=== PATIENT | male | born 1940 | race Caucasian/White ===

== ENCOUNTER 2020-10-10 15:00 | Inpatient (IN) | payer MEDICARE ==
[~2020-10-10] VITALS: Ht 172.7 cm; Wt 71.5 kg
[2020-10-10 15:30] VITALS: BP 144/81
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
[2020-10-10] MEDS ORDERED: MAG HYDROX/AL HYDROX/SIMETH 30 ML ORAL.SUSP PO PRN (17:00)
[2020-10-10] MEDS ORDERED: MAGNESIUM HYDROXIDE 2,400 MG/30 ML ORAL.SUSP. PO PRN (17:00)
[2020-10-10] MEDS ORDERED: METHYL SALICYLATE/MENTHOL TOPICAL OINTMENT 57GM TUBE. TP PRN (17:00)
[2020-10-10] MEDS ORDERED: ACETAMINOPHEN 325 MG TABLET PO PRN (17:00)
[2020-10-10] MEDS ORDERED: DOCUSATE SODIUM 100 MG CAPSULE PO PRN (17:15)
[2020-10-10] MEDS ORDERED: POLYETHYLENE GLYCOL 3350 17 GM PACKET. PO PRN (17:15)
[2020-10-10] MEDS ORDERED: ARIP5TAB13 PO (17:32)
[2020-10-10] MEDS ORDERED: POTA10TA12 PO (17:32)
[2020-10-10] MEDS ORDERED: ASPI-889 PO (17:32)
[2020-10-10] MEDS ORDERED: MIRT15TA90 PO (17:32)
[2020-10-10] MEDS ORDERED: SERT25TA PO (17:32)
[2020-10-10] MEDS ORDERED: CYAN100031 PO (17:32)
[2020-10-10] MEDS ORDERED: FLUT9.9S NS (17:32)
[2020-10-10] MEDS ORDERED: CARB1TAB PO (17:32)
[2020-10-10] MEDS ORDERED: LEVO100T82 PO (17:32)
[2020-10-10] MEDS ORDERED: ATOR20TA58 PO (17:32)
[2020-10-10] MEDS ORDERED: QUET25TA PO (17:32)
[2020-10-10] MEDS ORDERED: SERT20OR3 PO (17:32)
[2020-10-10] MEDS ORDERED: DOCU-109 PO (17:32)
[2020-10-10] MEDS ORDERED: CLOT15CR23 TP (17:32)
[2020-10-10] MEDS ORDERED: FINA5TAB4 PO (17:32)
[2020-10-10] MEDS ORDERED: CHOL200010 PO (17:32)
[2020-10-10] MEDS ORDERED: POLY17PO28 PO (17:32)
[2020-10-10] MEDS ORDERED: ACET325T9 PO (17:32)
[2020-10-10] MEDS ORDERED: DIVA250T PO (17:32)
[2020-10-10] MEDS ORDERED: AMIO200T6 PO (17:32)
[2020-10-10] MEDS: ACETAMINOPHEN 325 MG TABLET PO SCH ×2 (17:54→18:00)
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
[2020-10-10] MEDS ORDERED: CLOTRIMAZOLE 1% TOPICAL CREAM 30GM TUBE. TP SCH (21:00)
[2020-10-10] MEDS ORDERED: DIVALPROEX ER 250 MG TAB.ER.24H. PO SCH (21:00)
--- NOTE | 2020-10-10 21:09 | PDOC ---
Exam Note: Tommy Note: Please also refer to the separate dictated note~for this date of service dictated separately.~Patient seen individually. Discussed the patient with Nursing staff reviewed the chart.~Reviewed interim history and current functioning. Reviewed vital signs,~Labs/ Radiology~and current medications noted below. Continue current treatment with the changes noted in the dictated addendum note Assessment: Vital Signs/I&O: Vital Signs Date Time Temp Pulse Resp B/P (MAP) Pulse Ox O2 Delivery O2 Flow Rate FiO2 10/10/20 15:30 98.1 79 18 144/81 (102) 99 Room Air Current Medications: Meds: Current Medications Medications (Trade) Dose Ordered Sig/Matilde Route PRN Reason Start Time Stop Time Status Last Admin Dose Admin Acetaminophen (Tylenol) 650 mg PRN Q6HRS PRN PO MILD PAIN / TEMP > 100.3'F 10/10/20 17:00 Multi-Ingredient Ointment (Analgesic [place]) 1 ike PRN QID PRN TP MUSCLE PAIN 10/10/20 17:00 Al Hydroxide/Mg Hydroxide (Mylanta Plus Xs) 15 ml PRN AFTMEALHC PRN PO DYSPEPSIA 10/10/20 17:00 Magnesium Hydroxide (Milk Of Magnesia) 2,400 mg PRN QHS PRN PO CONSTIPATION 10/10/20 17:00 Acetaminophen (Tylenol) 650 mg Q6HRS PO 10/10/20 18:00 Amiodarone HCl (Cordarone) 200 mg DAILY PO 10/11/20 09:00 Aripiprazole (Abilify) 5 mg QHS PO 10/10/20 21:00 Aspirin (Aspirin Enteric Coated) 81 mg DAILY PO 10/11/20 09:00 Atorvastatin Calcium (Lipitor) 20 mg QHS PO 10/10/20 21:00 Carbidopa/Levodopa (Sinemet 10/100) 1 tab QID PO 10/10/20 21:00 Clotrimazole (Lotrimin) 15 ike BID TP 10/10/20 21:00 10/10/20 17:54 DC Divalproex Sodium (Depakote Er) 250 mg BID PO 10/10/20 21:00 10/10/20 19:57 DC Docusate Sodium (Colace) 100 mg PRN BID PRN PO CONSTIPATION 10/10/20 17:15 Finasteride (Proscar) 5 mg QHS PO 10/10/20 21:00 Levothyroxine Sodium (Synthroid) 100 mcg DAILY06 PO 10/11/20 06:00 Mirtazapine (Remeron Tiki-Tab) 15 mg QHS PO 10/10/20 21:00 Polyethylene Glycol (miraLAX) 17 gm PRN BID PRN PO constipation 10/10/20 17:15 Potassium Chloride (Klor-Con) 10 meq DAILY PO 10/11/20 09:00 Quetiapine Fumarate (SEROquel) 25 mg BID PO 10/10/20 21:00 Sertraline HCl (Zoloft Oral Conc) 20 mg DAILY PO 10/11/20 09:00 UNV Sertraline HCl (Zoloft) 25 mg DAILY PO 10/11/20 09:00 Vitamin D (Vitamin D3) 2,000 unit DAILY PO 10/11/20 09:00 Cyanocobalamin (Vitamin B-12) 1,000 mcg DAILY PO 10/11/20 09:00 Fluticasone Propionate (Flonase) 1 spray DAILY NS 10/11/20 09:00 Influenza Virus Vaccine Quadrival (Fluzone Quad Syringe) 0.5 ml ONCE ONCE VAX IM 10/11/20 09:00 10/11/20 09:01 Olanzapine (ZyPREXA ZYDIS) 5 mg PRN Q2HR PRN PO PSYCHOSIS 10/10/20 18:30 Divalproex Sodium (Depakote Sprinkles) 125 mg BID PO 10/10/20 21:00 I have reviewed the current psychotropics carefully including drug interactions. Risk benefit ratio favors no change other than as noted in my dictated progress note. Diagnosis: Problems: (1) Major neurocognitive disorder JORGE COLLAZO MD Oct 10, 2020 21:09
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
--- NOTE | 2020-10-10 21:22 | PDOC ---
Exam Note: Tommy Note: Please also refer to the separate dictated note~for this date of service dictated separately.~Patient seen individually. Discussed the patient with Nursing staff reviewed the chart.~Reviewed interim history and current functioning. Reviewed vital signs,~Labs/ Radiology~and current medications noted below. Continue current treatment with the changes noted in the dictated addendum note Assessment: Vital Signs/I&O: Vital Signs Date Time Temp Pulse Resp B/P (MAP) Pulse Ox O2 Delivery O2 Flow Rate FiO2 10/10/20 15:30 98.1 79 18 144/81 (102) 99 Room Air Current Medications: I have reviewed the current psychotropics carefully including drug interactions. Risk benefit ratio favors no change other than as noted in my dictated progress note. 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
[2020-10-11] MEDS: ARIPiprazole 5 MG TABLET PO SCH ×2 (00:23→19:35)
[2020-10-11] MEDS: QUEtiapine 25 MG TABLET. PO SCH ×3 (00:23→19:37)
[2020-10-11] MEDS: MIRTAZAPINE ODT 15 MG TAB.RAPDIS. PO SCH ×2 (00:24→19:36)
[2020-10-11] MEDS: CARBIDOPA/LEVODOPA 10/100MG TABLET PO SCH ×5 (00:24→19:36)
[2020-10-11] MEDS: FINASTERIDE 5 MG TABLET. PO SCH ×2 (00:24→19:35)
[2020-10-11] MEDS: DIVALPROEX 125 MG CAP.SPRINK PO SCH ×3 (00:24→19:36)
[2020-10-11] MEDS: ATORVASTATIN CALCIUM 20 MG TABLET PO SCH ×2 (00:25→19:37)
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
[2020-10-11] MEDS: LEVOTHYROXINE 100 MCG TABLET PO SCH (05:21)
[2020-10-11 05:34] VITALS: BP 111/47
[2020-10-11] MEDS: ACETAMINOPHEN 325 MG TABLET PO SCH ×4 (05:42→17:20)
[2020-10-11 06:34] LABS: BASO % 0 % (0-3); EOS % 0 % (0-3); HEMATOCRIT 36.1 % (39.0-53.0); HEMOGLOBIN 11.3 g/dL (13.0-17.5); LYMPH # 1.6 x10^3/uL (1.0-4.8); LYMPH % 21 % (24-48); MEAN CORPUSCULAR HEMOGLOBIN 29 pg (25-35); MEAN CORPUSCULAR HGB CONC 31 g/dL (31-37); MEAN CORPUSCULAR VOLUME 93 fL (79-100); MONO % 13 % (0-9); NEUT # 5.2 x10^3uL (1.8-7.7); NEUT % 66 % (31-73); PLATELET COUNT 204 x10^3/uL (140-400); RED BLOOD COUNT 3.88 x10^6/uL (4.30-5.70); WHITE BLOOD COUNT 7.9 x10^3/uL (4.0-11.0)
[2020-10-11 06:40] LABS: ALBUMIN 3.5 g/dL (3.4-5.0); ALBUMIN/GLOBULIN RATIO 1.1 (1.0-1.7); ALK PHOS 67 U/L (46-116); ALT (SGPT) 17 U/L (16-63); ANION GAP 8 (6-14); AST (SGOT) 22 U/L (15-37); BLOOD UREA NITROGEN 27 mg/dL (8-26); BUN/CREATININE RATIO 21 (6-20); CARBON DIOXIDE 30 mmol/L (21-32); CHLORIDE 105 mmol/L (98-107); CREATININE 1.3 mg/dL (0.7-1.3); GLUCOSE 86 mg/dL (70-99); POTASSIUM 4.3 mmol/L (3.5-5.1); SODIUM 143 mmol/L (136-145); TOTAL BILIRUBIN 0.6 mg/dL (0.2-1.0); TOTAL PROTEIN 6.8 g/dL (6.4-8.2); VAL ACID 33 mcg/mL (50-100)
[2020-10-11 06:49] LABS: BACTERIA,URINE FEW /HPF (0-FEW); BILIRUBIN,URINE NEG (NEG); CLARITY,URINE HAZY; COLOR,URINE AMBER; GLUCOSE,URINE NEG (NEG); NITRITE,URINE NEG (NEG); RBC,URINE OCC /HPF (0-2); SQUAMOUS EPITHELIAL CELL,UR FEW /LPF
[2020-10-11 06:50] LABS: HYALINE CASTS, URINE MOD /HPF
[2020-10-11] MEDS: CHOLECALCIFEROL (VITAMIN D3) 1,000 UNIT TABLET PO SCH (08:39)
[2020-10-11] MEDS: AMIODARONE HCL 200 MG TABLET. PO SCH (08:39)
[2020-10-11] MEDS: CYANOCOBALAMIN (VITAMIN B-12) 1,000 MCG TABLET. PO SCH (08:39)
[2020-10-11] MEDS: ASPIRIN ENTERIC COATED 81 MG TABLET.DR. PO SCH (08:39)
[2020-10-11] MEDS: POTASSIUM CHLORIDE 10 MEQ TABLET.ER. PO SCH (08:39)
[2020-10-11] MEDS: FLUTICASONE 50MCG/NASAL SPRAY 16GM BOTTLE. NS SCH (08:40)
[2020-10-11] MEDS: SERTRALINE 25 MG TABLET. PO SCH (08:40)
[2020-10-11] MEDS ORDERED: FLU VACC QS 2020-21(6MOS+)/PF 0.5 ML SYRINGE. VAX IM ONE (09:00)
[2020-10-11] MEDS ORDERED: SERTRALINE 20 MG/ML PO SCH (09:00)
--- NOTE | 2020-10-11 10:56 | NUR ---
Nursing note: Pt was in quiet room at time of shift change. He can be irritable and labile at times, but has been mostly pleasant this morning. He is compliant with meds whole and cooperative with assessment. Pt has had some hallucinations this morning, talking to people who aren't there. He denies having any pain. He is currently sitting quietly in his wheelchair in the hallway. Will continue to monitor.
[2020-10-11 11:12] LABS: THYROXINE 9.2 ug/dL (4.5-12.0)
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
[2020-10-11 15:40] VITALS: BP 95/63
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
[2020-10-11] MEDS ORDERED: traZODone 50 MG TABLET. PO PRN (16:15)
--- NOTE | 2020-10-11 21:15 | PDOC ---
Exam Note: Tommy Note: Please also refer to the separate dictated note~for this date of service dictated separately.~Patient seen individually. Discussed the patient with Nursing staff reviewed the chart.~Reviewed interim history and current functioning. Reviewed vital signs,~Labs/ Radiology~and current medications noted below. Continue current treatment with the changes noted in the dictated addendum note Assessment: Vital Signs/I&O: Vital Signs Date Time Temp Pulse Resp B/P (MAP) Pulse Ox O2 Delivery O2 Flow Rate FiO2 10/11/20 15:40 97.7 90 18 95/63 (74) 98 Room Air I & O 10/10/20 10/10/20 10/11/20 15:00 23:00 07:00 Intake Total 60 ml Balance 60 ml Labs: Laboratory Tests Test 10/11/20 05:15 10/11/20 06:00 Urine Collection Type Void Urine Color Susi Urine Clarity Hazy Urine pH 5.5 Urine Specific [place] 1.025 Urine Protein 30 mg/dl (NEG-TRACE) Urine Glucose (UA) Neg mg/dL (NEG) Urine Ketones (Stick) 15 mg/dL (NEG) Urine Blood Neg (NEG) Urine Nitrite Neg (NEG) Urine Bilirubin Neg (NEG) Urine Urobilinogen Dipstick 1.0 mg/dL (0.2 mg/dL) Urine Leukocyte Esterase Neg (NEG) Urine RBC Occ /HPF (0-2) Urine WBC 1-4 /HPF (0-4) Urine Squamous Epithelial Cells Few /LPF Urine Bacteria Few /HPF (0-FEW) Urine Hyaline Casts Mod /HPF Urine Mucus Mod /LPF White Blood Count 7.9 x10^3/uL (4.0-11.0) Red Blood Count 3.88 x10^6/uL (4.30-5.70) L Hemoglobin 11.3 g/dL (13.0-17.5) L Hematocrit 36.1 % (39.0-53.0) L Mean Corpuscular Volume 93 fL (79-100) Mean Corpuscular Hemoglobin 29 pg (25-35) Mean Corpuscular Hemoglobin Concent 31 g/dL (31-37) Red Cell Distribution Width 18.0 % (11.5-14.5) H Platelet Count 204 x10^3/uL (140-400) Neutrophils (%) (Auto) 66 % (31-73) Lymphocytes (%) (Auto) 21 % (24-48) L Monocytes (%) (Auto) 13 % (0-9) H Eosinophils (%) (Auto) 0 % (0-3) Basophils (%) (Auto) 0 % (0-3) Neutrophils # (Auto) 5.2 x10^3uL (1.8-7.7) Lymphocytes # (Auto) 1.6 x10^3/uL (1.0-4.8) Monocytes # (Auto) 1.0 x10^3/uL (0.0-1.1) Eosinophils # (Auto) 0.0 x10^3/uL (0.0-0.7) Basophils # (Auto) 0.0 x10^3/uL (0.0-0.2) Prothrombin Time 11.1 SEC (9.4-11.4) Prothrombin Time INR 1.1 (0.9-1.1) D-Dimer (Leslie) 1.56 mg/L (0.00-0.50) H Sodium Level 143 mmol/L (136-145) Potassium Level 4.3 mmol/L (3.5-5.1) Chloride Level 105 mmol/L (98-107) Carbon Dioxide Level 30 mmol/L (21-32) Anion Gap 8 (6-14) Blood Urea Nitrogen 27 mg/dL (8-26) H Creatinine 1.3 mg/dL (0.7-1.3) Estimated GFR (Cockcroft-Gault) 53.0 BUN/Creatinine Ratio 21 (6-20) H Glucose Level 86 mg/dL (70-99) Calcium Level 9.0 mg/dL (8.5-10.1) Magnesium Level 2.0 mg/dL (1.8-2.4) Total Bilirubin 0.6 mg/dL (0.2-1.0) Aspartate Amino Transferase (AST) 22 U/L (15-37) Alanine Aminotransferase (ALT) 17 U/L (16-63) Alkaline Phosphatase 67 U/L (46-116) Total Protein 6.8 g/dL (6.4-8.2) Albumin 3.5 g/dL (3.4-5.0) Albumin/Globulin Ratio 1.1 (1.0-1.7) Thyroxine (T4) 9.2 ug/dL (4.5-12.0) Total Triiodothyronine (TT3) 64 ng/dL (71-180) L Valproic Acid Level 33 mcg/mL (50-100) L Valproic Acid Last Dose Date 10/10/20 Valproic Acid Last Dose Time 2100 Current Medications: Meds: Laboratory Tests Test 10/11/20 05:15 10/11/20 06:00 Urine Collection Type Void Urine Color Susi Urine Clarity Hazy Urine pH 5.5 Urine Specific [place] 1.025 Urine Protein 30 mg/dl Urine Glucose (UA) Neg mg/dL Urine Ketones (Stick) 15 mg/dL Urine Blood Neg Urine Nitrite Neg Urine Bilirubin Neg Urine Urobilinogen Dipstick 1.0 mg/dL Urine Leukocyte Esterase Neg Urine RBC Occ /HPF Urine WBC 1-4 /HPF Urine Squamous Epithelial Cells Few /LPF Urine Bacteria Few /HPF Urine Hyaline Casts Mod /HPF Urine Mucus Mod /LPF White Blood Count 7.9 x10^3/uL Red Blood Count 3.88 x10^6/uL Hemoglobin 11.3 g/dL Hematocrit 36.1 % Mean Corpuscular Volume 93 fL Mean Corpuscular Hemoglobin 29 pg Mean Corpuscular Hemoglobin Concent 31 g/dL Red Cell Distribution Width 18.0 % Platelet Count 204 x10^3/uL Neutrophils (%) (Auto) 66 % Lymphocytes (%) (Auto) 21 % Monocytes (%) (Auto) 13 % Eosinophils (%) (Auto) 0 % Basophils (%) (Auto) 0 % Neutrophils # (Auto) 5.2 x10^3uL Lymphocytes # (Auto) 1.6 x10^3/uL Monocytes # (Auto) 1.0 x10^3/uL Eosinophils # (Auto) 0.0 x10^3/uL Basophils # (Auto) 0.0 x10^3/uL Prothrombin Time 11.1 SEC Prothromb Time International Ratio 1.1 D-Dimer (Leslie) 1.56 mg/L Sodium Level 143 mmol/L Potassium Level 4.3 mmol/L Chloride Level 105 mmol/L Carbon Dioxide Level 30 mmol/L Anion Gap 8 Blood Urea Nitrogen 27 mg/dL Creatinine 1.3 mg/dL Estimated GFR (Cockcroft-Gault) 53.0 BUN/Creatinine Ratio 21 Glucose Level 86 mg/dL Calcium Level 9.0 mg/dL Magnesium Level 2.0 mg/dL Total Bilirubin 0.6 mg/dL Aspartate Amino Transf (AST/SGOT) 22 U/L Alanine Aminotransferase (ALT/SGPT) 17 U/L Alkaline Phosphatase 67 U/L Total Protein 6.8 g/dL Albumin 3.5 g/dL Albumin/Globulin Ratio 1.1 Thyroxine (T4) 9.2 ug/dL Total Triiodothyronine 64 ng/dL Valproic Acid (Depakene) Level 33 mcg/mL Valproic Acid Last Dose Date 10/10/20 Valproic Acid Last Dose Time 2100 Current Medications Medications (Trade) Dose Ordered Sig/Matilde Route PRN Reason Start Time Stop Time Status Last Admin Dose Admin Acetaminophen (Tylenol) 650 mg PRN Q6HRS PRN PO MILD PAIN / TEMP > 100.3'F 10/10/20 17:00 Multi-Ingredient Ointment (Analgesic [place]ley) 1 ike PRN QID PRN TP MUSCLE PAIN 10/10/20 17:00 Al Hydroxide/Mg Hydroxide (Mylanta Plus Xs) 15 ml PRN AFTMEALHC PRN PO DYSPEPSIA 10/10/20 17:00 Magnesium Hydroxide (Milk Of Magnesia) 2,400 mg PRN QHS PRN PO CONSTIPATION 10/10/20 17:00 Acetaminophen (Tylenol) 650 mg Q6HRS PO 10/10/20 18:00 10/11/20 17:20 Amiodarone HCl (Cordarone) 200 mg DAILY PO 10/11/20 09:00 10/11/20 08:39 Aripiprazole (Abilify) 5 mg QHS PO 10/10/20 21:00 10/11/20 19:35 Aspirin (Aspirin Enteric Coated) 81 mg DAILY PO 10/11/20 09:00 10/11/20 08:39 Atorvastatin Calcium (Lipitor) 20 mg QHS PO 10/10/20 21:00 10/11/20 19:37 Carbidopa/Levodopa (Sinemet 10/100) 1 tab QID PO 10/10/20 21:00 10/11/20 19:36 Clotrimazole (Lotrimin) 15 ike BID TP 10/10/20 21:00 10/10/20 17:54 DC Divalproex Sodium (Depakote Er) 250 mg BID PO 10/10/20 21:00 10/10/20 19:57 DC Docusate Sodium (Colace) 100 mg PRN BID PRN PO CONSTIPATION 10/10/20 17:15 Finasteride (Proscar) 5 mg QHS PO 10/10/20 21:00 10/11/20 19:35 Levothyroxine Sodium (Synthroid) 100 mcg DAILY06 PO 10/11/20 06:00 10/11/20 05:21 Mirtazapine (Remeron Tiki-Tab) 15 mg QHS PO 10/10/20 21:00 10/11/20 19:36 Polyethylene Glycol (miraLAX) 17 gm PRN BID PRN PO constipation 10/10/20 17:15 Potassium Chloride (Klor-Con) 10 meq DAILY PO 10/11/20 09:00 10/11/20 08:39 Quetiapine Fumarate (SEROquel) 25 mg BID PO 10/10/20 21:00 10/11/20 19:37 Sertraline HCl (Zoloft Oral Conc) 20 mg DAILY PO 10/11/20 09:00 UNV Sertraline HCl (Zoloft) 25 mg DAILY PO 10/11/20 09:00 10/11/20 08:40 Vitamin D (Vitamin D3) 2,000 unit DAILY PO 10/11/20 09:00 10/11/20 08:39 Cyanocobalamin (Vitamin B-12) 1,000 mcg DAILY PO 10/11/20 09:00 10/11/20 08:39 Fluticasone Propionate (Flonase) 1 spray DAILY NS 10/11/20 09:00 10/11/20 08:40 Influenza Virus Vaccine Quadrival (Fluzone Quad Syringe) 0.5 ml ONCE ONCE VAX IM 10/11/20 09:00 10/11/20 09:01 DC 10/11/20 11:10 Olanzapine (ZyPREXA ZYDIS) 5 mg PRN Q2HR PRN PO PSYCHOSIS 10/10/20 18:30 10/11/20 20:09 Divalproex Sodium (Depakote Sprinkles) 125 mg BID PO 10/10/20 21:00 10/11/20 16:06 DC 10/11/20 08:36 Divalproex Sodium (Depakote Sprinkles) 250 mg BID PO 10/11/20 21:00 10/11/20 19:36 Trazodone HCl (Desyrel) 50 mg PRN QHS PRN PO INSOMNIA, MAY REPEAT X2 10/11/20 16:15 10/11/20 20:09 Current Medications Medications (Trade) Dose Ordered Sig/Matilde Route PRN Reason Start Time Stop Time Status Last Admin Dose Admin Amiodarone HCl (Cordarone) 200 mg DAILY PO 10/11/20 09:00 10/11/20 08:39 Aspirin (Aspirin Enteric Coated) 81 mg DAILY PO 10/11/20 09:00 10/11/20 08:39 Levothyroxine Sodium (Synthroid) 100 mcg DAILY06 PO 10/11/20 06:00 10/11/20 05:21 Potassium Chloride (Klor-Con) 10 meq DAILY PO 10/11/20 09:00 10/11/20 08:39 Sertraline HCl (Zoloft) 25 mg DAILY PO 10/11/20 09:00 10/11/20 08:40 Vitamin D (Vitamin D3) 2,000 unit DAILY PO 10/11/20 09:00 10/11/20 08:39 Cyanocobalamin (Vitamin B-12) 1,000 mcg DAILY PO 10/11/20 09:00 10/11/20 08:39 Fluticasone Propionate (Flonase) 1 spray DAILY NS 10/11/20 09:00 10/11/20 08:40 Influenza Virus Vaccine Quadrival (Fluzone Quad [id number] Syringe) 0.5 ml ONCE ONCE VAX IM 10/11/20 09:00 10/11/20 09:01 DC 10/11/20 11:10 Divalproex Sodium (Depakote Sprinkles) 250 mg BID PO 10/11/20 21:00 10/11/20 19:36 Trazodone HCl (Desyrel) 50 mg PRN QHS PRN PO INSOMNIA, MAY REPEAT X2 10/11/20 16:15 10/11/20 20:09 I have reviewed the current psychotropics carefully including drug interactions. Risk benefit ratio favors no change other than as noted in my dictated progress note. 

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
[2020-10-12 02:14] LABS: HEMOGLOBIN A1C 4.5 % (4.8-5.6)
[2020-10-12] MEDS: ACETAMINOPHEN 325 MG TABLET PO SCH ×4 (05:42→17:05)
[2020-10-12] MEDS: LEVOTHYROXINE 100 MCG TABLET PO SCH (05:42)
[2020-10-12 06:11] VITALS: BP 103/60
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
[2020-10-12] MEDS: FLUTICASONE 50MCG/NASAL SPRAY 16GM BOTTLE. NS SCH (10:32)
[2020-10-12] MEDS: CARBIDOPA/LEVODOPA 10/100MG TABLET PO SCH ×4 (10:32→19:38)
[2020-10-12] MEDS: CHOLECALCIFEROL (VITAMIN D3) 1,000 UNIT TABLET PO SCH (10:33)
[2020-10-12] MEDS: SERTRALINE 25 MG TABLET. PO SCH (10:33)
[2020-10-12] MEDS: POTASSIUM CHLORIDE 10 MEQ TABLET.ER. PO SCH (10:33)
[2020-10-12] MEDS: DIVALPROEX 125 MG CAP.SPRINK PO SCH ×2 (10:33→19:39)
[2020-10-12] MEDS: ASPIRIN ENTERIC COATED 81 MG TABLET.DR. PO SCH (10:34)
[2020-10-12] MEDS: AMIODARONE HCL 200 MG TABLET. PO SCH (10:34)
[2020-10-12] MEDS: QUEtiapine 25 MG TABLET. PO SCH ×2 (10:35→19:38)
[2020-10-12] MEDS: CYANOCOBALAMIN (VITAMIN B-12) 1,000 MCG TABLET. PO SCH (10:35)
--- NOTE | 2020-10-12 10:48 | NUR ---
Nursing note: Pt was allowed to sleep in this AM. Meds were administered upon awakening. He is in good spirits this morning, compliant with meds whole when told they are for his Parkinson's. Pt has a bruise on the right side of his forehead, but denies having any pain, just a little tender when touched. Pt continues to be very disorganized and delusional. He is currently laying on the mattress in the quiet room. Will continue to monitor.
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
[2020-10-12 12:47] LABS: THYROID STIM HORMONE (TSH) 3.386 uIU/mL (0.358-3.740)
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
--- NOTE | 2020-10-12 13:40 | NUR ---
ACTIVITY THERAPY ASSESSMENT completed based on notes, observation, and interview. Pt was asleep in the secured hallway. Pt was drooling on his chest. AT woke pt up and he appeared to be confused. Pt said that his birthday is 1940. Pt was unable to say what year it was or his location. Pt was unable to give his reason for admission. Pt said that he liked basketball and farming. Per notes pt also likes dogs, woodworking, reading and music.Pt said that he did not like card games and word searches. Pt mentioned that he was uncomfortable in his wheelchair. AT said that she would request a cushion or pillow for his wheelchair. Pt was nonsensical at times, talking about topics unrelated to the conversation. Pt said that he was not and had three daughters. Pt said that he does not get to talk to them that much.Per notes daughter is very involved in planning. Pt fell asleep frequently throughout assessment. A pillow was given to pt to put on his wheelchair. RN and AT assisted pt put the pillow underneath himself. Pt tried to stand up from his wheelchair in the secured juarez. Nursing staff assisted pt to sit back down into his chair. Initial goal is aimed to increase stress management and socialization skills. Pt will participate in at least one individual or group Activity Therapy session per week.
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
[2020-10-12 15:57] VITALS: BP 98/50
[2020-10-12] MEDS ORDERED: ACET325T21 PO (19:19)
[2020-10-12] MEDS ORDERED: CHOL400T36 PO (19:21)
[2020-10-12] MEDS ORDERED: MAGN24003 PO (19:22)
[2020-10-12] MEDS ORDERED: MAG-124 PO (19:22)
[2020-10-12] MEDS ORDERED: METH57CR17 TP (19:23)
[2020-10-12] MEDS ORDERED: OLAN5TAB7 PO (19:23)
[2020-10-12] MEDS ORDERED: TRAZ-120 PO (19:24)
[2020-10-12] MEDS: ATORVASTATIN CALCIUM 20 MG TABLET PO SCH (19:38)
[2020-10-12] MEDS: ARIPiprazole 5 MG TABLET PO SCH (19:38)
[2020-10-12] MEDS: FINASTERIDE 5 MG TABLET. PO SCH (19:38)
[2020-10-12] MEDS: MIRTAZAPINE ODT 15 MG TAB.RAPDIS. PO SCH (19:38)
--- NOTE | 2020-10-12 21:06 | PDOC ---
Exam Note: Tommy Note: Please also refer to the separate dictated note~for this date of service dictated separately.~Patient seen individually. Discussed the patient with Nursing staff reviewed the chart.~Reviewed interim history and current functioning. Reviewed vital signs,~Labs/ Radiology~and current medications noted below. Continue current treatment with the changes noted in the dictated addendum note Assessment: Vital Signs/I&O: Vital Signs Date Time Temp Pulse Resp B/P (MAP) Pulse Ox O2 Delivery O2 Flow Rate FiO2 10/12/20 15:57 97.1 74 16 98/50 (66) 94 10/12/20 06:11 Room Air I & O 10/11/20 10/11/20 10/12/20 15:00 23:00 07:00 Intake Total 440 ml 100 ml Balance 440 ml 100 ml Current Medications: Meds: Current Medications Medications (Trade) Dose Ordered Sig/Matilde Route PRN Reason Start Time Stop Time Status Last Admin Dose Admin Acetaminophen (Tylenol) 650 mg PRN Q6HRS PRN PO MILD PAIN / TEMP > 100.3'F 10/10/20 17:00 Multi-Ingredient Ointment (Analgesic [place]) 1 ike PRN QID PRN TP MUSCLE PAIN 10/10/20 17:00 Al Hydroxide/Mg Hydroxide (Mylanta Plus Xs) 15 ml PRN AFTMEALHC PRN PO DYSPEPSIA 10/10/20 17:00 Magnesium Hydroxide (Milk Of Magnesia) 2,400 mg PRN QHS PRN PO CONSTIPATION 10/10/20 17:00 Acetaminophen (Tylenol) 650 mg Q6HRS PO 10/10/20 18:00 10/12/20 17:05 Amiodarone HCl (Cordarone) 200 mg DAILY PO 10/11/20 09:00 10/12/20 10:34 Aripiprazole (Abilify) 5 mg QHS PO 10/10/20 21:00 10/12/20 19:38 Aspirin (Aspirin Enteric Coated) 81 mg DAILY PO 10/11/20 09:00 10/12/20 10:34 Atorvastatin Calcium (Lipitor) 20 mg QHS PO 10/10/20 21:00 10/12/20 19:38 Carbidopa/Levodopa (Sinemet 10/100) 1 tab QID PO 10/10/20 21:00 10/12/20 19:38 Clotrimazole (Lotrimin) 15 ike BID TP 10/10/20 21:00 10/10/20 17:54 DC Divalproex Sodium (Depakote Er) 250 mg BID PO 10/10/20 21:00 10/10/20 19:57 DC Docusate Sodium (Colace) 100 mg PRN BID PRN PO CONSTIPATION 10/10/20 17:15 Finasteride (Proscar) 5 mg QHS PO 10/10/20 21:00 10/12/20 19:38 Levothyroxine Sodium (Synthroid) 100 mcg DAILY06 PO 10/11/20 06:00 10/12/20 05:42 Mirtazapine (Remeron Tiki-Tab) 15 mg QHS PO 10/10/20 21:00 10/12/20 19:38 Polyethylene Glycol (miraLAX) 17 gm PRN BID PRN PO constipation 10/10/20 17:15 Potassium Chloride (Klor-Con) 10 meq DAILY PO 10/11/20 09:00 10/12/20 10:33 Quetiapine Fumarate (SEROquel) 25 mg BID PO 10/10/20 21:00 10/12/20 19:38 Sertraline HCl (Zoloft Oral Conc) 20 mg DAILY PO 10/11/20 09:00 UNV Sertraline HCl (Zoloft) 25 mg DAILY PO 10/11/20 09:00 10/12/20 10:33 Vitamin D (Vitamin D3) 2,000 unit DAILY PO 10/11/20 09:00 10/12/20 10:33 Cyanocobalamin (Vitamin B-12) 1,000 mcg DAILY PO 10/11/20 09:00 10/12/20 10:35 Fluticasone Propionate (Flonase) 1 spray DAILY NS 10/11/20 09:00 10/12/20 10:32 Influenza Virus Vaccine Quadrival (Fluzone Quad Syringe) 0.5 ml ONCE ONCE VAX IM 10/11/20 09:00 10/11/20 09:01 DC 10/11/20 11:10 Olanzapine (ZyPREXA ZYDIS) 5 mg PRN Q2HR PRN PO PSYCHOSIS 10/10/20 18:30 10/11/20 20:09 Divalproex Sodium (Depakote Sprinkles) 125 mg BID PO 10/10/20 21:00 10/11/20 16:06 DC 10/11/20 08:36 Divalproex Sodium (Depakote Sprinkles) 250 mg BID PO 10/11/20 21:00 10/12/20 19:39 Trazodone HCl (Desyrel) 50 mg PRN QHS PRN PO INSOMNIA, MAY REPEAT X2 10/11/20 16:15 10/11/20 20:09 I have reviewed the current psychotropics carefully including drug interactions. Risk benefit ratio favors no change other than as noted in my dictated progress note. 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
--- NOTE | 2020-10-12 21:44 | NUR ---
Transition Record was faxed to follow-up provider with the following elements: Reason for admission, procedures, tests, principal diagnosis, pending studies, patient instructions, 21/04 contact information for unit, phone number to obtain pending test results, plan for follow-up care, physician follow-up, advanced directive information, and medication list with dose, duration and instructions. This information was included in the following documents: History and physical, lab results, study results, progress notes, social work planning form, DC instruction form, patient visit summary, and medication reconciliation form. Date & time record faxed: [id number]/12/20 [facility] Record discussed with/ report given to:Shirlene [facility]GA [facility]
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
[2020-10-13] MEDS ORDERED: CYAN100031 PO (19:23)
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
--- NOTE | 2020-10-14 21:30 | PDOC ---
Exam Note: [facility] Note: Kindly ignore the note for 10/12/2020 as the patient was discharged on 10/12/2020. Please refer to the Discharge summary #[id number] Please also refer to the separate dictated note~for this date of service dictated separately.~Patient seen individually. Discussed the patient with Nursing staff reviewed the chart.~Reviewed interim history and current functioning. Reviewed vital signs,~Labs/ Radiology~and current medications noted below. Continue current treatment with the changes noted in the dictated addendum note Assessment: Vital Signs/I&O: Vital Signs Date Time Temp Pulse Resp B/P (MAP) Pulse Ox O2 Delivery O2 Flow Rate FiO2 10/12/20 15:57 97.1 74 16 98/50 (66) 94 10/12/20 06:11 Room Air Current Medications: Meds: Current Medications Medications (Trade) Dose Ordered Sig/Matilde Route PRN Reason Start Time Stop Time Status Last Admin Dose Admin Acetaminophen (Tylenol) 650 mg PRN Q6HRS PRN PO MILD PAIN / TEMP > 100.3'F 10/10/20 17:00 10/12/20 23:06 DC Multi-Ingredient Ointment (Analgesic Corinne) 1 ike PRN QID PRN TP MUSCLE PAIN 10/10/20 17:00 10/12/20 23:06 DC Al Hydroxide/Mg Hydroxide (Mylanta Plus Xs) 15 ml PRN AFTMEALHC PRN PO DYSPEPSIA 10/10/20 17:00 10/12/20 23:06 DC Magnesium Hydroxide (Milk Of Magnesia) 2,400 mg PRN QHS PRN PO CONSTIPATION 10/10/20 17:00 10/12/20 23:06 DC Acetaminophen (Tylenol) 650 mg Q6HRS PO 10/10/20 18:00 10/12/20 23:06 DC 10/12/20 17:05 Amiodarone HCl (Cordarone) 200 mg DAILY PO 10/11/20 09:00 10/12/20 23:06 DC 10/12/20 10:34 Aripiprazole (Abilify) 5 mg QHS PO 10/10/20 21:00 10/12/20 23:06 DC 10/12/20 19:38 Aspirin (Aspirin Enteric Coated) 81 mg DAILY PO 10/11/20 09:00 10/12/20 23:06 DC 10/12/20 10:34 Atorvastatin Calcium (Lipitor) 20 mg QHS PO 10/10/20 21:00 10/12/20 23:06 DC 10/12/20 19:38 Carbidopa/Levodopa (Sinemet 10/100) 1 tab QID PO 10/10/20 21:00 10/12/20 23:06 DC 10/12/20 19:38 Clotrimazole (Lotrimin) 15 ike BID TP 10/10/20 21:00 10/10/20 17:54 DC Divalproex Sodium (Depakote Er) 250 mg BID PO 10/10/20 21:00 10/10/20 19:57 DC Docusate Sodium (Colace) 100 mg PRN BID PRN PO CONSTIPATION 10/10/20 17:15 10/12/20 23:06 DC Finasteride (Proscar) 5 mg QHS PO 10/10/20 21:00 10/12/20 23:06 DC 10/12/20 19:38 Levothyroxine Sodium (Synthroid) 100 mcg DAILY06 PO 10/11/20 06:00 10/12/20 23:06 DC 10/12/20 05:42 Mirtazapine (Remeron Tiki-Tab) 15 mg QHS PO 10/10/20 21:00 10/12/20 23:06 DC 10/12/20 19:38 Polyethylene Glycol (miraLAX) 17 gm PRN BID PRN PO constipation 10/10/20 17:15 10/12/20 23:06 DC Potassium Chloride (Klor-Con) 10 meq DAILY PO 10/11/20 09:00 10/12/20 23:06 DC 10/12/20 10:33 Quetiapine Fumarate (SEROquel) 25 mg BID PO 10/10/20 21:00 10/12/20 23:06 DC 10/12/20 19:38 Sertraline HCl (Zoloft Oral Conc) 20 mg DAILY PO 10/11/20 09:00 UNV Sertraline HCl (Zoloft) 25 mg DAILY PO 10/11/20 09:00 10/12/20 23:06 DC 10/12/20 10:33 Vitamin D (Vitamin D3) 2,000 unit DAILY PO 10/11/20 09:00 10/12/20 23:06 DC 10/12/20 10:33 Cyanocobalamin (Vitamin B-12) 1,000 mcg DAILY PO 10/11/20 09:00 10/12/20 23:06 DC 10/12/20 10:35 Fluticasone Propionate (Flonase) 1 spray DAILY NS 10/11/20 09:00 10/12/20 23:06 DC 10/12/20 10:32 Influenza Virus Vaccine Quadrival (Fluzone Quad Syringe) 0.5 ml ONCE ONCE VAX IM 10/11/20 09:00 10/11/20 09:01 DC 10/11/20 11:10 Olanzapine (ZyPREXA ZYDIS) 5 mg PRN Q2HR PRN PO PSYCHOSIS 10/10/20 18:30 10/12/20 23:06 DC 10/11/20 20:09 Divalproex Sodium (Depakote Sprinkles) 125 mg BID PO 10/10/20 21:00 10/11/20 16:06 DC 10/11/20 08:36 Divalproex Sodium (Depakote Sprinkles) 250 mg BID PO 10/11/20 21:00 10/12/20 23:06 DC 10/12/20 19:39 Trazodone HCl (Desyrel) 50 mg PRN QHS PRN PO INSOMNIA, MAY REPEAT X2 10/11/20 16:15 10/12/20 23:06 DC 10/11/20 20:09 I have reviewed the current psychotropics carefully including drug interactions. Risk benefit ratio favors no change other than as noted in my dictated progress note. Diagnosis: Problems: (1) Impulse control disorder, unspecified (2) Anxiety disorder, unspecified (3) Dementia, vascular, with depression (4) Dementia, vascular, with delusions (5) Dementia in Alzheimer's disease with depression (6) Dementia in Alzheimer's disease with delusions (7) Dementia due to Parkinson's disease with behavioral disturbance (8) Major neurocognitive disorder JORGE OCLLAZO MD Oct 14, 2020 21:30
--- NOTE | 2020-10-15 00:50 | CONS ---
DATE OF CONSULTATION: 10/12/2020 REFERRING PHYSICIAN: Dr. Christina. REASON FOR CONSULTATION: History of dementia and Parkinson's disease. HISTORY OF PRESENT ILLNESS: This is an 79-year-old right-handed male who was admitted to [facility] on 10/10/2020 on account of increasing symptoms of agitation, hallucinations and delusions along with behavior disturbances. The patient was initially seen at [facility], then transferred to [facility]. He was medically stable, but in the alf, the patient started having behavior disturbances as yelling out, noncooperative, refusing taking his medications at time. Neuro consult was requested because the patient had symptoms of parkinsonism including severe gait disturbances and tremor with some rigidity. The patient is unable to provide any information about his Parkinson disease. PAST MEDICAL HISTORY: Significant for dementia of possible Alzheimer type, along with parkinsonism, presented with some tremors of the upper extremities, bradykinesia and difficulty to stand and walk. He has been in wheelchair most of the time, but he is able to use a walker with one laboratory assistant. History of benign prostate hypertrophy, hypertension, hypothyroidism, frequent falls in the past, coronary artery disease, and psychiatric disorder as described above. SOCIAL HISTORY: The patient is a resident at [facility]. He was a smoker and drinker. CURRENT MEDICATIONS: Carbidopa/levodopa 10/100 mg 4 times daily, amiodarone 200 mg daily, Lipitor 20 mg daily at bedtime, aspirin 81 mg daily, Tylenol 650 mg p.r.n., valproic acid 250 mg twice a day, mirtazapine 15 mg at bedtime, sertraline 25 mg daily, ____ 5 mg daily, Seroquel 25 mg twice daily, potassium 10 mEq daily, Flonase nasal spray 4 times daily, levothyroxine 100 mcg daily and finasteride 5 mg daily. ALLERGIES: AMIODARONE, ATENOLOL, HYDROCODONE, LISINOPRIL, NITROGLYCERIN, AND WARFARIN. REVIEW OF SYSTEMS: A 12-point review of systems was performed as mentioned above in history of present illness. PHYSICAL EXAMINATION: GENERAL: Well-developed, well-nourished male, not in acute distress. He weighs 71.5 kg. VITAL SIGNS: Blood pressure 98/50, respiratory rate 16, pulse is 74 and regular, temperature is 97.1, oxygen saturation 94% on room air. HEENT: Normocephalic, atraumatic, otherwise unremarkable. NECK: Supple. Negative for carotid bruit, lymphadenopathy or thyromegaly. LUNGS: Clear to A and P. CARDIOVASCULAR: Regular rhythm, normal S1, S2. There is no S3, S4 or murmur. ABDOMEN: Soft. Bowel sounds positive. EXTREMITIES: Negative for cyanosis, clubbing, pitting edema. NEUROLOGIC: Mental Status: The patient is awake, alert to himself, but he is disoriented to time, place and person. Speech is fluent. There is no language dysfunction. Memory, judgment and abstracting thinking are true. Further evaluation is limited at this time due to underlying dementia. Cranial Nerves: Visual eduardo appear to be intact. There is no nystagmus. Extraocular movements are intact. There is no facial motor or sensory deficits. Hearing appeared to be intact. The palate is elevated symmetrically. Sternocleidomastoid muscles are powerful bilaterally. The patient shrugs his shoulders symmetrically, protrudes his tongue in the midline without fasciculation or atrophy. MOTOR EXAMINATION: No focal muscle bulk was seen. The tone is normal. The strength is 4/5 throughout. SENSORY EXAMINATION: Revealed normal pinprick, light touch, vibratory and position senses. Deep tendon reflexes were asymmetric and hypoactive with absent Achilles responses. GAIT: The stance is unsteady. LABORATORY DATA: CBC revealed white blood cells of 7.9 thousand, hemoglobin 11.3, hematocrit 36.1, platelet count is 204,000. Chemistry revealed iron is low at 31. Magnesium normal at 2. TIBC is 282. Iron saturation is low at 11. Liver enzymes are normal. CRP is high at 10.7. Lipid profile is normal except for low HDL at 34. Vitamin B12 is normal at 634 and normal vitamin D with normal TSH and T4. Urinalysis is negative for urinary tract infections. Valproic acid is 33. Coronavirus PCR is detected. IMPRESSION: 1. Dementia, probably of Alzheimer's type. 2. Mild resting tremor of both upper extremities with history of Parkinson's disease. 3. Multiple medical problems include hypertension, hyperlipidemia, hypothyroidism and detected coronavirus PCR. 4. Multiple psychiatric problems to include behavior disturbances, anxiety disorders. RECOMMENDATIONS: 1. Continue with current psychiatric care initiated by Dr. Christina. 2. Continue with current medical care initiated by Dr. Senior. 3. We will adjust Depakote level to become therapeutic. 4. In case of worsening of parkinsonism, we will adjust carbidopa/levodopa to 25 mg/100 t.i.d. M Nilo CELESTE MD DR: HERMAN/alessia JOB#: [id number] / [id number]
== END 2020-10-12 23:06 | disposition short-term general hospital (02) | DRG 56 ==
LOC: GEROPSY 15:00
PROVIDERS: ADMIT Psychiatry & Neurology Psychiatry; ATTEND Psychiatry & Neurology Psychiatry
DX: G30.9 Alzheimer's disease, unspecified (principal); F01.51 Vascular dementia, unspecified severity, with behavioral disturbance; U07.1 COVID-19; F02.81 Dementia in other diseases classified elsewhere, unspecified severity, with behavioral disturbance; G31.83 Neurocognitive disorder with Lewy bodies; Z66 Do not resuscitate; G40.909 Epilepsy, unspecified, not intractable, without status epilepticus; I25.10 Atherosclerotic heart disease of native coronary artery without angina pectoris; I10 Essential (primary) hypertension; N40.0 Benign prostatic hyperplasia without lower urinary tract symptoms; E03.9 Hypothyroidism, unspecified; F41.9 Anxiety disorder, unspecified; F32.9 Major depressive disorder, single episode, unspecified; F63.9 Impulse disorder, unspecified; R29.6 Repeated falls; Z88.8 Allergy status to other drugs, medicaments and biological substances; Z87.891 Personal history of nicotine dependence; Z79.899 Other long term (current) drug therapy
CPT/HCPCS: 36415; 80053; 80061; 80164; 81001; 82306; 82607; 83036; 83540; 83550; 83735; 84436; 84443; 84480; 85025; 85379; 85610; 86592; 90471; 90686; U0003

== ENCOUNTER 2020-10-12 19:50 | Inpatient (IN) | payer MEDICARE ==
[~2020-10-12] VITALS: Ht 172.7 cm; Wt 71.5 kg
[~2020-10-12 19:50] MED LIST: ACET325T21 PO; ACET325T9 PO; AMIO200T6 PO; ARIP5TAB13 PO; ASPI-889 PO; ATOR20TA58 PO; CARB1TAB PO; CHOL200010 PO; CHOL400T36 PO; CLOT15CR23 TP; CYAN100031 PO; DIVA250T PO; DOCU-109 PO; FINA5TAB4 PO; FLUT9.9S NS; LEVO100T82 PO; MAG-124 PO; MAGN24003 PO; METH57CR17 TP; MIRT15TA90 PO; OLAN5TAB7 PO; POLY17PO28 PO; POTA10TA12 PO; QUET25TA PO; SERT20OR3 PO; SERT25TA PO; TRAZ-120 PO
--- NOTE | 2020-10-12 23:00 | NUR ---
The patient, AYUSH TAYLOR, 79 y/o, M admitted by CHANTELLE RUIZ MD, to room 125, was given written information regarding hospital policies, unit procedures and contact persons. No valuables were brought from [facility]. Pt transported in a wheelchair and moved into bed. Pt medications, history and needs reviewed with [facility] nurse. Will continue to monitor.
[2020-10-12 23:06] VITALS: BP 128/54
[2020-10-12] MEDS ORDERED: ACETAMINOPHEN 325 MG TABLET PO PRN (23:30)
[2020-10-12] MEDS ORDERED: MAG HYDROX/AL HYDROX/SIMETH 30 ML ORAL.SUSP PO PRN (23:30)
[2020-10-12] MEDS ORDERED: POLYETHYLENE GLYCOL 3350 17 GM PACKET. PO PRN (23:30)
[2020-10-12] MEDS ORDERED: DOCUSATE SODIUM 100 MG CAPSULE PO PRN (23:30)
[2020-10-12] MEDS ORDERED: MAGNESIUM HYDROXIDE 2,400 MG/30 ML ORAL.SUSP. PO PRN (23:45)
--- NOTE | 2020-10-13 | NUR ---
Pt struggling to climb out of bed. He shouts loudly to "Meghan" to come help him. He is having delusions and grasping at things in the air. Pt secured with bed alarm. Will continue to monitor.
[2020-10-13] MEDS: ACETAMINOPHEN 325 MG TABLET PO SCH ×4 (00:12→17:43)
[2020-10-13] MEDS: traZODone 50 MG TABLET. PO PRN ×3 (00:13→03:30)
[2020-10-13] MEDS ORDERED: C.DIFF MED SCREEN BY RX. MC SCH (01:30)
--- NOTE | 2020-10-13 02:45 | NUR ---
Pt agitated and yelling. He sleeps for five to ten minutes at a time, then wakes, fidgets and sets off bed alarm by reaching over the bed rail. He is making motions like he exchanging money for goods and asking for this nurse to hand him items. Pt encouraged to rest. Medications administered to help pt rest. Will continue to monitor.
[2020-10-13] MEDS ORDERED: LEVOTHYROXINE 100 MCG TABLET PO SCH (06:00)
[2020-10-13 07:34] VITALS: BP 113/45
[2020-10-13] MEDS ORDERED: AMIODARONE HCL 200 MG TABLET. PO SCH (09:00)
[2020-10-13] MEDS ORDERED: POTASSIUM CHLORIDE 10 MEQ TABLET.ER. PO SCH (09:00)
[2020-10-13] MEDS ORDERED: DIVALPROEX ER 250 MG TAB.ER.24H. PO SCH (09:00)
[2020-10-13] MEDS ORDERED: CHOLECALCIFEROL (VITAMIN D3) 1,000 UNIT TABLET PO SCH (09:00)
[2020-10-13] MEDS ORDERED: CYANOCOBALAMIN (VITAMIN B-12) 1,000 MCG TABLET. PO SCH (09:00)
[2020-10-13] MEDS ORDERED: ASPIRIN ENTERIC COATED 81 MG TABLET.DR. PO SCH (09:00)
[2020-10-13] MEDS ORDERED: SERTRALINE 25 MG TABLET. PO SCH (09:00)
[2020-10-13] MEDS ORDERED: FLUTICASONE 50MCG/NASAL SPRAY 16GM BOTTLE. NS SCH (09:00)
[2020-10-13] MEDS: CARBIDOPA/LEVODOPA 10/100MG TABLET PO SCH ×3 (09:00→17:00)
[2020-10-13] MEDS ORDERED: QUEtiapine 25 MG TABLET. PO SCH (09:00)
[2020-10-13 11:18] LABS: BASO % 1 % (0-3); EOS % 1 % (0-3); HEMOGLOBIN 9.5 g/dL (13.0-17.5); LYMPH # 1.4 x10^3/uL (1.0-4.8); LYMPH % 22 % (24-48); MEAN CORPUSCULAR HEMOGLOBIN 29 pg (25-35); MEAN CORPUSCULAR HGB CONC 32 g/dL (31-37); MEAN CORPUSCULAR VOLUME 92 fL (79-100); MONO # 0.9 x10^3/uL (0.0-1.1); MONO % 14 % (0-9); NEUT # 3.8 x10^3uL (1.8-7.7); NEUT % 63 % (31-73); PLATELET COUNT 185 x10^3/uL (140-400); RED BLOOD COUNT 3.26 x10^6/uL (4.30-5.70); WHITE BLOOD COUNT 6.1 x10^3/uL (4.0-11.0)
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
[2020-10-13 11:33] LABS: C REACTIVE PROTEIN 10.7 mg/L (0-3.3); CALCIUM 8.4 mg/dL (8.5-10.1); CREATININE 1.2 mg/dL (0.7-1.3); GFR 58.1; TOTAL BILIRUBIN 0.5 mg/dL (0.2-1.0); TOTAL PROTEIN 6.1 g/dL (6.4-8.2)
--- NOTE | 2020-10-13 16:09 | RAD ---
Exam performed: One view chest. Indication: Reason: covid 19 pneumonia / Spl. Instructions: / History: Date of Service: 10/13/2020 1:18 PM Comparison: None available. Single AP upright portable view chest findings and impression: Accentuation of the cardiac silhouette perhaps secondary to rotation. Left cardiac silhouette overlie s majority of the left lung base. There may be parenchymal opacities likely infiltrates in the left l venita base although not clearly seen due to overlying cardiac silhouette. There is perhaps small left p leural effusion. Prominent interstitial markings are seen in both perihilar regions likely chronic. T he bony structures are normal. Electronically signed by: Lidia Berry MD (10/13/2020 4:07 PM) [id number]
[2020-10-13] MEDS ORDERED: CYAN100031 PO (19:23)
[2020-10-13 19:37] VITALS: BP 109/60
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
[2020-10-13] MEDS ORDERED: MIRTAZAPINE ODT 15 MG TAB.RAPDIS. PO SCH (21:00)
[2020-10-13] MEDS ORDERED: FINASTERIDE 5 MG TABLET. PO SCH (21:00)
[2020-10-13] MEDS ORDERED: ARIPiprazole 5 MG TABLET PO SCH (21:00)
[2020-10-13] MEDS ORDERED: ATORVASTATIN CALCIUM 20 MG TABLET PO SCH (21:00)
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
== END 2020-10-13 20:30 | DRG 178 ==
LOC: UNDOADMIN 19:50 → 1 SOUTH 19:50 → ICU 19:50
PROVIDERS: ADMIT Internal Medicine; ATTEND Internal Medicine
DX: U07.1 COVID-19 (principal); E44.0 Moderate protein-calorie malnutrition; D64.9 Anemia, unspecified; E03.9 Hypothyroidism, unspecified; G20 Parkinson's disease; G40.909 Epilepsy, unspecified, not intractable, without status epilepticus; I25.10 Atherosclerotic heart disease of native coronary artery without angina pectoris; I10 Essential (primary) hypertension; N40.0 Benign prostatic hyperplasia without lower urinary tract symptoms; Z87.891 Personal history of nicotine dependence; Z88.8 Allergy status to other drugs, medicaments and biological substances; Z68.24 Body mass index [BMI] 24.0-24.9, adult
CPT/HCPCS: 36415; 71045; 80053; 85025; 85379; 86140

== ENCOUNTER 2020-10-13 19:19 | Inpatient (IN) | payer MEDICARE ==
[~2020-10-13] VITALS: Ht 175.3 cm; Wt 81.2 kg
[2020-10-13] MEDS ORDERED: CYAN100031 PO (19:23)
[2020-10-13 21:26] VITALS: BP 172/66
[2020-10-13] MEDS ORDERED: MAG HYDROX/AL HYDROX/SIMETH 30 ML ORAL.SUSP PO PRN ×2 (21:45)
[2020-10-13] MEDS ORDERED: DOCUSATE SODIUM 100 MG CAPSULE PO PRN (21:45)
[2020-10-13] MEDS ORDERED: ACETAMINOPHEN 325 MG TABLET PO PRN ×2 (21:45)
[2020-10-13] MEDS ORDERED: MAGNESIUM HYDROXIDE 2,400 MG/30 ML ORAL.SUSP. PO PRN (21:45)
[2020-10-13] MEDS ORDERED: METHYL SALICYLATE/MENTHOL TOPICAL OINTMENT 57GM TUBE. TP PRN ×2 (21:45)
[2020-10-13] MEDS ORDERED: POLYETHYLENE GLYCOL 3350 17 GM PACKET. PO PRN (21:45)
[2020-10-13] MEDS ORDERED: NON FORMULARY ITEM (Magnesium Hydroxide (Milk Of Magnesia) 2,400 MG) PO PRN (21:45)
--- NOTE | 2020-10-13 21:55 | PDOC ---
Exam Note: Tommy Note: Please also refer to the separate dictated note~for this date of service dictated separately.~Patient seen individually. Discussed the patient with Nursing staff reviewed the chart.~Reviewed interim history and current functioning. Reviewed vital signs,~Labs/ Radiology~and current medications noted below. Continue current treatment with the changes noted in the dictated addendum note Current Medications: Meds: Current Medications Medications (Trade) Dose Ordered Sig/Matilde Route PRN Reason Start Time Stop Time Status Last Admin Dose Admin Acetaminophen (Tylenol) 650 mg PRN Q6HRS PRN PO MILD PAIN / TEMP > 100.3'F 10/13/20 21:45 UNV Multi-Ingredient Ointment (Analgesic [place]) 1 ike PRN QID PRN TP MUSCLE PAIN 10/13/20 21:45 UNV Al Hydroxide/Mg Hydroxide (Mylanta Plus Xs) 15 ml PRN AFTMEALHC PRN PO DYSPEPSIA 10/13/20 21:45 UNV Magnesium Hydroxide (Milk Of Magnesia) 2,400 mg PRN QHS PRN PO CONSTIPATION 10/13/20 21:45 UNV Acetaminophen (Tylenol) 650 mg PRN Q6HRS PRN PO MILD PAIN / TEMP > 100.3'F 10/13/20 21:45 UNV Carbidopa/Levodopa (Sinemet 10/100) 1 tab QID PO 10/14/20 09:00 UNV Divalproex Sodium (Depakote Er) 250 mg BID PO 10/14/20 09:00 UNV Docusate Sodium (Colace) 100 mg PRN BID PRN PO CONSTIPATION 10/13/20 21:45 UNV Finasteride (Proscar) 5 mg QHS PO 10/14/20 21:00 UNV Levothyroxine Sodium (Synthroid) 100 mcg DAILY06 PO 10/14/20 06:00 UNV Al Hydroxide/Mg Hydroxide (Mylanta Plus Xs) 15 ml PRN AFTMEALHC PRN PO DYSPEPSIA 10/13/20 21:45 UNV Multi-Ingredient Ointment (Analgesic [place]) 1 ike QID PRN TP MUSCLE PAIN 10/13/20 21:45 UNV Mirtazapine (Remeron Tiki-Tab) 15 mg QHS PO 10/14/20 21:00 UNV Olanzapine (ZyPREXA ZYDIS) 5 mg PRN Q2HRS PRN PO ANXIETY / AGITATION 10/13/20 21:45 UNV Polyethylene Glycol (miraLAX) 17 gm PRN BID PRN PO constipation 10/13/20 21:45 UNV Potassium Chloride (Klor-Con) 10 meq DAILY PO 10/14/20 09:00 UNV Quetiapine Fumarate (SEROquel) 25 mg BID PO 10/14/20 09:00 UNV Sertraline HCl (Zoloft) 25 mg DAILY PO 10/14/20 09:00 UNV Trazodone HCl (Desyrel) 50 mg PRN QHS PRN PO Insomnia May repeat x2 10/13/20 21:45 UNV Non-Formulary Medication (Cholecalciferol (Vitamin D3) (Vitamin D)) 2,000 unit DAILY PO 10/14/20 09:00 UNV Non-Formulary Medication (Cyanocobalamin (Vitamin B-12) (B-12)) 1,000 mcg DAILY PO 10/14/20 09:00 UNV Non-Formulary Medication (Fluticasone Propionate (Flonase Allergy Relief)) 1 sprays DAILY NS 10/14/20 09:00 UNV Non-Formulary Medication (Magnesium Hydroxide (Milk Of Magnesia)) 2,400 mg PRN DAILY PRN PO CONSTIPATION 10/13/20 21:45 UNV I have reviewed the current psychotropics carefully including drug interactions. Risk benefit ratio favors no change other than as noted in my dictated progress note. 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
[2020-10-13] MEDS: QUEtiapine 25 MG TABLET. PO SCH (22:31)
[2020-10-13] MEDS: MIRTAZAPINE ODT 15 MG TAB.RAPDIS. PO SCH (22:31)
[2020-10-13] MEDS: CARBIDOPA/LEVODOPA 10/100MG TABLET PO SCH (22:32)
[2020-10-13] MEDS: DIVALPROEX ER 250 MG TAB.ER.24H. PO SCH (22:32)
[2020-10-13] MEDS: FINASTERIDE 5 MG TABLET. PO SCH (22:34)
--- NOTE | 2020-10-13 23:03 | HP ---
ADMIT DATE: 10/13/2020 PSYCHIATRIC ADMISSION HISTORY/EVALUATION This note covers elements not covered in my initial note 10/13/2020 This evaluation was conducted on telehealth services. IDENTIFYING DATA: The patient is an 79-year-old male who was initially referred to us from [facility] post-medical stabilization after he presented at [facility] from [facility] for extreme delusions, agitation, aggression within the context of his worsening Lewy body dementia. He was on our unit for about 2 days, was then tested positive for COVID-19 and transitioned to the medical/surgical floor on 10/12/2020 and returned back to us on 10/13/2020. CHIEF COMPLAINT: "No." HISTORY OF PRESENT ILLNESS: The patient's prior records and assessments on [address] [place] [address] and [facility] unit were reviewed as part of this evaluation. The patient has a history of progressively worsening dementia, delusions with marked mood vacillations within the span of a day consistent with his diagnosis of Lewy body dementia along with his Parkinson's disease. No clear history of bipolar disorder, suicidal or homicidal ideation. PAST PSYCHIATRIC HISTORY: As above. MEDICAL HISTORY: Positive for Parkinson's disease, seizure disorder, delirium, anemia; anxiety, history of rib fractures, history of frontal infarct, coronary artery disease, BPH, hypertension, hypothyroidism, skin tears, bruising. ALLERGIES: LISINOPRIL, NITROGLYCERIN, HYDROCODONE, ATENOLOL, WARFARIN, VENLAFAXINE, AMIODARONE, ATORVASTATIN. CODE STATUS: DNR. FAMILY HISTORY: Noncontributory. SOCIAL HISTORY: No history of alcohol, drug abuse, physical, sexual or elder abuse, is not known to be a perpetrator. REACTION TO HOSPITALIZATION: The patient oblivious of this. REVIEW OF SYSTEMS: Ambulation impaired. No CV, , pulmonary, eye system symptoms on review. MENTAL STATUS EXAMINATION: The patient is oriented to himself per nursing assessment. Insight, judgment, recent and remote memory, attention, concentration, fund of knowledge poor, consistent with his diagnosis. IMPRESSION: Major neurocognitive disorder, probably Lewy body with delusion, depression, behavioral disturbance; anxiety disorder, unspecified; impulse control disorder, unspecified. PLAN: Admit to Geropsychiatry Unit at [facility]. I will see the patient daily individually from a psychiatric standpoint. Medical followup with Dr. Senior/Dr. Ferrer. Continue the patient on current psychotropics. Observe baseline, adjust further as clinically indicated. ESTIMATED LENGTH OF STAY: 10-12 days. DISPOSITION: Back to [facility] when stable. MAN Mamadou COLLAZO MD DR: ALVARADO/alessia JOB#: [id number] / [id number]
[2020-10-14] MEDS: LEVOTHYROXINE 100 MCG TABLET PO SCH (06:00)
--- NOTE | 2020-10-14 06:21 | NUR ---
Admission Note with Justification for Admission to [facility] Patient admitted to [facility] for protective oversight for emergency stabilization of acute psychiatric crisis. [facility] Mode of arrival: EMS Accompanied By: [facility] Staff Precipitating behaviors that initiated intake and admission: Restless, impulsive, agitated, delusional, hallucinations,violent outbursts Description of failure of out patient attempts at stabilization in previous setting list behavior and medication trials: psychiatric inpatient Behaviors and assessment findings upon admission: Patient was calm and compliant upon admission but became violent later in the shift. Patient hallucinating and delusional and violent/combative with cares. Plan: Admit for protective oversight for adjustment and stabilization of medications, behaviors and mood. Intense treatment regimen including groups, medication adjustments, therapy, consistent regimen for ADL's, self care, and sleep hygiene. Daily monitoring by Inpatient staff, Psychiatry, and Medical Physician.
[2020-10-14] MEDS ORDERED: DIVALPROEX ER 250 MG TAB.ER.24H. PO SCH (09:00)
[2020-10-14] MEDS ORDERED: CARBIDOPA/LEVODOPA 10/100MG TABLET PO SCH (09:00)
[2020-10-14] MEDS ORDERED: QUEtiapine 25 MG TABLET. PO SCH (09:00)
[2020-10-14] MEDS: QUEtiapine 25 MG TABLET. PO SCH ×2 (10:51→20:21)
[2020-10-14] MEDS: DIVALPROEX ER 250 MG TAB.ER.24H. PO SCH ×2 (10:51→20:22)
[2020-10-14] MEDS: CHOLECALCIFEROL (VITAMIN D3) 1,000 UNIT TABLET PO SCH (10:51)
[2020-10-14] MEDS: POTASSIUM CHLORIDE 10 MEQ TABLET.ER. PO SCH (10:52)
[2020-10-14] MEDS: CYANOCOBALAMIN (VITAMIN B-12) 1,000 MCG TABLET. PO SCH (10:52)
[2020-10-14] MEDS: CARBIDOPA/LEVODOPA 10/100MG TABLET PO SCH ×4 (10:52→20:22)
[2020-10-14] MEDS: SERTRALINE 25 MG TABLET. PO SCH (10:52)
[2020-10-14] MEDS: FLUTICASONE 50MCG/NASAL SPRAY 16GM BOTTLE. NS SCH (10:53)
--- NOTE | 2020-10-14 11:44 | PN ---
DATE: 10/14/2020 SUBJECTIVE: The patient was seen today, met with the staff, chart reviewed and also covering for Dr. Christina. Staff reports continued behavior problems, confusion, needing assistance with ADLs, having difficulty verbalizing his needs and feelings. Staff reports no major behavior problems except staying in bed all the time. Denies of any falls. He is confused, restless and agitated constantly. OBSERVATION: VITAL SIGNS: The patient refused vitals. LABORATORY DATA: The patient's lab reviewed. The patient's RBC 3.26, hemoglobin 9.5. The patient's BUN was 22. Hemoglobin A1c of 4.5, iron 31. The patient's HDL was 34. MEDICATIONS: The patient's current medications include Zoloft 25 mg daily, Seroquel 25 mg b.i.d., mirtazapine 15 mg at night, Depakote 250 mg b.i.d. The patient is also on carbidopa-levodopa 4 times daily, trazodone 50 mg at night p.r.n. The patient is not having any major side effects to the medications. ASSESSMENT: 1. Major neurocognitive disorder, most likely Lewy body disease with delusions, depression, and behavioral disturbances. 2. Anxiety disorder, unspecified. PLAN: Continue with the current treatment plan. The patient was seen by Dr. Reyna for his Parkinson's disease. LENGTH OF STAY: 5 days. NICOLE ORTIZ MD DR: SEEMA/alessia JOB#: [id number] / [id number]
--- NOTE | 2020-10-14 13:25 | NUR ---
Pt is hallucinating AEB picking things off of the floor, seeing people who are not there and talking to people who are not there. Pt is attempting to ambulate unassisted. PRN malka plasencia given as staff is unable to redirect pt.
[2020-10-14 15:55] VITALS: BP 122/71
--- NOTE | 2020-10-14 16:13 | NUR ---
Pt has been hallucinating and talking to the during parts of the day. He is often having drawn out conversations with them. He has referred to this nurse as "Karin," and attempts to have a conversation about playing in a sandbox. However, when questioned directly...he is able to correctly answer as to what his name is and where he is at. He denies HI/SI, denies pain. He is complaint with medications which were floated in pudding. He had moments where he attempted to self exit of his w/c but was able to be assisted back without difficulty. Near the afternoon he requested a bloody melvi, and V8 vegetable juice was provided which he consumed. He has been appropriate in behaviors with staff. Will pass onto the next shift.
[2020-10-14] MEDS: FINASTERIDE 5 MG TABLET. PO SCH (20:21)
[2020-10-14] MEDS: traZODone 50 MG TABLET. PO PRN (20:21)
[2020-10-14] MEDS: MIRTAZAPINE ODT 15 MG TAB.RAPDIS. PO SCH (20:22)
[2020-10-14] MEDS ORDERED: FINASTERIDE 5 MG TABLET. PO SCH (21:00)
[2020-10-14] MEDS ORDERED: MIRTAZAPINE ODT 15 MG TAB.RAPDIS. PO SCH (21:00)
--- NOTE | 2020-10-14 23:28 | NUR ---
Pt wandering the unit this evening propelling self in wheelchair. Pt irritable but compliant with whole medications floated in pudding. A/O to self. Pt delusional and hallucinating. Pt carrying on conversations with people that are not there. Pt currently laying in bed yelling out.
[2020-10-15] MEDS: traZODone 50 MG TABLET. PO PRN ×3 (00:06→23:49)
--- NOTE | 2020-10-15 00:19 | NUR ---
Pt restless and hallucinating. Pt took off his clothes and brief and urinated in the bed. Pt extremely combative during ADL care requiring staff x4. Pt hitting, kicking, attempting to bite. Onesie placed on pt. PRN Trazodone and Zyprexa administered sublingually. Pt currently in bed yelling out.
[2020-10-15] MEDS: LEVOTHYROXINE 100 MCG TABLET PO SCH ×2 (05:23→06:00)
--- NOTE | 2020-10-15 06:00 | NUR ---
Pt awake the entire night. Pt restless and continuously hallucinating. Staff at bedside all night.
[2020-10-15 06:49] VITALS: BP 150/89
[2020-10-15] MEDS: FLUTICASONE 50MCG/NASAL SPRAY 16GM BOTTLE. NS SCH (09:00)
[2020-10-15] MEDS: CARBIDOPA/LEVODOPA 10/100MG TABLET PO SCH ×4 (10:22→19:43)
[2020-10-15] MEDS: CHOLECALCIFEROL (VITAMIN D3) 1,000 UNIT TABLET PO SCH (10:22)
[2020-10-15] MEDS: CYANOCOBALAMIN (VITAMIN B-12) 1,000 MCG TABLET. PO SCH (10:23)
[2020-10-15] MEDS: QUEtiapine 25 MG TABLET. PO SCH ×2 (10:23→19:44)
[2020-10-15] MEDS: DIVALPROEX ER 250 MG TAB.ER.24H. PO SCH ×2 (10:23→19:44)
[2020-10-15] MEDS: SERTRALINE 25 MG TABLET. PO SCH (10:23)
[2020-10-15] MEDS: POTASSIUM CHLORIDE 10 MEQ TABLET.ER. PO SCH (10:23)
--- NOTE | 2020-10-15 12:46 | NUR ---
Pt has been hallucinating and talking to the during parts of the day. He has referred to this nurse as "Karin," and attempts to have a conversation about playing in a sandbox. However, when questioned directly...he is able to correctly answer as to what his name is and where he is at. He denies HI/SI, denies pain. He is complaint with medications which were floated in pudding. He had moments where he attempted to self exit of his w/c but was able to be assisted back without difficulty. Near the afternoon he requested a bloody melvi, and V8 vegetable juice was provided which he consumed. He has been appropriate in behaviors with staff. Will pass onto the next shift. Addendum: 10/15/20 at 1249 by YARITZA CHEATHAM RN Disregard this entire note, unfinished version
--- NOTE | 2020-10-15 12:49 | NUR ---
Pt has been hallucinating and talking to the [facility] during parts of the day. He is orientated to self only; he believes he is in [facility] at this time. He has been brought to the quiet room close to the nurse station for adequate rest and closer observation. Unable to assess SI/HI risk at this time, he denies pain when asked. He is complaint with medications which were floated in pudding. He has been appropriate in behaviors with staff, with one brief moment of yelling out loud. Will pass onto the next shift.
--- NOTE | 2020-10-15 13:18 | PN ---
DATE: 10/15/2020 SUBJECTIVE: The patient was seen today, met with the staff, chart reviewed. Staff reports increased behavior problems, being combative, delusional, continues to have auditory hallucinations. OBSERVATION: VITAL SIGNS: Temperature 97.9, blood pressure 150/89, pulse 89, respiration 24, O2 sat 95. GENERAL: Slept about an hour last night. LABORATORY DATA: The patient's lab reviewed. MEDICATIONS: The patient's medications include Zoloft 25 mg daily, Seroquel 25 mg twice a day, mirtazapine 15 mg at night, Depakote 250 mg twice a day. The patient is also on trazodone 50 mg at night p.r.n. for sleep. The patient is not having any side effects to the medications. ASSESSMENT: 1. Major neurocognitive disorder, most likely Lewy body disease with delusions, depression, and behavioral disturbances. 2. Anxiety disorder, unspecified. PLAN: To continue with the treatment. The patient continues to have behavior problems and not sleeping. To continue with the current treatment. LENGTH OF STAY: 5 days. NICOLE ORTIZ MD DR: SEEMA/alessia JOB#: [id number] / [id number]
[2020-10-15 16:14] VITALS: BP 156/89
[2020-10-15] MEDS: MIRTAZAPINE ODT 15 MG TAB.RAPDIS. PO SCH (19:43)
[2020-10-15] MEDS: FINASTERIDE 5 MG TABLET. PO SCH (19:44)
--- NOTE | 2020-10-15 22:19 | NUR ---
Pt located in hallway sitting in his wheelchair. Pt calm and disorganized. Compliant with whole medications floated in one bite of pudding. Cooperative with shower tonight. No agitation or aggression.
[2020-10-16] MEDS: LEVOTHYROXINE 100 MCG TABLET PO SCH (05:27)
[2020-10-16] MEDS: SERTRALINE 25 MG TABLET. PO SCH (07:59)
[2020-10-16] MEDS: CHOLECALCIFEROL (VITAMIN D3) 1,000 UNIT TABLET PO SCH (07:59)
[2020-10-16] MEDS: POTASSIUM CHLORIDE 10 MEQ TABLET.ER. PO SCH (07:59)
[2020-10-16] MEDS: CYANOCOBALAMIN (VITAMIN B-12) 1,000 MCG TABLET. PO SCH (07:59)
[2020-10-16] MEDS: FLUTICASONE 50MCG/NASAL SPRAY 16GM BOTTLE. NS SCH (08:00)
[2020-10-16] MEDS: CARBIDOPA/LEVODOPA 10/100MG TABLET PO SCH ×4 (08:00→20:27)
[2020-10-16] MEDS: QUEtiapine 25 MG TABLET. PO SCH ×2 (08:00→20:27)
[2020-10-16] MEDS: DIVALPROEX ER 250 MG TAB.ER.24H. PO SCH ×2 (08:00→20:27)
--- NOTE | 2020-10-16 09:14 | CONS ---
DATE OF CONSULTATION: 10/15/2020 ADDENDUM HISTORY OF PRESENT ILLNESS: The patient is an 79-year-old male patient who was initially referred from [facility] post medical stabilization, as he presented from [facility] with extreme delusion, agitation, and aggression within the context of his worsening Lewy body dementia. [facility] and then tested positive for COVID-19 and transitioned to the medical surgical floor on 10/12/2020. Returned back on 10/13/2020, as he tested positive for COVID on 08/01/2020, so making this probably a false positive test, but the patient is still shitting his virus. In any case, the patient was transferred back to continue the process of inpatient stabilization. PAST MEDICAL HISTORY: Significant for Parkinson's disease, seizure disorder, delirium, anxiety, anemia, history of rib fractures, history of frontal infarct, coronary artery disease, benign prostatic hypertrophy, hypertension, and hypothyroidism. ASSESSMENT AND PLAN: The patient is medically stable. All his lab works are within acceptable range. I will obviously follow all his lab work still pending and make any necessary adjustment. Meanwhile, we will continue with all his current medication. CHANTELLE RUIZ MD DR: APOORVA/alessia JOB#: [id number] / [id number]
--- NOTE | 2020-10-16 09:57 | NUR ---
Pt has been hallucinating and talking to the during parts of the day. He is orientated to self only; he is unable to identify where is is at and states his is coming to visit. He will at times stare off to the side and begin to have a conversation with an unknown/unseen entity. Unable to assess SI/HI risk at this time, however he is absent of behaviors that would indicate a desire for either. He denies pain when asked. He is complaint with morning assessment and medications. Pills were mixed into vanilla pudding and when this nurse asked him to identify if he was eating pudding or yogurt he stated, "It's where you hide the pills." Pt is overall appropriate so far. Will pass onto the next shift.
--- NOTE | 2020-10-16 12:19 | NUR ---
This nurse joined pt to administer afternoon dose of Carbidopa/Levodopa. He was discovered to have wheeled himself into an empty room and was talking to himself. He appeared to be distracted and engaged in some sort of delusion and stated that he needed to go to "[facility]." Medication was administered in pudding, and upon administration he replied "Oh no, you're playing a tick on me." This nurse provided reassurance and pt replied very seriously, "You just gave me that Carbidopa."
--- NOTE | 2020-10-16 14:02 | NUR ---
SONIA received a call from RACQUEL Riggs at [facility] for an update on pt. SONIA went over medications and Keely has asked if those can be faxed over for them to review. SONIA explained that he appeared to be doing a little better with more behaviors in the afternoon/evening hours, but appears to be compliant with medications based on the sheet. SONIA will get the medication list over to Keely this afternoon and can follow up on any concerns she has at a later time.
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
[2020-10-16 16:32] VITALS: BP 101/63
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
[2020-10-16] MEDS: MIRTAZAPINE ODT 15 MG TAB.RAPDIS. PO SCH (20:27)
[2020-10-16] MEDS: FINASTERIDE 5 MG TABLET. PO SCH (20:27)
[2020-10-16] MEDS: traZODone 50 MG TABLET. PO PRN ×2 (20:33→23:13)
--- NOTE | 2020-10-16 21:09 | PDOC ---
Exam Note: Tommy Note: Please also refer to the separate dictated note~for this date of service dictated separately.~Patient seen individually. Discussed the patient with Nursing staff reviewed the chart.~Reviewed interim history and current functioning. Reviewed vital signs,~Labs/ Radiology~and current medications noted below. Continue current treatment with the changes noted in the dictated addendum note Assessment: Vital Signs/I&O: Vital Signs Date Time Temp Pulse Resp B/P (MAP) Pulse Ox O2 Delivery O2 Flow Rate FiO2 10/16/20 16:32 97.3 75 16 101/63 (76) 95 10/14/20 15:55 Room Air I & O 10/15/20 10/15/20 10/16/20 15:00 23:00 07:00 Intake Total 360 ml 120 ml Balance 360 ml 120 ml Current Medications: I have reviewed the current psychotropics carefully including drug interactions. Risk benefit ratio favors no change other than as noted in my dictated progress note. Diagnosis: Problems: (1) Impulse control disorder, unspecified (2) Anxiety disorder, unspecified (3) Dementia, vascular, with depression (4) Dementia, vascular, with delusions (5) Dementia in Alzheimer's disease with depression (6) Dementia in Alzheimer's disease with delusions (7) Dementia due to Parkinson's disease with behavioral disturbance (8) Major neurocognitive disorder JORGE COLLAZO MD Oct 16, 2020 21:09
--- NOTE | 2020-10-16 22:57 | NUR ---
Pt located on the mats in the quiet room this evening. Pt restless and hallucinating. Compliant with whole medications. No agitation or aggression this evening.
--- NOTE | 2020-10-16 23:15 | NUR ---
Pt awake in the quiet room, restless and hallucinating. PRN Zydis and repeat Trazodone administered
[2020-10-17] MEDS: LEVOTHYROXINE 100 MCG TABLET PO SCH (05:41)
[2020-10-17 05:44] VITALS: BP 152/53
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
[2020-10-17] MEDS: DIVALPROEX ER 250 MG TAB.ER.24H. PO SCH ×2 (09:42→21:15)
[2020-10-17] MEDS: CARBIDOPA/LEVODOPA 10/100MG TABLET PO SCH ×4 (09:42→21:15)
[2020-10-17] MEDS: CYANOCOBALAMIN (VITAMIN B-12) 1,000 MCG TABLET. PO SCH (09:42)
[2020-10-17] MEDS: CHOLECALCIFEROL (VITAMIN D3) 1,000 UNIT TABLET PO SCH (09:43)
[2020-10-17] MEDS: QUEtiapine 25 MG TABLET. PO SCH ×2 (09:43→21:15)
[2020-10-17] MEDS: SERTRALINE 25 MG TABLET. PO SCH (09:43)
[2020-10-17] MEDS: FLUTICASONE 50MCG/NASAL SPRAY 16GM BOTTLE. NS SCH (09:43)
[2020-10-17] MEDS: POTASSIUM CHLORIDE 10 MEQ TABLET.ER. PO SCH (09:43)
--- NOTE | 2020-10-17 14:10 | NUR ---
Activity Therapy Assessment conducted on 10/12/2020 at 1314 remains valid: ACTIVITY THERAPY ASSESSMENT completed based on notes, observation, and interview. Pt was asleep in the secured hallway. Pt was drooling on his chest. AT woke pt up and he appeared to be confused. Pt said that his birthday is 1940. Pt was unable to say what year it was or his location. Pt was unable to give his reason for admission. Pt said that he liked basketball and farming. Per notes pt also likes dogs, woodworking, reading and music.Pt said that he did not like card games and word searches. Pt mentioned that he was uncomfortable in his wheelchair. AT said that she would request a cushion or pillow for his wheelchair. Pt was nonsensical at times, talking about topics unrelated to the conversation. Pt said that he was not and had three daughters. Pt said that he does not get to talk to them that much.Per notes daughter is very involved in planning. Pt fell asleep frequently throughout assessment. A pillow was given to pt to put on his wheelchair. RN and AT assisted pt put the pillow underneath himself. Pt tried to stand up from his wheelchair in the secured [place]. Nursing staff assisted pt to sit back down into his chair. Initial goal is aimed to increase stress management and socialization skills. Pt will participate in at least one individual or group Activity Therapy session per week. Addendum: 10/19/20 at 1404 by TRICIA ALLISON ACT Goal changed 10/19: Pt. will participate in at least three individual or Activity Therapy group sessions before discharge.
[2020-10-17 16:11] VITALS: BP 118/69
--- NOTE | 2020-10-17 18:15 | NUR ---
Patient has been calm, compliant, hallucinating, and disorganized today. He has been compliant with medications and assessment. After getting up for breakfast, he was wandering and having conversations with people that were not there. He Laid down for a nap after lunch and then was up and wandering, restless, and hallucinating in the [place]. Will continue to monitor and report to oncoming shift.
--- NOTE | 2020-10-17 21:08 | PDOC ---
Exam Note: Tommy Note: Please also refer to the separate dictated note~for this date of service dictated separately.~Patient seen individually. Discussed the patient with Nursing staff reviewed the chart.~Reviewed interim history and current functioning. Reviewed vital signs,~Labs/ Radiology~and current medications noted below. Continue current treatment with the changes noted in the dictated addendum note Assessment: Vital Signs/I&O: Vital Signs Date Time Temp Pulse Resp B/P (MAP) Pulse Ox O2 Delivery O2 Flow Rate FiO2 10/17/20 16:11 98.4 72 16 118/69 (85) 96 10/14/20 15:55 Room Air I & O 10/16/20 10/16/20 10/17/20 15:00 23:00 07:00 Intake Total 480 ml 0 ml Balance 480 ml 0 ml Current Medications: Meds: Current Medications Medications (Trade) Dose Ordered Sig/Matilde Route PRN Reason Start Time Stop Time Status Last Admin Dose Admin Acetaminophen (Tylenol) 650 mg PRN Q6HRS PRN PO MILD PAIN / TEMP > 100.3'F 10/13/20 21:45 UNV Multi-Ingredient Ointment (Analgesic [place]) 1 ike PRN QID PRN TP MUSCLE PAIN 10/13/20 21:45 UNV Al Hydroxide/Mg Hydroxide (Mylanta Plus Xs) 15 ml PRN AFTMEALHC PRN PO DYSPEPSIA 10/13/20 21:45 UNV Magnesium Hydroxide (Milk Of Magnesia) 2,400 mg PRN QHS PRN PO 3rd CHOICE CONSTIPATION 10/13/20 21:45 Acetaminophen (Tylenol) 650 mg PRN Q6HRS PRN PO MILD PAIN / TEMP > 100.3'F 10/13/20 21:45 10/14/20 16:44 Carbidopa/Levodopa (Sinemet 10/100) 1 tab QID PO 10/14/20 09:00 10/13/20 22:20 DC Divalproex Sodium (Depakote Er) 250 mg BID PO 10/14/20 09:00 10/13/20 22:20 DC Docusate Sodium (Colace) 100 mg PRN BID PRN PO 1ST CHOICE CONSTIPATION 10/13/20 21:45 Finasteride (Proscar) 5 mg QHS PO 10/14/20 21:00 10/13/20 22:20 DC Levothyroxine Sodium (Synthroid) 100 mcg DAILY06 PO 10/14/20 06:00 10/17/20 05:41 Al Hydroxide/Mg Hydroxide (Mylanta Plus Xs) 15 ml PRN AFTMEALHC PRN PO DYSPEPSIA 10/13/20 21:45 Multi-Ingredient Ointment (Analgesic [place]) 1 ike QID PRN TP MUSCLE PAIN 10/13/20 21:45 Mirtazapine (Remeron Tiki-Tab) 15 mg QHS PO 10/14/20 21:00 10/13/20 22:20 DC Olanzapine (ZyPREXA ZYDIS) 5 mg PRN Q2HRS PRN PO ANXIETY / AGITATION 10/13/20 21:45 10/16/20 23:13 Polyethylene Glycol (miraLAX) 17 gm PRN BID PRN PO 2nd choice constipation 10/13/20 21:45 Potassium Chloride (Klor-Con) 10 meq DAILY PO 10/14/20 09:00 10/17/20 09:43 Quetiapine Fumarate (SEROquel) 25 mg BID PO 10/14/20 09:00 10/13/20 22:20 DC Sertraline HCl (Zoloft) 25 mg DAILY PO 10/14/20 09:00 10/17/20 09:43 Trazodone HCl (Desyrel) 50 mg PRN QHS PRN PO Insomnia May repeat x2 10/13/20 21:45 10/16/20 23:13 Vitamin D (Vitamin D3) 2,000 unit DAILY PO 10/14/20 09:00 10/17/20 09:43 Cyanocobalamin (Vitamin B-12) 1,000 mcg DAILY PO 10/14/20 09:00 10/17/20 09:42 Fluticasone Propionate (Flonase) 1 spray DAILY NS 10/14/20 09:00 10/17/20 09:43 Non-Formulary Medication (Magnesium Hydroxide (Milk Of Magnesia)) 2,400 mg PRN DAILY PRN PO CONSTIPATION 10/13/20 21:45 UNV Carbidopa/Levodopa (Sinemet 10/100) 1 tab QID PO 10/13/20 22:45 10/17/20 17:26 Divalproex Sodium (Depakote Er) 250 mg BID PO 10/13/20 22:45 10/17/20 09:42 Finasteride (Proscar) 5 mg QHS PO 10/13/20 22:45 10/16/20 20:27 Mirtazapine (Remeron Tiki-Tab) 15 mg QHS PO 10/13/20 22:45 10/16/20 20:27 Quetiapine Fumarate (SEROquel) 25 mg BID PO 10/13/20 22:45 10/17/20 09:43 I have reviewed the current psychotropics carefully including drug interactions. Risk benefit ratio favors no change other than as noted in my dictated progress note. 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
[2020-10-17] MEDS: MIRTAZAPINE ODT 15 MG TAB.RAPDIS. PO SCH (21:15)
[2020-10-17] MEDS: FINASTERIDE 5 MG TABLET. PO SCH (21:15)
[2020-10-17] MEDS: traZODone 50 MG TABLET. PO PRN (21:16)
[2020-10-18] MEDS: traZODone 50 MG TABLET. PO PRN ×3 (01:43→21:41)
--- NOTE | 2020-10-18 02:47 | NUR ---
Nursing Note The patient was restless, irritable and compliant. The patient took his medication floated in pudding. The patient is very confused and was only able to give his name during his assessment. The patient received PRN Trazodone later in the night per PRN order. The patient became increasingly agitated as the night went on and is currently sleeping in the quiet room.
[2020-10-18] MEDS: LEVOTHYROXINE 100 MCG TABLET PO SCH (05:28)
[2020-10-18 06:37] VITALS: BP 121/61
[2020-10-18] MEDS: FLUTICASONE 50MCG/NASAL SPRAY 16GM BOTTLE. NS SCH (07:46)
[2020-10-18] MEDS: DIVALPROEX ER 250 MG TAB.ER.24H. PO SCH ×2 (07:47→19:44)
[2020-10-18] MEDS: QUEtiapine 25 MG TABLET. PO SCH ×2 (07:47→19:44)
[2020-10-18] MEDS: CHOLECALCIFEROL (VITAMIN D3) 1,000 UNIT TABLET PO SCH (07:47)
[2020-10-18] MEDS: CARBIDOPA/LEVODOPA 10/100MG TABLET PO SCH ×4 (07:47→19:44)
[2020-10-18] MEDS: POTASSIUM CHLORIDE 10 MEQ TABLET.ER. PO SCH (07:47)
[2020-10-18] MEDS: CYANOCOBALAMIN (VITAMIN B-12) 1,000 MCG TABLET. PO SCH (07:47)
[2020-10-18] MEDS: SERTRALINE 25 MG TABLET. PO SCH (07:48)
[2020-10-18] MEDS: RIVASTIGMINE 4.6MG PATCH. TD SCH (07:48)
--- NOTE | 2020-10-18 11:33 | NUR ---
Patient in wheelchair eating breakfast at time of assessment. Patient takes medication in pudding floated, one bite. He is cooperative. Alert and oriented with no complaints. Patient is irritable at times. No further concerns at this time.
[2020-10-18 15:22] VITALS: BP 91/56
[2020-10-18] MEDS: FINASTERIDE 5 MG TABLET. PO SCH (19:44)
[2020-10-18] MEDS: MIRTAZAPINE ODT 15 MG TAB.RAPDIS. PO SCH (19:44)
--- NOTE | 2020-10-18 21:10 | PDOC ---
Exam Note: Tommy Note: Please also refer to the separate dictated note~for this date of service dictated separately.~Patient seen individually. Discussed the patient with Nursing staff reviewed the chart.~Reviewed interim history and current functioning. Reviewed vital signs,~Labs/ Radiology~and current medications noted below. Continue current treatment with the changes noted in the dictated addendum note Assessment: Vital Signs/I&O: Vital Signs Date Time Temp Pulse Resp B/P (MAP) Pulse Ox O2 Delivery O2 Flow Rate FiO2 10/18/20 15:22 97.5 88 17 91/56 (68) 94 10/18/20 06:37 Room Air I & O 10/17/20 10/17/20 10/18/20 15:00 23:00 07:00 Intake Total 580 ml 460 ml Balance 580 ml 460 ml Current Medications: Meds: Current Medications Medications (Trade) Dose Ordered Sig/Matilde Route PRN Reason Start Time Stop Time Status Last Admin Dose Admin Acetaminophen (Tylenol) 650 mg PRN Q6HRS PRN PO MILD PAIN / TEMP > 100.3'F 10/13/20 21:45 UNV Multi-Ingredient Ointment (Analgesic [place]) 1 ike PRN QID PRN TP MUSCLE PAIN 10/13/20 21:45 UNV Al Hydroxide/Mg Hydroxide (Mylanta Plus Xs) 15 ml PRN AFTMEALHC PRN PO DYSPEPSIA 10/13/20 21:45 UNV Magnesium Hydroxide (Milk Of Magnesia) 2,400 mg PRN QHS PRN PO 3rd CHOICE CONSTIPATION 10/13/20 21:45 Acetaminophen (Tylenol) 650 mg PRN Q6HRS PRN PO MILD PAIN / TEMP > 100.3'F 10/13/20 21:45 10/14/20 16:44 Carbidopa/Levodopa (Sinemet 10/100) 1 tab QID PO 10/14/20 09:00 10/13/20 22:20 DC Divalproex Sodium (Depakote Er) 250 mg BID PO 10/14/20 09:00 10/13/20 22:20 DC Docusate Sodium (Colace) 100 mg PRN BID PRN PO 1ST CHOICE CONSTIPATION 10/13/20 21:45 Finasteride (Proscar) 5 mg QHS PO 10/14/20 21:00 10/13/20 22:20 DC Levothyroxine Sodium (Synthroid) 100 mcg DAILY06 PO 10/14/20 06:00 10/18/20 05:28 Al Hydroxide/Mg Hydroxide (Mylanta Plus Xs) 15 ml PRN AFTMEALHC PRN PO DYSPEPSIA 10/13/20 21:45 Multi-Ingredient Ointment (Analgesic [place]) 1 ike QID PRN TP MUSCLE PAIN 10/13/20 21:45 Mirtazapine (Remeron Tiki-Tab) 15 mg QHS PO 10/14/20 21:00 10/13/20 22:20 DC Olanzapine (ZyPREXA ZYDIS) 5 mg PRN Q2HRS PRN PO ANXIETY / AGITATION 10/13/20 21:45 10/16/20 23:13 Polyethylene Glycol (miraLAX) 17 gm PRN BID PRN PO 2nd choice constipation 10/13/20 21:45 Potassium Chloride (Klor-Con) 10 meq DAILY PO 10/14/20 09:00 10/18/20 07:47 Quetiapine Fumarate (SEROquel) 25 mg BID PO 10/14/20 09:00 10/13/20 22:20 DC Sertraline HCl (Zoloft) 25 mg DAILY PO 10/14/20 09:00 10/18/20 07:48 Trazodone HCl (Desyrel) 50 mg PRN QHS PRN PO Insomnia May repeat x2 10/13/20 21:45 10/18/20 19:46 Vitamin D (Vitamin D3) 2,000 unit DAILY PO 10/14/20 09:00 10/18/20 07:47 Cyanocobalamin (Vitamin B-12) 1,000 mcg DAILY PO 10/14/20 09:00 10/18/20 07:47 Fluticasone Propionate (Flonase) 1 spray DAILY NS 10/14/20 09:00 10/18/20 07:46 Non-Formulary Medication (Magnesium Hydroxide (Milk Of Magnesia)) 2,400 mg PRN DAILY PRN PO CONSTIPATION 10/13/20 21:45 UNV Carbidopa/Levodopa (Sinemet 10/100) 1 tab QID PO 10/13/20 22:45 10/18/20 19:44 Divalproex Sodium (Depakote Er) 250 mg BID PO 10/13/20 22:45 10/18/20 19:44 Finasteride (Proscar) 5 mg QHS PO 10/13/20 22:45 10/18/20 19:44 Mirtazapine (Remeron Tiki-Tab) 15 mg QHS PO 10/13/20 22:45 10/18/20 19:44 Quetiapine Fumarate (SEROquel) 25 mg BID PO 10/13/20 22:45 10/18/20 19:44 Rivastigmine (Exelon) 1 patch DAILY TD 10/18/20 09:00 10/22/20 23:50 10/18/20 07:48 Rivastigmine (Exelon) 1 patch DAILY TD 10/23/20 09:00 Current Medications Medications (Trade) Dose Ordered Sig/Matilde Route PRN Reason Start Time Stop Time Status Last Admin Dose Admin Rivastigmine (Exelon) 1 patch DAILY TD 10/18/20 09:00 10/22/20 23:50 10/18/20 07:48 I have reviewed the current psychotropics carefully including drug interactions. Risk benefit ratio favors no change other than as noted in my dictated progress note. 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
--- NOTE | 2020-10-18 21:10 | PDOC ---
Exam Note: Tommy Note: This note is a late entry for 10/17/2020 covers elements not covered in my initial note. Subjective: The patient was reviewed on telehealth rounds in the evening of 10/17/2020 with Rusty ORTEGA. Discussed with nursing staff, reviewed the chart. The patient slept 5-3/4 hours previous night. Per night nursing staff, even though recorded sleep is 5-3/4 hours he was quite restless all night, hallucinating, talking to himself, up in the wheelchair or putting himself on the floor. Previous evening he threw his dinner tray on the floor. He was up at shift change in the morning, compliant with medications, hallucinating intermittently during the day, talking to people who are not there. He remains unsafe due to fall risk. Review of Systems: No CV, , pulmonary, eye, ENT system symptoms on review. Ambulation impaired in wheelchair. Reliability poor. Mental Status Exam: The patient is oriented to himself. Insight and judgment, recent and remote memory, attention and concentration, fund of knowledge is poor consistent with his diagnosis. Laboratory Data: Reviewed. Impression: Major neurocognitive disorder Alzheimer vascular with delusion, depression, behavioral disturbance. Anxiety disorder unspecified. Impulse control disorder unspecified. Plan: Continue psychotropics from initial note. The patient does have diagnosis of Lewy body dementia. We will start Exelon patch 4.6 mg a day for 5 days, then 9.5 mg a day after that. We may consider stopping the Seroquel but we will first see how he does with the initial change. Continue rest of the psychotropics unchanged. Assessment: Vital Signs/I&O: Vital Signs Date Time Temp Pulse Resp B/P (MAP) Pulse Ox O2 Delivery O2 Flow Rate FiO2 10/18/20 15:22 97.5 88 17 91/56 (68) 94 10/18/20 06:37 Room Air I & O 10/17/20 10/17/20 10/18/20 15:00 23:00 07:00 Intake Total 580 ml 460 ml Balance 580 ml 460 ml Current Medications: Meds: Current Medications Medications (Trade) Dose Ordered Sig/Matilde Route PRN Reason Start Time Stop Time Status Last Admin Dose Admin Acetaminophen (Tylenol) 650 mg PRN Q6HRS PRN PO MILD PAIN / TEMP > 100.3'F 10/13/20 21:45 UNV Multi-Ingredient Ointment (Analgesic [place]) 1 ike PRN QID PRN TP MUSCLE PAIN 10/13/20 21:45 UNV Al Hydroxide/Mg Hydroxide (Mylanta Plus Xs) 15 ml PRN AFTMEALHC PRN PO DYSPEPSIA 10/13/20 21:45 UNV Magnesium Hydroxide (Milk Of Magnesia) 2,400 mg PRN QHS PRN PO 3rd CHOICE CONSTIPATION 10/13/20 21:45 Acetaminophen (Tylenol) 650 mg PRN Q6HRS PRN PO MILD PAIN / TEMP > 100.3'F 10/13/20 21:45 10/14/20 16:44 Carbidopa/Levodopa (Sinemet 10/100) 1 tab QID PO 10/14/20 09:00 10/13/20 22:20 DC Divalproex Sodium (Depakote Er) 250 mg BID PO 10/14/20 09:00 10/13/20 22:20 DC Docusate Sodium (Colace) 100 mg PRN BID PRN PO 1ST CHOICE CONSTIPATION 10/13/20 21:45 Finasteride (Proscar) 5 mg QHS PO 10/14/20 21:00 10/13/20 22:20 DC Levothyroxine Sodium (Synthroid) 100 mcg DAILY06 PO 10/14/20 06:00 10/18/20 05:28 Al Hydroxide/Mg Hydroxide (Mylanta Plus Xs) 15 ml PRN AFTMEALHC PRN PO DYSPEPSIA 10/13/20 21:45 Multi-Ingredient Ointment (Analgesic [place]) 1 ike QID PRN TP MUSCLE PAIN 10/13/20 21:45 Mirtazapine (Remeron Tiki-Tab) 15 mg QHS PO 10/14/20 21:00 10/13/20 22:20 DC Olanzapine (ZyPREXA ZYDIS) 5 mg PRN Q2HRS PRN PO ANXIETY / AGITATION 10/13/20 21:45 10/16/20 23:13 Polyethylene Glycol (miraLAX) 17 gm PRN BID PRN PO 2nd choice constipation 10/13/20 21:45 Potassium Chloride (Klor-Con) 10 meq DAILY PO 10/14/20 09:00 10/18/20 07:47 Quetiapine Fumarate (SEROquel) 25 mg BID PO 10/14/20 09:00 10/13/20 22:20 DC Sertraline HCl (Zoloft) 25 mg DAILY PO 10/14/20 09:00 10/18/20 07:48 Trazodone HCl (Desyrel) 50 mg PRN QHS PRN PO Insomnia May repeat x2 10/13/20 21:45 10/18/20 19:46 Vitamin D (Vitamin D3) 2,000 unit DAILY PO 10/14/20 09:00 10/18/20 07:47 Cyanocobalamin (Vitamin B-12) 1,000 mcg DAILY PO 10/14/20 09:00 10/18/20 07:47 Fluticasone Propionate (Flonase) 1 spray DAILY NS 10/14/20 09:00 10/18/20 07:46 Non-Formulary Medication (Magnesium Hydroxide (Milk Of Magnesia)) 2,400 mg PRN DAILY PRN PO CONSTIPATION 10/13/20 21:45 UNV Carbidopa/Levodopa (Sinemet 10/100) 1 tab QID PO 10/13/20 22:45 10/18/20 19:44 Divalproex Sodium (Depakote Er) 250 mg BID PO 10/13/20 22:45 10/18/20 19:44 Finasteride (Proscar) 5 mg QHS PO 10/13/20 22:45 10/18/20 19:44 Mirtazapine (Remeron Tiki-Tab) 15 mg QHS PO 10/13/20 22:45 10/18/20 19:44 Quetiapine Fumarate (SEROquel) 25 mg BID PO 10/13/20 22:45 10/18/20 19:44 Rivastigmine (Exelon) 1 patch DAILY TD 10/18/20 09:00 10/22/20 23:50 10/18/20 07:48 Rivastigmine (Exelon) 1 patch DAILY TD 10/23/20 09:00 Current Medications Medications (Trade) Dose Ordered Sig/Matilde Route PRN Reason Start Time Stop Time Status Last Admin Dose Admin Rivastigmine (Exelon) 1 patch DAILY TD 10/18/20 09:00 10/22/20 23:50 10/18/20 07:48 I have reviewed the current psychotropics carefully including drug interactions. Risk benefit ratio favors no change other than as noted in my dictated progress note. 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
--- NOTE | 2020-10-19 01:51 | NUR ---
Nursing Note The patient was disorganized and restless this shift. The patient was unable to answer assessment questions except name. The patient took his medication whole. The patient was compliant and cooperative during his shower.
[2020-10-19] MEDS: LEVOTHYROXINE 100 MCG TABLET PO SCH (06:20)
--- NOTE | 2020-10-19 08:12 | PDOC ---
Exam Note: Tommy Note: This note is a late entry for 10/18/2020 covers elements not covered in my initial note. Subjective: The patient was reviewed on telehealth rounds in the evening of 10/18/2020 with Mary ORTEGA. Discussed with nursing staff, reviewed the chart. The patient just slept 1/2 hours previous night. Overall the patient remains confused. He had done better, wandering in his wheelchair but redirectable. Review of Systems: No CV, , pulmonary, eye, ENT system symptoms on review. Ambulation impaired in wheelchair. Reliability poor. Mental Status Exam: The patient is oriented to himself. Insight and judgment, recent and remote memory, attention and concentration, fund of knowledge is poor consistent with his diagnosis. Laboratory Data: Reviewed. Impression: Major neurocognitive disorder Alzheimer vascular with delusion, depression, behavioral disturbance. Anxiety disorder unspecified. Impulse control disorder unspecified. Plan: Continue psychotropics from initial note. Assessment: Vital Signs/I&O: Vital Signs Date Time Temp Pulse Resp B/P (MAP) Pulse Ox O2 Delivery O2 Flow Rate FiO2 10/18/20 15:22 97.5 88 17 91/56 (68) 94 10/18/20 06:37 Room Air I & O 10/18/20 10/18/20 10/19/20 15:00 23:00 07:00 Intake Total 240 ml 240 ml 120 ml Balance 240 ml 240 ml 120 ml Current Medications: Meds: Current Medications Medications (Trade) Dose Ordered Sig/Matilde Route PRN Reason Start Time Stop Time Status Last Admin Dose Admin Acetaminophen (Tylenol) 650 mg PRN Q6HRS PRN PO MILD PAIN / TEMP > 100.3'F 10/13/20 21:45 UNV Multi-Ingredient Ointment (Analgesic [place]) 1 ike PRN QID PRN TP MUSCLE PAIN 10/13/20 21:45 UNV Al Hydroxide/Mg Hydroxide (Mylanta Plus Xs) 15 ml PRN AFTMEALHC PRN PO DYSPEPSIA 10/13/20 21:45 UNV Magnesium Hydroxide (Milk Of Magnesia) 2,400 mg PRN QHS PRN PO 3rd CHOICE CONSTIPATION 10/13/20 21:45 Acetaminophen (Tylenol) 650 mg PRN Q6HRS PRN PO MILD PAIN / TEMP > 100.3'F 10/13/20 21:45 10/14/20 16:44 Carbidopa/Levodopa (Sinemet 10/100) 1 tab QID PO 10/14/20 09:00 10/13/20 22:20 DC Divalproex Sodium (Depakote Er) 250 mg BID PO 10/14/20 09:00 10/13/20 22:20 DC Docusate Sodium (Colace) 100 mg PRN BID PRN PO 1ST CHOICE CONSTIPATION 10/13/20 21:45 Finasteride (Proscar) 5 mg QHS PO 10/14/20 21:00 10/13/20 22:20 DC Levothyroxine Sodium (Synthroid) 100 mcg DAILY06 PO 10/14/20 06:00 10/19/20 06:20 Al Hydroxide/Mg Hydroxide (Mylanta Plus Xs) 15 ml PRN AFTMEALHC PRN PO DYSPEPSIA 10/13/20 21:45 Multi-Ingredient Ointment (Analgesic [place]) 1 ike QID PRN TP MUSCLE PAIN 10/13/20 21:45 Mirtazapine (Remeron Tiki-Tab) 15 mg QHS PO 10/14/20 21:00 10/13/20 22:20 DC Olanzapine (ZyPREXA ZYDIS) 5 mg PRN Q2HRS PRN PO ANXIETY / AGITATION 10/13/20 21:45 10/16/20 23:13 Polyethylene Glycol (miraLAX) 17 gm PRN BID PRN PO 2nd choice constipation 10/13/20 21:45 Potassium Chloride (Klor-Con) 10 meq DAILY PO 10/14/20 09:00 10/18/20 07:47 Quetiapine Fumarate (SEROquel) 25 mg BID PO 10/14/20 09:00 10/13/20 22:20 DC Sertraline HCl (Zoloft) 25 mg DAILY PO 10/14/20 09:00 10/18/20 07:48 Trazodone HCl (Desyrel) 50 mg PRN QHS PRN PO Insomnia May repeat x2 10/13/20 21:45 10/18/20 21:41 Vitamin D (Vitamin D3) 2,000 unit DAILY PO 10/14/20 09:00 10/18/20 07:47 Cyanocobalamin (Vitamin B-12) 1,000 mcg DAILY PO 10/14/20 09:00 10/18/20 07:47 Fluticasone Propionate (Flonase) 1 spray DAILY NS 10/14/20 09:00 10/18/20 07:46 Non-Formulary Medication (Magnesium Hydroxide (Milk Of Magnesia)) 2,400 mg PRN DAILY PRN PO CONSTIPATION 10/13/20 21:45 UNV Carbidopa/Levodopa (Sinemet 10/100) 1 tab QID PO 10/13/20 22:45 10/18/20 19:44 Divalproex Sodium (Depakote Er) 250 mg BID PO 10/13/20 22:45 10/18/20 19:44 Finasteride (Proscar) 5 mg QHS PO 10/13/20 22:45 10/18/20 19:44 Mirtazapine (Remeron Tiki-Tab) 15 mg QHS PO 10/13/20 22:45 10/18/20 19:44 Quetiapine Fumarate (SEROquel) 25 mg BID PO 10/13/20 22:45 10/18/20 19:44 Rivastigmine (Exelon) 1 patch DAILY TD 10/18/20 09:00 10/22/20 23:50 10/18/20 07:48 Rivastigmine (Exelon) 1 patch DAILY TD 10/23/20 09:00 Current Medications Medications (Trade) Dose Ordered Sig/Matilde Route PRN Reason Start Time Stop Time Status Last Admin Dose Admin Rivastigmine (Exelon) 1 patch DAILY TD 10/18/20 09:00 10/22/20 23:50 10/18/20 07:48 I have reviewed the current psychotropics carefully including drug interactions. Risk benefit ratio favors no change other than as noted in my dictated progress note. 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
[2020-10-19] MEDS: CHOLECALCIFEROL (VITAMIN D3) 1,000 UNIT TABLET PO SCH (08:44)
[2020-10-19] MEDS: SERTRALINE 25 MG TABLET. PO SCH (08:45)
[2020-10-19] MEDS: CYANOCOBALAMIN (VITAMIN B-12) 1,000 MCG TABLET. PO SCH (08:45)
[2020-10-19] MEDS: RIVASTIGMINE 4.6MG PATCH. TD SCH (08:45)
[2020-10-19] MEDS: DIVALPROEX ER 250 MG TAB.ER.24H. PO SCH ×2 (08:45→20:15)
[2020-10-19] MEDS: POTASSIUM CHLORIDE 10 MEQ TABLET.ER. PO SCH (08:45)
[2020-10-19] MEDS: QUEtiapine 25 MG TABLET. PO SCH ×2 (08:45→20:14)
[2020-10-19] MEDS: CARBIDOPA/LEVODOPA 10/100MG TABLET PO SCH ×4 (08:45→20:15)
[2020-10-19] MEDS: FLUTICASONE 50MCG/NASAL SPRAY 16GM BOTTLE. NS SCH (08:46)
--- NOTE | 2020-10-19 11:41 | NUR ---
Patient slept until about 1045 today and wakes up in a angry mood. He was yelling at me but was cooperative and took medications whole for me. He has some crud in the corner of each eye. I used a wash cloth to clean them out but they look like he could have conjunctivitis so I will have MD look at. Patient is unable to tell us when he had last BM so we will give him something if he feels he needs it. Last reported BM was on the . Patient has no complaints and there are no further concerns at this time.
--- NOTE | 2020-10-19 11:49 | NUR ---
Spoke to Dr Christina in treatment team and he would like to get patient started on Namenda 5mg BID. Sent to pharmacy to get started today.
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
--- NOTE | 2020-10-19 13:48 | NUR ---
WEEKLY ACTIVITY THERAPY NOTE Date of Admission: 10/10, DC on 10/12 and readmitted 10/14 Date of AT Assessment: 10/12 remains valid Precipitating behaviors that initiated intake and admission: Restless, impulsive, agitated, delusional, hallucinations,violent outbursts Goal aimed:increase stress management and socialization skills Initial Goal: Pt will participate in at least one individual or group Activity Therapy session per week. Weekly progress towards goal: did not achieve Group participation level: zero Weekly highlights: Behaviors observed: withdrawn to room usually, sleeps often, minimal interest Plan: change goal to: Pt. will participate in at least three individual or Activity Therapy group sessions before discharge. Beneficial adaptations:
[2020-10-19 16:20] VITALS: BP 98/63
[2020-10-19] MEDS: MIRTAZAPINE ODT 15 MG TAB.RAPDIS. PO SCH (20:15)
[2020-10-19] MEDS: FINASTERIDE 5 MG TABLET. PO SCH (20:15)
[2020-10-19] MEDS: MEMANTINE 5 MG TABLET. PO SCH (20:16)
[2020-10-19] MEDS: traZODone 50 MG TABLET. PO PRN ×3 (20:18→23:33)
--- NOTE | 2020-10-19 21:06 | PDOC ---
Exam Note: Tommy Note: Please also refer to the separate dictated note~for this date of service dictated separately.~Patient seen individually. Discussed the patient with Nursing staff reviewed the chart.~Reviewed interim history and current functioning. Reviewed vital signs,~Labs/ Radiology~and current medications noted below. Continue current treatment with the changes noted in the dictated addendum note Assessment: Vital Signs/I&O: Vital Signs Date Time Temp Pulse Resp B/P (MAP) Pulse Ox O2 Delivery O2 Flow Rate FiO2 10/19/20 16:20 97.9 70 20 98/63 (75) 95 10/18/20 06:37 Room Air I & O 10/18/20 10/18/20 10/19/20 15:00 23:00 07:00 Intake Total 240 ml 240 ml 120 ml Balance 240 ml 240 ml 120 ml Current Medications: Meds: Current Medications Medications (Trade) Dose Ordered Sig/Matilde Route PRN Reason Start Time Stop Time Status Last Admin Dose Admin Acetaminophen (Tylenol) 650 mg PRN Q6HRS PRN PO MILD PAIN / TEMP > 100.3'F 10/13/20 21:45 UNV Multi-Ingredient Ointment (Analgesic [place]) 1 ike PRN QID PRN TP MUSCLE PAIN 10/13/20 21:45 UNV Al Hydroxide/Mg Hydroxide (Mylanta Plus Xs) 15 ml PRN AFTMEALHC PRN PO DYSPEPSIA 10/13/20 21:45 UNV Magnesium Hydroxide (Milk Of Magnesia) 2,400 mg PRN QHS PRN PO 3rd CHOICE CONSTIPATION 10/13/20 21:45 Acetaminophen (Tylenol) 650 mg PRN Q6HRS PRN PO MILD PAIN / TEMP > 100.3'F 10/13/20 21:45 10/14/20 16:44 Carbidopa/Levodopa (Sinemet 10/100) 1 tab QID PO 10/14/20 09:00 10/13/20 22:20 DC Divalproex Sodium (Depakote Er) 250 mg BID PO 10/14/20 09:00 10/13/20 22:20 DC Docusate Sodium (Colace) 100 mg PRN BID PRN PO 1ST CHOICE CONSTIPATION 10/13/20 21:45 Finasteride (Proscar) 5 mg QHS PO 10/14/20 21:00 10/13/20 22:20 DC Levothyroxine Sodium (Synthroid) 100 mcg DAILY06 PO 10/14/20 06:00 10/19/20 06:20 Al Hydroxide/Mg Hydroxide (Mylanta Plus Xs) 15 ml PRN AFTMEALHC PRN PO DYSPEPSIA 10/13/20 21:45 Multi-Ingredient Ointment (Analgesic [place]) 1 ike QID PRN TP MUSCLE PAIN 10/13/20 21:45 Mirtazapine (Remeron Tiki-Tab) 15 mg QHS PO 10/14/20 21:00 10/13/20 22:20 DC Olanzapine (ZyPREXA ZYDIS) 5 mg PRN Q2HRS PRN PO ANXIETY / AGITATION 10/13/20 21:45 10/19/20 14:30 Polyethylene Glycol (miraLAX) 17 gm PRN BID PRN PO 2nd choice constipation 10/13/20 21:45 Potassium Chloride (Klor-Con) 10 meq DAILY PO 10/14/20 09:00 10/19/20 08:45 Quetiapine Fumarate (SEROquel) 25 mg BID PO 10/14/20 09:00 10/13/20 22:20 DC Sertraline HCl (Zoloft) 25 mg DAILY PO 10/14/20 09:00 10/19/20 08:45 Trazodone HCl (Desyrel) 50 mg PRN QHS PRN PO Insomnia May repeat x2 10/13/20 21:45 10/19/20 20:18 Vitamin D (Vitamin D3) 2,000 unit DAILY PO 10/14/20 09:00 10/19/20 08:44 Cyanocobalamin (Vitamin B-12) 1,000 mcg DAILY PO 10/14/20 09:00 10/19/20 08:45 Fluticasone Propionate (Flonase) 1 spray DAILY NS 10/14/20 09:00 10/19/20 08:46 Non-Formulary Medication (Magnesium Hydroxide (Milk Of Magnesia)) 2,400 mg PRN DAILY PRN PO CONSTIPATION 10/13/20 21:45 UNV Carbidopa/Levodopa (Sinemet 10/100) 1 tab QID PO 10/13/20 22:45 10/19/20 20:15 Divalproex Sodium (Depakote Er) 250 mg BID PO 10/13/20 22:45 10/19/20 20:15 Finasteride (Proscar) 5 mg QHS PO 10/13/20 22:45 10/19/20 20:15 Mirtazapine (Remeron Tiki-Tab) 15 mg QHS PO 10/13/20 22:45 10/19/20 20:15 Quetiapine Fumarate (SEROquel) 25 mg BID PO 10/13/20 22:45 10/19/20 20:14 Rivastigmine (Exelon) 1 patch DAILY TD 10/18/20 09:00 10/22/20 23:50 10/19/20 08:45 Rivastigmine (Exelon) 1 patch DAILY TD 10/23/20 09:00 Memantine (Namenda) 5 mg BID PO 10/19/20 21:00 10/19/20 20:16 Current Medications Medications (Trade) Dose Ordered Sig/Matilde Route PRN Reason Start Time Stop Time Status Last Admin Dose Admin Memantine (Namenda) 5 mg BID PO 10/19/20 21:00 10/19/20 20:16 I have reviewed the current psychotropics carefully including drug interactions. Risk benefit ratio favors no change other than as noted in my dictated progress note. 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
--- NOTE | 2020-10-20 03:31 | NUR ---
Nursing Note The patient was disorganized and restless this shift. The patient was unable to answer assessment questions except name. The patient was yelling and attempting to escape the unit via the day room exit. The patient took his medication whole. The patient slept in the quiet room.
[2020-10-20] MEDS: LEVOTHYROXINE 100 MCG TABLET PO SCH (05:19)
[2020-10-20 06:17] VITALS: BP 145/72
[2020-10-20] MEDS: DIVALPROEX ER 250 MG TAB.ER.24H. PO SCH ×2 (08:10→20:13)
[2020-10-20] MEDS: MEMANTINE 5 MG TABLET. PO SCH ×2 (08:12→20:13)
[2020-10-20] MEDS: POTASSIUM CHLORIDE 10 MEQ TABLET.ER. PO SCH (08:12)
[2020-10-20] MEDS: QUEtiapine 25 MG TABLET. PO SCH ×2 (08:13→20:13)
[2020-10-20] MEDS: CARBIDOPA/LEVODOPA 10/100MG TABLET PO SCH ×4 (08:13→20:14)
[2020-10-20] MEDS: RIVASTIGMINE 4.6MG PATCH. TD SCH (08:13)
[2020-10-20] MEDS: CYANOCOBALAMIN (VITAMIN B-12) 1,000 MCG TABLET. PO SCH (08:13)
[2020-10-20] MEDS: SERTRALINE 25 MG TABLET. PO SCH (08:13)
[2020-10-20] MEDS: CHOLECALCIFEROL (VITAMIN D3) 1,000 UNIT TABLET PO SCH (08:13)
[2020-10-20] MEDS: FLUTICASONE 50MCG/NASAL SPRAY 16GM BOTTLE. NS SCH (08:26)
--- NOTE | 2020-10-20 08:29 | PDOC ---
Exam Note: Tommy Note: This note is a late entry for 10/19/2020 covers elements not covered in my initial note. Subjective: The patient was reviewed on telehealth rounds in the morning of 10/19/2020 for a treatment team meeting with Nery Duron, Alesha Cuellar and Keke (hospice social worker), Anastasiia Whaley, activity therapy and Mary ORTEGA. Discussed with nursing staff, reviewed the chart. The patient just slept 2-1/2 hours previous night. Overall the patient remains confused and symptoms are consistent with Lewy body dementia. Review of Systems: No CV, , pulmonary, eye, ENT system symptoms on review. Ambulation impaired in wheelchair. Reliability poor. Mental Status Exam: The patient is oriented to himself. Insight and judgment, recent and remote memory, attention and concentration, fund of knowledge is poor consistent with his diagnosis. Laboratory Data: Reviewed. Impression: Major neurocognitive disorder Alzheimer vascular with delusion, depression, behavioral disturbance. Anxiety disorder unspecified. Impulse control disorder unspecified. 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 Plan: Continue psychotropics from initial note, but given his diagnosis of Lewy body dementia, we will additionally add Namenda 5 mg twice a day. Continue rest unchanged. We may transition him to nursing facility middle of next week. Assessment: Vital Signs/I&O: Vital Signs Date Time Temp Pulse Resp B/P (MAP) Pulse Ox O2 Delivery O2 Flow Rate FiO2 10/20/20 06:17 98.2 85 18 145/72 (96) 95 10/18/20 06:37 Room Air I & O 10/19/20 10/19/20 10/20/20 15:00 23:00 07:00 Intake Total 360 ml 240 ml 100 ml Balance 360 ml 240 ml 100 ml Current Medications: Meds: Current Medications Medications (Trade) Dose Ordered Sig/Matilde Route PRN Reason Start Time Stop Time Status Last Admin Dose Admin Acetaminophen (Tylenol) 650 mg PRN Q6HRS PRN PO MILD PAIN / TEMP > 100.3'F 10/13/20 21:45 UNV Multi-Ingredient Ointment (Analgesic [place]) 1 ike PRN QID PRN TP MUSCLE PAIN 10/13/20 21:45 UNV Al Hydroxide/Mg Hydroxide (Mylanta Plus Xs) 15 ml PRN AFTMEALHC PRN PO DYSPEPSIA 10/13/20 21:45 UNV Magnesium Hydroxide (Milk Of Magnesia) 2,400 mg PRN QHS PRN PO 3rd CHOICE CONSTIPATION 10/13/20 21:45 Acetaminophen (Tylenol) 650 mg PRN Q6HRS PRN PO MILD PAIN / TEMP > 100.3'F 10/13/20 21:45 10/14/20 16:44 Carbidopa/Levodopa (Sinemet 10/100) 1 tab QID PO 10/14/20 09:00 10/13/20 22:20 DC Divalproex Sodium (Depakote Er) 250 mg BID PO 10/14/20 09:00 10/13/20 22:20 DC Docusate Sodium (Colace) 100 mg PRN BID PRN PO 1ST CHOICE CONSTIPATION 10/13/20 21:45 Finasteride (Proscar) 5 mg QHS PO 10/14/20 21:00 10/13/20 22:20 DC Levothyroxine Sodium (Synthroid) 100 mcg DAILY06 PO 10/14/20 06:00 10/20/20 05:19 Al Hydroxide/Mg Hydroxide (Mylanta Plus Xs) 15 ml PRN AFTMEALHC PRN PO DYSPEPSIA 10/13/20 21:45 Multi-Ingredient Ointment (Analgesic [place]) 1 ike QID PRN TP MUSCLE PAIN 10/13/20 21:45 Mirtazapine (Remeron Tiki-Tab) 15 mg QHS PO 10/14/20 21:00 10/13/20 22:20 DC Olanzapine (ZyPREXA ZYDIS) 5 mg PRN Q2HRS PRN PO ANXIETY / AGITATION 10/13/20 21:45 10/19/20 21:26 Polyethylene Glycol (miraLAX) 17 gm PRN BID PRN PO 2nd choice constipation 10/13/20 21:45 Potassium Chloride (Klor-Con) 10 meq DAILY PO 10/14/20 09:00 10/20/20 08:12 Quetiapine Fumarate (SEROquel) 25 mg BID PO 10/14/20 09:00 10/13/20 22:20 DC Sertraline HCl (Zoloft) 25 mg DAILY PO 10/14/20 09:00 10/20/20 08:13 Trazodone HCl (Desyrel) 50 mg PRN QHS PRN PO Insomnia May repeat x2 10/13/20 21:45 10/19/20 23:33 Vitamin D (Vitamin D3) 2,000 unit DAILY PO 10/14/20 09:00 10/20/20 08:13 Cyanocobalamin (Vitamin B-12) 1,000 mcg DAILY PO 10/14/20 09:00 10/20/20 08:13 Fluticasone Propionate (Flonase) 1 spray DAILY NS 10/14/20 09:00 10/20/20 08:26 Non-Formulary Medication (Magnesium Hydroxide (Milk Of Magnesia)) 2,400 mg PRN DAILY PRN PO CONSTIPATION 10/13/20 21:45 UNV Carbidopa/Levodopa (Sinemet 10/100) 1 tab QID PO 10/13/20 22:45 10/20/20 08:13 Divalproex Sodium (Depakote Er) 250 mg BID PO 10/13/20 22:45 10/20/20 08:10 Finasteride (Proscar) 5 mg QHS PO 10/13/20 22:45 10/19/20 20:15 Mirtazapine (Remeron Tiki-Tab) 15 mg QHS PO 10/13/20 22:45 10/19/20 20:15 Quetiapine Fumarate (SEROquel) 25 mg BID PO 10/13/20 22:45 10/20/20 08:13 Rivastigmine (Exelon) 1 patch DAILY TD 10/18/20 09:00 10/22/20 23:50 10/20/20 08:13 Rivastigmine (Exelon) 1 patch DAILY TD 10/23/20 09:00 Memantine (Namenda) 5 mg BID PO 10/19/20 21:00 10/20/20 08:12 Current Medications Medications (Trade) Dose Ordered Sig/Matilde Route PRN Reason Start Time Stop Time Status Last Admin Dose Admin Memantine (Namenda) 5 mg BID PO 10/19/20 21:00 10/20/20 08:12 I have reviewed the current psychotropics carefully including drug interactions. Risk benefit ratio favors no change other than as noted in my dictated progress note. Diagnosis: Problems: (1) Lewy body dementia with behavioral disturbance (2) Impulse control disorder, unspecified (3) Anxiety disorder, unspecified (4) Dementia, vascular, with depression (5) Dementia, vascular, with delusions (6) Dementia in Alzheimer's disease with depression (7) Dementia in Alzheimer's disease with delusions (8) Major neurocognitive disorder JORGE COLLAZO MD Oct 20, 2020 08:29
[2020-10-20 16:50] VITALS: BP 99/60
--- NOTE | 2020-10-20 17:32 | NUR ---
Patient in quiet room eating breakfast at time of assessment. Patient sitting in wheel chair with no complaints. Patient is hallucinating and talking to someone who is not there. He doesn't know where he is he thinks "he is at the clubhouse waiting for his friends". Patient is peasant and cooperates. No further concerns at this time.
[2020-10-20] MEDS: FINASTERIDE 5 MG TABLET. PO SCH (20:12)
[2020-10-20] MEDS: traZODone 50 MG TABLET. PO PRN (20:13)
[2020-10-20] MEDS: MIRTAZAPINE ODT 15 MG TAB.RAPDIS. PO SCH (20:14)
--- NOTE | 2020-10-20 21:15 | PDOC ---
Exam Note: Tommy Note: Please also refer to the separate dictated note~for this date of service dictated separately.~Patient seen individually. Discussed the patient with Nursing staff reviewed the chart.~Reviewed interim history and current functioning. Reviewed vital signs,~Labs/ Radiology~and current medications noted below. Continue current treatment with the changes noted in the dictated addendum note Assessment: Vital Signs/I&O: Vital Signs Date Time Temp Pulse Resp B/P (MAP) Pulse Ox O2 Delivery O2 Flow Rate FiO2 10/20/20 16:50 96.9 78 20 99/60 (73) 96 Room Air I & O 10/19/20 10/19/20 10/20/20 15:00 23:00 07:00 Intake Total 360 ml 240 ml 100 ml Balance 360 ml 240 ml 100 ml Current Medications: Meds: Current Medications Medications (Trade) Dose Ordered Sig/Matilde Route PRN Reason Start Time Stop Time Status Last Admin Dose Admin Acetaminophen (Tylenol) 650 mg PRN Q6HRS PRN PO MILD PAIN / TEMP > 100.3'F 10/13/20 21:45 UNV Multi-Ingredient Ointment (Analgesic [place]) 1 ike PRN QID PRN TP MUSCLE PAIN 10/13/20 21:45 UNV Al Hydroxide/Mg Hydroxide (Mylanta Plus Xs) 15 ml PRN AFTMEALHC PRN PO DYSPEPSIA 10/13/20 21:45 UNV Magnesium Hydroxide (Milk Of Magnesia) 2,400 mg PRN QHS PRN PO 3rd CHOICE CONSTIPATION 10/13/20 21:45 Acetaminophen (Tylenol) 650 mg PRN Q6HRS PRN PO MILD PAIN / TEMP > 100.3'F 10/13/20 21:45 10/14/20 16:44 Carbidopa/Levodopa (Sinemet 10/100) 1 tab QID PO 10/14/20 09:00 10/13/20 22:20 DC Divalproex Sodium (Depakote Er) 250 mg BID PO 10/14/20 09:00 10/13/20 22:20 DC Docusate Sodium (Colace) 100 mg PRN BID PRN PO 1ST CHOICE CONSTIPATION 10/13/20 21:45 Finasteride (Proscar) 5 mg QHS PO 10/14/20 21:00 10/13/20 22:20 DC Levothyroxine Sodium (Synthroid) 100 mcg DAILY06 PO 10/14/20 06:00 10/20/20 05:19 Al Hydroxide/Mg Hydroxide (Mylanta Plus Xs) 15 ml PRN AFTMEALHC PRN PO DYSPEPSIA 10/13/20 21:45 Multi-Ingredient Ointment (Analgesic [place]) 1 ike QID PRN TP MUSCLE PAIN 10/13/20 21:45 Mirtazapine (Remeron Tiki-Tab) 15 mg QHS PO 10/14/20 21:00 10/13/20 22:20 DC Olanzapine (ZyPREXA ZYDIS) 5 mg PRN Q2HRS PRN PO ANXIETY / AGITATION 10/13/20 21:45 10/20/20 20:13 Polyethylene Glycol (miraLAX) 17 gm PRN BID PRN PO 2nd choice constipation 10/13/20 21:45 Potassium Chloride (Klor-Con) 10 meq DAILY PO 10/14/20 09:00 10/20/20 08:12 Quetiapine Fumarate (SEROquel) 25 mg BID PO 10/14/20 09:00 10/13/20 22:20 DC Sertraline HCl (Zoloft) 25 mg DAILY PO 10/14/20 09:00 10/20/20 08:13 Trazodone HCl (Desyrel) 50 mg PRN QHS PRN PO Insomnia May repeat x2 10/13/20 21:45 10/20/20 20:13 Vitamin D (Vitamin D3) 2,000 unit DAILY PO 10/14/20 09:00 10/20/20 08:13 Cyanocobalamin (Vitamin B-12) 1,000 mcg DAILY PO 10/14/20 09:00 10/20/20 08:13 Fluticasone Propionate (Flonase) 1 spray DAILY NS 10/14/20 09:00 10/20/20 08:26 Non-Formulary Medication (Magnesium Hydroxide (Milk Of Magnesia)) 2,400 mg PRN DAILY PRN PO CONSTIPATION 10/13/20 21:45 UNV Carbidopa/Levodopa (Sinemet 10/100) 1 tab QID PO 10/13/20 22:45 10/20/20 20:14 Divalproex Sodium (Depakote Er) 250 mg BID PO 10/13/20 22:45 10/20/20 20:13 Finasteride (Proscar) 5 mg QHS PO 10/13/20 22:45 10/20/20 20:12 Mirtazapine (Remeron Tiki-Tab) 15 mg QHS PO 10/13/20 22:45 10/20/20 20:14 Quetiapine Fumarate (SEROquel) 25 mg BID PO 10/13/20 22:45 10/20/20 20:13 Rivastigmine (Exelon) 1 patch DAILY TD 10/18/20 09:00 10/22/20 23:50 10/20/20 08:13 Rivastigmine (Exelon) 1 patch DAILY TD 10/23/20 09:00 Memantine (Namenda) 5 mg BID PO 10/19/20 21:00 10/20/20 20:13 I have reviewed the current psychotropics carefully including drug interactions. Risk benefit ratio favors no change other than as noted in my dictated progress note. Diagnosis: Problems: (1) Impulse control disorder, unspecified (2) Anxiety disorder, unspecified (3) Dementia, vascular, with depression (4) Dementia, vascular, with delusions (5) Dementia in Alzheimer's disease with depression (6) Dementia in Alzheimer's disease with delusions (7) Major neurocognitive disorder (8) Lewy body dementia with behavioral disturbance JORGE COLLAZO MD Oct 20, 2020 21:15
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
[2020-10-21] MEDS: LEVOTHYROXINE 100 MCG TABLET PO SCH (05:06)
[2020-10-21 06:16] VITALS: BP 149/83
--- NOTE | 2020-10-21 07:57 | PDOC ---
Exam Note: Tommy Note: This note is a late entry for 10/20/2020 covers elements not covered in my initial note. Subjective: The patient was reviewed on telehealth rounds in the evening of 10/20/2020 with Mary ORTEGA. Discussed with nursing staff, reviewed the chart. The patient just slept 4-3/4 hours previous night. The patient remains confused. He has had some intermittent hallucinations, delusions. He has been in his chair, tries to get out but if the alarm sets off he goes right back and sits down. He had a telephone call with his daughter, felt people are cheating him. He was quite labile in his mood previous night, loud and mean, angry. Received trazodone x3. Review of Systems: No CV, , pulmonary, eye, ENT system symptoms on review. Gait unsteady in wheelchair. Reliability poor. Mental Status Exam: The patient is oriented to himself. Insight and judgment, recent and remote memory, attention and concentration, fund of knowledge is poor consistent with his diagnosis. Laboratory Data: Reviewed. Impression: Major neurocognitive disorder Alzheimer vascular with delusion, depression, behavioral disturbance. Anxiety disorder unspecified. Impulse control disorder unspecified. 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 Plan: Continue psychotropics from initial note. Assessment: Vital Signs/I&O: Vital Signs Date Time Temp Pulse Resp B/P (MAP) Pulse Ox O2 Delivery O2 Flow Rate FiO2 10/21/20 06:16 97.1 84 18 149/83 (105) 95 10/20/20 16:50 Room Air I & O 10/20/20 10/20/20 10/21/20 15:00 23:00 07:00 Intake Total 600 ml 480 ml Balance 600 ml 480 ml Current Medications: Meds: Current Medications Medications (Trade) Dose Ordered Sig/Matilde Route PRN Reason Start Time Stop Time Status Last Admin Dose Admin Acetaminophen (Tylenol) 650 mg PRN Q6HRS PRN PO MILD PAIN / TEMP > 100.3'F 10/13/20 21:45 UNV Multi-Ingredient Ointment (Analgesic [place]) 1 ike PRN QID PRN TP MUSCLE PAIN 10/13/20 21:45 UNV Al Hydroxide/Mg Hydroxide (Mylanta Plus Xs) 15 ml PRN AFTMEALHC PRN PO DYSPEPSIA 10/13/20 21:45 UNV Magnesium Hydroxide (Milk Of Magnesia) 2,400 mg PRN QHS PRN PO 3rd CHOICE CONSTIPATION 10/13/20 21:45 Acetaminophen (Tylenol) 650 mg PRN Q6HRS PRN PO MILD PAIN / TEMP > 100.3'F 10/13/20 21:45 10/14/20 16:44 Carbidopa/Levodopa (Sinemet 10/100) 1 tab QID PO 10/14/20 09:00 10/13/20 22:20 DC Divalproex Sodium (Depakote Er) 250 mg BID PO 10/14/20 09:00 10/13/20 22:20 DC Docusate Sodium (Colace) 100 mg PRN BID PRN PO 1ST CHOICE CONSTIPATION 10/13/20 21:45 Finasteride (Proscar) 5 mg QHS PO 10/14/20 21:00 10/13/20 22:20 DC Levothyroxine Sodium (Synthroid) 100 mcg DAILY06 PO 10/14/20 06:00 10/21/20 05:06 Al Hydroxide/Mg Hydroxide (Mylanta Plus Xs) 15 ml PRN AFTMEALHC PRN PO DYSPEPSIA 10/13/20 21:45 Multi-Ingredient Ointment (Analgesic [place]) 1 ike QID PRN TP MUSCLE PAIN 10/13/20 21:45 Mirtazapine (Remeron Tiki-Tab) 15 mg QHS PO 10/14/20 21:00 10/13/20 22:20 DC Olanzapine (ZyPREXA ZYDIS) 5 mg PRN Q2HRS PRN PO ANXIETY / AGITATION 10/13/20 21:45 10/20/20 20:13 Polyethylene Glycol (miraLAX) 17 gm PRN BID PRN PO 2nd choice constipation 10/13/20 21:45 Potassium Chloride (Klor-Con) 10 meq DAILY PO 10/14/20 09:00 10/20/20 08:12 Quetiapine Fumarate (SEROquel) 25 mg BID PO 10/14/20 09:00 10/13/20 22:20 DC Sertraline HCl (Zoloft) 25 mg DAILY PO 10/14/20 09:00 10/20/20 08:13 Trazodone HCl (Desyrel) 50 mg PRN QHS PRN PO Insomnia May repeat x2 10/13/20 21:45 10/20/20 20:13 Vitamin D (Vitamin D3) 2,000 unit DAILY PO 10/14/20 09:00 10/20/20 08:13 Cyanocobalamin (Vitamin B-12) 1,000 mcg DAILY PO 10/14/20 09:00 10/20/20 08:13 Fluticasone Propionate (Flonase) 1 spray DAILY NS 10/14/20 09:00 10/20/20 08:26 Non-Formulary Medication (Magnesium Hydroxide (Milk Of Magnesia)) 2,400 mg PRN DAILY PRN PO CONSTIPATION 10/13/20 21:45 UNV Carbidopa/Levodopa (Sinemet 10/100) 1 tab QID PO 10/13/20 22:45 10/20/20 20:14 Divalproex Sodium (Depakote Er) 250 mg BID PO 10/13/20 22:45 10/20/20 20:13 Finasteride (Proscar) 5 mg QHS PO 10/13/20 22:45 10/20/20 20:12 Mirtazapine (Remeron Tiki-Tab) 15 mg QHS PO 10/13/20 22:45 10/20/20 20:14 Quetiapine Fumarate (SEROquel) 25 mg BID PO 10/13/20 22:45 10/20/20 20:13 Rivastigmine (Exelon) 1 patch DAILY TD 10/18/20 09:00 10/22/20 23:50 10/20/20 08:13 Rivastigmine (Exelon) 1 patch DAILY TD 10/23/20 09:00 Memantine (Namenda) 5 mg BID PO 10/19/20 21:00 10/20/20 20:13 I have reviewed the current psychotropics carefully including drug interactions. Risk benefit ratio favors no change other than as noted in my dictated progress note. Diagnosis: Problems: (1) Impulse control disorder, unspecified (2) Anxiety disorder, unspecified (3) Dementia, vascular, with depression (4) Dementia, vascular, with delusions (5) Dementia in Alzheimer's disease with depression (6) Dementia in Alzheimer's disease with delusions (7) Major neurocognitive disorder (8) Lewy body dementia with behavioral disturbance JORGE COLLAZO MD Oct 21, 2020 07:57
[2020-10-21] MEDS: POTASSIUM CHLORIDE 10 MEQ TABLET.ER. PO SCH (09:00)
--- NOTE | 2020-10-21 10:57 | NUR ---
Pt was verbally and physically combative with staff. He was delusional and yelling and swearing about "Keely taking the kids and leaving." Zyprexa 5 mg administered sublingually.
[2020-10-21] MEDS: RIVASTIGMINE 4.6MG PATCH. TD SCH (11:10)
[2020-10-21] MEDS: CARBIDOPA/LEVODOPA 10/100MG TABLET PO SCH ×5 (11:10→20:25)
[2020-10-21] MEDS: CHOLECALCIFEROL (VITAMIN D3) 1,000 UNIT TABLET PO SCH (11:10)
[2020-10-21] MEDS: QUEtiapine 25 MG TABLET. PO SCH ×2 (11:10→20:24)
[2020-10-21] MEDS: DIVALPROEX ER 250 MG TAB.ER.24H. PO SCH ×2 (11:10→20:24)
[2020-10-21] MEDS: CYANOCOBALAMIN (VITAMIN B-12) 1,000 MCG TABLET. PO SCH (11:11)
[2020-10-21] MEDS: MEMANTINE 5 MG TABLET. PO SCH ×2 (11:11→20:24)
[2020-10-21] MEDS: SERTRALINE 25 MG TABLET. PO SCH (11:11)
[2020-10-21] MEDS: FLUTICASONE 50MCG/NASAL SPRAY 16GM BOTTLE. NS SCH (11:12)
--- NOTE | 2020-10-21 14:25 | NUR ---
Pt has been confused and delusional during almost the entirety of the day. He also has periods of agitation directed towards staff and the circumstances of his current delusions. He states that someone named Keely took their children and are leaving him. He speaks angrily about wanting to divorce her. He is absent of SI/HI behaviors, he is absent of VH/AH at this time. He is med complaint and has no complaints/concerns aside from the current situation he believes he is in. He has been wandering around in his w/c and at one point wandered into another pt's room and got into their bed independently top nap. He is absent of exit-seeking behaviors. Will pass on to the next shift.
[2020-10-21 16:12] VITALS: BP 98/59
--- NOTE | 2020-10-21 18:42 | NUR ---
post void bladder scan was 176mls Addendum: 10/21/20 at 1843 by ERIK RODRIGUEZ RN wrong pt
[2020-10-21] MEDS: FINASTERIDE 5 MG TABLET. PO SCH (20:24)
[2020-10-21] MEDS: MIRTAZAPINE ODT 15 MG TAB.RAPDIS. PO SCH (20:25)
[2020-10-21] MEDS: traZODone 50 MG TABLET. PO PRN (20:26)
--- NOTE | 2020-10-21 21:02 | PDOC ---
Exam Note: Tommy Note: Please also refer to the separate dictated note~for this date of service dictated separately.~Patient seen individually. Discussed the patient with Nursing staff reviewed the chart.~Reviewed interim history and current functioning. Reviewed vital signs,~Labs/ Radiology~and current medications noted below. Continue current treatment with the changes noted in the dictated addendum note Assessment: Vital Signs/I&O: Vital Signs Date Time Temp Pulse Resp B/P (MAP) Pulse Ox O2 Delivery O2 Flow Rate FiO2 10/21/20 16:12 97.4 64 18 98/59 (72) 96 10/20/20 16:50 Room Air I & O 10/20/20 10/20/20 10/21/20 15:00 23:00 07:00 Intake Total 600 ml 480 ml Balance 600 ml 480 ml Current Medications: Meds: Current Medications Medications (Trade) Dose Ordered Sig/Matilde Route PRN Reason Start Time Stop Time Status Last Admin Dose Admin Acetaminophen (Tylenol) 650 mg PRN Q6HRS PRN PO MILD PAIN / TEMP > 100.3'F 10/13/20 21:45 UNV Multi-Ingredient Ointment (Analgesic [place]ar) 1 ike PRN QID PRN TP MUSCLE PAIN 10/13/20 21:45 UNV Al Hydroxide/Mg Hydroxide (Mylanta Plus Xs) 15 ml PRN AFTMEALHC PRN PO DYSPEPSIA 10/13/20 21:45 UNV Magnesium Hydroxide (Milk Of Magnesia) 2,400 mg PRN QHS PRN PO 3rd CHOICE CONSTIPATION 10/13/20 21:45 Acetaminophen (Tylenol) 650 mg PRN Q6HRS PRN PO MILD PAIN / TEMP > 100.3'F 10/13/20 21:45 10/14/20 16:44 Carbidopa/Levodopa (Sinemet 10/100) 1 tab QID PO 10/14/20 09:00 10/13/20 22:20 DC Divalproex Sodium (Depakote Er) 250 mg BID PO 10/14/20 09:00 10/13/20 22:20 DC Docusate Sodium (Colace) 100 mg PRN BID PRN PO 1ST CHOICE CONSTIPATION 10/13/20 21:45 Finasteride (Proscar) 5 mg QHS PO 10/14/20 21:00 10/13/20 22:20 DC Levothyroxine Sodium (Synthroid) 100 mcg DAILY06 PO 10/14/20 06:00 10/21/20 05:06 Al Hydroxide/Mg Hydroxide (Mylanta Plus Xs) 15 ml PRN AFTMEALHC PRN PO DYSPEPSIA 10/13/20 21:45 Multi-Ingredient Ointment (Analgesic [place]ar) 1 ike QID PRN TP MUSCLE PAIN 10/13/20 21:45 Mirtazapine (Remeron Tiki-Tab) 15 mg QHS PO 10/14/20 21:00 10/13/20 22:20 DC Olanzapine (ZyPREXA ZYDIS) 5 mg PRN Q2HRS PRN PO ANXIETY / AGITATION 10/13/20 21:45 10/21/20 20:26 Polyethylene Glycol (miraLAX) 17 gm PRN BID PRN PO 2nd choice constipation 10/13/20 21:45 Potassium Chloride (Klor-Con) 10 meq DAILY PO 10/14/20 09:00 10/21/20 09:00 Quetiapine Fumarate (SEROquel) 25 mg BID PO 10/14/20 09:00 10/13/20 22:20 DC Sertraline HCl (Zoloft) 25 mg DAILY PO 10/14/20 09:00 10/21/20 11:11 Trazodone HCl (Desyrel) 50 mg PRN QHS PRN PO Insomnia May repeat x2 10/13/20 21:45 10/21/20 20:26 Vitamin D (Vitamin D3) 2,000 unit DAILY PO 10/14/20 09:00 10/21/20 11:10 Cyanocobalamin (Vitamin B-12) 1,000 mcg DAILY PO 10/14/20 09:00 10/21/20 11:11 Fluticasone Propionate (Flonase) 1 spray DAILY NS 10/14/20 09:00 10/21/20 11:12 Non-Formulary Medication (Magnesium Hydroxide (Milk Of Magnesia)) 2,400 mg PRN DAILY PRN PO CONSTIPATION 10/13/20 21:45 UNV Carbidopa/Levodopa (Sinemet 10/100) 1 tab QID PO 10/13/20 22:45 10/21/20 20:25 Divalproex Sodium (Depakote Er) 250 mg BID PO 10/13/20 22:45 10/21/20 20:24 Finasteride (Proscar) 5 mg QHS PO 10/13/20 22:45 10/21/20 20:24 Mirtazapine (Remeron Tiki-Tab) 15 mg QHS PO 10/13/20 22:45 10/21/20 20:25 Quetiapine Fumarate (SEROquel) 25 mg BID PO 10/13/20 22:45 10/21/20 20:24 Rivastigmine (Exelon) 1 patch DAILY TD 10/18/20 09:00 10/22/20 23:50 10/21/20 11:10 Rivastigmine (Exelon) 1 patch DAILY TD 10/23/20 09:00 10/27/20 23:59 Memantine (Namenda) 5 mg BID PO 10/19/20 21:00 10/21/20 20:24 Rivastigmine (Exelon 13.3mg) 1 patch DAILY TD 10/28/20 07:00 I have reviewed the current psychotropics carefully including drug interactions. Risk benefit ratio favors no change other than as noted in my dictated progress note. Diagnosis: Problems: (1) Impulse control disorder, unspecified (2) Anxiety disorder, unspecified (3) Dementia, vascular, with depression (4) Dementia, vascular, with delusions (5) Dementia in Alzheimer's disease with depression (6) Dementia in Alzheimer's disease with delusions (7) Major neurocognitive disorder (8) Lewy body dementia with behavioral disturbance JORGE COLLAZO MD Oct 21, 2020 21:02
--- NOTE | 2020-10-21 23:17 | NUR ---
Patient is in the hallway on assumption of care, propelling around the unit in his wheelchair. He is confused, disorganized, restless, impulsive and irritable with redirection. Patient does not appear to be in any pain or discomfort. He appears to be sleeping comfortably at present time. Will continue to monitor.
[2020-10-22] MEDS: traZODone 50 MG TABLET. PO PRN ×3 (00:03→23:32)
[2020-10-22] MEDS: LEVOTHYROXINE 100 MCG TABLET PO SCH (05:13)
[2020-10-22 06:44] VITALS: BP 156/77
[2020-10-22 06:55] LABS: BASO % 0 % (0-3); EOS % 0 % (0-3); HEMOGLOBIN 9.9 g/dL (13.0-17.5); LYMPH # 1.5 x10^3/uL (1.0-4.8); LYMPH % 26 % (24-48); MEAN CORPUSCULAR HEMOGLOBIN 29 pg (25-35); MEAN CORPUSCULAR HGB CONC 31 g/dL (31-37); MEAN CORPUSCULAR VOLUME 95 fL (79-100); MONO # 0.6 x10^3/uL (0.0-1.1); MONO % 12 % (0-9); NEUT # 3.5 x10^3uL (1.8-7.7); NEUT % 62 % (31-73); PLATELET COUNT 184 x10^3/uL (140-400); RED BLOOD COUNT 3.38 x10^6/uL (4.30-5.70); RED CELL DISTRIBUTION WIDTH 18.8 % (11.5-14.5); WHITE BLOOD COUNT 5.6 x10^3/uL (4.0-11.0)
[2020-10-22 07:06] LABS: ALBUMIN 2.8 g/dL (3.4-5.0); ALBUMIN/GLOBULIN RATIO 0.9 (1.0-1.7); CALCIUM 8.2 mg/dL (8.5-10.1); GFR 71.7; POTASSIUM 3.7 mmol/L (3.5-5.1); TOTAL BILIRUBIN 0.5 mg/dL (0.2-1.0); TOTAL PROTEIN 5.9 g/dL (6.4-8.2)
--- NOTE | 2020-10-22 08:17 | PDOC ---
Exam Note: Tommy Note: This note is a late entry for 10/21/2020 covers elements not covered in my initial note. Subjective: The patient was reviewed on telehealth rounds in the evening of 10/21/2020 with Susi ORTEGA. Discussed with nursing staff, reviewed the chart. The patient just slept 3-1/4 hours previous night. The patient has been confused, intermittently agitated, talking about Keely havent taken his children away and that he was going to get , agitated with staff at times. Received Zyprexa p.r.n., later took his medications. He is wandering into others patients rooms, lies down in the bed, trying to sleep. Review of Systems: No CV, , pulmonary, eye, ENT system symptoms on review. Ambulation impaired in wheelchair. Reliability poor. Mental Status Exam: The patient is oriented to himself. Insight and judgment, recent and remote memory, attention and concentration, fund of knowledge is poor consistent with his diagnosis. Laboratory Data: Reviewed. Impression: Major neurocognitive disorder Alzheimer vascular with delusion, depression, behavioral disturbance. Anxiety disorder unspecified. Impulse control disorder unspecified. 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 Plan: The patient is currently on Exelon patch 9.5 mg a day after he has been on that for 5 days. We will increase to 13.3 mg a day given his diagnosis of Lewy body dementia. Continue rest of the psychotropics unchanged. Assessment: Vital Signs/I&O: Vital Signs Date Time Temp Pulse Resp B/P (MAP) Pulse Ox O2 Delivery O2 Flow Rate FiO2 10/22/20 06:44 97.9 74 16 156/77 (103) 100 10/20/20 16:50 Room Air I & O 10/21/20 10/21/20 10/22/20 15:00 23:00 07:00 Intake Total 360 ml 360 ml Balance 360 ml 360 ml Labs: Laboratory Tests Test 10/22/20 06:19 White Blood Count 5.6 x10^3/uL (4.0-11.0) Red Blood Count 3.38 x10^6/uL (4.30-5.70) L Hemoglobin 9.9 g/dL (13.0-17.5) L Hematocrit 32.0 % (39.0-53.0) L Mean Corpuscular Volume 95 fL (79-100) Mean Corpuscular Hemoglobin 29 pg (25-35) Mean Corpuscular Hemoglobin Concent 31 g/dL (31-37) Red Cell Distribution Width 18.8 % (11.5-14.5) H Platelet Count 184 x10^3/uL (140-400) Neutrophils (%) (Auto) 62 % (31-73) Lymphocytes (%) (Auto) 26 % (24-48) Monocytes (%) (Auto) 12 % (0-9) H Eosinophils (%) (Auto) 0 % (0-3) Basophils (%) (Auto) 0 % (0-3) Neutrophils # (Auto) 3.5 x10^3uL (1.8-7.7) Lymphocytes # (Auto) 1.5 x10^3/uL (1.0-4.8) Monocytes # (Auto) 0.6 x10^3/uL (0.0-1.1) Eosinophils # (Auto) 0.0 x10^3/uL (0.0-0.7) Basophils # (Auto) 0.0 x10^3/uL (0.0-0.2) Sodium Level 143 mmol/L (136-145) Potassium Level 3.7 mmol/L (3.5-5.1) Chloride Level 107 mmol/L (98-107) Carbon Dioxide Level 29 mmol/L (21-32) Anion Gap 7 (6-14) Blood Urea Nitrogen 20 mg/dL (8-26) Creatinine 1.0 mg/dL (0.7-1.3) Estimated GFR (Cockcroft-Gault) 71.7 BUN/Creatinine Ratio 20 (6-20) Glucose Level 91 mg/dL (70-99) Calcium Level 8.2 mg/dL (8.5-10.1) L Total Bilirubin 0.5 mg/dL (0.2-1.0) Aspartate Amino Transferase (AST) 18 U/L (15-37) Alanine Aminotransferase (ALT) 17 U/L (16-63) Alkaline Phosphatase 53 U/L (46-116) Total Protein 5.9 g/dL (6.4-8.2) L Albumin 2.8 g/dL (3.4-5.0) L Albumin/Globulin Ratio 0.9 (1.0-1.7) L Current Medications: Meds: Laboratory Tests Test 10/22/20 06:19 White Blood Count 5.6 x10^3/uL Red Blood Count 3.38 x10^6/uL Hemoglobin 9.9 g/dL Hematocrit 32.0 % Mean Corpuscular Volume 95 fL Mean Corpuscular Hemoglobin 29 pg Mean Corpuscular Hemoglobin Concent 31 g/dL Red Cell Distribution Width 18.8 % Platelet Count 184 x10^3/uL Neutrophils (%) (Auto) 62 % Lymphocytes (%) (Auto) 26 % Monocytes (%) (Auto) 12 % Eosinophils (%) (Auto) 0 % Basophils (%) (Auto) 0 % Neutrophils # (Auto) 3.5 x10^3uL Lymphocytes # (Auto) 1.5 x10^3/uL Monocytes # (Auto) 0.6 x10^3/uL Eosinophils # (Auto) 0.0 x10^3/uL Basophils # (Auto) 0.0 x10^3/uL Sodium Level 143 mmol/L Potassium Level 3.7 mmol/L Chloride Level 107 mmol/L Carbon Dioxide Level 29 mmol/L Anion Gap 7 Blood Urea Nitrogen 20 mg/dL Creatinine 1.0 mg/dL Estimated GFR (Cockcroft-Gault) 71.7 BUN/Creatinine Ratio 20 Glucose Level 91 mg/dL Calcium Level 8.2 mg/dL Total Bilirubin 0.5 mg/dL Aspartate Amino Transf (AST/SGOT) 18 U/L Alanine Aminotransferase (ALT/SGPT) 17 U/L Alkaline Phosphatase 53 U/L Total Protein 5.9 g/dL Albumin 2.8 g/dL Albumin/Globulin Ratio 0.9 Current Medications Medications (Trade) Dose Ordered Sig/Matilde Route PRN Reason Start Time Stop Time Status Last Admin Dose Admin Acetaminophen (Tylenol) 650 mg PRN Q6HRS PRN PO MILD PAIN / TEMP > 100.3'F 10/13/20 21:45 UNV Multi-Ingredient Ointment (Analgesic [place]) 1 ike PRN QID PRN TP MUSCLE PAIN 10/13/20 21:45 UNV Al Hydroxide/Mg Hydroxide (Mylanta Plus Xs) 15 ml PRN AFTMEALHC PRN PO DYSPEPSIA 10/13/20 21:45 UNV Magnesium Hydroxide (Milk Of Magnesia) 2,400 mg PRN QHS PRN PO 3rd CHOICE CONSTIPATION 10/13/20 21:45 Acetaminophen (Tylenol) 650 mg PRN Q6HRS PRN PO MILD PAIN / TEMP > 100.3'F 10/13/20 21:45 10/14/20 16:44 Carbidopa/Levodopa (Sinemet 10/100) 1 tab QID PO 10/14/20 09:00 10/13/20 22:20 DC Divalproex Sodium (Depakote Er) 250 mg BID PO 10/14/20 09:00 10/13/20 22:20 DC Docusate Sodium (Colace) 100 mg PRN BID PRN PO 1ST CHOICE CONSTIPATION 10/13/20 21:45 Finasteride (Proscar) 5 mg QHS PO 10/14/20 21:00 10/13/20 22:20 DC Levothyroxine Sodium (Synthroid) 100 mcg DAILY06 PO 10/14/20 06:00 10/22/20 05:13 Al Hydroxide/Mg Hydroxide (Mylanta Plus Xs) 15 ml PRN AFTMEALHC PRN PO DYSPEPSIA 10/13/20 21:45 Multi-Ingredient Ointment (Analgesic [place]) 1 ike QID PRN TP MUSCLE PAIN 10/13/20 21:45 Mirtazapine (Remeron Tiki-Tab) 15 mg QHS PO 10/14/20 21:00 10/13/20 22:20 DC Olanzapine (ZyPREXA ZYDIS) 5 mg PRN Q2HRS PRN PO ANXIETY / AGITATION 10/13/20 21:45 10/21/20 20:26 Polyethylene Glycol (miraLAX) 17 gm PRN BID PRN PO 2nd choice constipation 10/13/20 21:45 Potassium Chloride (Klor-Con) 10 meq DAILY PO 10/14/20 09:00 10/21/20 09:00 Quetiapine Fumarate (SEROquel) 25 mg BID PO 10/14/20 09:00 10/13/20 22:20 DC Sertraline HCl (Zoloft) 25 mg DAILY PO 10/14/20 09:00 10/21/20 11:11 Trazodone HCl (Desyrel) 50 mg PRN QHS PRN PO Insomnia May repeat x2 10/13/20 21:45 10/22/20 00:03 Vitamin D (Vitamin D3) 2,000 unit DAILY PO 10/14/20 09:00 10/21/20 11:10 Cyanocobalamin (Vitamin B-12) 1,000 mcg DAILY PO 10/14/20 09:00 10/21/20 11:11 Fluticasone Propionate (Flonase) 1 spray DAILY NS 10/14/20 09:00 10/21/20 11:12 Non-Formulary Medication (Magnesium Hydroxide (Milk Of Magnesia)) 2,400 mg PRN DAILY PRN PO CONSTIPATION 10/13/20 21:45 UNV Carbidopa/Levodopa (Sinemet 10/100) 1 tab QID PO 10/13/20 22:45 10/21/20 20:25 Divalproex Sodium (Depakote Er) 250 mg BID PO 10/13/20 22:45 10/21/20 20:24 Finasteride (Proscar) 5 mg QHS PO 10/13/20 22:45 10/21/20 20:24 Mirtazapine (Remeron Tiki-Tab) 15 mg QHS PO 10/13/20 22:45 10/21/20 20:25 Quetiapine Fumarate (SEROquel) 25 mg BID PO 10/13/20 22:45 10/21/20 20:24 Rivastigmine (Exelon) 1 patch DAILY TD 10/18/20 09:00 10/22/20 23:50 10/21/20 11:10 Rivastigmine (Exelon) 1 patch DAILY TD 10/23/20 09:00 10/27/20 23:59 Memantine (Namenda) 5 mg BID PO 10/19/20 21:00 10/21/20 20:24 Rivastigmine (Exelon 13.3mg) 1 patch DAILY TD 10/28/20 07:00 I have reviewed the current psychotropics carefully including drug interactions. Risk benefit ratio favors no change other than as noted in my dictated progress note. Diagnosis: Problems: (1) Impulse control disorder, unspecified (2) Anxiety disorder, unspecified (3) Dementia, vascular, with depression (4) Dementia, vascular, with delusions (5) Dementia in Alzheimer's disease with depression (6) Dementia in Alzheimer's disease with delusions (7) Major neurocognitive disorder (8) Lewy body dementia with behavioral disturbance VALE,MAN M MD Oct 22, 2020 08:17
[2020-10-22] MEDS: DIVALPROEX ER 250 MG TAB.ER.24H. PO SCH ×2 (08:47→20:48)
[2020-10-22] MEDS: FLUTICASONE 50MCG/NASAL SPRAY 16GM BOTTLE. NS SCH (08:47)
[2020-10-22] MEDS: POTASSIUM CHLORIDE 10 MEQ TABLET.ER. PO SCH (08:47)
[2020-10-22] MEDS: CARBIDOPA/LEVODOPA 10/100MG TABLET PO SCH ×4 (08:47→20:49)
[2020-10-22] MEDS: CYANOCOBALAMIN (VITAMIN B-12) 1,000 MCG TABLET. PO SCH (08:47)
[2020-10-22] MEDS: MEMANTINE 5 MG TABLET. PO SCH ×2 (08:48→20:48)
[2020-10-22] MEDS: SERTRALINE 25 MG TABLET. PO SCH (08:48)
[2020-10-22] MEDS: QUEtiapine 25 MG TABLET. PO SCH ×2 (08:48→20:48)
[2020-10-22] MEDS: CHOLECALCIFEROL (VITAMIN D3) 1,000 UNIT TABLET PO SCH (08:48)
[2020-10-22] MEDS: RIVASTIGMINE 4.6MG PATCH. TD SCH (08:48)
[2020-10-22] MEDS ORDERED: FUROSEMIDE 80 MG TABLET PO ONE (10:15)
--- NOTE | 2020-10-22 11:00 | NUR ---
During morning assessment pt c/o "cramping in my a-hole" when he would attempt to have a BM, as well as generalized pain in the prostate area. His feet were also observed to have 2+ pitting edema and cool to the touch. Dr Ferrer notified of pt complaints and presentation and the following order was given: administer Lasix 80 mg PO one time now for edema. Order read back and verified. Medication administered without difficulty.
--- NOTE | 2020-10-22 14:34 | NUR ---
Pt has been confused and delusional during almost the entirety of the day. He will ask staff for directions to unknown/unheard of places. He is alert to self only. He is absent of SI/HI behaviors, he is absent of VH/AH at this time. He is med complaint and has no complaints/concerns at this time. He has been observed to be participating more with nursing staff in medication administration and wants to feed the pills floated in pudding to himself. He also verbalizes awareness that medication is in the pudding. During the day he has been wandering around in his w/c and has once again entered into another pt's room room and got into the 2nd bed in the room independently to nap. He has also been discovered in another pt's room, sitting in the chair next to the bed, and appeared to be visiting with the other pt who was still in bed. He is absent of exit-seeking behaviors during these wandering excursions. Will pass on to the next shift.
[2020-10-22 15:53] VITALS: BP 111/61
[2020-10-22] MEDS: MIRTAZAPINE ODT 15 MG TAB.RAPDIS. PO SCH (20:48)
[2020-10-22] MEDS: FINASTERIDE 5 MG TABLET. PO SCH (20:49)
--- NOTE | 2020-10-22 20:56 | PDOC ---
Exam Note: Tommy Note: Please also refer to the separate dictated note~for this date of service dictated separately.~Patient seen individually. Discussed the patient with Nursing staff reviewed the chart.~Reviewed interim history and current functioning. Reviewed vital signs,~Labs/ Radiology~and current medications noted below. Continue current treatment with the changes noted in the dictated addendum note Assessment: Vital Signs/I&O: Vital Signs Date Time Temp Pulse Resp B/P (MAP) Pulse Ox O2 Delivery O2 Flow Rate FiO2 10/22/20 15:53 97.3 72 16 111/61 (78) 98 10/20/20 16:50 Room Air I & O 10/21/20 10/21/20 10/22/20 15:00 23:00 07:00 Intake Total 360 ml 360 ml Balance 360 ml 360 ml Labs: Laboratory Tests Test 10/22/20 06:19 White Blood Count 5.6 x10^3/uL (4.0-11.0) Red Blood Count 3.38 x10^6/uL (4.30-5.70) L Hemoglobin 9.9 g/dL (13.0-17.5) L Hematocrit 32.0 % (39.0-53.0) L Mean Corpuscular Volume 95 fL (79-100) Mean Corpuscular Hemoglobin 29 pg (25-35) Mean Corpuscular Hemoglobin Concent 31 g/dL (31-37) Red Cell Distribution Width 18.8 % (11.5-14.5) H Platelet Count 184 x10^3/uL (140-400) Neutrophils (%) (Auto) 62 % (31-73) Lymphocytes (%) (Auto) 26 % (24-48) Monocytes (%) (Auto) 12 % (0-9) H Eosinophils (%) (Auto) 0 % (0-3) Basophils (%) (Auto) 0 % (0-3) Neutrophils # (Auto) 3.5 x10^3uL (1.8-7.7) Lymphocytes # (Auto) 1.5 x10^3/uL (1.0-4.8) Monocytes # (Auto) 0.6 x10^3/uL (0.0-1.1) Eosinophils # (Auto) 0.0 x10^3/uL (0.0-0.7) Basophils # (Auto) 0.0 x10^3/uL (0.0-0.2) Sodium Level 143 mmol/L (136-145) Potassium Level 3.7 mmol/L (3.5-5.1) Chloride Level 107 mmol/L (98-107) Carbon Dioxide Level 29 mmol/L (21-32) Anion Gap 7 (6-14) Blood Urea Nitrogen 20 mg/dL (8-26) Creatinine 1.0 mg/dL (0.7-1.3) Estimated GFR (Cockcroft-Gault) 71.7 BUN/Creatinine Ratio 20 (6-20) Glucose Level 91 mg/dL (70-99) Calcium Level 8.2 mg/dL (8.5-10.1) L Total Bilirubin 0.5 mg/dL (0.2-1.0) Aspartate Amino Transferase (AST) 18 U/L (15-37) Alanine Aminotransferase (ALT) 17 U/L (16-63) Alkaline Phosphatase 53 U/L (46-116) Total Protein 5.9 g/dL (6.4-8.2) L Albumin 2.8 g/dL (3.4-5.0) L Albumin/Globulin Ratio 0.9 (1.0-1.7) L Current Medications: Meds: Laboratory Tests Test 10/22/20 06:19 White Blood Count 5.6 x10^3/uL Red Blood Count 3.38 x10^6/uL Hemoglobin 9.9 g/dL Hematocrit 32.0 % Mean Corpuscular Volume 95 fL Mean Corpuscular Hemoglobin 29 pg Mean Corpuscular Hemoglobin Concent 31 g/dL Red Cell Distribution Width 18.8 % Platelet Count 184 x10^3/uL Neutrophils (%) (Auto) 62 % Lymphocytes (%) (Auto) 26 % Monocytes (%) (Auto) 12 % Eosinophils (%) (Auto) 0 % Basophils (%) (Auto) 0 % Neutrophils # (Auto) 3.5 x10^3uL Lymphocytes # (Auto) 1.5 x10^3/uL Monocytes # (Auto) 0.6 x10^3/uL Eosinophils # (Auto) 0.0 x10^3/uL Basophils # (Auto) 0.0 x10^3/uL Sodium Level 143 mmol/L Potassium Level 3.7 mmol/L Chloride Level 107 mmol/L Carbon Dioxide Level 29 mmol/L Anion Gap 7 Blood Urea Nitrogen 20 mg/dL Creatinine 1.0 mg/dL Estimated GFR (Cockcroft-Gault) 71.7 BUN/Creatinine Ratio 20 Glucose Level 91 mg/dL Calcium Level 8.2 mg/dL Total Bilirubin 0.5 mg/dL Aspartate Amino Transf (AST/SGOT) 18 U/L Alanine Aminotransferase (ALT/SGPT) 17 U/L Alkaline Phosphatase 53 U/L Total Protein 5.9 g/dL Albumin 2.8 g/dL Albumin/Globulin Ratio 0.9 Current Medications Medications (Trade) Dose Ordered Sig/Matilde Route PRN Reason Start Time Stop Time Status Last Admin Dose Admin Acetaminophen (Tylenol) 650 mg PRN Q6HRS PRN PO MILD PAIN / TEMP > 100.3'F 10/13/20 21:45 UNV Multi-Ingredient Ointment (Analgesic [place]) 1 ike PRN QID PRN TP MUSCLE PAIN 10/13/20 21:45 UNV Al Hydroxide/Mg Hydroxide (Mylanta Plus Xs) 15 ml PRN AFTMEALHC PRN PO DYSPEPSIA 10/13/20 21:45 UNV Magnesium Hydroxide (Milk Of Magnesia) 2,400 mg PRN QHS PRN PO 3rd CHOICE CONSTIPATION 10/13/20 21:45 Acetaminophen (Tylenol) 650 mg PRN Q6HRS PRN PO MILD PAIN / TEMP > 100.3'F 10/13/20 21:45 10/14/20 16:44 Carbidopa/Levodopa (Sinemet 10/100) 1 tab QID PO 10/14/20 09:00 10/13/20 22:20 DC Divalproex Sodium (Depakote Er) 250 mg BID PO 10/14/20 09:00 10/13/20 22:20 DC Docusate Sodium (Colace) 100 mg PRN BID PRN PO 1ST CHOICE CONSTIPATION 10/13/20 21:45 Finasteride (Proscar) 5 mg QHS PO 10/14/20 21:00 10/13/20 22:20 DC Levothyroxine Sodium (Synthroid) 100 mcg DAILY06 PO 10/14/20 06:00 10/22/20 05:13 Al Hydroxide/Mg Hydroxide (Mylanta Plus Xs) 15 ml PRN AFTMEALHC PRN PO DYSPEPSIA 10/13/20 21:45 Multi-Ingredient Ointment (Analgesic [place]) 1 ike QID PRN TP MUSCLE PAIN 10/13/20 21:45 Mirtazapine (Remeron Tiki-Tab) 15 mg QHS PO 10/14/20 21:00 10/13/20 22:20 DC Olanzapine (ZyPREXA ZYDIS) 5 mg PRN Q2HRS PRN PO ANXIETY / AGITATION 10/13/20 21:45 10/21/20 20:26 Polyethylene Glycol (miraLAX) 17 gm PRN BID PRN PO 2nd choice constipation 10/13/20 21:45 Potassium Chloride (Klor-Con) 10 meq DAILY PO 10/14/20 09:00 10/22/20 08:47 Quetiapine Fumarate (SEROquel) 25 mg BID PO 10/14/20 09:00 10/13/20 22:20 DC Sertraline HCl (Zoloft) 25 mg DAILY PO 10/14/20 09:00 10/22/20 08:48 Trazodone HCl (Desyrel) 50 mg PRN QHS PRN PO Insomnia May repeat x2 10/13/20 21:45 10/22/20 00:03 Vitamin D (Vitamin D3) 2,000 unit DAILY PO 10/14/20 09:00 10/22/20 08:48 Cyanocobalamin (Vitamin B-12) 1,000 mcg DAILY PO 10/14/20 09:00 10/22/20 08:47 Fluticasone Propionate (Flonase) 1 spray DAILY NS 10/14/20 09:00 10/22/20 08:47 Non-Formulary Medication (Magnesium Hydroxide (Milk Of Magnesia)) 2,400 mg PRN DAILY PRN PO CONSTIPATION 10/13/20 21:45 UNV Carbidopa/Levodopa (Sinemet 10/100) 1 tab QID PO 10/13/20 22:45 10/22/20 20:49 Divalproex Sodium (Depakote Er) 250 mg BID PO 10/13/20 22:45 10/22/20 20:48 Finasteride (Proscar) 5 mg QHS PO 10/13/20 22:45 10/22/20 20:49 Mirtazapine (Remeron Tiki-Tab) 15 mg QHS PO 10/13/20 22:45 10/22/20 20:48 Quetiapine Fumarate (SEROquel) 25 mg BID PO 10/13/20 22:45 10/22/20 20:48 Rivastigmine (Exelon) 1 patch DAILY TD 10/18/20 09:00 10/22/20 23:50 10/22/20 08:48 Rivastigmine (Exelon) 1 patch DAILY TD 10/23/20 09:00 10/27/20 23:59 Memantine (Namenda) 5 mg BID PO 10/19/20 21:00 10/22/20 20:48 Rivastigmine (Exelon 13.3mg) 1 patch DAILY TD 10/28/20 07:00 Furosemide (Lasix) 80 mg 1X ONCE PO 10/22/20 10:15 10/22/20 10:16 DC 10/22/20 11:36 Current Medications Medications (Trade) Dose Ordered Sig/Matilde Route PRN Reason Start Time Stop Time Status Last Admin Dose Admin Furosemide (Lasix) 80 mg 1X ONCE PO 10/22/20 10:15 10/22/20 10:16 DC 10/22/20 11:36 I have reviewed the current psychotropics carefully including drug interactions. Risk benefit ratio favors no change other than as noted in my dictated progress note. 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
--- NOTE | 2020-10-22 22:58 | NUR ---
Patient is in bed on assumption of care, awake. At approximately 1945, during rounds, patient was found laying on his floor. He had attempted to get up and ambulate without assistance. Vital signs obtained, within normal limits. Patient denies pain or discomfort, and there was no evidence of injury. Staff assist of 2 to help patient into a standing position, and then he was assisted to the toilet. Peer Tutor, MEERA, and Dr. Ferrer notified. No new orders. Patient was compliant with medications and assessments. No agitation. Appears to be sleeping comfortably at present time. Will continue to monitor.
[2020-10-23] MEDS: LEVOTHYROXINE 100 MCG TABLET PO SCH (05:08)
[2020-10-23 06:26] VITALS: BP 154/77
--- NOTE | 2020-10-23 08:42 | PDOC ---
Exam Note: Tommy Note: This note is a late entry for 10/22/2020 covers elements not covered in my initial note. Subjective: The patient was reviewed on telehealth rounds in the evening of 10/22/2020 with Susi ORTEGA. Discussed with nursing staff, reviewed the chart. The patient just slept 3-1/2 hours previous night. The patient has been wheeling himself around the hallway in his wheelchair, goes into the room of other patients, talking to them, sleeping in the beds at times. He has not been physically or verbally aggressive today, compliant with medications. No p.r.n.s have been given. Review of Systems: No CV, , pulmonary, eye, ENT system symptoms on review. Ambulation impaired in wheelchair. Mental Status Exam: The patient is oriented to himself. Insight and judgment, recent and remote memory, attention and concentration, fund of knowledge is poor consistent with his diagnosis. Laboratory Data: Reviewed. Impression: Major neurocognitive disorder Alzheimer vascular with delusion, depression. Anxiety disorder unspecified. Impulse control disorder unspecified. 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 Plan: Continue rest of the psychotropics unchanged. Assessment: Vital Signs/I&O: Vital Signs Date Time Temp Pulse Resp B/P (MAP) Pulse Ox O2 Delivery O2 Flow Rate FiO2 10/23/20 06:26 97.6 79 20 154/77 (102) 97 Room Air I & O 10/22/20 10/22/20 10/23/20 15:00 23:00 07:00 Intake Total 220 ml 360 ml 100 ml Balance 220 ml 360 ml 100 ml Current Medications: Meds: Current Medications Medications (Trade) Dose Ordered Sig/Matilde Route PRN Reason Start Time Stop Time Status Last Admin Dose Admin Acetaminophen (Tylenol) 650 mg PRN Q6HRS PRN PO MILD PAIN / TEMP > 100.3'F 10/13/20 21:45 UNV Multi-Ingredient Ointment (Analgesic [place]) 1 ike PRN QID PRN TP MUSCLE PAIN 10/13/20 21:45 UNV Al Hydroxide/Mg Hydroxide (Mylanta Plus Xs) 15 ml PRN AFTMEALHC PRN PO DYSPEPSIA 10/13/20 21:45 UNV Magnesium Hydroxide (Milk Of Magnesia) 2,400 mg PRN QHS PRN PO 3rd CHOICE CONSTIPATION 10/13/20 21:45 Acetaminophen (Tylenol) 650 mg PRN Q6HRS PRN PO MILD PAIN / TEMP > 100.3'F 10/13/20 21:45 10/14/20 16:44 Carbidopa/Levodopa (Sinemet 10/100) 1 tab QID PO 10/14/20 09:00 10/13/20 22:20 DC Divalproex Sodium (Depakote Er) 250 mg BID PO 10/14/20 09:00 10/13/20 22:20 DC Docusate Sodium (Colace) 100 mg PRN BID PRN PO 1ST CHOICE CONSTIPATION 10/13/20 21:45 Finasteride (Proscar) 5 mg QHS PO 10/14/20 21:00 10/13/20 22:20 DC Levothyroxine Sodium (Synthroid) 100 mcg DAILY06 PO 10/14/20 06:00 10/23/20 05:08 Al Hydroxide/Mg Hydroxide (Mylanta Plus Xs) 15 ml PRN AFTMEALHC PRN PO DYSPEPSIA 10/13/20 21:45 Multi-Ingredient Ointment (Analgesic [place]) 1 ike QID PRN TP MUSCLE PAIN 10/13/20 21:45 Mirtazapine (Remeron Tiki-Tab) 15 mg QHS PO 10/14/20 21:00 10/13/20 22:20 DC Olanzapine (ZyPREXA ZYDIS) 5 mg PRN Q2HRS PRN PO ANXIETY / AGITATION 10/13/20 21:45 10/22/20 21:30 Polyethylene Glycol (miraLAX) 17 gm PRN BID PRN PO 2nd choice constipation 10/13/20 21:45 Potassium Chloride (Klor-Con) 10 meq DAILY PO 10/14/20 09:00 10/22/20 08:47 Quetiapine Fumarate (SEROquel) 25 mg BID PO 10/14/20 09:00 10/13/20 22:20 DC Sertraline HCl (Zoloft) 25 mg DAILY PO 10/14/20 09:00 10/22/20 08:48 Trazodone HCl (Desyrel) 50 mg PRN QHS PRN PO Insomnia May repeat x2 10/13/20 21:45 10/22/20 23:32 Vitamin D (Vitamin D3) 2,000 unit DAILY PO 10/14/20 09:00 10/22/20 08:48 Cyanocobalamin (Vitamin B-12) 1,000 mcg DAILY PO 10/14/20 09:00 10/22/20 08:47 Fluticasone Propionate (Flonase) 1 spray DAILY NS 10/14/20 09:00 10/22/20 08:47 Non-Formulary Medication (Magnesium Hydroxide (Milk Of Magnesia)) 2,400 mg PRN DAILY PRN PO CONSTIPATION 10/13/20 21:45 UNV Carbidopa/Levodopa (Sinemet 10/100) 1 tab QID PO 10/13/20 22:45 10/22/20 20:49 Divalproex Sodium (Depakote Er) 250 mg BID PO 10/13/20 22:45 10/22/20 20:48 Finasteride (Proscar) 5 mg QHS PO 10/13/20 22:45 10/22/20 20:49 Mirtazapine (Remeron Tiki-Tab) 15 mg QHS PO 10/13/20 22:45 10/22/20 20:48 Quetiapine Fumarate (SEROquel) 25 mg BID PO 10/13/20 22:45 10/22/20 20:48 Rivastigmine (Exelon) 1 patch DAILY TD 10/18/20 09:00 10/22/20 23:51 DC 10/22/20 08:48 Rivastigmine (Exelon) 1 patch DAILY TD 10/23/20 09:00 10/27/20 23:59 Memantine (Namenda) 5 mg BID PO 10/19/20 21:00 10/22/20 20:48 Rivastigmine (Exelon 13.3mg) 1 patch DAILY TD 10/28/20 07:00 Furosemide (Lasix) 80 mg 1X ONCE PO 10/22/20 10:15 10/22/20 10:16 DC 10/22/20 11:36 Current Medications Medications (Trade) Dose Ordered Sig/Matilde Route PRN Reason Start Time Stop Time Status Last Admin Dose Admin Furosemide (Lasix) 80 mg 1X ONCE PO 10/22/20 10:15 10/22/20 10:16 DC 10/22/20 11:36 I have reviewed the current psychotropics carefully including drug interactions. Risk benefit ratio favors no change other than as noted in my dictated progress note. 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
[2020-10-23] MEDS: CARBIDOPA/LEVODOPA 10/100MG TABLET PO SCH ×4 (08:43→20:00)
[2020-10-23] MEDS: CHOLECALCIFEROL (VITAMIN D3) 1,000 UNIT TABLET PO SCH (08:43)
[2020-10-23] MEDS: SERTRALINE 25 MG TABLET. PO SCH (08:43)
[2020-10-23] MEDS: MEMANTINE 5 MG TABLET. PO SCH ×2 (08:43→19:59)
[2020-10-23] MEDS: QUEtiapine 25 MG TABLET. PO SCH ×2 (08:44→19:59)
[2020-10-23] MEDS: DIVALPROEX ER 250 MG TAB.ER.24H. PO SCH ×2 (08:44→19:59)
[2020-10-23] MEDS: CYANOCOBALAMIN (VITAMIN B-12) 1,000 MCG TABLET. PO SCH (08:44)
[2020-10-23] MEDS: POTASSIUM CHLORIDE 10 MEQ TABLET.ER. PO SCH (08:44)
[2020-10-23] MEDS: FLUTICASONE 50MCG/NASAL SPRAY 16GM BOTTLE. NS SCH (08:45)
[2020-10-23] MEDS: RIVASTIGMINE 9.5MG PATCH. TD SCH (08:45)
--- NOTE | 2020-10-23 09:57 | NUR ---
Pt has been up this morning and self-amb via w/c around the unit. He has wandered into other pt's rooms but is polite and appropriate in his interactions with them. He is complaint and cooperative with morning assessment. During medication administration he was complaint during the first 2 bites of crushed medications in pudding but refused the final 3rd bite despite multiple attempts from different staff members. He is alert to self only and is experiencing non-distressing delusions; he believes his is on her way to visit and that she is currently . He appears absent of SI/HI behaviors and appears absent of VH/AH. When asked he denies pain. He still has slight 2+ pitting edema in the bilat feet. Will pass on to the next shift
[2020-10-23 16:39] VITALS: BP 119/74
[2020-10-23] MEDS: MIRTAZAPINE ODT 15 MG TAB.RAPDIS. PO SCH (19:59)
[2020-10-23] MEDS: FINASTERIDE 5 MG TABLET. PO SCH (20:00)
--- NOTE | 2020-10-23 21:02 | PDOC ---
Exam Note: Tommy Note: Please also refer to the separate dictated note~for this date of service dictated separately.~Patient seen individually. Discussed the patient with Nursing staff reviewed the chart.~Reviewed interim history and current functioning. Reviewed vital signs,~Labs/ Radiology~and current medications noted below. Continue current treatment with the changes noted in the dictated addendum note Assessment: Vital Signs/I&O: Vital Signs Date Time Temp Pulse Resp B/P (MAP) Pulse Ox O2 Delivery O2 Flow Rate FiO2 10/23/20 16:39 97.2 83 16 119/74 (89) 94 10/23/20 06:26 Room Air I & O 10/22/20 10/22/20 10/23/20 14:59 22:59 06:59 Intake Total 220 ml 360 ml 100 ml Balance 220 ml 360 ml 100 ml Current Medications: Meds: Current Medications Medications (Trade) Dose Ordered Sig/Matilde Route PRN Reason Start Time Stop Time Status Last Admin Dose Admin Acetaminophen (Tylenol) 650 mg PRN Q6HRS PRN PO MILD PAIN / TEMP > 100.3'F 10/13/20 21:45 UNV Multi-Ingredient Ointment (Analgesic [place]) 1 ike PRN QID PRN TP MUSCLE PAIN 10/13/20 21:45 UNV Al Hydroxide/Mg Hydroxide (Mylanta Plus Xs) 15 ml PRN AFTMEALHC PRN PO DYSPEPSIA 10/13/20 21:45 UNV Magnesium Hydroxide (Milk Of Magnesia) 2,400 mg PRN QHS PRN PO 3rd CHOICE CONSTIPATION 10/13/20 21:45 Acetaminophen (Tylenol) 650 mg PRN Q6HRS PRN PO MILD PAIN / TEMP > 100.3'F 10/13/20 21:45 10/14/20 16:44 Carbidopa/Levodopa (Sinemet 10/100) 1 tab QID PO 10/14/20 09:00 10/13/20 22:20 DC Divalproex Sodium (Depakote Er) 250 mg BID PO 10/14/20 09:00 10/13/20 22:20 DC Docusate Sodium (Colace) 100 mg PRN BID PRN PO 1ST CHOICE CONSTIPATION 10/13/20 21:45 Finasteride (Proscar) 5 mg QHS PO 10/14/20 21:00 10/13/20 22:20 DC Levothyroxine Sodium (Synthroid) 100 mcg DAILY06 PO 10/14/20 06:00 10/23/20 05:08 Al Hydroxide/Mg Hydroxide (Mylanta Plus Xs) 15 ml PRN AFTMEALHC PRN PO DYSPEPSIA 10/13/20 21:45 Multi-Ingredient Ointment (Analgesic [place]) 1 ike QID PRN TP MUSCLE PAIN 10/13/20 21:45 Mirtazapine (Remeron Tiki-Tab) 15 mg QHS PO 10/14/20 21:00 10/13/20 22:20 DC Olanzapine (ZyPREXA ZYDIS) 5 mg PRN Q2HRS PRN PO ANXIETY / AGITATION 10/13/20 21:45 10/22/20 21:30 Polyethylene Glycol (miraLAX) 17 gm PRN BID PRN PO 2nd choice constipation 10/13/20 21:45 Potassium Chloride (Klor-Con) 10 meq DAILY PO 10/14/20 09:00 10/23/20 08:44 Quetiapine Fumarate (SEROquel) 25 mg BID PO 10/14/20 09:00 10/13/20 22:20 DC Sertraline HCl (Zoloft) 25 mg DAILY PO 10/14/20 09:00 10/23/20 08:43 Trazodone HCl (Desyrel) 50 mg PRN QHS PRN PO Insomnia May repeat x2 10/13/20 21:45 10/22/20 23:32 Vitamin D (Vitamin D3) 2,000 unit DAILY PO 10/14/20 09:00 10/23/20 08:43 Cyanocobalamin (Vitamin B-12) 1,000 mcg DAILY PO 10/14/20 09:00 10/23/20 08:44 Fluticasone Propionate (Flonase) 1 spray DAILY NS 10/14/20 09:00 10/23/20 08:45 Non-Formulary Medication (Magnesium Hydroxide (Milk Of Magnesia)) 2,400 mg PRN DAILY PRN PO CONSTIPATION 10/13/20 21:45 UNV Carbidopa/Levodopa (Sinemet 10/100) 1 tab QID PO 10/13/20 22:45 10/23/20 20:00 Divalproex Sodium (Depakote Er) 250 mg BID PO 10/13/20 22:45 10/23/20 19:59 Finasteride (Proscar) 5 mg QHS PO 10/13/20 22:45 10/23/20 20:00 Mirtazapine (Remeron Tiki-Tab) 15 mg QHS PO 10/13/20 22:45 10/23/20 19:59 Quetiapine Fumarate (SEROquel) 25 mg BID PO 10/13/20 22:45 10/23/20 19:59 Rivastigmine (Exelon) 1 patch DAILY TD 10/18/20 09:00 10/22/20 23:51 DC 10/22/20 08:48 Rivastigmine (Exelon) 1 patch DAILY TD 10/23/20 09:00 10/27/20 23:59 10/23/20 08:45 Memantine (Namenda) 5 mg BID PO 10/19/20 21:00 10/23/20 19:59 Rivastigmine (Exelon 13.3mg) 1 patch DAILY TD 10/28/20 07:00 Furosemide (Lasix) 80 mg 1X ONCE PO 10/22/20 10:15 10/22/20 10:16 DC 10/22/20 11:36 Current Medications Medications (Trade) Dose Ordered Sig/Matilde Route PRN Reason Start Time Stop Time Status Last Admin Dose Admin Rivastigmine (Exelon) 1 patch DAILY TD 10/23/20 09:00 10/27/20 23:59 10/23/20 08:45 I have reviewed the current psychotropics carefully including drug interactions. Risk benefit ratio favors no change other than as noted in my dictated progress note. Diagnosis: Problems: (1) Impulse control disorder, unspecified (2) Anxiety disorder, unspecified (3) Dementia, vascular, with depression (4) Dementia, vascular, with delusions (5) Dementia in Alzheimer's disease with depression (6) Dementia in Alzheimer's disease with delusions (7) Major neurocognitive disorder (8) Lewy body dementia with behavioral disturbance JORGE COLLAZO MD Oct 23, 2020 21:02
--- NOTE | 2020-10-23 23:26 | NUR ---
Pt sitting up in WC in dayroom, interacting appropriately with peers at time of assessment. Pleasantly confused. Cooperative with meds crushed in 1 bite of yogurt.
[2020-10-24] MEDS: traZODone 50 MG TABLET. PO PRN ×2 (00:41→20:38)
--- NOTE | 2020-10-24 02:31 | NUR ---
Pt awoke after midnight, restless and resistive to cares. PRN trazodone ineffective. Pt remains awake, calling out out repeatedly. Pt is delusional, believes a staff member is his and wants to discuss "their marriage." Unable to redirect. [facility] PRN zyprexa given. Addendum: 10/24/20 at 0642 by JOSE ARREOLA RN Zyprexa effective. Pt calmed, sitting up in WC quietly talking to himself. Pt requested to lay back down around 0630. Cooperative with cares. Now resting comfortably.
[2020-10-24] MEDS: LEVOTHYROXINE 100 MCG TABLET PO SCH (04:50)
[2020-10-24 06:11] VITALS: BP 103/72
--- NOTE | 2020-10-24 08:33 | PDOC ---
Exam Note: Tommy Note: This note is a late entry for 10/23/2020 covers elements not covered in my initial note. Subjective: The patient was seen face to face in the evening of 10/23/2020 with Susi ORTEGA. Discussed with nursing staff, reviewed the chart. The patient just slept 4-3/4 hours previous night. Overall the patient remains confused, anxious, restless. Review of Systems: No CV, , pulmonary, eye, ENT system symptoms on review. Ambulation impaired in wheelchair. Reliability poor. Mental Status Exam: The patient is oriented to himself. Insight and judgment, recent and remote memory, attention and concentration, fund of knowledge is poor consistent with his diagnosis. Laboratory Data: Reviewed. Impression: Major neurocognitive disorder Alzheimer vascular with delusion, depression. Anxiety disorder unspecified. Impulse control disorder unspecified. 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 Plan: The patient remains confused, anxious, trying to get out of the day room, repeatedly did redirect with nursing staff. Assessment: Vital Signs/I&O: Vital Signs Date Time Temp Pulse Resp B/P (MAP) Pulse Ox O2 Delivery O2 Flow Rate FiO2 10/24/20 06:11 97.2 67 18 103/72 (82) 97 Room Air I & O 10/23/20 10/23/20 10/24/20 15:00 23:00 07:00 Intake Total 600 ml 340 ml Balance 600 ml 340 ml Current Medications: Meds: Current Medications Medications (Trade) Dose Ordered Sig/Matilde Route PRN Reason Start Time Stop Time Status Last Admin Dose Admin Acetaminophen (Tylenol) 650 mg PRN Q6HRS PRN PO MILD PAIN / TEMP > 100.3'F 10/13/20 21:45 UNV Multi-Ingredient Ointment (Analgesic [place]) 1 ike PRN QID PRN TP MUSCLE PAIN 10/13/20 21:45 UNV Al Hydroxide/Mg Hydroxide (Mylanta Plus Xs) 15 ml PRN AFTMEALHC PRN PO DYSPEPSIA 10/13/20 21:45 UNV Magnesium Hydroxide (Milk Of Magnesia) 2,400 mg PRN QHS PRN PO 3rd CHOICE CONSTIPATION 10/13/20 21:45 Acetaminophen (Tylenol) 650 mg PRN Q6HRS PRN PO MILD PAIN / TEMP > 100.3'F 10/13/20 21:45 10/14/20 16:44 Carbidopa/Levodopa (Sinemet 10/100) 1 tab QID PO 10/14/20 09:00 10/13/20 22:20 DC Divalproex Sodium (Depakote Er) 250 mg BID PO 10/14/20 09:00 10/13/20 22:20 DC Docusate Sodium (Colace) 100 mg PRN BID PRN PO 1ST CHOICE CONSTIPATION 10/13/20 21:45 Finasteride (Proscar) 5 mg QHS PO 10/14/20 21:00 10/13/20 22:20 DC Levothyroxine Sodium (Synthroid) 100 mcg DAILY06 PO 10/14/20 06:00 10/24/20 04:50 Al Hydroxide/Mg Hydroxide (Mylanta Plus Xs) 15 ml PRN AFTMEALHC PRN PO DYSPEPSIA 10/13/20 21:45 Multi-Ingredient Ointment (Analgesic [place]) 1 ike QID PRN TP MUSCLE PAIN 10/13/20 21:45 Mirtazapine (Remeron Tiki-Tab) 15 mg QHS PO 10/14/20 21:00 10/13/20 22:20 DC Olanzapine (ZyPREXA ZYDIS) 5 mg PRN Q2HRS PRN PO ANXIETY / AGITATION 10/13/20 21:45 10/24/20 02:23 Polyethylene Glycol (miraLAX) 17 gm PRN BID PRN PO 2nd choice constipation 10/13/20 21:45 Potassium Chloride (Klor-Con) 10 meq DAILY PO 10/14/20 09:00 10/23/20 08:44 Quetiapine Fumarate (SEROquel) 25 mg BID PO 10/14/20 09:00 10/13/20 22:20 DC Sertraline HCl (Zoloft) 25 mg DAILY PO 10/14/20 09:00 10/23/20 08:43 Trazodone HCl (Desyrel) 50 mg PRN QHS PRN PO Insomnia May repeat x2 10/13/20 21:45 10/24/20 00:41 Vitamin D (Vitamin D3) 2,000 unit DAILY PO 10/14/20 09:00 10/23/20 08:43 Cyanocobalamin (Vitamin B-12) 1,000 mcg DAILY PO 10/14/20 09:00 10/23/20 08:44 Fluticasone Propionate (Flonase) 1 spray DAILY NS 10/14/20 09:00 10/23/20 08:45 Non-Formulary Medication (Magnesium Hydroxide (Milk Of Magnesia)) 2,400 mg PRN DAILY PRN PO CONSTIPATION 10/13/20 21:45 UNV Carbidopa/Levodopa (Sinemet 10/100) 1 tab QID PO 10/13/20 22:45 10/23/20 20:00 Divalproex Sodium (Depakote Er) 250 mg BID PO 10/13/20 22:45 10/23/20 19:59 Finasteride (Proscar) 5 mg QHS PO 10/13/20 22:45 10/23/20 20:00 Mirtazapine (Remeron Tiki-Tab) 15 mg QHS PO 10/13/20 22:45 10/23/20 19:59 Quetiapine Fumarate (SEROquel) 25 mg BID PO 10/13/20 22:45 10/23/20 19:59 Rivastigmine (Exelon) 1 patch DAILY TD 10/18/20 09:00 10/22/20 23:51 DC 10/22/20 08:48 Rivastigmine (Exelon) 1 patch DAILY TD 10/23/20 09:00 10/27/20 23:59 10/23/20 08:45 Memantine (Namenda) 5 mg BID PO 10/19/20 21:00 10/23/20 19:59 Rivastigmine (Exelon 13.3mg) 1 patch DAILY TD 10/28/20 07:00 Furosemide (Lasix) 80 mg 1X ONCE PO 10/22/20 10:15 10/22/20 10:16 DC 10/22/20 11:36 Current Medications Medications (Trade) Dose Ordered Sig/Matilde Route PRN Reason Start Time Stop Time Status Last Admin Dose Admin Rivastigmine (Exelon) 1 patch DAILY TD 10/23/20 09:00 10/27/20 23:59 10/23/20 08:45 I have reviewed the current psychotropics carefully including drug interactions. Risk benefit ratio favors no change other than as noted in my dictated progress note. Diagnosis: Problems: (1) Impulse control disorder, unspecified (2) Anxiety disorder, unspecified (3) Dementia, vascular, with depression (4) Dementia, vascular, with delusions (5) Dementia in Alzheimer's disease with depression (6) Dementia in Alzheimer's disease with delusions (7) Major neurocognitive disorder (8) Lewy body dementia with behavioral disturbance JORGE COLLAZO MD Oct 24, 2020 08:32
[2020-10-24] MEDS: MEMANTINE 5 MG TABLET. PO SCH ×2 (08:44→20:33)
[2020-10-24] MEDS: CYANOCOBALAMIN (VITAMIN B-12) 1,000 MCG TABLET. PO SCH (08:44)
[2020-10-24] MEDS: CHOLECALCIFEROL (VITAMIN D3) 1,000 UNIT TABLET PO SCH (08:44)
[2020-10-24] MEDS: POTASSIUM CHLORIDE 10 MEQ TABLET.ER. PO SCH (08:44)
[2020-10-24] MEDS: DIVALPROEX ER 250 MG TAB.ER.24H. PO SCH ×2 (08:44→20:33)
[2020-10-24] MEDS: SERTRALINE 25 MG TABLET. PO SCH (08:44)
[2020-10-24] MEDS: RIVASTIGMINE 9.5MG PATCH. TD SCH (08:44)
[2020-10-24] MEDS: QUEtiapine 25 MG TABLET. PO SCH ×2 (08:44→20:33)
[2020-10-24] MEDS: CARBIDOPA/LEVODOPA 10/100MG TABLET PO SCH ×4 (08:44→20:33)
[2020-10-24] MEDS: FLUTICASONE 50MCG/NASAL SPRAY 16GM BOTTLE. NS SCH (08:45)
--- NOTE | 2020-10-24 12:56 | NUR ---
SONIA returned call to Keely Sloan, ED at [facility] to give her an update on pt behaviors. Keely questioned pt sleep which is a major concern for their setting. SONIA explained that pt averaged roughly 4.5 hours per night. However, last night pt appeared to get just under 2 hours. Keely questioned if the Zyprexa that was given to pt made him calm, could it be something routine. With their setting, they could not give Zyprexa as a PRN medication. SONIA will bring this up with the psychiatrist. Keely also mentioned if pt was aggressive, which for them would be he wanted to walk when they weren't able to aid him, or attempts to getting undressed and such. SONIA explained that form of aggression was not found. Pt can walk with 1 person assist at times, but is medication compliant. Pt appears more delusional at night and can have some aggression then, but is able to calm and they can eventually get him to bed with the aid of PRN's. Pt is scheduled to discharge on Friday. SONIA will reach out to Keely after tx team to discuss further discharge plans.
[2020-10-24 16:21] VITALS: BP 121/74
[2020-10-24] MEDS: MIRTAZAPINE ODT 15 MG TAB.RAPDIS. PO SCH (20:33)
[2020-10-24] MEDS: FINASTERIDE 5 MG TABLET. PO SCH (20:33)
--- NOTE | 2020-10-24 21:32 | PDOC ---
Exam Note: Tommy Note: Please also refer to the separate dictated note~for this date of service dictated separately.~Patient seen individually. Discussed the patient with Nursing staff reviewed the chart.~Reviewed interim history and current functioning. Reviewed vital signs,~Labs/ Radiology~and current medications noted below. Continue current treatment with the changes noted in the dictated addendum note Assessment: Vital Signs/I&O: Vital Signs Date Time Temp Pulse Resp B/P (MAP) Pulse Ox O2 Delivery O2 Flow Rate FiO2 10/24/20 16:21 97.9 71 18 121/74 (90) 94 Room Air I & O 10/23/20 10/23/20 10/24/20 15:00 23:00 07:00 Intake Total 600 ml 340 ml Balance 600 ml 340 ml Current Medications: Meds: Current Medications Medications (Trade) Dose Ordered Sig/Matilde Route PRN Reason Start Time Stop Time Status Last Admin Dose Admin Acetaminophen (Tylenol) 650 mg PRN Q6HRS PRN PO MILD PAIN / TEMP > 100.3'F 10/13/20 21:45 UNV Multi-Ingredient Ointment (Analgesic [place]) 1 ike PRN QID PRN TP MUSCLE PAIN 10/13/20 21:45 UNV Al Hydroxide/Mg Hydroxide (Mylanta Plus Xs) 15 ml PRN AFTMEALHC PRN PO DYSPEPSIA 10/13/20 21:45 UNV Magnesium Hydroxide (Milk Of Magnesia) 2,400 mg PRN QHS PRN PO 3rd CHOICE CONSTIPATION 10/13/20 21:45 Acetaminophen (Tylenol) 650 mg PRN Q6HRS PRN PO MILD PAIN / TEMP > 100.3'F 10/13/20 21:45 10/14/20 16:44 Carbidopa/Levodopa (Sinemet 10/100) 1 tab QID PO 10/14/20 09:00 10/13/20 22:20 DC Divalproex Sodium (Depakote Er) 250 mg BID PO 10/14/20 09:00 10/13/20 22:20 DC Docusate Sodium (Colace) 100 mg PRN BID PRN PO 1ST CHOICE CONSTIPATION 10/13/20 21:45 Finasteride (Proscar) 5 mg QHS PO 10/14/20 21:00 10/13/20 22:20 DC Levothyroxine Sodium (Synthroid) 100 mcg DAILY06 PO 10/14/20 06:00 10/24/20 04:50 Al Hydroxide/Mg Hydroxide (Mylanta Plus Xs) 15 ml PRN AFTMEALHC PRN PO DYSPEPSIA 10/13/20 21:45 Multi-Ingredient Ointment (Analgesic [place]) 1 ike QID PRN TP MUSCLE PAIN 10/13/20 21:45 Mirtazapine (Remeron Tiki-Tab) 15 mg QHS PO 10/14/20 21:00 10/13/20 22:20 DC Olanzapine (ZyPREXA ZYDIS) 5 mg PRN Q2HRS PRN PO ANXIETY / AGITATION 10/13/20 21:45 10/24/20 14:33 Polyethylene Glycol (miraLAX) 17 gm PRN BID PRN PO 2nd choice constipation 10/13/20 21:45 Potassium Chloride (Klor-Con) 10 meq DAILY PO 10/14/20 09:00 10/24/20 08:44 Quetiapine Fumarate (SEROquel) 25 mg BID PO 10/14/20 09:00 10/13/20 22:20 DC Sertraline HCl (Zoloft) 25 mg DAILY PO 10/14/20 09:00 10/24/20 08:44 Trazodone HCl (Desyrel) 50 mg PRN QHS PRN PO Insomnia May repeat x2 10/13/20 21:45 10/24/20 20:38 Vitamin D (Vitamin D3) 2,000 unit DAILY PO 10/14/20 09:00 10/24/20 08:44 Cyanocobalamin (Vitamin B-12) 1,000 mcg DAILY PO 10/14/20 09:00 10/24/20 08:44 Fluticasone Propionate (Flonase) 1 spray DAILY NS 10/14/20 09:00 10/24/20 08:45 Non-Formulary Medication (Magnesium Hydroxide (Milk Of Magnesia)) 2,400 mg PRN DAILY PRN PO CONSTIPATION 10/13/20 21:45 UNV Carbidopa/Levodopa (Sinemet 10/100) 1 tab QID PO 10/13/20 22:45 10/24/20 20:33 Divalproex Sodium (Depakote Er) 250 mg BID PO 10/13/20 22:45 10/24/20 20:33 Finasteride (Proscar) 5 mg QHS PO 10/13/20 22:45 10/24/20 20:33 Mirtazapine (Remeron Tiki-Tab) 15 mg QHS PO 10/13/20 22:45 10/24/20 20:33 Quetiapine Fumarate (SEROquel) 25 mg BID PO 10/13/20 22:45 10/24/20 20:33 Rivastigmine (Exelon) 1 patch DAILY TD 10/18/20 09:00 10/22/20 23:51 DC 10/22/20 08:48 Rivastigmine (Exelon) 1 patch DAILY TD 10/23/20 09:00 10/27/20 23:59 10/24/20 08:44 Memantine (Namenda) 5 mg BID PO 10/19/20 21:00 10/24/20 20:33 Rivastigmine (Exelon 13.3mg) 1 patch DAILY TD 10/28/20 07:00 Furosemide (Lasix) 80 mg 1X ONCE PO 10/22/20 10:15 10/22/20 10:16 DC 10/22/20 11:36 Quetiapine Fumarate (SEROquel) 12.5 mg 1700 PO 10/25/20 17:00 I have reviewed the current psychotropics carefully including drug interactions. Risk benefit ratio favors no change other than as noted in my dictated progress note. 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
[2020-10-25] MEDS: LEVOTHYROXINE 100 MCG TABLET PO SCH (05:17)
[2020-10-25 06:06] VITALS: BP 168/84
[2020-10-25] MEDS: DIVALPROEX ER 250 MG TAB.ER.24H. PO SCH ×2 (08:06→19:48)
[2020-10-25] MEDS: POTASSIUM CHLORIDE 10 MEQ TABLET.ER. PO SCH (08:06)
[2020-10-25] MEDS: CARBIDOPA/LEVODOPA 10/100MG TABLET PO SCH ×4 (08:06→19:48)
[2020-10-25] MEDS: CHOLECALCIFEROL (VITAMIN D3) 1,000 UNIT TABLET PO SCH (08:06)
[2020-10-25] MEDS: QUEtiapine 25 MG TABLET. PO SCH ×3 (08:07→19:47)
[2020-10-25] MEDS: CYANOCOBALAMIN (VITAMIN B-12) 1,000 MCG TABLET. PO SCH (08:07)
[2020-10-25] MEDS: RIVASTIGMINE 9.5MG PATCH. TD SCH (08:07)
[2020-10-25] MEDS: SERTRALINE 25 MG TABLET. PO SCH (08:07)
[2020-10-25] MEDS: MEMANTINE 5 MG TABLET. PO SCH ×2 (08:07→19:48)
[2020-10-25] MEDS: FLUTICASONE 50MCG/NASAL SPRAY 16GM BOTTLE. NS SCH (09:00)
--- NOTE | 2020-10-25 14:37 | NUR ---
PATIENT IS UP IN A W/C IN A DINING ROOM EATING BREAKFAST. CALM AND PLEASANT, COOPERATIVE WITH ASSESSMENT, TOOK HIS MEDS CRUSHED IN PUDDING. PATIENT IS CONFUSED , ORIENTED TO SELF ONLY, STATED HE NEEDED TO FIND HIS TRACK, [place], SO HE COULD LEAVE.
[2020-10-25 17:44] VITALS: BP 123/68
[2020-10-25] MEDS: FINASTERIDE 5 MG TABLET. PO SCH (19:48)
[2020-10-25] MEDS: MIRTAZAPINE ODT 15 MG TAB.RAPDIS. PO SCH (19:49)
--- NOTE | 2020-10-25 20:55 | PDOC ---
Exam Note: Tommy Note: Please also refer to the separate dictated note~for this date of service dictated separately.~Patient seen individually. Discussed the patient with Nursing staff reviewed the chart.~Reviewed interim history and current functioning. Reviewed vital signs,~Labs/ Radiology~and current medications noted below. Continue current treatment with the changes noted in the dictated addendum note Assessment: Vital Signs/I&O: Vital Signs Date Time Temp Pulse Resp B/P (MAP) Pulse Ox O2 Delivery O2 Flow Rate FiO2 10/25/20 17:44 98.5 67 16 123/68 (86) 98 10/25/20 06:06 Room Air I & O 10/24/20 10/24/20 10/25/20 15:00 23:00 07:00 Intake Total 700 ml 700 ml Balance 700 ml 700 ml Current Medications: Meds: Current Medications Medications (Trade) Dose Ordered Sig/Matilde Route PRN Reason Start Time Stop Time Status Last Admin Dose Admin Acetaminophen (Tylenol) 650 mg PRN Q6HRS PRN PO MILD PAIN / TEMP > 100.3'F 10/13/20 21:45 UNV Multi-Ingredient Ointment (Analgesic [place]) 1 ike PRN QID PRN TP MUSCLE PAIN 10/13/20 21:45 UNV Al Hydroxide/Mg Hydroxide (Mylanta Plus Xs) 15 ml PRN AFTMEALHC PRN PO DYSPEPSIA 10/13/20 21:45 UNV Magnesium Hydroxide (Milk Of Magnesia) 2,400 mg PRN QHS PRN PO 3rd CHOICE CONSTIPATION 10/13/20 21:45 Acetaminophen (Tylenol) 650 mg PRN Q6HRS PRN PO MILD PAIN / TEMP > 100.3'F 10/13/20 21:45 10/14/20 16:44 Carbidopa/Levodopa (Sinemet 10/100) 1 tab QID PO 10/14/20 09:00 10/13/20 22:20 DC Divalproex Sodium (Depakote Er) 250 mg BID PO 10/14/20 09:00 10/13/20 22:20 DC Docusate Sodium (Colace) 100 mg PRN BID PRN PO 1ST CHOICE CONSTIPATION 10/13/20 21:45 Finasteride (Proscar) 5 mg QHS PO 10/14/20 21:00 10/13/20 22:20 DC Levothyroxine Sodium (Synthroid) 100 mcg DAILY06 PO 10/14/20 06:00 10/25/20 05:17 Al Hydroxide/Mg Hydroxide (Mylanta Plus Xs) 15 ml PRN AFTMEALHC PRN PO DYSPEPSIA 10/13/20 21:45 Multi-Ingredient Ointment (Analgesic [place]) 1 ike QID PRN TP MUSCLE PAIN 10/13/20 21:45 Mirtazapine (Remeron Tiki-Tab) 15 mg QHS PO 10/14/20 21:00 10/13/20 22:20 DC Olanzapine (ZyPREXA ZYDIS) 5 mg PRN Q2HRS PRN PO ANXIETY / AGITATION 10/13/20 21:45 10/25/20 01:40 Polyethylene Glycol (miraLAX) 17 gm PRN BID PRN PO 2nd choice constipation 10/13/20 21:45 Potassium Chloride (Klor-Con) 10 meq DAILY PO 10/14/20 09:00 10/25/20 08:06 Quetiapine Fumarate (SEROquel) 25 mg BID PO 10/14/20 09:00 10/13/20 22:20 DC Sertraline HCl (Zoloft) 25 mg DAILY PO 10/14/20 09:00 10/25/20 08:07 Trazodone HCl (Desyrel) 50 mg PRN QHS PRN PO Insomnia May repeat x2 10/13/20 21:45 10/24/20 20:38 Vitamin D (Vitamin D3) 2,000 unit DAILY PO 10/14/20 09:00 10/25/20 08:06 Cyanocobalamin (Vitamin B-12) 1,000 mcg DAILY PO 10/14/20 09:00 10/25/20 08:07 Fluticasone Propionate (Flonase) 1 spray DAILY NS 10/14/20 09:00 10/24/20 08:45 Non-Formulary Medication (Magnesium Hydroxide (Milk Of Magnesia)) 2,400 mg PRN DAILY PRN PO CONSTIPATION 10/13/20 21:45 UNV Carbidopa/Levodopa (Sinemet 10/100) 1 tab QID PO 10/13/20 22:45 10/25/20 19:48 Divalproex Sodium (Depakote Er) 250 mg BID PO 10/13/20 22:45 10/25/20 19:48 Finasteride (Proscar) 5 mg QHS PO 10/13/20 22:45 10/25/20 19:48 Mirtazapine (Remeron Tiki-Tab) 15 mg QHS PO 10/13/20 22:45 10/25/20 19:49 Quetiapine Fumarate (SEROquel) 25 mg BID PO 10/13/20 22:45 10/25/20 19:47 Rivastigmine (Exelon) 1 patch DAILY TD 10/18/20 09:00 10/22/20 23:51 DC 10/22/20 08:48 Rivastigmine (Exelon) 1 patch DAILY TD 10/23/20 09:00 10/27/20 23:59 10/25/20 08:07 Memantine (Namenda) 5 mg BID PO 10/19/20 21:00 10/25/20 19:48 Rivastigmine (Exelon 13.3mg) 1 patch DAILY TD 10/28/20 07:00 Furosemide (Lasix) 80 mg 1X ONCE PO 10/22/20 10:15 10/22/20 10:16 DC 10/22/20 11:36 Quetiapine Fumarate (SEROquel) 12.5 mg 1700 PO 10/25/20 17:00 10/25/20 16:40 Current Medications Medications (Trade) Dose Ordered Sig/Matilde Route PRN Reason Start Time Stop Time Status Last Admin Dose Admin Quetiapine Fumarate (SEROquel) 12.5 mg 1700 PO 10/25/20 17:00 10/25/20 16:40 I have reviewed the current psychotropics carefully including drug interactions. Risk benefit ratio favors no change other than as noted in my dictated progress note. Diagnosis: Problems: (1) Impulse control disorder, unspecified (2) Anxiety disorder, unspecified (3) Dementia, vascular, with depression (4) Dementia, vascular, with delusions (5) Dementia in Alzheimer's disease with depression (6) Dementia in Alzheimer's disease with delusions (7) Major neurocognitive disorder (8) Lewy body dementia with behavioral disturbance JORGE COLLAZO MD Oct 25, 2020 20:55
--- NOTE | 2020-10-25 23:57 | NUR ---
Nursing Note: Pt sitting up in WC in dayroom, interacting appropriately with peers at time of assessment. Pleasantly confused. Cooperative with meds crushed in pudding.
[2020-10-26] MEDS: LEVOTHYROXINE 100 MCG TABLET PO SCH (04:53)
[2020-10-26 06:24] VITALS: BP 96/66
[2020-10-26] MEDS: POTASSIUM CHLORIDE 10 MEQ TABLET.ER. PO SCH (09:00)
[2020-10-26] MEDS: FLUTICASONE 50MCG/NASAL SPRAY 16GM BOTTLE. NS SCH (09:00)
[2020-10-26] MEDS: RIVASTIGMINE 9.5MG PATCH. TD SCH (09:00)
--- NOTE | 2020-10-26 09:04 | PDOC ---
Exam Note: Tommy Note: This note is a late entry for 10/24/2020 covers elements not covered in my initial note. Subjective: The patient was seen face to face in the evening of 10/24/2020 with Mary ORTEGA. Discussed with nursing staff, reviewed the chart. The patient just slept 1-1/2 hours previous night. Overall the patient remains confused, anxious, restless, paranoid at times. Received Zyprexa at 2 p.m. He is restless in wheelchair. Review of Systems: No CV, , pulmonary, eye, ENT system symptoms on review. Ambulation impaired in wheelchair. Reliability poor. Mental Status Exam: The patient is oriented to himself. Insight and judgment, recent and remote memory, attention and concentration, fund of knowledge is poor consistent with his diagnosis. Laboratory Data: Reviewed. Impression: Major neurocognitive disorder Alzheimer vascular with delusion, depression. Anxiety disorder unspecified. Impulse control disorder unspecified. 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 Plan: Continue psychotropics from initial note. Start Seroquel 12.5 mg at 5 p.m. Rest unchanged for now. Assessment: Vital Signs/I&O: Vital Signs Date Time Temp Pulse Resp B/P (MAP) Pulse Ox O2 Delivery O2 Flow Rate FiO2 10/26/20 06:24 97.5 77 20 96/66 (76) 93 Room Air I & O 10/25/20 10/25/20 10/26/20 15:00 23:00 07:00 Intake Total 840 ml 360 ml 100 ml Balance 840 ml 360 ml 100 ml Current Medications: Meds: Current Medications Medications (Trade) Dose Ordered Sig/Matilde Route PRN Reason Start Time Stop Time Status Last Admin Dose Admin Acetaminophen (Tylenol) 650 mg PRN Q6HRS PRN PO MILD PAIN / TEMP > 100.3'F 10/13/20 21:45 UNV Multi-Ingredient Ointment (Analgesic [place]) 1 ike PRN QID PRN TP MUSCLE PAIN 10/13/20 21:45 UNV Al Hydroxide/Mg Hydroxide (Mylanta Plus Xs) 15 ml PRN AFTMEALHC PRN PO DYSPEPSIA 10/13/20 21:45 UNV Magnesium Hydroxide (Milk Of Magnesia) 2,400 mg PRN QHS PRN PO 3rd CHOICE CONSTIPATION 10/13/20 21:45 Acetaminophen (Tylenol) 650 mg PRN Q6HRS PRN PO MILD PAIN / TEMP > 100.3'F 10/13/20 21:45 10/14/20 16:44 Carbidopa/Levodopa (Sinemet 10/100) 1 tab QID PO 10/14/20 09:00 10/13/20 22:20 DC Divalproex Sodium (Depakote Er) 250 mg BID PO 10/14/20 09:00 10/13/20 22:20 DC Docusate Sodium (Colace) 100 mg PRN BID PRN PO 1ST CHOICE CONSTIPATION 10/13/20 21:45 Finasteride (Proscar) 5 mg QHS PO 10/14/20 21:00 10/13/20 22:20 DC Levothyroxine Sodium (Synthroid) 100 mcg DAILY06 PO 10/14/20 06:00 10/26/20 04:53 Al Hydroxide/Mg Hydroxide (Mylanta Plus Xs) 15 ml PRN AFTMEALHC PRN PO DYSPEPSIA 10/13/20 21:45 Multi-Ingredient Ointment (Analgesic [place]) 1 ike QID PRN TP MUSCLE PAIN 10/13/20 21:45 Mirtazapine (Remeron Tiki-Tab) 15 mg QHS PO 10/14/20 21:00 10/13/20 22:20 DC Olanzapine (ZyPREXA ZYDIS) 5 mg PRN Q2HRS PRN PO ANXIETY / AGITATION 10/13/20 21:45 10/26/20 03:49 Polyethylene Glycol (miraLAX) 17 gm PRN BID PRN PO 2nd choice constipation 10/13/20 21:45 Potassium Chloride (Klor-Con) 10 meq DAILY PO 10/14/20 09:00 10/25/20 08:06 Quetiapine Fumarate (SEROquel) 25 mg BID PO 10/14/20 09:00 10/13/20 22:20 DC Sertraline HCl (Zoloft) 25 mg DAILY PO 10/14/20 09:00 10/25/20 08:07 Trazodone HCl (Desyrel) 50 mg PRN QHS PRN PO Insomnia May repeat x2 10/13/20 21:45 10/24/20 20:38 Vitamin D (Vitamin D3) 2,000 unit DAILY PO 10/14/20 09:00 10/25/20 08:06 Cyanocobalamin (Vitamin B-12) 1,000 mcg DAILY PO 10/14/20 09:00 10/25/20 08:07 Fluticasone Propionate (Flonase) 1 spray DAILY NS 10/14/20 09:00 10/24/20 08:45 Non-Formulary Medication (Magnesium Hydroxide (Milk Of Magnesia)) 2,400 mg PRN DAILY PRN PO CONSTIPATION 10/13/20 21:45 UNV Carbidopa/Levodopa (Sinemet 10/100) 1 tab QID PO 10/13/20 22:45 10/25/20 19:48 Divalproex Sodium (Depakote Er) 250 mg BID PO 10/13/20 22:45 10/25/20 19:48 Finasteride (Proscar) 5 mg QHS PO 10/13/20 22:45 10/25/20 19:48 Mirtazapine (Remeron Tiki-Tab) 15 mg QHS PO 10/13/20 22:45 10/25/20 19:49 Quetiapine Fumarate (SEROquel) 25 mg BID PO 10/13/20 22:45 10/25/20 19:47 Rivastigmine (Exelon) 1 patch DAILY TD 10/18/20 09:00 10/22/20 23:51 DC 10/22/20 08:48 Rivastigmine (Exelon) 1 patch DAILY TD 10/23/20 09:00 10/27/20 23:59 10/25/20 08:07 Memantine (Namenda) 5 mg BID PO 10/19/20 21:00 10/25/20 19:48 Rivastigmine (Exelon 13.3mg) 1 patch DAILY TD 10/28/20 07:00 Furosemide (Lasix) 80 mg 1X ONCE PO 10/22/20 10:15 10/22/20 10:16 DC 10/22/20 11:36 Quetiapine Fumarate (SEROquel) 12.5 mg 1700 PO 10/25/20 17:00 10/25/20 16:40 Current Medications Medications (Trade) Dose Ordered Sig/Matilde Route PRN Reason Start Time Stop Time Status Last Admin Dose Admin Quetiapine Fumarate (SEROquel) 12.5 mg 1700 PO 10/25/20 17:00 10/25/20 16:40 I have reviewed the current psychotropics carefully including drug interactions. Risk benefit ratio favors no change other than as noted in my dictated progress note. Diagnosis: Problems: (1) Impulse control disorder, unspecified (2) Anxiety disorder, unspecified (3) Dementia, vascular, with depression (4) Dementia, vascular, with delusions (5) Dementia in Alzheimer's disease with depression (6) Dementia in Alzheimer's disease with delusions (7) Major neurocognitive disorder (8) Lewy body dementia with behavioral disturbance JORGE COLLAZO MD Oct 26, 2020 09:04
--- NOTE | 2020-10-26 09:19 | PDOC ---
Exam Note: Tommy Note: This note is a late entry for 10/25/2020 covers elements not covered in my initial note. Subjective: The patient was seen face to face in the evening of 10/25/2020 with Jeny ORTEGA. Discussed with nursing staff, reviewed the chart. The patient just slept 3-3/4 hours previous night. He remains in a wheelchair, not agitated, quite confused. Review of Systems: No CV, , pulmonary, eye, ENT system symptoms on review. Ambulation impaired in wheelchair. He is not aggressive or disruptive on the unit per nursing report. Mental Status Exam: The patient is oriented to himself. He remains confused, not very verbally interactive but less paranoid. Insight and judgment, recent and remote memory, attention and concentration, fund of knowledge is poor consistent with his diagnosis. No suicidal or homicidal ideation. Laboratory Data: Reviewed. Impression: Major neurocognitive disorder Alzheimer vascular with delusion, depression. Anxiety disorder unspecified. Impulse control disorder unspecified. 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 Plan: Continue psychotropics from initial note. Assessment: Vital Signs/I&O: Vital Signs Date Time Temp Pulse Resp B/P (MAP) Pulse Ox O2 Delivery O2 Flow Rate FiO2 10/26/20 06:24 97.5 77 20 96/66 (76) 93 Room Air I & O 10/25/20 10/25/20 10/26/20 15:00 23:00 07:00 Intake Total 840 ml 360 ml 100 ml Balance 840 ml 360 ml 100 ml Current Medications: Meds: Current Medications Medications (Trade) Dose Ordered Sig/Matilde Route PRN Reason Start Time Stop Time Status Last Admin Dose Admin Acetaminophen (Tylenol) 650 mg PRN Q6HRS PRN PO MILD PAIN / TEMP > 100.3'F 10/13/20 21:45 UNV Multi-Ingredient Ointment (Analgesic [place]) 1 ike PRN QID PRN TP MUSCLE PAIN 10/13/20 21:45 UNV Al Hydroxide/Mg Hydroxide (Mylanta Plus Xs) 15 ml PRN AFTMEALHC PRN PO DYSPEPSIA 10/13/20 21:45 UNV Magnesium Hydroxide (Milk Of Magnesia) 2,400 mg PRN QHS PRN PO 3rd CHOICE CONSTIPATION 10/13/20 21:45 Acetaminophen (Tylenol) 650 mg PRN Q6HRS PRN PO MILD PAIN / TEMP > 100.3'F 10/13/20 21:45 10/14/20 16:44 Carbidopa/Levodopa (Sinemet 10/100) 1 tab QID PO 10/14/20 09:00 10/13/20 22:20 DC Divalproex Sodium (Depakote Er) 250 mg BID PO 10/14/20 09:00 10/13/20 22:20 DC Docusate Sodium (Colace) 100 mg PRN BID PRN PO 1ST CHOICE CONSTIPATION 10/13/20 21:45 Finasteride (Proscar) 5 mg QHS PO 10/14/20 21:00 10/13/20 22:20 DC Levothyroxine Sodium (Synthroid) 100 mcg DAILY06 PO 10/14/20 06:00 10/26/20 04:53 Al Hydroxide/Mg Hydroxide (Mylanta Plus Xs) 15 ml PRN AFTMEALHC PRN PO DYSPEPSIA 10/13/20 21:45 Multi-Ingredient Ointment (Analgesic [place]) 1 ike QID PRN TP MUSCLE PAIN 10/13/20 21:45 Mirtazapine (Remeron Tiki-Tab) 15 mg QHS PO 10/14/20 21:00 10/13/20 22:20 DC Olanzapine (ZyPREXA ZYDIS) 5 mg PRN Q2HRS PRN PO ANXIETY / AGITATION 10/13/20 21:45 10/26/20 03:49 Polyethylene Glycol (miraLAX) 17 gm PRN BID PRN PO 2nd choice constipation 10/13/20 21:45 Potassium Chloride (Klor-Con) 10 meq DAILY PO 10/14/20 09:00 10/25/20 08:06 Quetiapine Fumarate (SEROquel) 25 mg BID PO 10/14/20 09:00 10/13/20 22:20 DC Sertraline HCl (Zoloft) 25 mg DAILY PO 10/14/20 09:00 10/25/20 08:07 Trazodone HCl (Desyrel) 50 mg PRN QHS PRN PO Insomnia May repeat x2 10/13/20 21:45 10/24/20 20:38 Vitamin D (Vitamin D3) 2,000 unit DAILY PO 10/14/20 09:00 10/25/20 08:06 Cyanocobalamin (Vitamin B-12) 1,000 mcg DAILY PO 10/14/20 09:00 10/25/20 08:07 Fluticasone Propionate (Flonase) 1 spray DAILY NS 10/14/20 09:00 10/24/20 08:45 Non-Formulary Medication (Magnesium Hydroxide (Milk Of Magnesia)) 2,400 mg PRN DAILY PRN PO CONSTIPATION 10/13/20 21:45 UNV Carbidopa/Levodopa (Sinemet 10/100) 1 tab QID PO 10/13/20 22:45 10/25/20 19:48 Divalproex Sodium (Depakote Er) 250 mg BID PO 10/13/20 22:45 10/25/20 19:48 Finasteride (Proscar) 5 mg QHS PO 10/13/20 22:45 10/25/20 19:48 Mirtazapine (Remeron Tiki-Tab) 15 mg QHS PO 10/13/20 22:45 10/25/20 19:49 Quetiapine Fumarate (SEROquel) 25 mg BID PO 10/13/20 22:45 10/25/20 19:47 Rivastigmine (Exelon) 1 patch DAILY TD 10/18/20 09:00 10/22/20 23:51 DC 10/22/20 08:48 Rivastigmine (Exelon) 1 patch DAILY TD 10/23/20 09:00 10/27/20 23:59 10/25/20 08:07 Memantine (Namenda) 5 mg BID PO 10/19/20 21:00 10/25/20 19:48 Rivastigmine (Exelon 13.3mg) 1 patch DAILY TD 10/28/20 07:00 Furosemide (Lasix) 80 mg 1X ONCE PO 10/22/20 10:15 10/22/20 10:16 DC 10/22/20 11:36 Quetiapine Fumarate (SEROquel) 12.5 mg 1700 PO 10/25/20 17:00 10/25/20 16:40 Current Medications Medications (Trade) Dose Ordered Sig/Matilde Route PRN Reason Start Time Stop Time Status Last Admin Dose Admin Quetiapine Fumarate (SEROquel) 12.5 mg 1700 PO 10/25/20 17:00 10/25/20 16:40 I have reviewed the current psychotropics carefully including drug interactions. Risk benefit ratio favors no change other than as noted in my dictated progress note. Diagnosis: Problems: (1) Impulse control disorder, unspecified (2) Anxiety disorder, unspecified (3) Dementia, vascular, with depression (4) Dementia, vascular, with delusions (5) Dementia in Alzheimer's disease with depression (6) Dementia in Alzheimer's disease with delusions (7) Major neurocognitive disorder (8) Lewy body dementia with behavioral disturbance JORGE COLLAZO MD Oct 26, 2020 09:19
[2020-10-26] MEDS: SERTRALINE 25 MG TABLET. PO SCH (10:20)
[2020-10-26] MEDS: QUEtiapine 25 MG TABLET. PO SCH ×3 (10:20→20:09)
[2020-10-26] MEDS: CARBIDOPA/LEVODOPA 10/100MG TABLET PO SCH ×4 (10:20→20:09)
[2020-10-26] MEDS: DIVALPROEX ER 250 MG TAB.ER.24H. PO SCH ×2 (10:20→20:09)
[2020-10-26] MEDS: MEMANTINE 5 MG TABLET. PO SCH ×2 (10:21→20:09)
[2020-10-26] MEDS: CHOLECALCIFEROL (VITAMIN D3) 1,000 UNIT TABLET PO SCH (10:21)
[2020-10-26] MEDS: CYANOCOBALAMIN (VITAMIN B-12) 1,000 MCG TABLET. PO SCH (10:21)
--- NOTE | 2020-10-26 10:53 | NUR ---
WEEKLY ACTIVITY THERAPY NOTE Date of Admission: 10/10, DC on 10/12 and readmitted 10/14 Date of AT Assessment: 10/12 remains valid Precipitating behaviors that initiated intake and admission: Restless, impulsive, agitated, delusional, hallucinations,violent outbursts Goal aimed:increase stress management and socialization skills Initial Goal: Pt will participate in at least one individual or group Activity Therapy session per week. Weekly progress towards goal: achieved 09/29 Group participation level: 1 min Weekly highlights: alert and discussed images in newspaper in group on Friday Behaviors observed: usually in room, requests alcoholic beverages, not around group often, confused Plan: no change to goal Beneficial adaptations:
--- NOTE | 2020-10-26 13:53 | NUR ---
Patient sitting in wheelchair in day room doing activities. Patient ate breakfast and took medications whole with not problems. Patient is calm and cooperative. Patient planning to be discharged next week. Facility asking for us to schedule Zyprexa. Per Dr Sanford Romero and start Zyprexa 2.5mg BID at 0900 and 1700. New orders placed. No further concerns or complaints at this time.
[2020-10-26 15:41] VITALS: BP 131/78
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
--- NOTE | 2020-10-26 17:41 | NUR ---
Patient in room at time of assessment. He is sitting in his wheelchair. He ate breakfast good and takes medications whole with no problems. Patient is alert but confused and forgetful. Patient has no complaints and there are no further concerns at this time.
[2020-10-26] MEDS: MIRTAZAPINE ODT 15 MG TAB.RAPDIS. PO SCH (20:09)
[2020-10-26] MEDS: FINASTERIDE 5 MG TABLET. PO SCH (20:09)
[2020-10-26] MEDS: traZODone 50 MG TABLET. PO PRN (20:09)
--- NOTE | 2020-10-26 21:09 | PDOC ---
Exam Note: Tommy Note: Please also refer to the separate dictated note~for this date of service dictated separately.~Patient seen individually. Discussed the patient with Nursing staff reviewed the chart.~Reviewed interim history and current functioning. Reviewed vital signs,~Labs/ Radiology~and current medications noted below. Continue current treatment with the changes noted in the dictated addendum note Assessment: Vital Signs/I&O: Vital Signs Date Time Temp Pulse Resp B/P (MAP) Pulse Ox O2 Delivery O2 Flow Rate FiO2 10/26/20 15:41 96.8 70 19 131/78 (95) 98 10/26/20 06:24 Room Air I & O 10/25/20 10/25/20 10/26/20 15:00 23:00 07:00 Intake Total 840 ml 360 ml 100 ml Balance 840 ml 360 ml 100 ml Current Medications: Meds: Current Medications Medications (Trade) Dose Ordered Sig/Matilde Route PRN Reason Start Time Stop Time Status Last Admin Dose Admin Acetaminophen (Tylenol) 650 mg PRN Q6HRS PRN PO MILD PAIN / TEMP > 100.3'F 10/13/20 21:45 UNV Multi-Ingredient Ointment (Analgesic [place]) 1 ike PRN QID PRN TP MUSCLE PAIN 10/13/20 21:45 UNV Al Hydroxide/Mg Hydroxide (Mylanta Plus Xs) 15 ml PRN AFTMEALHC PRN PO DYSPEPSIA 10/13/20 21:45 UNV Magnesium Hydroxide (Milk Of Magnesia) 2,400 mg PRN QHS PRN PO 3rd CHOICE CONSTIPATION 10/13/20 21:45 Acetaminophen (Tylenol) 650 mg PRN Q6HRS PRN PO MILD PAIN / TEMP > 100.3'F 10/13/20 21:45 10/14/20 16:44 Carbidopa/Levodopa (Sinemet 10/100) 1 tab QID PO 10/14/20 09:00 10/13/20 22:20 DC Divalproex Sodium (Depakote Er) 250 mg BID PO 10/14/20 09:00 10/13/20 22:20 DC Docusate Sodium (Colace) 100 mg PRN BID PRN PO 1ST CHOICE CONSTIPATION 10/13/20 21:45 Finasteride (Proscar) 5 mg QHS PO 10/14/20 21:00 10/13/20 22:20 DC Levothyroxine Sodium (Synthroid) 100 mcg DAILY06 PO 10/14/20 06:00 10/26/20 04:53 Al Hydroxide/Mg Hydroxide (Mylanta Plus Xs) 15 ml PRN AFTMEALHC PRN PO DYSPEPSIA 10/13/20 21:45 Multi-Ingredient Ointment (Analgesic Means) 1 ike QID PRN TP MUSCLE PAIN 10/13/20 21:45 Mirtazapine (Remeron Tiki-Tab) 15 mg QHS PO 10/14/20 21:00 10/13/20 22:20 DC Olanzapine (ZyPREXA ZYDIS) 5 mg PRN Q2HRS PRN PO ANXIETY / AGITATION 10/13/20 21:45 10/26/20 13:38 DC 10/26/20 03:49 Polyethylene Glycol (miraLAX) 17 gm PRN BID PRN PO 2nd choice constipation 10/13/20 21:45 Potassium Chloride (Klor-Con) 10 meq DAILY PO 10/14/20 09:00 10/26/20 09:00 Quetiapine Fumarate (SEROquel) 25 mg BID PO 10/14/20 09:00 10/13/20 22:20 DC Sertraline HCl (Zoloft) 25 mg DAILY PO 10/14/20 09:00 10/26/20 10:20 Trazodone HCl (Desyrel) 50 mg PRN QHS PRN PO Insomnia May repeat x2 10/13/20 21:45 10/26/20 20:09 Vitamin D (Vitamin D3) 2,000 unit DAILY PO 10/14/20 09:00 10/26/20 10:21 Cyanocobalamin (Vitamin B-12) 1,000 mcg DAILY PO 10/14/20 09:00 10/26/20 10:21 Fluticasone Propionate (Flonase) 1 spray DAILY NS 10/14/20 09:00 10/26/20 09:00 Non-Formulary Medication (Magnesium Hydroxide (Milk Of Magnesia)) 2,400 mg PRN DAILY PRN PO CONSTIPATION 10/13/20 21:45 UNV Carbidopa/Levodopa (Sinemet 10/100) 1 tab QID PO 10/13/20 22:45 10/26/20 20:09 Divalproex Sodium (Depakote Er) 250 mg BID PO 10/13/20 22:45 10/26/20 20:09 Finasteride (Proscar) 5 mg QHS PO 10/13/20 22:45 10/26/20 20:09 Mirtazapine (Remeron Tiki-Tab) 15 mg QHS PO 10/13/20 22:45 10/26/20 20:09 Quetiapine Fumarate (SEROquel) 25 mg BID PO 10/13/20 22:45 10/26/20 20:09 Rivastigmine (Exelon) 1 patch DAILY TD 10/18/20 09:00 10/22/20 23:51 DC 10/22/20 08:48 Rivastigmine (Exelon) 1 patch DAILY TD 10/23/20 09:00 10/27/20 23:59 10/26/20 09:00 Memantine (Namenda) 5 mg BID PO 10/19/20 21:00 10/26/20 20:09 Rivastigmine (Exelon 13.3mg) 1 patch DAILY TD 10/28/20 07:00 Furosemide (Lasix) 80 mg 1X ONCE PO 10/22/20 10:15 10/22/20 10:16 DC 10/22/20 11:36 Quetiapine Fumarate (SEROquel) 12.5 mg 1700 PO 10/25/20 17:00 10/26/20 16:58 Olanzapine (ZyPREXA ZYDIS) 2.5 mg 0900,1700 PO 10/26/20 17:00 10/26/20 16:58 Current Medications Medications (Trade) Dose Ordered Sig/Matilde Route PRN Reason Start Time Stop Time Status Last Admin Dose Admin Olanzapine (ZyPREXA ZYDIS) 2.5 mg 0900,1700 PO 10/26/20 17:00 10/26/20 16:58 I have reviewed the current psychotropics carefully including drug interactions. Risk benefit ratio favors no change other than as noted in my dictated progress note. Diagnosis: Problems: (1) Impulse control disorder, unspecified (2) Anxiety disorder, unspecified (3) Dementia, vascular, with depression (4) Dementia, vascular, with delusions (5) Dementia in Alzheimer's disease with depression (6) Dementia in Alzheimer's disease with delusions (7) Major neurocognitive disorder (8) Lewy body dementia with behavioral disturbance JORGE COLLAZO MD Oct 26, 2020 21:08
--- NOTE | 2020-10-26 23:37 | NUR ---
Nursing Note: Pt sitting up i9n w/c, self-propelling in hallway at shift change. Pt pleasantly confused, calm, and interactive with staff and peers. Pt cooperative with assessment and compliant with medications administered whole.
[2020-10-27] MEDS: LEVOTHYROXINE 100 MCG TABLET PO SCH (05:19)
[2020-10-27 06:19] VITALS: BP 158/88
--- NOTE | 2020-10-27 07:41 | PDOC ---
Exam Note: Tommy Note: This note is a late entry for 10/26/2020 covers elements not covered in my initial note. Subjective: The patient was seen face to face in the morning of 10/26/2020 for a treatment team meeting with Nery Duron and Keke (social sciences research scientist), Anastasiia Whaley, activity therapy and Mary ORTEGA. Discussed with nursing staff, reviewed the chart. The patient just slept 4-1/2 hours previous night. Overall the patient frequently asks for Bloody [place] or wine during his meals. There is no clear history of alcohol abuse but staff have wondered if this request is suggestive of alcohol abuse in the past. Review of Systems: No CV, , pulmonary, eye, ENT system symptoms on review. Ambulation impaired in wheelchair. Reliability poor. Mental Status Exam: The patient is oriented to himself. Insight and judgment, recent and remote memory, attention and concentration, fund of knowledge is poor consistent with his diagnosis. Laboratory Data: Reviewed. Impression: Major neurocognitive disorder Alzheimer vascular with delusion, depression. Anxiety disorder unspecified. Impulse control disorder unspecified. 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 Plan: Continue psychotropics from initial note. The patient does well on Zyprexa p.r.n.s but nursing facility cannot have him back on p.r.n. Zyprexa. We will start schedule Zyprexa 2.5 mg 9 a.m. and 5 p.m. Stop the Abilify as previously done. Maintain Exelon patch and Seroquel, Depakote, Remeron. Adjust further as clinically indicated. Assessment: Vital Signs/I&O: Vital Signs Date Time Temp Pulse Resp B/P (MAP) Pulse Ox O2 Delivery O2 Flow Rate FiO2 10/27/20 06:19 97.8 69 18 158/88 (111) 93 Room Air I & O 10/26/20 10/26/20 10/27/20 15:00 23:00 07:00 Intake Total 900 ml 360 ml Balance 900 ml 360 ml Current Medications: Meds: Current Medications Medications (Trade) Dose Ordered Sig/Matilde Route PRN Reason Start Time Stop Time Status Last Admin Dose Admin Acetaminophen (Tylenol) 650 mg PRN Q6HRS PRN PO MILD PAIN / TEMP > 100.3'F 10/13/20 21:45 UNV Multi-Ingredient Ointment (Analgesic [place]) 1 ike PRN QID PRN TP MUSCLE PAIN 10/13/20 21:45 UNV Al Hydroxide/Mg Hydroxide (Mylanta Plus Xs) 15 ml PRN AFTMEALHC PRN PO DYSPEPSIA 10/13/20 21:45 UNV Magnesium Hydroxide (Milk Of Magnesia) 2,400 mg PRN QHS PRN PO 3rd CHOICE CONSTIPATION 10/13/20 21:45 Acetaminophen (Tylenol) 650 mg PRN Q6HRS PRN PO MILD PAIN / TEMP > 100.3'F 10/13/20 21:45 10/14/20 16:44 Carbidopa/Levodopa (Sinemet 10/100) 1 tab QID PO 10/14/20 09:00 10/13/20 22:20 DC Divalproex Sodium (Depakote Er) 250 mg BID PO 10/14/20 09:00 10/13/20 22:20 DC Docusate Sodium (Colace) 100 mg PRN BID PRN PO 1ST CHOICE CONSTIPATION 10/13/20 21:45 Finasteride (Proscar) 5 mg QHS PO 10/14/20 21:00 10/13/20 22:20 DC Levothyroxine Sodium (Synthroid) 100 mcg DAILY06 PO 10/14/20 06:00 10/27/20 05:19 Al Hydroxide/Mg Hydroxide (Mylanta Plus Xs) 15 ml PRN AFTMEALHC PRN PO DYSPEPSIA 10/13/20 21:45 Multi-Ingredient Ointment (Analgesic [place]) 1 ike QID PRN TP MUSCLE PAIN 10/13/20 21:45 Mirtazapine (Remeron Tiki-Tab) 15 mg QHS PO 10/14/20 21:00 10/13/20 22:20 DC Olanzapine (ZyPREXA ZYDIS) 5 mg PRN Q2HRS PRN PO ANXIETY / AGITATION 10/13/20 21:45 10/26/20 13:38 DC 10/26/20 03:49 Polyethylene Glycol (miraLAX) 17 gm PRN BID PRN PO 2nd choice constipation 10/13/20 21:45 Potassium Chloride (Klor-Con) 10 meq DAILY PO 10/14/20 09:00 10/26/20 09:00 Quetiapine Fumarate (SEROquel) 25 mg BID PO 10/14/20 09:00 10/13/20 22:20 DC Sertraline HCl (Zoloft) 25 mg DAILY PO 10/14/20 09:00 10/26/20 10:20 Trazodone HCl (Desyrel) 50 mg PRN QHS PRN PO Insomnia May repeat x2 10/13/20 21:45 10/26/20 20:09 Vitamin D (Vitamin D3) 2,000 unit DAILY PO 10/14/20 09:00 10/26/20 10:21 Cyanocobalamin (Vitamin B-12) 1,000 mcg DAILY PO 10/14/20 09:00 10/26/20 10:21 Fluticasone Propionate (Flonase) 1 spray DAILY NS 10/14/20 09:00 10/26/20 09:00 Non-Formulary Medication (Magnesium Hydroxide (Milk Of Magnesia)) 2,400 mg PRN DAILY PRN PO CONSTIPATION 10/13/20 21:45 UNV Carbidopa/Levodopa (Sinemet 10/100) 1 tab QID PO 10/13/20 22:45 10/26/20 20:09 Divalproex Sodium (Depakote Er) 250 mg BID PO 10/13/20 22:45 10/26/20 20:09 Finasteride (Proscar) 5 mg QHS PO 10/13/20 22:45 10/26/20 20:09 Mirtazapine (Remeron Tiki-Tab) 15 mg QHS PO 10/13/20 22:45 10/26/20 20:09 Quetiapine Fumarate (SEROquel) 25 mg BID PO 10/13/20 22:45 10/26/20 20:09 Rivastigmine (Exelon) 1 patch DAILY TD 10/18/20 09:00 10/22/20 23:51 DC 10/22/20 08:48 Rivastigmine (Exelon) 1 patch DAILY TD 10/23/20 09:00 10/27/20 23:59 10/26/20 09:00 Memantine (Namenda) 5 mg BID PO 10/19/20 21:00 10/26/20 20:09 Rivastigmine (Exelon 13.3mg) 1 patch DAILY TD 10/28/20 07:00 Furosemide (Lasix) 80 mg 1X ONCE PO 10/22/20 10:15 10/22/20 10:16 DC 10/22/20 11:36 Quetiapine Fumarate (SEROquel) 12.5 mg 1700 PO 10/25/20 17:00 10/26/20 16:58 Olanzapine (ZyPREXA ZYDIS) 2.5 mg 0900,1700 PO 10/26/20 17:00 10/26/20 16:58 Current Medications Medications (Trade) Dose Ordered Sig/Matilde Route PRN Reason Start Time Stop Time Status Last Admin Dose Admin Olanzapine (ZyPREXA ZYDIS) 2.5 mg 0900,1700 PO 10/26/20 17:00 10/26/20 16:58 I have reviewed the current psychotropics carefully including drug interactions. Risk benefit ratio favors no change other than as noted in my dictated progress note. Diagnosis: Problems: (1) Impulse control disorder, unspecified (2) Anxiety disorder, unspecified (3) Dementia, vascular, with depression (4) Dementia, vascular, with delusions (5) Dementia in Alzheimer's disease with depression (6) Dementia in Alzheimer's disease with delusions (7) Major neurocognitive disorder (8) Lewy body dementia with behavioral disturbance JORGE COLLAZO MD Oct 27, 2020 07:41
[2020-10-27] MEDS: FLUTICASONE 50MCG/NASAL SPRAY 16GM BOTTLE. NS SCH (09:00)
[2020-10-27] MEDS: RIVASTIGMINE 9.5MG PATCH. TD SCH (09:17)
[2020-10-27] MEDS: MEMANTINE 5 MG TABLET. PO SCH ×2 (09:18→19:41)
[2020-10-27] MEDS: QUEtiapine 25 MG TABLET. PO SCH ×3 (09:18→19:41)
[2020-10-27] MEDS: CHOLECALCIFEROL (VITAMIN D3) 1,000 UNIT TABLET PO SCH (09:18)
[2020-10-27] MEDS: POTASSIUM CHLORIDE 10 MEQ TABLET.ER. PO SCH (09:18)
[2020-10-27] MEDS: CARBIDOPA/LEVODOPA 10/100MG TABLET PO SCH ×4 (09:18→19:41)
[2020-10-27] MEDS: DIVALPROEX ER 250 MG TAB.ER.24H. PO SCH ×2 (09:18→19:41)
[2020-10-27] MEDS: SERTRALINE 25 MG TABLET. PO SCH (09:18)
[2020-10-27] MEDS: CYANOCOBALAMIN (VITAMIN B-12) 1,000 MCG TABLET. PO SCH (09:18)
--- NOTE | 2020-10-27 11:51 | NUR ---
SONIA returned call to Keely, ED at [facility]. SONIA notified Keely that pt discharge would have t be postponed as we have a positive Covid case and are on an admission and discharge hold. As it stands pt was tested yesterday and his results are negative. Both parties discussed having pt tested again next , with a tentative discharge date of Monday 11/06. SONIA will continue to keep [facility] up to date. Keely will call pt dtr to inform her and will have his dtr call SOINA if she has any further questions.
[2020-10-27 16:22] VITALS: BP 120/79
[2020-10-27] MEDS: MIRTAZAPINE ODT 15 MG TAB.RAPDIS. PO SCH (19:41)
[2020-10-27] MEDS: traZODone 50 MG TABLET. PO PRN (19:41)
[2020-10-27] MEDS: FINASTERIDE 5 MG TABLET. PO SCH (19:41)
--- NOTE | 2020-10-27 21:04 | NUR ---
Nursing Note: Pt withdrawn to room, lying in bed at shift change. Pt calm, pleasantly confused, and interactive when approached. Pt cooperative with assessment and compliant with medications administered whole.
--- NOTE | 2020-10-27 21:11 | PDOC ---
Exam Note: Tommy Note: Please also refer to the separate dictated note~for this date of service dictated separately.~Patient seen individually. Discussed the patient with Nursing staff reviewed the chart.~Reviewed interim history and current functioning. Reviewed vital signs,~Labs/ Radiology~and current medications noted below. Continue current treatment with the changes noted in the dictated addendum note Assessment: Vital Signs/I&O: Vital Signs Date Time Temp Pulse Resp B/P (MAP) Pulse Ox O2 Delivery O2 Flow Rate FiO2 10/27/20 16:22 98.8 68 20 120/79 (93) 97 Room Air I & O 10/26/20 10/26/20 10/27/20 15:00 23:00 07:00 Intake Total 900 ml 360 ml Balance 900 ml 360 ml Current Medications: Meds: Current Medications Medications (Trade) Dose Ordered Sig/Matilde Route PRN Reason Start Time Stop Time Status Last Admin Dose Admin Acetaminophen (Tylenol) 650 mg PRN Q6HRS PRN PO MILD PAIN / TEMP > 100.3'F 10/13/20 21:45 UNV Multi-Ingredient Ointment (Analgesic [place]) 1 ike PRN QID PRN TP MUSCLE PAIN 10/13/20 21:45 UNV Al Hydroxide/Mg Hydroxide (Mylanta Plus Xs) 15 ml PRN AFTMEALHC PRN PO DYSPEPSIA 10/13/20 21:45 UNV Magnesium Hydroxide (Milk Of Magnesia) 2,400 mg PRN QHS PRN PO 3rd CHOICE CONSTIPATION 10/13/20 21:45 Acetaminophen (Tylenol) 650 mg PRN Q6HRS PRN PO MILD PAIN / TEMP > 100.3'F 10/13/20 21:45 10/14/20 16:44 Carbidopa/Levodopa (Sinemet 10/100) 1 tab QID PO 10/14/20 09:00 10/13/20 22:20 DC Divalproex Sodium (Depakote Er) 250 mg BID PO 10/14/20 09:00 10/13/20 22:20 DC Docusate Sodium (Colace) 100 mg PRN BID PRN PO 1ST CHOICE CONSTIPATION 10/13/20 21:45 Finasteride (Proscar) 5 mg QHS PO 10/14/20 21:00 10/13/20 22:20 DC Levothyroxine Sodium (Synthroid) 100 mcg DAILY06 PO 10/14/20 06:00 10/27/20 05:19 Al Hydroxide/Mg Hydroxide (Mylanta Plus Xs) 15 ml PRN AFTMEALHC PRN PO DYSPEPSIA 10/13/20 21:45 Multi-Ingredient Ointment (Analgesic [place]) 1 ike QID PRN TP MUSCLE PAIN 10/13/20 21:45 Mirtazapine (Remeron Tiki-Tab) 15 mg QHS PO 10/14/20 21:00 10/13/20 22:20 DC Olanzapine (ZyPREXA ZYDIS) 5 mg PRN Q2HRS PRN PO ANXIETY / AGITATION 10/13/20 21:45 10/26/20 13:38 DC 10/26/20 03:49 Polyethylene Glycol (miraLAX) 17 gm PRN BID PRN PO 2nd choice constipation 10/13/20 21:45 Potassium Chloride (Klor-Con) 10 meq DAILY PO 10/14/20 09:00 10/27/20 09:18 Quetiapine Fumarate (SEROquel) 25 mg BID PO 10/14/20 09:00 10/13/20 22:20 DC Sertraline HCl (Zoloft) 25 mg DAILY PO 10/14/20 09:00 10/27/20 09:18 Trazodone HCl (Desyrel) 50 mg PRN QHS PRN PO Insomnia May repeat x2 10/13/20 21:45 10/27/20 19:41 Vitamin D (Vitamin D3) 2,000 unit DAILY PO 10/14/20 09:00 10/27/20 09:18 Cyanocobalamin (Vitamin B-12) 1,000 mcg DAILY PO 10/14/20 09:00 10/27/20 09:18 Fluticasone Propionate (Flonase) 1 spray DAILY NS 10/14/20 09:00 10/27/20 09:00 Non-Formulary Medication (Magnesium Hydroxide (Milk Of Magnesia)) 2,400 mg PRN DAILY PRN PO CONSTIPATION 10/13/20 21:45 UNV Carbidopa/Levodopa (Sinemet 10/100) 1 tab QID PO 10/13/20 22:45 10/27/20 19:41 Divalproex Sodium (Depakote Er) 250 mg BID PO 10/13/20 22:45 10/27/20 19:41 Finasteride (Proscar) 5 mg QHS PO 10/13/20 22:45 10/27/20 19:41 Mirtazapine (Remeron Tiki-Tab) 15 mg QHS PO 10/13/20 22:45 10/27/20 19:41 Quetiapine Fumarate (SEROquel) 25 mg BID PO 10/13/20 22:45 10/27/20 19:41 Rivastigmine (Exelon) 1 patch DAILY TD 10/18/20 09:00 10/22/20 23:51 DC 10/22/20 08:48 Rivastigmine (Exelon) 1 patch DAILY TD 10/23/20 09:00 10/27/20 23:59 10/27/20 09:17 Memantine (Namenda) 5 mg BID PO 10/19/20 21:00 10/27/20 19:41 Rivastigmine (Exelon 13.3mg) 1 patch DAILY TD 10/28/20 07:00 Furosemide (Lasix) 80 mg 1X ONCE PO 10/22/20 10:15 10/22/20 10:16 DC 10/22/20 11:36 Quetiapine Fumarate (SEROquel) 12.5 mg 1700 PO 10/25/20 17:00 10/27/20 16:32 Olanzapine (ZyPREXA ZYDIS) 2.5 mg 0900,1700 PO 10/26/20 17:00 10/27/20 16:32 I have reviewed the current psychotropics carefully including drug interactions. Risk benefit ratio favors no change other than as noted in my dictated progress note. Diagnosis: Problems: (1) Impulse control disorder, unspecified (2) Anxiety disorder, unspecified (3) Dementia, vascular, with depression (4) Dementia, vascular, with delusions (5) Dementia in Alzheimer's disease with depression (6) Dementia in Alzheimer's disease with delusions (7) Major neurocognitive disorder (8) Lewy body dementia with behavioral disturbance JORGE COLLAZO MD Oct 27, 2020 21:11
[2020-10-28] MEDS ORDERED: NYSTATIN TOPICAL POWDER 15GM BOTTLE. TP ONE (00:36)
[2020-10-28] MEDS ORDERED: NYSTATIN TOPICAL POWDER 15GM BOTTLE. TP PRN (00:45)
[2020-10-28] MEDS: LEVOTHYROXINE 100 MCG TABLET PO SCH (05:18)
[2020-10-28 06:12] VITALS: BP 145/75
[2020-10-28] MEDS: FLUTICASONE 50MCG/NASAL SPRAY 16GM BOTTLE. NS SCH (08:22)
[2020-10-28] MEDS: SERTRALINE 25 MG TABLET. PO SCH (08:22)
[2020-10-28] MEDS: CHOLECALCIFEROL (VITAMIN D3) 1,000 UNIT TABLET PO SCH (08:22)
[2020-10-28] MEDS: CARBIDOPA/LEVODOPA 10/100MG TABLET PO SCH ×4 (08:22→19:38)
[2020-10-28] MEDS: CYANOCOBALAMIN (VITAMIN B-12) 1,000 MCG TABLET. PO SCH (08:23)
[2020-10-28] MEDS: POTASSIUM CHLORIDE 10 MEQ TABLET.ER. PO SCH (08:23)
[2020-10-28] MEDS: DIVALPROEX ER 250 MG TAB.ER.24H. PO SCH ×2 (08:23→19:39)
[2020-10-28] MEDS: MEMANTINE 5 MG TABLET. PO SCH ×2 (08:23→19:38)
[2020-10-28] MEDS: QUEtiapine 25 MG TABLET. PO SCH ×3 (08:24→19:39)
[2020-10-28] MEDS: RIVASTIGMINE 13.3MG PATCH. TD SCH ×2 (08:24→09:00)
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
[2020-10-28 10:49] LABS: BASO % 1 % (0-3); EOS % 0 % (0-3); HEMATOCRIT 31.5 % (39.0-53.0); HEMOGLOBIN 9.8 g/dL (13.0-17.5); LYMPH # 1.4 x10^3/uL (1.0-4.8); LYMPH % 24 % (24-48); MEAN CORPUSCULAR HEMOGLOBIN 29 pg (25-35); MEAN CORPUSCULAR HGB CONC 31 g/dL (31-37); MEAN CORPUSCULAR VOLUME 94 fL (79-100); MONO # 0.5 x10^3/uL (0.0-1.1); MONO % 9 % (0-9); NEUT # 3.7 x10^3uL (1.8-7.7); NEUT % 66 % (31-73); PLATELET COUNT 151 x10^3/uL (140-400); RED BLOOD COUNT 3.36 x10^6/uL (4.30-5.70); RED CELL DISTRIBUTION WIDTH 18.1 % (11.5-14.5); WHITE BLOOD COUNT 5.6 x10^3/uL (4.0-11.0)
[2020-10-28 11:18] LABS: ALBUMIN 2.6 g/dL (3.4-5.0); ALBUMIN/GLOBULIN RATIO 0.8 (1.0-1.7); CALCIUM 8.3 mg/dL (8.5-10.1); GFR 71.7; POTASSIUM 3.9 mmol/L (3.5-5.1); TOTAL BILIRUBIN 0.4 mg/dL (0.2-1.0); TOTAL PROTEIN 5.7 g/dL (6.4-8.2)
--- NOTE | 2020-10-28 14:48 | NUR ---
Pt has increased in agitation during the afternoon, frequently visiting the nurse station to insist that staff obtain a phone number for a [employer] dealership. Attempts at redirection, distraction, and reorientation have been unsuccessful. Review of PRN medications shows that he no longer has an order for PRN Zyprexa and only has scheduled Zyprexa. Dr Sanford sims and the following order was given: PRN Zyprexa Zydis 2.5 mg PO Q2HPRN for anxiety/agitation max dose 15mg/24H which includes the scheduled Zyprexa doses. Medication administered without difficulty. Pt spoke to this nurse and referred to me as his "daughter," discussed the pending divorce between him and his and the effect it would have on me and him. After administration he held this nurse's hand and asked if I was going to visit a family friend later in the day. Interaction ended on pleasant note.
[2020-10-28 15:00] VITALS: BP 118/67
[2020-10-28] MEDS: FINASTERIDE 5 MG TABLET. PO SCH (19:38)
[2020-10-28] MEDS: traZODone 50 MG TABLET. PO PRN ×2 (19:39→22:27)
[2020-10-28] MEDS: MIRTAZAPINE ODT 15 MG TAB.RAPDIS. PO SCH (19:39)
--- NOTE | 2020-10-28 21:02 | PDOC ---
Exam Note: Tommy Note: Please also refer to the separate dictated note~for this date of service dictated separately.~Patient seen individually. Discussed the patient with Nursing staff reviewed the chart.~Reviewed interim history and current functioning. Reviewed vital signs,~Labs/ Radiology~and current medications noted below. Continue current treatment with the changes noted in the dictated addendum note Assessment: Vital Signs/I&O: Vital Signs Date Time Temp Pulse Resp B/P (MAP) Pulse Ox O2 Delivery O2 Flow Rate FiO2 10/28/20 15:00 97.2 74 18 118/67 (84) 98 Room Air I & O 10/27/20 10/27/20 10/28/20 14:59 22:59 06:59 Intake Total 600 ml 360 ml Balance 600 ml 360 ml Labs: Laboratory Tests Test 10/28/20 10:05 White Blood Count 5.6 x10^3/uL (4.0-11.0) Red Blood Count 3.36 x10^6/uL (4.30-5.70) L Hemoglobin 9.8 g/dL (13.0-17.5) L Hematocrit 31.5 % (39.0-53.0) L Mean Corpuscular Volume 94 fL (79-100) Mean Corpuscular Hemoglobin 29 pg (25-35) Mean Corpuscular Hemoglobin Concent 31 g/dL (31-37) Red Cell Distribution Width 18.1 % (11.5-14.5) H Platelet Count 151 x10^3/uL (140-400) Neutrophils (%) (Auto) 66 % (31-73) Lymphocytes (%) (Auto) 24 % (24-48) Monocytes (%) (Auto) 9 % (0-9) Eosinophils (%) (Auto) 0 % (0-3) Basophils (%) (Auto) 1 % (0-3) Neutrophils # (Auto) 3.7 x10^3uL (1.8-7.7) Lymphocytes # (Auto) 1.4 x10^3/uL (1.0-4.8) Monocytes # (Auto) 0.5 x10^3/uL (0.0-1.1) Eosinophils # (Auto) 0.0 x10^3/uL (0.0-0.7) Basophils # (Auto) 0.0 x10^3/uL (0.0-0.2) Sodium Level 142 mmol/L (136-145) Potassium Level 3.9 mmol/L (3.5-5.1) Chloride Level 107 mmol/L (98-107) Carbon Dioxide Level 28 mmol/L (21-32) Anion Gap 7 (6-14) Blood Urea Nitrogen 20 mg/dL (8-26) Creatinine 1.0 mg/dL (0.7-1.3) Estimated GFR (Cockcroft-Gault) 71.7 BUN/Creatinine Ratio 20 (6-20) Glucose Level 115 mg/dL (70-99) H Calcium Level 8.3 mg/dL (8.5-10.1) L Total Bilirubin 0.4 mg/dL (0.2-1.0) Aspartate Amino Transferase (AST) 18 U/L (15-37) Alanine Aminotransferase (ALT) 14 U/L (16-63) L Alkaline Phosphatase 52 U/L (46-116) Total Protein 5.7 g/dL (6.4-8.2) L Albumin 2.6 g/dL (3.4-5.0) L Albumin/Globulin Ratio 0.8 (1.0-1.7) L Current Medications: Meds: Laboratory Tests Test 10/28/20 10:05 White Blood Count 5.6 x10^3/uL Red Blood Count 3.36 x10^6/uL Hemoglobin 9.8 g/dL Hematocrit 31.5 % Mean Corpuscular Volume 94 fL Mean Corpuscular Hemoglobin 29 pg Mean Corpuscular Hemoglobin Concent 31 g/dL Red Cell Distribution Width 18.1 % Platelet Count 151 x10^3/uL Neutrophils (%) (Auto) 66 % Lymphocytes (%) (Auto) 24 % Monocytes (%) (Auto) 9 % Eosinophils (%) (Auto) 0 % Basophils (%) (Auto) 1 % Neutrophils # (Auto) 3.7 x10^3uL Lymphocytes # (Auto) 1.4 x10^3/uL Monocytes # (Auto) 0.5 x10^3/uL Eosinophils # (Auto) 0.0 x10^3/uL Basophils # (Auto) 0.0 x10^3/uL Sodium Level 142 mmol/L Potassium Level 3.9 mmol/L Chloride Level 107 mmol/L Carbon Dioxide Level 28 mmol/L Anion Gap 7 Blood Urea Nitrogen 20 mg/dL Creatinine 1.0 mg/dL Estimated GFR (Cockcroft-Gault) 71.7 BUN/Creatinine Ratio 20 Glucose Level 115 mg/dL Calcium Level 8.3 mg/dL Total Bilirubin 0.4 mg/dL Aspartate Amino Transf (AST/SGOT) 18 U/L Alanine Aminotransferase (ALT/SGPT) 14 U/L Alkaline Phosphatase 52 U/L Total Protein 5.7 g/dL Albumin 2.6 g/dL Albumin/Globulin Ratio 0.8 Current Medications Medications (Trade) Dose Ordered Sig/Matilde Route PRN Reason Start Time Stop Time Status Last Admin Dose Admin Acetaminophen (Tylenol) 650 mg PRN Q6HRS PRN PO MILD PAIN / TEMP > 100.3'F 10/13/20 21:45 UNV Multi-Ingredient Ointment (Analgesic [place]) 1 ike PRN QID PRN TP MUSCLE PAIN 10/13/20 21:45 UNV Al Hydroxide/Mg Hydroxide (Mylanta Plus Xs) 15 ml PRN AFTMEALHC PRN PO DYSPEPSIA 10/13/20 21:45 UNV Magnesium Hydroxide (Milk Of Magnesia) 2,400 mg PRN QHS PRN PO 3rd CHOICE CONSTIPATION 10/13/20 21:45 Acetaminophen (Tylenol) 650 mg PRN Q6HRS PRN PO MILD PAIN / TEMP > 100.3'F 10/13/20 21:45 10/14/20 16:44 Carbidopa/Levodopa (Sinemet 10/100) 1 tab QID PO 10/14/20 09:00 10/13/20 22:20 DC Divalproex Sodium (Depakote Er) 250 mg BID PO 10/14/20 09:00 10/13/20 22:20 DC Docusate Sodium (Colace) 100 mg PRN BID PRN PO 1ST CHOICE CONSTIPATION 10/13/20 21:45 Finasteride (Proscar) 5 mg QHS PO 10/14/20 21:00 10/13/20 22:20 DC Levothyroxine Sodium (Synthroid) 100 mcg DAILY06 PO 10/14/20 06:00 10/28/20 05:18 Al Hydroxide/Mg Hydroxide (Mylanta Plus Xs) 15 ml PRN AFTMEALHC PRN PO DYSPEPSIA 10/13/20 21:45 Multi-Ingredient Ointment (Analgesic [place]) 1 ike QID PRN TP MUSCLE PAIN 10/13/20 21:45 Mirtazapine (Remeron Tiki-Tab) 15 mg QHS PO 10/14/20 21:00 10/13/20 22:20 DC Olanzapine (ZyPREXA ZYDIS) 5 mg PRN Q2HRS PRN PO ANXIETY / AGITATION 10/13/20 21:45 10/26/20 13:38 DC 10/26/20 03:49 Polyethylene Glycol (miraLAX) 17 gm PRN BID PRN PO 2nd choice constipation 10/13/20 21:45 Potassium Chloride (Klor-Con) 10 meq DAILY PO 10/14/20 09:00 10/28/20 08:23 Quetiapine Fumarate (SEROquel) 25 mg BID PO 10/14/20 09:00 10/13/20 22:20 DC Sertraline HCl (Zoloft) 25 mg DAILY PO 10/14/20 09:00 10/28/20 08:22 Trazodone HCl (Desyrel) 50 mg PRN QHS PRN PO Insomnia May repeat x2 10/13/20 21:45 10/28/20 19:39 Vitamin D (Vitamin D3) 2,000 unit DAILY PO 10/14/20 09:00 10/28/20 08:22 Cyanocobalamin (Vitamin B-12) 1,000 mcg DAILY PO 10/14/20 09:00 10/28/20 08:23 Fluticasone Propionate (Flonase) 1 spray DAILY NS 10/14/20 09:00 10/28/20 08:22 Non-Formulary Medication (Magnesium Hydroxide (Milk Of Magnesia)) 2,400 mg PRN DAILY PRN PO CONSTIPATION 10/13/20 21:45 UNV Carbidopa/Levodopa (Sinemet 10/100) 1 tab QID PO 10/13/20 22:45 10/28/20 19:38 Divalproex Sodium (Depakote Er) 250 mg BID PO 10/13/20 22:45 10/28/20 19:39 Finasteride (Proscar) 5 mg QHS PO 10/13/20 22:45 10/28/20 19:38 Mirtazapine (Remeron Tiki-Tab) 15 mg QHS PO 10/13/20 22:45 10/28/20 19:39 Quetiapine Fumarate (SEROquel) 25 mg BID PO 10/13/20 22:45 10/28/20 19:39 Rivastigmine (Exelon) 1 patch DAILY TD 10/18/20 09:00 10/22/20 23:51 DC 10/22/20 08:48 Rivastigmine (Exelon) 1 patch DAILY TD 10/23/20 09:00 10/27/20 23:59 DC 10/27/20 09:17 Memantine (Namenda) 5 mg BID PO 10/19/20 21:00 10/28/20 19:38 Rivastigmine (Exelon 13.3mg) 1 patch DAILY TD 10/28/20 07:00 10/28/20 08:24 Furosemide (Lasix) 80 mg 1X ONCE PO 10/22/20 10:15 10/22/20 10:16 DC 10/22/20 11:36 Quetiapine Fumarate (SEROquel) 12.5 mg 1700 PO 10/25/20 17:00 10/28/20 18:08 Olanzapine (ZyPREXA ZYDIS) 2.5 mg 0900,1700 PO 10/26/20 17:00 10/28/20 18:09 Nystatin (Nystop) 15 ike STK-MED ONCE TP 10/28/20 00:36 10/28/20 00:36 DC Nystatin (Nystop) 1 ike PRN BID PRN TP RASH 10/28/20 00:45 Olanzapine (ZyPREXA ZYDIS) 2.5 mg PRN Q2HR PRN PO PSYCHOSIS 10/28/20 14:30 10/28/20 19:39 Current Medications Medications (Trade) Dose Ordered Sig/Matilde Route PRN Reason Start Time Stop Time Status Last Admin Dose Admin Rivastigmine (Exelon 13.3mg) 1 patch DAILY TD 10/28/20 07:00 10/28/20 08:24 Olanzapine (ZyPREXA ZYDIS) 2.5 mg PRN Q2HR PRN PO PSYCHOSIS 10/28/20 14:30 10/28/20 19:39 I have reviewed the current psychotropics carefully including drug interactions. Risk benefit ratio favors no change other than as noted in my dictated progress note. Diagnosis: Problems: (1) Impulse control disorder, unspecified (2) Anxiety disorder, unspecified (3) Dementia, vascular, with depression (4) Dementia, vascular, with delusions (5) Dementia in Alzheimer's disease with depression (6) Dementia in Alzheimer's disease with delusions (7) Major neurocognitive disorder (8) Lewy body dementia with behavioral disturbance JORGE COLLAZO MD Oct 28, 2020 21:02
--- NOTE | 2020-10-28 21:30 | NUR ---
Nursing Note: Pt up, standing in his doorway at shift change. Pt anxious at times, over stimulated due other pt behaviors. Pt interactive and pleasant with me during our interaction. Pt cooperative with assessment and compliant with medications administered whole. PRN Zydis administered with HS medications for anxiety/agitation.
[2020-10-29] MEDS: traZODone 50 MG TABLET. PO PRN ×2 (00:22→20:42)
[2020-10-29] MEDS: LEVOTHYROXINE 100 MCG TABLET PO SCH (05:27)
[2020-10-29 06:32] VITALS: BP 130/75
[2020-10-29] MEDS: RIVASTIGMINE 13.3MG PATCH. TD SCH (07:41)
[2020-10-29] MEDS: FLUTICASONE 50MCG/NASAL SPRAY 16GM BOTTLE. NS SCH (07:41)
[2020-10-29] MEDS: CARBIDOPA/LEVODOPA 10/100MG TABLET PO SCH ×4 (07:42→20:42)
[2020-10-29] MEDS: MEMANTINE 5 MG TABLET. PO SCH (07:42)
[2020-10-29] MEDS: CHOLECALCIFEROL (VITAMIN D3) 1,000 UNIT TABLET PO SCH (07:42)
[2020-10-29] MEDS: QUEtiapine 25 MG TABLET. PO SCH ×3 (07:42→20:42)
[2020-10-29] MEDS: CYANOCOBALAMIN (VITAMIN B-12) 1,000 MCG TABLET. PO SCH (07:42)
[2020-10-29] MEDS: SERTRALINE 25 MG TABLET. PO SCH (07:42)
[2020-10-29] MEDS: DIVALPROEX ER 250 MG TAB.ER.24H. PO SCH ×2 (07:42→20:42)
[2020-10-29] MEDS: POTASSIUM CHLORIDE 10 MEQ TABLET.ER. PO SCH (07:43)
--- NOTE | 2020-10-29 10:02 | NUR ---
Pt has been remarkably social and friendly this morning aside from a brief period of yelling out at nothing in particular from his bed which required a PRN dose of Zyprexa 2.5 mg PO on top of his scheduled dose of 2.5 mg to ensure a more calm beginning to his morning with reduced anxiety and delusions. Overall during the day pt is complaint with medications and assessment. He appears appropriate in behaviors and language with both staff and fellow pts and has multiple occasions where he smiles and laughs freely. He is alert to person and place, however he believes the hospital is in [place] and was selected by an individual named "Cr" who pt claims he has angered. He has spent part of the morning self amb in his w/c and attending a group session. He has no complaints or concerns at this time, he denies SI/SH/VH/AH/pain. There is still some noticeable 1+ pitting edema in the bilateral feet. Pt encouraged to prop his feet up more and he replied that he also likes to do "foot exercises" and demonstrated ankle pumping with both feet. Will pass on to the next shift
[2020-10-29 16:37] VITALS: BP 152/72
--- NOTE | 2020-10-29 17:04 | NUR ---
JOHNNA Ham administered d/t pt becoming increasingly confused and yelling for help.
[2020-10-29] MEDS: MEMANTINE 10 MG TABLET. PO SCH (20:41)
[2020-10-29] MEDS: MIRTAZAPINE ODT 15 MG TAB.RAPDIS. PO SCH (20:42)
[2020-10-29] MEDS: FINASTERIDE 5 MG TABLET. PO SCH (20:43)
--- NOTE | 2020-10-29 21:01 | PDOC ---
Exam Note: Tommy Note: This note is a late entry for 10/27/2020 covers elements not covered in my initial note. Subjective: The patient was seen face to face in the evening of 10/27/2020 with Ana Paula ORTEGA. Discussed with nursing staff, reviewed the chart. The patient just slept 6-1/4 hours previous night. The patient had to be in the West hallway previous night, anxious, restless, confused. He has done better on the 10/27. He is less delusional, not aggressive. Review of Systems: No CV, , pulmonary, eye, ENT system symptoms on review. Ambulates with walker. Reliability poor. Mental Status Exam: The patient is oriented to himself. Insight and judgment, recent and remote memory, attention and concentration, fund of knowledge is poor consistent with his diagnosis. Laboratory Data: Reviewed. Impression: Major neurocognitive disorder Alzheimer vascular with delusion, depression. Anxiety disorder unspecified. Impulse control disorder unspecified. 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 Plan: No change from initial note. Assessment: Vital Signs/I&O: Vital Signs Date Time Temp Pulse Resp B/P (MAP) Pulse Ox O2 Delivery O2 Flow Rate FiO2 10/29/20 16:37 98.1 86 18 152/72 (98) 94 10/29/20 06:32 Room Air I & O 10/28/20 10/28/20 10/29/20 15:00 23:00 07:00 Intake Total 480 ml 360 ml Balance 480 ml 360 ml Current Medications: Meds: Current Medications Medications (Trade) Dose Ordered Sig/Matilde Route PRN Reason Start Time Stop Time Status Last Admin Dose Admin Acetaminophen (Tylenol) 650 mg PRN Q6HRS PRN PO MILD PAIN / TEMP > 100.3'F 10/13/20 21:45 UNV Multi-Ingredient Ointment (Analgesic [place]) 1 ike PRN QID PRN TP MUSCLE PAIN 10/13/20 21:45 UNV Al Hydroxide/Mg Hydroxide (Mylanta Plus Xs) 15 ml PRN AFTMEALHC PRN PO DYSPEPSIA 10/13/20 21:45 UNV Magnesium Hydroxide (Milk Of Magnesia) 2,400 mg PRN QHS PRN PO 3rd CHOICE CONSTIPATION 10/13/20 21:45 Acetaminophen (Tylenol) 650 mg PRN Q6HRS PRN PO MILD PAIN / TEMP > 100.3'F 10/13/20 21:45 10/14/20 16:44 Carbidopa/Levodopa (Sinemet 10/100) 1 tab QID PO 10/14/20 09:00 10/13/20 22:20 DC Divalproex Sodium (Depakote Er) 250 mg BID PO 10/14/20 09:00 10/13/20 22:20 DC Docusate Sodium (Colace) 100 mg PRN BID PRN PO 1ST CHOICE CONSTIPATION 10/13/20 21:45 Finasteride (Proscar) 5 mg QHS PO 10/14/20 21:00 10/13/20 22:20 DC Levothyroxine Sodium (Synthroid) 100 mcg DAILY06 PO 10/14/20 06:00 10/29/20 05:27 Al Hydroxide/Mg Hydroxide (Mylanta Plus Xs) 15 ml PRN AFTMEALHC PRN PO DYSPEPSIA 10/13/20 21:45 Multi-Ingredient Ointment (Analgesic [place]) 1 ike QID PRN TP MUSCLE PAIN 10/13/20 21:45 Mirtazapine (Remeron Tiki-Tab) 15 mg QHS PO 10/14/20 21:00 10/13/20 22:20 DC Olanzapine (ZyPREXA ZYDIS) 5 mg PRN Q2HRS PRN PO ANXIETY / AGITATION 10/13/20 21:45 10/26/20 13:38 DC 10/26/20 03:49 Polyethylene Glycol (miraLAX) 17 gm PRN BID PRN PO 2nd choice constipation 10/13/20 21:45 Potassium Chloride (Klor-Con) 10 meq DAILY PO 10/14/20 09:00 10/29/20 07:43 Quetiapine Fumarate (SEROquel) 25 mg BID PO 10/14/20 09:00 10/13/20 22:20 DC Sertraline HCl (Zoloft) 25 mg DAILY PO 10/14/20 09:00 10/29/20 07:42 Trazodone HCl (Desyrel) 50 mg PRN QHS PRN PO Insomnia May repeat x2 10/13/20 21:45 10/29/20 20:42 Vitamin D (Vitamin D3) 2,000 unit DAILY PO 10/14/20 09:00 10/29/20 07:42 Cyanocobalamin (Vitamin B-12) 1,000 mcg DAILY PO 10/14/20 09:00 10/29/20 07:42 Fluticasone Propionate (Flonase) 1 spray DAILY NS 10/14/20 09:00 10/29/20 07:41 Non-Formulary Medication (Magnesium Hydroxide (Milk Of Magnesia)) 2,400 mg PRN DAILY PRN PO CONSTIPATION 10/13/20 21:45 UNV Carbidopa/Levodopa (Sinemet 10/100) 1 tab QID PO 10/13/20 22:45 10/29/20 20:42 Divalproex Sodium (Depakote Er) 250 mg BID PO 10/13/20 22:45 10/29/20 20:42 Finasteride (Proscar) 5 mg QHS PO 10/13/20 22:45 10/29/20 20:43 Mirtazapine (Remeron Tiki-Tab) 15 mg QHS PO 10/13/20 22:45 10/29/20 20:42 Quetiapine Fumarate (SEROquel) 25 mg BID PO 10/13/20 22:45 10/29/20 20:42 Rivastigmine (Exelon) 1 patch DAILY TD 10/18/20 09:00 10/22/20 23:51 DC 10/22/20 08:48 Rivastigmine (Exelon) 1 patch DAILY TD 10/23/20 09:00 10/27/20 23:59 DC 10/27/20 09:17 Memantine (Namenda) 5 mg BID PO 10/19/20 21:00 10/29/20 20:59 10/29/20 07:42 Rivastigmine (Exelon 13.3mg) 1 patch DAILY TD 10/28/20 07:00 10/29/20 07:41 Furosemide (Lasix) 80 mg 1X ONCE PO 10/22/20 10:15 10/22/20 10:16 DC 10/22/20 11:36 Quetiapine Fumarate (SEROquel) 12.5 mg 1700 PO 10/25/20 17:00 10/29/20 16:57 Olanzapine (ZyPREXA ZYDIS) 2.5 mg 0900,1700 PO 10/26/20 17:00 10/29/20 17:00 Nystatin (Nystop) 15 ike STK-MED ONCE TP 10/28/20 00:36 10/28/20 00:36 DC Nystatin (Nystop) 1 ike PRN BID PRN TP RASH 10/28/20 00:45 Olanzapine (ZyPREXA ZYDIS) 2.5 mg PRN Q2HR PRN PO PSYCHOSIS 10/28/20 14:30 10/29/20 16:57 Memantine (Namenda) 10 mg BID PO 10/30/20 09:00 10/29/20 20:06 DC Memantine (Namenda) 10 mg BID PO 10/29/20 21:00 10/29/20 20:41 Current Medications Medications (Trade) Dose Ordered Sig/Matilde Route PRN Reason Start Time Stop Time Status Last Admin Dose Admin Memantine (Namenda) 10 mg BID PO 10/29/20 21:00 10/29/20 20:41 I have reviewed the current psychotropics carefully including drug interactions. Risk benefit ratio favors no change other than as noted in my dictated progress note. 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
--- NOTE | 2020-10-29 21:34 | PDOC ---
Exam Note: Tommy Note: This note is a late entry for 10/28/2020 covers elements not covered in my initial note. Subjective: The patient was seen face to face in the evening of 10/28/2020 with Susi ORTEGA. Discussed with nursing staff, reviewed the chart. The patient just slept 6-1/2 hours previous night. The patient has been quite confused, fixated on calling the [employer] dealership, repetitive about this, anxious, restless. Review of Systems: No CV, , pulmonary, eye, ENT system symptoms on review. Ambulation impaired with walker. Reliability poor. Mental Status Exam: The patient is oriented to himself. Insight and judgment, recent and remote memory, attention and concentration, fund of knowledge is poor consistent with his diagnosis. Laboratory Data: Reviewed. Impression: Major neurocognitive disorder Alzheimer vascular with delusion, depression. Anxiety disorder unspecified. Impulse control disorder unspecified. 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 Plan: Continue psychotropics from initial note. Assessment: Vital Signs/I&O: Vital Signs Date Time Temp Pulse Resp B/P (MAP) Pulse Ox O2 Delivery O2 Flow Rate FiO2 10/29/20 16:37 98.1 86 18 152/72 (98) 94 10/29/20 06:32 Room Air I & O 10/28/20 10/28/20 10/29/20 15:00 23:00 07:00 Intake Total 480 ml 360 ml Balance 480 ml 360 ml Current Medications: Meds: Current Medications Medications (Trade) Dose Ordered Sig/Matilde Route PRN Reason Start Time Stop Time Status Last Admin Dose Admin Acetaminophen (Tylenol) 650 mg PRN Q6HRS PRN PO MILD PAIN / TEMP > 100.3'F 10/13/20 21:45 UNV Multi-Ingredient Ointment (Analgesic [place]) 1 ike PRN QID PRN TP MUSCLE PAIN 10/13/20 21:45 UNV Al Hydroxide/Mg Hydroxide (Mylanta Plus Xs) 15 ml PRN AFTMEALHC PRN PO DYSPEPSIA 10/13/20 21:45 UNV Magnesium Hydroxide (Milk Of Magnesia) 2,400 mg PRN QHS PRN PO 3rd CHOICE CONSTIPATION 10/13/20 21:45 Acetaminophen (Tylenol) 650 mg PRN Q6HRS PRN PO MILD PAIN / TEMP > 100.3'F 10/13/20 21:45 10/14/20 16:44 Carbidopa/Levodopa (Sinemet 10/100) 1 tab QID PO 10/14/20 09:00 10/13/20 22:20 DC Divalproex Sodium (Depakote Er) 250 mg BID PO 10/14/20 09:00 10/13/20 22:20 DC Docusate Sodium (Colace) 100 mg PRN BID PRN PO 1ST CHOICE CONSTIPATION 10/13/20 21:45 Finasteride (Proscar) 5 mg QHS PO 10/14/20 21:00 10/13/20 22:20 DC Levothyroxine Sodium (Synthroid) 100 mcg DAILY06 PO 10/14/20 06:00 10/29/20 05:27 Al Hydroxide/Mg Hydroxide (Mylanta Plus Xs) 15 ml PRN AFTMEALHC PRN PO DYSPEPSIA 10/13/20 21:45 Multi-Ingredient Ointment (Analgesic [place]) 1 ike QID PRN TP MUSCLE PAIN 10/13/20 21:45 Mirtazapine (Remeron Tiki-Tab) 15 mg QHS PO 10/14/20 21:00 10/13/20 22:20 DC Olanzapine (ZyPREXA ZYDIS) 5 mg PRN Q2HRS PRN PO ANXIETY / AGITATION 10/13/20 21:45 10/26/20 13:38 DC 10/26/20 03:49 Polyethylene Glycol (miraLAX) 17 gm PRN BID PRN PO 2nd choice constipation 10/13/20 21:45 Potassium Chloride (Klor-Con) 10 meq DAILY PO 10/14/20 09:00 10/29/20 07:43 Quetiapine Fumarate (SEROquel) 25 mg BID PO 10/14/20 09:00 10/13/20 22:20 DC Sertraline HCl (Zoloft) 25 mg DAILY PO 10/14/20 09:00 10/29/20 07:42 Trazodone HCl (Desyrel) 50 mg PRN QHS PRN PO Insomnia May repeat x2 10/13/20 21:45 10/29/20 20:42 Vitamin D (Vitamin D3) 2,000 unit DAILY PO 10/14/20 09:00 10/29/20 07:42 Cyanocobalamin (Vitamin B-12) 1,000 mcg DAILY PO 10/14/20 09:00 10/29/20 07:42 Fluticasone Propionate (Flonase) 1 spray DAILY NS 10/14/20 09:00 10/29/20 07:41 Non-Formulary Medication (Magnesium Hydroxide (Milk Of Magnesia)) 2,400 mg PRN DAILY PRN PO CONSTIPATION 10/13/20 21:45 UNV Carbidopa/Levodopa (Sinemet 10/100) 1 tab QID PO 10/13/20 22:45 10/29/20 20:42 Divalproex Sodium (Depakote Er) 250 mg BID PO 10/13/20 22:45 10/29/20 20:42 Finasteride (Proscar) 5 mg QHS PO 10/13/20 22:45 10/29/20 20:43 Mirtazapine (Remeron Tiki-Tab) 15 mg QHS PO 10/13/20 22:45 10/29/20 20:42 Quetiapine Fumarate (SEROquel) 25 mg BID PO 10/13/20 22:45 10/29/20 20:42 Rivastigmine (Exelon) 1 patch DAILY TD 10/18/20 09:00 10/22/20 23:51 DC 10/22/20 08:48 Rivastigmine (Exelon) 1 patch DAILY TD 10/23/20 09:00 10/27/20 23:59 DC 10/27/20 09:17 Memantine (Namenda) 5 mg BID PO 10/19/20 21:00 10/29/20 20:59 DC 10/29/20 07:42 Rivastigmine (Exelon 13.3mg) 1 patch DAILY TD 10/28/20 07:00 10/29/20 07:41 Furosemide (Lasix) 80 mg 1X ONCE PO 10/22/20 10:15 10/22/20 10:16 DC 10/22/20 11:36 Quetiapine Fumarate (SEROquel) 12.5 mg 1700 PO 10/25/20 17:00 10/29/20 16:57 Olanzapine (ZyPREXA ZYDIS) 2.5 mg 0900,1700 PO 10/26/20 17:00 10/29/20 17:00 Nystatin (Nystop) 15 ike STK-MED ONCE TP 10/28/20 00:36 10/28/20 00:36 DC Nystatin (Nystop) 1 ike PRN BID PRN TP RASH 10/28/20 00:45 Olanzapine (ZyPREXA ZYDIS) 2.5 mg PRN Q2HR PRN PO PSYCHOSIS 10/28/20 14:30 10/29/20 16:57 Memantine (Namenda) 10 mg BID PO 10/30/20 09:00 10/29/20 20:06 DC Memantine (Namenda) 10 mg BID PO 10/29/20 21:00 10/29/20 20:41 Current Medications Medications (Trade) Dose Ordered Sig/Matilde Route PRN Reason Start Time Stop Time Status Last Admin Dose Admin Memantine (Namenda) 10 mg BID PO 10/29/20 21:00 10/29/20 20:41 I have reviewed the current psychotropics carefully including drug interactions. Risk benefit ratio favors no change other than as noted in my dictated progress note. 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
--- NOTE | 2020-10-29 21:34 | PDOC ---
Exam Note: Tommy Note: Please also refer to the separate dictated note~for this date of service dictated separately.~Patient seen individually. Discussed the patient with Nursing staff reviewed the chart.~Reviewed interim history and current functioning. Reviewed vital signs,~Labs/ Radiology~and current medications noted below. Continue current treatment with the changes noted in the dictated addendum note Assessment: Vital Signs/I&O: Vital Signs Date Time Temp Pulse Resp B/P (MAP) Pulse Ox O2 Delivery O2 Flow Rate FiO2 10/29/20 16:37 98.1 86 18 152/72 (98) 94 10/29/20 06:32 Room Air I & O 10/28/20 10/28/20 10/29/20 15:00 23:00 07:00 Intake Total 480 ml 360 ml Balance 480 ml 360 ml Current Medications: Meds: Current Medications Medications (Trade) Dose Ordered Sig/Matilde Route PRN Reason Start Time Stop Time Status Last Admin Dose Admin Acetaminophen (Tylenol) 650 mg PRN Q6HRS PRN PO MILD PAIN / TEMP > 100.3'F 10/13/20 21:45 UNV Multi-Ingredient Ointment (Analgesic [place]) 1 ike PRN QID PRN TP MUSCLE PAIN 10/13/20 21:45 UNV Al Hydroxide/Mg Hydroxide (Mylanta Plus Xs) 15 ml PRN AFTMEALHC PRN PO DYSPEPSIA 10/13/20 21:45 UNV Magnesium Hydroxide (Milk Of Magnesia) 2,400 mg PRN QHS PRN PO 3rd CHOICE CONSTIPATION 10/13/20 21:45 Acetaminophen (Tylenol) 650 mg PRN Q6HRS PRN PO MILD PAIN / TEMP > 100.3'F 10/13/20 21:45 10/14/20 16:44 Carbidopa/Levodopa (Sinemet 10/100) 1 tab QID PO 10/14/20 09:00 10/13/20 22:20 DC Divalproex Sodium (Depakote Er) 250 mg BID PO 10/14/20 09:00 10/13/20 22:20 DC Docusate Sodium (Colace) 100 mg PRN BID PRN PO 1ST CHOICE CONSTIPATION 10/13/20 21:45 Finasteride (Proscar) 5 mg QHS PO 10/14/20 21:00 10/13/20 22:20 DC Levothyroxine Sodium (Synthroid) 100 mcg DAILY06 PO 10/14/20 06:00 10/29/20 05:27 Al Hydroxide/Mg Hydroxide (Mylanta Plus Xs) 15 ml PRN AFTMEALHC PRN PO DYSPEPSIA 10/13/20 21:45 Multi-Ingredient Ointment (Analgesic [place]) 1 ike QID PRN TP MUSCLE PAIN 10/13/20 21:45 Mirtazapine (Remeron Tiki-Tab) 15 mg QHS PO 10/14/20 21:00 10/13/20 22:20 DC Olanzapine (ZyPREXA ZYDIS) 5 mg PRN Q2HRS PRN PO ANXIETY / AGITATION 10/13/20 21:45 10/26/20 13:38 DC 10/26/20 03:49 Polyethylene Glycol (miraLAX) 17 gm PRN BID PRN PO 2nd choice constipation 10/13/20 21:45 Potassium Chloride (Klor-Con) 10 meq DAILY PO 10/14/20 09:00 10/29/20 07:43 Quetiapine Fumarate (SEROquel) 25 mg BID PO 10/14/20 09:00 10/13/20 22:20 DC Sertraline HCl (Zoloft) 25 mg DAILY PO 10/14/20 09:00 10/29/20 07:42 Trazodone HCl (Desyrel) 50 mg PRN QHS PRN PO Insomnia May repeat x2 10/13/20 21:45 10/29/20 20:42 Vitamin D (Vitamin D3) 2,000 unit DAILY PO 10/14/20 09:00 10/29/20 07:42 Cyanocobalamin (Vitamin B-12) 1,000 mcg DAILY PO 10/14/20 09:00 10/29/20 07:42 Fluticasone Propionate (Flonase) 1 spray DAILY NS 10/14/20 09:00 10/29/20 07:41 Non-Formulary Medication (Magnesium Hydroxide (Milk Of Magnesia)) 2,400 mg PRN DAILY PRN PO CONSTIPATION 10/13/20 21:45 UNV Carbidopa/Levodopa (Sinemet 10/100) 1 tab QID PO 10/13/20 22:45 10/29/20 20:42 Divalproex Sodium (Depakote Er) 250 mg BID PO 10/13/20 22:45 10/29/20 20:42 Finasteride (Proscar) 5 mg QHS PO 10/13/20 22:45 10/29/20 20:43 Mirtazapine (Remeron Tiki-Tab) 15 mg QHS PO 10/13/20 22:45 10/29/20 20:42 Quetiapine Fumarate (SEROquel) 25 mg BID PO 10/13/20 22:45 10/29/20 20:42 Rivastigmine (Exelon) 1 patch DAILY TD 10/18/20 09:00 10/22/20 23:51 DC 10/22/20 08:48 Rivastigmine (Exelon) 1 patch DAILY TD 10/23/20 09:00 10/27/20 23:59 DC 10/27/20 09:17 Memantine (Namenda) 5 mg BID PO 10/19/20 21:00 10/29/20 20:59 DC 10/29/20 07:42 Rivastigmine (Exelon 13.3mg) 1 patch DAILY TD 10/28/20 07:00 10/29/20 07:41 Furosemide (Lasix) 80 mg 1X ONCE PO 10/22/20 10:15 10/22/20 10:16 DC 10/22/20 11:36 Quetiapine Fumarate (SEROquel) 12.5 mg 1700 PO 10/25/20 17:00 10/29/20 16:57 Olanzapine (ZyPREXA ZYDIS) 2.5 mg 0900,1700 PO 10/26/20 17:00 10/29/20 17:00 Nystatin (Nystop) 15 ike STK-MED ONCE TP 10/28/20 00:36 10/28/20 00:36 DC Nystatin (Nystop) 1 ike PRN BID PRN TP RASH 10/28/20 00:45 Olanzapine (ZyPREXA ZYDIS) 2.5 mg PRN Q2HR PRN PO PSYCHOSIS 10/28/20 14:30 10/29/20 16:57 Memantine (Namenda) 10 mg BID PO 10/30/20 09:00 10/29/20 20:06 DC Memantine (Namenda) 10 mg BID PO 10/29/20 21:00 10/29/20 20:41 Current Medications Medications (Trade) Dose Ordered Sig/Matilde Route PRN Reason Start Time Stop Time Status Last Admin Dose Admin Memantine (Namenda) 10 mg BID PO 10/29/20 21:00 10/29/20 20:41 I have reviewed the current psychotropics carefully including drug interactions. Risk benefit ratio favors no change other than as noted in my dictated progress note. 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
--- NOTE | 2020-10-29 23:59 | NUR ---
Patient is located in the hallway on assumption of care, ambulating with his walker. He is in pleasant spirits. Disorganized, confused. Redirectable. Compliant with assessments and medications taken crushed in one bite of pudding. No agitation. Patient has voiced no delusions or hallucinations so far this shift. He does not appear to be experiencing any pain or discomfort. Patient appears to be sleeping comfortably at present time. Will continue to monitor.
[2020-10-30] MEDS: traZODone 50 MG TABLET. PO PRN ×2 (01:25→19:59)
[2020-10-30] MEDS: LEVOTHYROXINE 100 MCG TABLET PO SCH (05:17)
[2020-10-30 06:16] VITALS: BP 151/77
[2020-10-30] MEDS: DIVALPROEX ER 250 MG TAB.ER.24H. PO SCH ×2 (08:15→19:59)
[2020-10-30] MEDS: MEMANTINE 10 MG TABLET. PO SCH ×2 (08:16→19:58)
[2020-10-30] MEDS: CARBIDOPA/LEVODOPA 10/100MG TABLET PO SCH ×4 (08:16→19:59)
[2020-10-30] MEDS: POTASSIUM CHLORIDE 10 MEQ TABLET.ER. PO SCH (08:16)
[2020-10-30] MEDS: CHOLECALCIFEROL (VITAMIN D3) 1,000 UNIT TABLET PO SCH (08:16)
[2020-10-30] MEDS: QUEtiapine 25 MG TABLET. PO SCH ×3 (08:16→19:58)
[2020-10-30] MEDS: CYANOCOBALAMIN (VITAMIN B-12) 1,000 MCG TABLET. PO SCH (08:16)
[2020-10-30] MEDS: RIVASTIGMINE 13.3MG PATCH. TD SCH (08:17)
[2020-10-30] MEDS: SERTRALINE 25 MG TABLET. PO SCH (08:17)
--- NOTE | 2020-10-30 08:19 | PDOC ---
Exam Note: Tommy Note: This note is a late entry for 10/29/2020 covers elements not covered in my initial note. Subjective: The patient was seen face to face in the evening of 10/29/2020 with Susi ORTEGA. Discussed with nursing staff, reviewed the chart. The patient just slept 5-3/4 hours previous night. The patient has been ambulating better, has had a better day. He has been social using the walker, knew he was in the hospital. Nursing staff gave him vegetable juice and called it Calvin Fraga and he is able to recognise it for what it was, which was quite remarkable per nursing staff and said it would be nice if there was alcohol added. Review of Systems: No CV, , pulmonary, eye, ENT system symptoms on review. Ambulation impaired with walker. Mental Status Exam: The patient is oriented to himself and situation. Speech has some latency, coherent. Abstraction is fair. Computation is impaired. Language function is intact. Attention span is short. Mood and affect remains less labile, anxious. Laboratory Data: Reviewed. Impression: Major neurocognitive disorder Alzheimer vascular with delusion, depression. Anxiety disorder unspecified. Impulse control disorder unspecified. 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 Plan: Increase Namenda from 5 mg b.i.d. to 10 mg b.i.d. after he has been on the 5 mg b.i.d. for 7 days. Continue rest of the psychotropics from initial note. He was little more agitated in the evening. I processed behavioral modifications with him on one-on-one. Assessment: Vital Signs/I&O: Vital Signs Date Time Temp Pulse Resp B/P (MAP) Pulse Ox O2 Delivery O2 Flow Rate FiO2 10/30/20 06:16 97.3 57 16 151/77 (101) 93 Room Air I & O 10/29/20 10/29/20 10/30/20 15:00 23:00 07:00 Intake Total 240 ml 320 ml Balance 240 ml 320 ml Current Medications: Meds: Current Medications Medications (Trade) Dose Ordered Sig/Matilde Route PRN Reason Start Time Stop Time Status Last Admin Dose Admin Acetaminophen (Tylenol) 650 mg PRN Q6HRS PRN PO MILD PAIN / TEMP > 100.3'F 10/13/20 21:45 UNV Multi-Ingredient Ointment (Analgesic [place]) 1 ike PRN QID PRN TP MUSCLE PAIN 10/13/20 21:45 UNV Al Hydroxide/Mg Hydroxide (Mylanta Plus Xs) 15 ml PRN AFTMEALHC PRN PO DYSPEPSIA 10/13/20 21:45 UNV Magnesium Hydroxide (Milk Of Magnesia) 2,400 mg PRN QHS PRN PO 3rd CHOICE CONSTIPATION 10/13/20 21:45 Acetaminophen (Tylenol) 650 mg PRN Q6HRS PRN PO MILD PAIN / TEMP > 100.3'F 10/13/20 21:45 10/14/20 16:44 Carbidopa/Levodopa (Sinemet 10/100) 1 tab QID PO 10/14/20 09:00 10/13/20 22:20 DC Divalproex Sodium (Depakote Er) 250 mg BID PO 10/14/20 09:00 10/13/20 22:20 DC Docusate Sodium (Colace) 100 mg PRN BID PRN PO 1ST CHOICE CONSTIPATION 10/13/20 21:45 Finasteride (Proscar) 5 mg QHS PO 10/14/20 21:00 10/13/20 22:20 DC Levothyroxine Sodium (Synthroid) 100 mcg DAILY06 PO 10/14/20 06:00 10/30/20 05:17 Al Hydroxide/Mg Hydroxide (Mylanta Plus Xs) 15 ml PRN AFTMEALHC PRN PO DYSPEPSIA 10/13/20 21:45 Multi-Ingredient Ointment (Analgesic [place]) 1 ike QID PRN TP MUSCLE PAIN 10/13/20 21:45 Mirtazapine (Remeron Tiki-Tab) 15 mg QHS PO 10/14/20 21:00 10/13/20 22:20 DC Olanzapine (ZyPREXA ZYDIS) 5 mg PRN Q2HRS PRN PO ANXIETY / AGITATION 10/13/20 21:45 10/26/20 13:38 DC 10/26/20 03:49 Polyethylene Glycol (miraLAX) 17 gm PRN BID PRN PO 2nd choice constipation 10/13/20 21:45 Potassium Chloride (Klor-Con) 10 meq DAILY PO 10/14/20 09:00 10/29/20 07:43 Quetiapine Fumarate (SEROquel) 25 mg BID PO 10/14/20 09:00 10/13/20 22:20 DC Sertraline HCl (Zoloft) 25 mg DAILY PO 10/14/20 09:00 10/29/20 07:42 Trazodone HCl (Desyrel) 50 mg PRN QHS PRN PO Insomnia May repeat x2 10/13/20 21:45 10/30/20 01:25 Vitamin D (Vitamin D3) 2,000 unit DAILY PO 10/14/20 09:00 10/29/20 07:42 Cyanocobalamin (Vitamin B-12) 1,000 mcg DAILY PO 10/14/20 09:00 10/29/20 07:42 Fluticasone Propionate (Flonase) 1 spray DAILY NS 10/14/20 09:00 10/29/20 07:41 Non-Formulary Medication (Magnesium Hydroxide (Milk Of Magnesia)) 2,400 mg PRN DAILY PRN PO CONSTIPATION 10/13/20 21:45 UNV Carbidopa/Levodopa (Sinemet 10/100) 1 tab QID PO 10/13/20 22:45 10/29/20 20:42 Divalproex Sodium (Depakote Er) 250 mg BID PO 10/13/20 22:45 10/29/20 20:42 Finasteride (Proscar) 5 mg QHS PO 10/13/20 22:45 10/29/20 20:43 Mirtazapine (Remeron Tiki-Tab) 15 mg QHS PO 10/13/20 22:45 10/29/20 20:42 Quetiapine Fumarate (SEROquel) 25 mg BID PO 10/13/20 22:45 10/29/20 20:42 Rivastigmine (Exelon) 1 patch DAILY TD 10/18/20 09:00 10/22/20 23:51 DC 10/22/20 08:48 Rivastigmine (Exelon) 1 patch DAILY TD 10/23/20 09:00 10/27/20 23:59 DC 10/27/20 09:17 Memantine (Namenda) 5 mg BID PO 10/19/20 21:00 10/29/20 20:59 DC 10/29/20 07:42 Rivastigmine (Exelon 13.3mg) 1 patch DAILY TD 10/28/20 07:00 10/29/20 07:41 Furosemide (Lasix) 80 mg 1X ONCE PO 10/22/20 10:15 10/22/20 10:16 DC 10/22/20 11:36 Quetiapine Fumarate (SEROquel) 12.5 mg 1700 PO 10/25/20 17:00 10/29/20 16:57 Olanzapine (ZyPREXA ZYDIS) 2.5 mg 0900,1700 PO 10/26/20 17:00 10/29/20 17:00 Nystatin (Nystop) 15 ike STK-MED ONCE TP 10/28/20 00:36 10/28/20 00:36 DC Nystatin (Nystop) 1 ike PRN BID PRN TP RASH 10/28/20 00:45 Olanzapine (ZyPREXA ZYDIS) 2.5 mg PRN Q2HR PRN PO PSYCHOSIS 10/28/20 14:30 10/29/20 16:57 Memantine (Namenda) 10 mg BID PO 10/30/20 09:00 10/29/20 20:06 DC Memantine (Namenda) 10 mg BID PO 10/29/20 21:00 10/29/20 20:41 Current Medications Medications (Trade) Dose Ordered Sig/Matilde Route PRN Reason Start Time Stop Time Status Last Admin Dose Admin Memantine (Namenda) 10 mg BID PO 10/29/20 21:00 10/29/20 20:41 I have reviewed the current psychotropics carefully including drug interactions. Risk benefit ratio favors no change other than as noted in my dictated progress note. 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
[2020-10-30] MEDS: FLUTICASONE 50MCG/NASAL SPRAY 16GM BOTTLE. NS SCH (08:21)
[2020-10-30] MEDS ORDERED: MEMANTINE 10 MG TABLET. PO SCH (09:00)
--- NOTE | 2020-10-30 10:37 | NUR ---
Pt is calm, cooperative, and compliant. He is delusional but pleasant and easily redirectable. He is compliant with his medication and assessment.
[2020-10-30 16:21] VITALS: BP 129/69
[2020-10-30] MEDS: MIRTAZAPINE ODT 15 MG TAB.RAPDIS. PO SCH (19:58)
[2020-10-30] MEDS: FINASTERIDE 5 MG TABLET. PO SCH (19:59)
--- NOTE | 2020-10-30 21:02 | PDOC ---
Exam Note: Tommy Note: Please also refer to the separate dictated note~for this date of service dictated separately.~Patient seen individually. Discussed the patient with Nursing staff reviewed the chart.~Reviewed interim history and current functioning. Reviewed vital signs,~Labs/ Radiology~and current medications noted below. Continue current treatment with the changes noted in the dictated addendum note Assessment: Vital Signs/I&O: Vital Signs Date Time Temp Pulse Resp B/P (MAP) Pulse Ox O2 Delivery O2 Flow Rate FiO2 10/30/20 16:21 97.3 80 16 129/69 (89) 97 10/30/20 06:16 Room Air I & O 10/29/20 10/29/20 10/30/20 14:59 22:59 06:59 Intake Total 240 ml 320 ml Balance 240 ml 320 ml Current Medications: Meds: Current Medications Medications (Trade) Dose Ordered Sig/Matilde Route PRN Reason Start Time Stop Time Status Last Admin Dose Admin Acetaminophen (Tylenol) 650 mg PRN Q6HRS PRN PO MILD PAIN / TEMP > 100.3'F 10/13/20 21:45 UNV Multi-Ingredient Ointment (Analgesic [place]) 1 ike PRN QID PRN TP MUSCLE PAIN 10/13/20 21:45 UNV Al Hydroxide/Mg Hydroxide (Mylanta Plus Xs) 15 ml PRN AFTMEALHC PRN PO DYSPEPSIA 10/13/20 21:45 UNV Magnesium Hydroxide (Milk Of Magnesia) 2,400 mg PRN QHS PRN PO 3rd CHOICE CONSTIPATION 10/13/20 21:45 Acetaminophen (Tylenol) 650 mg PRN Q6HRS PRN PO MILD PAIN / TEMP > 100.3'F 10/13/20 21:45 10/14/20 16:44 Carbidopa/Levodopa (Sinemet 10/100) 1 tab QID PO 10/14/20 09:00 10/13/20 22:20 DC Divalproex Sodium (Depakote Er) 250 mg BID PO 10/14/20 09:00 10/13/20 22:20 DC Docusate Sodium (Colace) 100 mg PRN BID PRN PO 1ST CHOICE CONSTIPATION 10/13/20 21:45 Finasteride (Proscar) 5 mg QHS PO 10/14/20 21:00 10/13/20 22:20 DC Levothyroxine Sodium (Synthroid) 100 mcg DAILY06 PO 10/14/20 06:00 10/30/20 05:17 Al Hydroxide/Mg Hydroxide (Mylanta Plus Xs) 15 ml PRN AFTMEALHC PRN PO DYSPEPSIA 10/13/20 21:45 Multi-Ingredient Ointment (Analgesic [place]) 1 ike QID PRN TP MUSCLE PAIN 10/13/20 21:45 Mirtazapine (Remeron Tiki-Tab) 15 mg QHS PO 10/14/20 21:00 10/13/20 22:20 DC Olanzapine (ZyPREXA ZYDIS) 5 mg PRN Q2HRS PRN PO ANXIETY / AGITATION 10/13/20 21:45 10/26/20 13:38 DC 10/26/20 03:49 Polyethylene Glycol (miraLAX) 17 gm PRN BID PRN PO 2nd choice constipation 10/13/20 21:45 Potassium Chloride (Klor-Con) 10 meq DAILY PO 10/14/20 09:00 10/30/20 08:16 Quetiapine Fumarate (SEROquel) 25 mg BID PO 10/14/20 09:00 10/13/20 22:20 DC Sertraline HCl (Zoloft) 25 mg DAILY PO 10/14/20 09:00 10/30/20 08:17 Trazodone HCl (Desyrel) 50 mg PRN QHS PRN PO Insomnia May repeat x2 10/13/20 21:45 10/30/20 19:59 Vitamin D (Vitamin D3) 2,000 unit DAILY PO 10/14/20 09:00 10/30/20 08:16 Cyanocobalamin (Vitamin B-12) 1,000 mcg DAILY PO 10/14/20 09:00 10/30/20 08:16 Fluticasone Propionate (Flonase) 1 spray DAILY NS 10/14/20 09:00 10/29/20 07:41 Non-Formulary Medication (Magnesium Hydroxide (Milk Of Magnesia)) 2,400 mg PRN DAILY PRN PO CONSTIPATION 10/13/20 21:45 UNV Carbidopa/Levodopa (Sinemet 10/100) 1 tab QID PO 10/13/20 22:45 10/30/20 19:59 Divalproex Sodium (Depakote Er) 250 mg BID PO 10/13/20 22:45 10/30/20 19:59 Finasteride (Proscar) 5 mg QHS PO 10/13/20 22:45 10/30/20 19:59 Mirtazapine (Remeron Tiki-Tab) 15 mg QHS PO 10/13/20 22:45 10/30/20 19:58 Quetiapine Fumarate (SEROquel) 25 mg BID PO 10/13/20 22:45 10/30/20 19:58 Rivastigmine (Exelon) 1 patch DAILY TD 10/18/20 09:00 10/22/20 23:51 DC 10/22/20 08:48 Rivastigmine (Exelon) 1 patch DAILY TD 10/23/20 09:00 10/27/20 23:59 DC 10/27/20 09:17 Memantine (Namenda) 5 mg BID PO 10/19/20 21:00 10/29/20 20:59 DC 10/29/20 07:42 Rivastigmine (Exelon 13.3mg) 1 patch DAILY TD 10/28/20 07:00 10/30/20 08:17 Furosemide (Lasix) 80 mg 1X ONCE PO 10/22/20 10:15 10/22/20 10:16 DC 10/22/20 11:36 Quetiapine Fumarate (SEROquel) 12.5 mg 1700 PO 10/25/20 17:00 10/30/20 16:43 Olanzapine (ZyPREXA ZYDIS) 2.5 mg 0900,1700 PO 10/26/20 17:00 10/30/20 16:43 Nystatin (Nystop) 15 ike STK-MED ONCE TP 10/28/20 00:36 10/28/20 00:36 DC Nystatin (Nystop) 1 ike PRN BID PRN TP RASH 10/28/20 00:45 Olanzapine (ZyPREXA ZYDIS) 2.5 mg PRN Q2HR PRN PO PSYCHOSIS 10/28/20 14:30 10/29/20 16:57 Memantine (Namenda) 10 mg BID PO 10/30/20 09:00 10/29/20 20:06 DC Memantine (Namenda) 10 mg BID PO 10/29/20 21:00 10/30/20 19:58 I have reviewed the current psychotropics carefully including drug interactions. Risk benefit ratio favors no change other than as noted in my dictated progress note. Diagnosis: Problems: (1) Impulse control disorder, unspecified (2) Anxiety disorder, unspecified (3) Dementia, vascular, with depression (4) Dementia, vascular, with delusions (5) Dementia in Alzheimer's disease with depression (6) Dementia in Alzheimer's disease with delusions (7) Major neurocognitive disorder (8) Lewy body dementia with behavioral disturbance JORGE COLLAZO MD Oct 30, 2020 21:02
--- NOTE | 2020-10-30 22:01 | NUR ---
Nursing Note: Pt withdrawn to room, lying in bed at shift change. Pt calm, pleasantly confused, and interactive when approached. Pt thinks that I am someone else and that I gave him the wrong information but he was easily re-directed. Pt cooperative with assessment and compliant with medications administered whole.
[2020-10-31] MEDS: LEVOTHYROXINE 100 MCG TABLET PO SCH (05:14)
[2020-10-31 06:32] VITALS: BP 172/73
[2020-10-31] MEDS: CARBIDOPA/LEVODOPA 10/100MG TABLET PO SCH ×4 (09:28→19:37)
[2020-10-31] MEDS: CYANOCOBALAMIN (VITAMIN B-12) 1,000 MCG TABLET. PO SCH (09:28)
[2020-10-31] MEDS: QUEtiapine 25 MG TABLET. PO SCH ×3 (09:28→19:37)
[2020-10-31] MEDS: DIVALPROEX ER 250 MG TAB.ER.24H. PO SCH ×2 (09:28→19:37)
[2020-10-31] MEDS: POTASSIUM CHLORIDE 10 MEQ TABLET.ER. PO SCH (09:28)
[2020-10-31] MEDS: SERTRALINE 25 MG TABLET. PO SCH (09:28)
[2020-10-31] MEDS: CHOLECALCIFEROL (VITAMIN D3) 1,000 UNIT TABLET PO SCH (09:28)
[2020-10-31] MEDS: MEMANTINE 10 MG TABLET. PO SCH ×2 (09:28→19:37)
[2020-10-31] MEDS: RIVASTIGMINE 13.3MG PATCH. TD SCH (09:30)
[2020-10-31] MEDS: FLUTICASONE 50MCG/NASAL SPRAY 16GM BOTTLE. NS SCH (09:30)
[2020-10-31 15:31] VITALS: BP 147/71
--- NOTE | 2020-10-31 18:00 | NUR ---
Patient has been calm, compliant, and pleasantly confused throughout this shift. He has been social with peers and interactive with staff. Patient is ambulating with walker, occasionally using siderails in [place]. Will continue to monitor and report to oncoming shift.
[2020-10-31] MEDS: traZODone 50 MG TABLET. PO PRN (19:37)
[2020-10-31] MEDS: FINASTERIDE 5 MG TABLET. PO SCH (19:37)
[2020-10-31] MEDS: MIRTAZAPINE ODT 15 MG TAB.RAPDIS. PO SCH (19:37)
--- NOTE | 2020-10-31 20:58 | PDOC ---
Exam Note: Tommy Note: Please also refer to the separate dictated note~for this date of service dictated separately.~Patient seen individually. Discussed the patient with Nursing staff reviewed the chart.~Reviewed interim history and current functioning. Reviewed vital signs,~Labs/ Radiology~and current medications noted below. Continue current treatment with the changes noted in the dictated addendum note Assessment: Vital Signs/I&O: Vital Signs Date Time Temp Pulse Resp B/P (MAP) Pulse Ox O2 Delivery O2 Flow Rate FiO2 10/31/20 15:31 96.7 63 16 147/71 (96) 99 10/31/20 06:32 Room Air I & O 10/30/20 10/30/20 10/31/20 15:00 23:00 07:00 Intake Total 360 ml 360 ml Balance 360 ml 360 ml Current Medications: Meds: Current Medications Medications (Trade) Dose Ordered Sig/Matilde Route PRN Reason Start Time Stop Time Status Last Admin Dose Admin Acetaminophen (Tylenol) 650 mg PRN Q6HRS PRN PO MILD PAIN / TEMP > 100.3'F 10/13/20 21:45 UNV Multi-Ingredient Ointment (Analgesic [place]) 1 ike PRN QID PRN TP MUSCLE PAIN 10/13/20 21:45 UNV Al Hydroxide/Mg Hydroxide (Mylanta Plus Xs) 15 ml PRN AFTMEALHC PRN PO DYSPEPSIA 10/13/20 21:45 UNV Magnesium Hydroxide (Milk Of Magnesia) 2,400 mg PRN QHS PRN PO 3rd CHOICE CONSTIPATION 10/13/20 21:45 Acetaminophen (Tylenol) 650 mg PRN Q6HRS PRN PO MILD PAIN / TEMP > 100.3'F 10/13/20 21:45 10/14/20 16:44 Carbidopa/Levodopa (Sinemet 10/100) 1 tab QID PO 10/14/20 09:00 10/13/20 22:20 DC Divalproex Sodium (Depakote Er) 250 mg BID PO 10/14/20 09:00 10/13/20 22:20 DC Docusate Sodium (Colace) 100 mg PRN BID PRN PO 1ST CHOICE CONSTIPATION 10/13/20 21:45 Finasteride (Proscar) 5 mg QHS PO 10/14/20 21:00 10/13/20 22:20 DC Levothyroxine Sodium (Synthroid) 100 mcg DAILY06 PO 10/14/20 06:00 10/31/20 05:14 Al Hydroxide/Mg Hydroxide (Mylanta Plus Xs) 15 ml PRN AFTMEALHC PRN PO DYSPEPSIA 10/13/20 21:45 Multi-Ingredient Ointment (Analgesic [place]) 1 ike QID PRN TP MUSCLE PAIN 10/13/20 21:45 Mirtazapine (Remeron Tiki-Tab) 15 mg QHS PO 10/14/20 21:00 10/13/20 22:20 DC Olanzapine (ZyPREXA ZYDIS) 5 mg PRN Q2HRS PRN PO ANXIETY / AGITATION 10/13/20 21:45 10/26/20 13:38 DC 10/26/20 03:49 Polyethylene Glycol (miraLAX) 17 gm PRN BID PRN PO 2nd choice constipation 10/13/20 21:45 Potassium Chloride (Klor-Con) 10 meq DAILY PO 10/14/20 09:00 10/31/20 09:28 Quetiapine Fumarate (SEROquel) 25 mg BID PO 10/14/20 09:00 10/13/20 22:20 DC Sertraline HCl (Zoloft) 25 mg DAILY PO 10/14/20 09:00 10/31/20 09:28 Trazodone HCl (Desyrel) 50 mg PRN QHS PRN PO Insomnia May repeat x2 10/13/20 21:45 10/31/20 19:37 Vitamin D (Vitamin D3) 2,000 unit DAILY PO 10/14/20 09:00 10/31/20 09:28 Cyanocobalamin (Vitamin B-12) 1,000 mcg DAILY PO 10/14/20 09:00 10/31/20 09:28 Fluticasone Propionate (Flonase) 1 spray DAILY NS 10/14/20 09:00 10/31/20 09:30 Non-Formulary Medication (Magnesium Hydroxide (Milk Of Magnesia)) 2,400 mg PRN DAILY PRN PO CONSTIPATION 10/13/20 21:45 UNV Carbidopa/Levodopa (Sinemet 10/100) 1 tab QID PO 10/13/20 22:45 10/31/20 19:37 Divalproex Sodium (Depakote Er) 250 mg BID PO 10/13/20 22:45 10/31/20 19:37 Finasteride (Proscar) 5 mg QHS PO 10/13/20 22:45 10/31/20 19:37 Mirtazapine (Remeron Tiki-Tab) 15 mg QHS PO 10/13/20 22:45 10/31/20 19:37 Quetiapine Fumarate (SEROquel) 25 mg BID PO 10/13/20 22:45 10/31/20 19:37 Rivastigmine (Exelon) 1 patch DAILY TD 10/18/20 09:00 10/22/20 23:51 DC 10/22/20 08:48 Rivastigmine (Exelon) 1 patch DAILY TD 10/23/20 09:00 10/27/20 23:59 DC 10/27/20 09:17 Memantine (Namenda) 5 mg BID PO 10/19/20 21:00 10/29/20 20:59 DC 10/29/20 07:42 Rivastigmine (Exelon 13.3mg) 1 patch DAILY TD 10/28/20 07:00 10/31/20 09:30 Furosemide (Lasix) 80 mg 1X ONCE PO 10/22/20 10:15 10/22/20 10:16 DC 10/22/20 11:36 Quetiapine Fumarate (SEROquel) 12.5 mg 1700 PO 10/25/20 17:00 10/31/20 17:39 Olanzapine (ZyPREXA ZYDIS) 2.5 mg 0900,1700 PO 10/26/20 17:00 10/31/20 17:00 Nystatin (Nystop) 15 ike STK-MED ONCE TP 10/28/20 00:36 10/28/20 00:36 DC Nystatin (Nystop) 1 ike PRN BID PRN TP RASH 10/28/20 00:45 Olanzapine (ZyPREXA ZYDIS) 2.5 mg PRN Q2HR PRN PO PSYCHOSIS 10/28/20 14:30 10/31/20 19:38 Memantine (Namenda) 10 mg BID PO 10/30/20 09:00 10/29/20 20:06 DC Memantine (Namenda) 10 mg BID PO 10/29/20 21:00 10/31/20 19:37 I have reviewed the current psychotropics carefully including drug interactions. Risk benefit ratio favors no change other than as noted in my dictated progress note. 

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
[2020-11-01] MEDS: traZODone 50 MG TABLET. PO PRN ×3 (00:24→22:29)
[2020-11-01] MEDS: LEVOTHYROXINE 100 MCG TABLET PO SCH (05:02)
--- NOTE | 2020-11-01 05:24 | NUR ---
Nursing Note: Pt wandering into other pt rooms this morning. Pt delusional- thinks that I am his daughter and that another pt is "Beatriz". Pt says to me "I tried talking to your mother but I didn't get anywhere" and "sometimes that's just the way divorce is". Pt agitated when staff attempts to re-direct. JOHNNA Ham administered @0513, pt escorted back to his room and offered snack and juice which he accepted.
[2020-11-01 06:21] VITALS: BP 118/64
[2020-11-01] MEDS: MEMANTINE 10 MG TABLET. PO SCH ×2 (08:02→20:12)
[2020-11-01] MEDS: FLUTICASONE 50MCG/NASAL SPRAY 16GM BOTTLE. NS SCH (08:02)
[2020-11-01] MEDS: POTASSIUM CHLORIDE 10 MEQ TABLET.ER. PO SCH (08:03)
[2020-11-01] MEDS: SERTRALINE 25 MG TABLET. PO SCH (08:03)
[2020-11-01] MEDS: DIVALPROEX ER 250 MG TAB.ER.24H. PO SCH ×2 (08:03→20:12)
[2020-11-01] MEDS: CARBIDOPA/LEVODOPA 10/100MG TABLET PO SCH ×4 (08:03→20:11)
[2020-11-01] MEDS: RIVASTIGMINE 13.3MG PATCH. TD SCH (08:03)
[2020-11-01] MEDS: CYANOCOBALAMIN (VITAMIN B-12) 1,000 MCG TABLET. PO SCH (08:04)
[2020-11-01] MEDS: QUEtiapine 25 MG TABLET. PO SCH ×3 (08:04→20:12)
[2020-11-01] MEDS: CHOLECALCIFEROL (VITAMIN D3) 1,000 UNIT TABLET PO SCH (08:04)
--- NOTE | 2020-11-01 08:44 | PDOC ---
Exam Note: Tommy Note: This note is a late entry for 10/30/2020 covers elements not covered in my initial note. Subjective: The patient was seen face to face in the evening of 10/30/2020 with Ana Paula ORTEGA. Discussed with nursing staff, reviewed the chart. The patient just slept 7 hours previous night. The patient did well in the morning and has been ambulating with the walker. He did well in the evening, still somewhat delusional but no agitation. Review of Systems: No CV, , pulmonary, eye, ENT system symptoms on review. Ambulation impaired with walker. Reliability poor. Mental Status Exam: The patient is oriented to himself. Insight and judgment, recent and remote memory, attention and concentration, fund of knowledge is poor consistent with his diagnosis. He has not been agitated or aggressive and was able to interact with me though quite confused during one-on-one visit. Laboratory Data: Reviewed. Impression: Major neurocognitive disorder Alzheimer vascular with delusion, depression. Anxiety disorder unspecified. Impulse control disorder unspecified. 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 Plan: Continue rest of the psychotropics from initial note. Assessment: Vital Signs/I&O: Vital Signs Date Time Temp Pulse Resp B/P (MAP) Pulse Ox O2 Delivery O2 Flow Rate FiO2 11/01/20 06:21 97.4 97 18 118/64 (82) 96 Room Air I & O 10/31/20 10/31/20 11/01/20 14:59 22:59 06:59 Intake Total 720 ml 480 ml Balance 720 ml 480 ml Current Medications: Meds: Current Medications Medications (Trade) Dose Ordered Sig/Matilde Route PRN Reason Start Time Stop Time Status Last Admin Dose Admin Acetaminophen (Tylenol) 650 mg PRN Q6HRS PRN PO MILD PAIN / TEMP > 100.3'F 10/13/20 21:45 UNV Multi-Ingredient Ointment (Analgesic [place]) 1 ike PRN QID PRN TP MUSCLE PAIN 10/13/20 21:45 UNV Al Hydroxide/Mg Hydroxide (Mylanta Plus Xs) 15 ml PRN AFTMEALHC PRN PO DYSPEPSIA 10/13/20 21:45 UNV Magnesium Hydroxide (Milk Of Magnesia) 2,400 mg PRN QHS PRN PO 3rd CHOICE CONSTIPATION 10/13/20 21:45 Acetaminophen (Tylenol) 650 mg PRN Q6HRS PRN PO MILD PAIN / TEMP > 100.3'F 10/13/20 21:45 10/14/20 16:44 Carbidopa/Levodopa (Sinemet 10/100) 1 tab QID PO 10/14/20 09:00 10/13/20 22:20 DC Divalproex Sodium (Depakote Er) 250 mg BID PO 10/14/20 09:00 10/13/20 22:20 DC Docusate Sodium (Colace) 100 mg PRN BID PRN PO 1ST CHOICE CONSTIPATION 10/13/20 21:45 Finasteride (Proscar) 5 mg QHS PO 10/14/20 21:00 10/13/20 22:20 DC Levothyroxine Sodium (Synthroid) 100 mcg DAILY06 PO 10/14/20 06:00 11/01/20 05:02 Al Hydroxide/Mg Hydroxide (Mylanta Plus Xs) 15 ml PRN AFTMEALHC PRN PO DYSPEPSIA 10/13/20 21:45 Multi-Ingredient Ointment (Analgesic [place]) 1 ike QID PRN TP MUSCLE PAIN 10/13/20 21:45 Mirtazapine (Remeron Tiki-Tab) 15 mg QHS PO 10/14/20 21:00 10/13/20 22:20 DC Olanzapine (ZyPREXA ZYDIS) 5 mg PRN Q2HRS PRN PO ANXIETY / AGITATION 10/13/20 21:45 10/26/20 13:38 DC 10/26/20 03:49 Polyethylene Glycol (miraLAX) 17 gm PRN BID PRN PO 2nd choice constipation 10/13/20 21:45 Potassium Chloride (Klor-Con) 10 meq DAILY PO 10/14/20 09:00 11/01/20 08:03 Quetiapine Fumarate (SEROquel) 25 mg BID PO 10/14/20 09:00 10/13/20 22:20 DC Sertraline HCl (Zoloft) 25 mg DAILY PO 10/14/20 09:00 11/01/20 08:03 Trazodone HCl (Desyrel) 50 mg PRN QHS PRN PO Insomnia May repeat x2 10/13/20 21:45 11/01/20 00:24 Vitamin D (Vitamin D3) 2,000 unit DAILY PO 10/14/20 09:00 11/01/20 08:04 Cyanocobalamin (Vitamin B-12) 1,000 mcg DAILY PO 10/14/20 09:00 11/01/20 08:04 Fluticasone Propionate (Flonase) 1 spray DAILY NS 10/14/20 09:00 11/01/20 08:02 Non-Formulary Medication (Magnesium Hydroxide (Milk Of Magnesia)) 2,400 mg PRN DAILY PRN PO CONSTIPATION 10/13/20 21:45 UNV Carbidopa/Levodopa (Sinemet 10/100) 1 tab QID PO 10/13/20 22:45 11/01/20 08:03 Divalproex Sodium (Depakote Er) 250 mg BID PO 10/13/20 22:45 11/01/20 08:03 Finasteride (Proscar) 5 mg QHS PO 10/13/20 22:45 10/31/20 19:37 Mirtazapine (Remeron Tiki-Tab) 15 mg QHS PO 10/13/20 22:45 10/31/20 19:37 Quetiapine Fumarate (SEROquel) 25 mg BID PO 10/13/20 22:45 11/01/20 08:04 Rivastigmine (Exelon) 1 patch DAILY TD 10/18/20 09:00 10/22/20 23:51 DC 10/22/20 08:48 Rivastigmine (Exelon) 1 patch DAILY TD 10/23/20 09:00 10/27/20 23:59 DC 10/27/20 09:17 Memantine (Namenda) 5 mg BID PO 10/19/20 21:00 10/29/20 20:59 DC 10/29/20 07:42 Rivastigmine (Exelon 13.3mg) 1 patch DAILY TD 10/28/20 07:00 11/01/20 08:03 Furosemide (Lasix) 80 mg 1X ONCE PO 10/22/20 10:15 10/22/20 10:16 DC 10/22/20 11:36 Quetiapine Fumarate (SEROquel) 12.5 mg 1700 PO 10/25/20 17:00 10/31/20 17:39 Olanzapine (ZyPREXA ZYDIS) 2.5 mg 0900,1700 PO 10/26/20 17:00 11/01/20 08:04 Nystatin (Nystop) 15 ike STK-MED ONCE TP 10/28/20 00:36 10/28/20 00:36 DC Nystatin (Nystop) 1 ike PRN BID PRN TP RASH 10/28/20 00:45 Olanzapine (ZyPREXA ZYDIS) 2.5 mg PRN Q2HR PRN PO PSYCHOSIS 10/28/20 14:30 11/01/20 05:13 Memantine (Namenda) 10 mg BID PO 10/30/20 09:00 10/29/20 20:06 DC Memantine (Namenda) 10 mg BID PO 10/29/20 21:00 11/01/20 08:02 I have reviewed the current psychotropics carefully including drug interactions. Risk benefit ratio favors no change other than as noted in my dictated progress note. 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
--- NOTE | 2020-11-01 09:12 | PDOC ---
Exam Note: Tommy Note: This note is a late entry for 10/31/2020 covers elements not covered in my initial note. Subjective: The patient was seen face to face in the evening of 10/31/2020 with Rusty ORTEGA. Discussed with nursing staff, reviewed the chart. The patient just slept 7-3/4 hours previous night. He is often asking for [place] from the nursing staff, quite oblivious what he is saying at times. Review of Systems: No CV, , pulmonary, eye, ENT system symptoms on review. Ambulation impaired with walker. Mental Status Exam: The patient is oriented to himself. Insight and judgment, recent and remote memory, attention and concentration, fund of knowledge is poor consistent with his diagnosis. Laboratory Data: Reviewed. Impression: Major neurocognitive disorder Alzheimer vascular with delusion, depression. Anxiety disorder unspecified. Impulse control disorder unspecified. 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 Plan: Continue rest of the psychotropics from initial note. Assessment: Vital Signs/I&O: Vital Signs Date Time Temp Pulse Resp B/P (MAP) Pulse Ox O2 Delivery O2 Flow Rate FiO2 11/01/20 06:21 97.4 97 18 118/64 (82) 96 Room Air I & O 10/31/20 10/31/20 11/01/20 15:00 23:00 07:00 Intake Total 720 ml 480 ml Balance 720 ml 480 ml Current Medications: Meds: Current Medications Medications (Trade) Dose Ordered Sig/Matilde Route PRN Reason Start Time Stop Time Status Last Admin Dose Admin Acetaminophen (Tylenol) 650 mg PRN Q6HRS PRN PO MILD PAIN / TEMP > 100.3'F 10/13/20 21:45 UNV Multi-Ingredient Ointment (Analgesic [place]) 1 ike PRN QID PRN TP MUSCLE PAIN 10/13/20 21:45 UNV Al Hydroxide/Mg Hydroxide (Mylanta Plus Xs) 15 ml PRN AFTMEALHC PRN PO DYSPEPSIA 10/13/20 21:45 UNV Magnesium Hydroxide (Milk Of Magnesia) 2,400 mg PRN QHS PRN PO 3rd CHOICE CONSTIPATION 10/13/20 21:45 Acetaminophen (Tylenol) 650 mg PRN Q6HRS PRN PO MILD PAIN / TEMP > 100.3'F 10/13/20 21:45 10/14/20 16:44 Carbidopa/Levodopa (Sinemet 10/100) 1 tab QID PO 10/14/20 09:00 10/13/20 22:20 DC Divalproex Sodium (Depakote Er) 250 mg BID PO 10/14/20 09:00 10/13/20 22:20 DC Docusate Sodium (Colace) 100 mg PRN BID PRN PO 1ST CHOICE CONSTIPATION 10/13/20 21:45 Finasteride (Proscar) 5 mg QHS PO 10/14/20 21:00 10/13/20 22:20 DC Levothyroxine Sodium (Synthroid) 100 mcg DAILY06 PO 10/14/20 06:00 11/01/20 05:02 Al Hydroxide/Mg Hydroxide (Mylanta Plus Xs) 15 ml PRN AFTMEALHC PRN PO DYSPEPSIA 10/13/20 21:45 Multi-Ingredient Ointment (Analgesic [place]) 1 ike QID PRN TP MUSCLE PAIN 10/13/20 21:45 Mirtazapine (Remeron Tiki-Tab) 15 mg QHS PO 10/14/20 21:00 10/13/20 22:20 DC Olanzapine (ZyPREXA ZYDIS) 5 mg PRN Q2HRS PRN PO ANXIETY / AGITATION 10/13/20 21:45 10/26/20 13:38 DC 10/26/20 03:49 Polyethylene Glycol (miraLAX) 17 gm PRN BID PRN PO 2nd choice constipation 10/13/20 21:45 Potassium Chloride (Klor-Con) 10 meq DAILY PO 10/14/20 09:00 11/01/20 08:03 Quetiapine Fumarate (SEROquel) 25 mg BID PO 10/14/20 09:00 10/13/20 22:20 DC Sertraline HCl (Zoloft) 25 mg DAILY PO 10/14/20 09:00 11/01/20 08:03 Trazodone HCl (Desyrel) 50 mg PRN QHS PRN PO Insomnia May repeat x2 10/13/20 21:45 11/01/20 00:24 Vitamin D (Vitamin D3) 2,000 unit DAILY PO 10/14/20 09:00 11/01/20 08:04 Cyanocobalamin (Vitamin B-12) 1,000 mcg DAILY PO 10/14/20 09:00 11/01/20 08:04 Fluticasone Propionate (Flonase) 1 spray DAILY NS 10/14/20 09:00 11/01/20 08:02 Non-Formulary Medication (Magnesium Hydroxide (Milk Of Magnesia)) 2,400 mg PRN DAILY PRN PO CONSTIPATION 10/13/20 21:45 UNV Carbidopa/Levodopa (Sinemet 10/100) 1 tab QID PO 10/13/20 22:45 11/01/20 08:03 Divalproex Sodium (Depakote Er) 250 mg BID PO 10/13/20 22:45 11/01/20 08:03 Finasteride (Proscar) 5 mg QHS PO 10/13/20 22:45 10/31/20 19:37 Mirtazapine (Remeron Tiki-Tab) 15 mg QHS PO 10/13/20 22:45 10/31/20 19:37 Quetiapine Fumarate (SEROquel) 25 mg BID PO 10/13/20 22:45 11/01/20 08:04 Rivastigmine (Exelon) 1 patch DAILY TD 10/18/20 09:00 10/22/20 23:51 DC 10/22/20 08:48 Rivastigmine (Exelon) 1 patch DAILY TD 10/23/20 09:00 10/27/20 23:59 DC 10/27/20 09:17 Memantine (Namenda) 5 mg BID PO 10/19/20 21:00 10/29/20 20:59 DC 10/29/20 07:42 Rivastigmine (Exelon 13.3mg) 1 patch DAILY TD 10/28/20 07:00 11/01/20 08:03 Furosemide (Lasix) 80 mg 1X ONCE PO 10/22/20 10:15 10/22/20 10:16 DC 10/22/20 11:36 Quetiapine Fumarate (SEROquel) 12.5 mg 1700 PO 10/25/20 17:00 10/31/20 17:39 Olanzapine (ZyPREXA ZYDIS) 2.5 mg 0900,1700 PO 10/26/20 17:00 11/01/20 08:04 Nystatin (Nystop) 15 ike STK-MED ONCE TP 10/28/20 00:36 10/28/20 00:36 DC Nystatin (Nystop) 1 ike PRN BID PRN TP RASH 10/28/20 00:45 Olanzapine (ZyPREXA ZYDIS) 2.5 mg PRN Q2HR PRN PO PSYCHOSIS 10/28/20 14:30 11/01/20 05:13 Memantine (Namenda) 10 mg BID PO 10/30/20 09:00 10/29/20 20:06 DC Memantine (Namenda) 10 mg BID PO 10/29/20 21:00 11/01/20 08:02 I have reviewed the current psychotropics carefully including drug interactions. Risk benefit ratio favors no change other than as noted in my dictated progress note. 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
--- NOTE | 2020-11-01 12:58 | NUR ---
Pt has been complaint and cooperative thus far during shift. He has periods of delusion; stating he wants to sit on the spare bed in his room so he can talk to his . He is alert to self and place only. He is able to make needs known and has been appropriate in behaviors and language. He is complaint with medications, despite his expressed displeasure of the taste of crushed medications with the pudding. He is absent of SI/HI behaviors, absent of verbal/physical aggression, denies pain. He has sima self amb with his 4 point walker through the unit. Will pass on to the next shift.
--- NOTE | 2020-11-01 16:01 | NUR ---
SONIA contacted pt dtr to see if she had any questions. Pt dtr has been keeping up with nursing staff but wanted to participate in the treatment team so that she can ask the psychiatrist a few medication questions surrounding if he will be on them forever and what his medication goals should look like. SONIA and Batsheva discussed pt future re: placement in the event that pt is not able to maintain at [facility]. At this time, pt is scheduled to discharge on Friday, however, will confirm that tomorrow on the tx team call.
[2020-11-01 16:04] VITALS: BP 161/76
[2020-11-01] MEDS: FINASTERIDE 5 MG TABLET. PO SCH (20:12)
[2020-11-01] MEDS: MIRTAZAPINE ODT 15 MG TAB.RAPDIS. PO SCH (20:12)
--- NOTE | 2020-11-01 20:57 | PDOC ---
Exam Note: Tommy Note: Please also refer to the separate dictated note~for this date of service dictated separately.~Patient seen individually. Discussed the patient with Nursing staff reviewed the chart.~Reviewed interim history and current functioning. Reviewed vital signs,~Labs/ Radiology~and current medications noted below. Continue current treatment with the changes noted in the dictated addendum note Assessment: Vital Signs/I&O: Vital Signs Date Time Temp Pulse Resp B/P (MAP) Pulse Ox O2 Delivery O2 Flow Rate FiO2 11/01/20 16:04 97.7 72 18 161/76 (104) 99 11/01/20 06:21 Room Air I & O 10/31/20 10/31/20 11/01/20 15:00 23:00 07:00 Intake Total 720 ml 480 ml Balance 720 ml 480 ml Current Medications: Meds: Current Medications Medications (Trade) Dose Ordered Sig/Matilde Route PRN Reason Start Time Stop Time Status Last Admin Dose Admin Acetaminophen (Tylenol) 650 mg PRN Q6HRS PRN PO MILD PAIN / TEMP > 100.3'F 10/13/20 21:45 UNV Multi-Ingredient Ointment (Analgesic [place]) 1 ike PRN QID PRN TP MUSCLE PAIN 10/13/20 21:45 UNV Al Hydroxide/Mg Hydroxide (Mylanta Plus Xs) 15 ml PRN AFTMEALHC PRN PO DYSPEPSIA 10/13/20 21:45 UNV Magnesium Hydroxide (Milk Of Magnesia) 2,400 mg PRN QHS PRN PO 3rd CHOICE CONSTIPATION 10/13/20 21:45 Acetaminophen (Tylenol) 650 mg PRN Q6HRS PRN PO MILD PAIN / TEMP > 100.3'F 10/13/20 21:45 10/14/20 16:44 Carbidopa/Levodopa (Sinemet 10/100) 1 tab QID PO 10/14/20 09:00 10/13/20 22:20 DC Divalproex Sodium (Depakote Er) 250 mg BID PO 10/14/20 09:00 10/13/20 22:20 DC Docusate Sodium (Colace) 100 mg PRN BID PRN PO 1ST CHOICE CONSTIPATION 10/13/20 21:45 Finasteride (Proscar) 5 mg QHS PO 10/14/20 21:00 10/13/20 22:20 DC Levothyroxine Sodium (Synthroid) 100 mcg DAILY06 PO 10/14/20 06:00 11/01/20 05:02 Al Hydroxide/Mg Hydroxide (Mylanta Plus Xs) 15 ml PRN AFTMEALHC PRN PO DYSPEPSIA 10/13/20 21:45 Multi-Ingredient Ointment (Analgesic [place]) 1 ike QID PRN TP MUSCLE PAIN 10/13/20 21:45 Mirtazapine (Remeron Tiki-Tab) 15 mg QHS PO 10/14/20 21:00 10/13/20 22:20 DC Olanzapine (ZyPREXA ZYDIS) 5 mg PRN Q2HRS PRN PO ANXIETY / AGITATION 10/13/20 21:45 10/26/20 13:38 DC 10/26/20 03:49 Polyethylene Glycol (miraLAX) 17 gm PRN BID PRN PO 2nd choice constipation 10/13/20 21:45 Potassium Chloride (Klor-Con) 10 meq DAILY PO 10/14/20 09:00 11/01/20 08:03 Quetiapine Fumarate (SEROquel) 25 mg BID PO 10/14/20 09:00 10/13/20 22:20 DC Sertraline HCl (Zoloft) 25 mg DAILY PO 10/14/20 09:00 11/01/20 08:03 Trazodone HCl (Desyrel) 50 mg PRN QHS PRN PO Insomnia May repeat x2 10/13/20 21:45 11/01/20 20:12 Vitamin D (Vitamin D3) 2,000 unit DAILY PO 10/14/20 09:00 11/01/20 08:04 Cyanocobalamin (Vitamin B-12) 1,000 mcg DAILY PO 10/14/20 09:00 11/01/20 08:04 Fluticasone Propionate (Flonase) 1 spray DAILY NS 10/14/20 09:00 11/01/20 08:02 Non-Formulary Medication (Magnesium Hydroxide (Milk Of Magnesia)) 2,400 mg PRN DAILY PRN PO CONSTIPATION 10/13/20 21:45 UNV Carbidopa/Levodopa (Sinemet 10/100) 1 tab QID PO 10/13/20 22:45 11/01/20 20:11 Divalproex Sodium (Depakote Er) 250 mg BID PO 10/13/20 22:45 11/01/20 20:12 Finasteride (Proscar) 5 mg QHS PO 10/13/20 22:45 11/01/20 20:12 Mirtazapine (Remeron Tiki-Tab) 15 mg QHS PO 10/13/20 22:45 11/01/20 20:12 Quetiapine Fumarate (SEROquel) 25 mg BID PO 10/13/20 22:45 11/01/20 20:12 Rivastigmine (Exelon) 1 patch DAILY TD 10/18/20 09:00 10/22/20 23:51 DC 10/22/20 08:48 Rivastigmine (Exelon) 1 patch DAILY TD 10/23/20 09:00 10/27/20 23:59 DC 10/27/20 09:17 Memantine (Namenda) 5 mg BID PO 10/19/20 21:00 10/29/20 20:59 DC 10/29/20 07:42 Rivastigmine (Exelon 13.3mg) 1 patch DAILY TD 10/28/20 07:00 11/01/20 08:03 Furosemide (Lasix) 80 mg 1X ONCE PO 10/22/20 10:15 10/22/20 10:16 DC 10/22/20 11:36 Quetiapine Fumarate (SEROquel) 12.5 mg 1700 PO 10/25/20 17:00 11/01/20 16:36 Olanzapine (ZyPREXA ZYDIS) 2.5 mg 0900,1700 PO 10/26/20 17:00 11/01/20 16:51 Nystatin (Nystop) 15 ike STK-MED ONCE TP 10/28/20 00:36 10/28/20 00:36 DC Nystatin (Nystop) 1 ike PRN BID PRN TP RASH 10/28/20 00:45 Olanzapine (ZyPREXA ZYDIS) 2.5 mg PRN Q2HR PRN PO PSYCHOSIS 10/28/20 14:30 11/01/20 05:13 Memantine (Namenda) 10 mg BID PO 10/30/20 09:00 10/29/20 20:06 DC Memantine (Namenda) 10 mg BID PO 10/29/20 21:00 11/01/20 20:12 I have reviewed the current psychotropics carefully including drug interactions. Risk benefit ratio favors no change other than as noted in my dictated progress note. Diagnosis: Problems: (1) Impulse control disorder, unspecified (2) Anxiety disorder, unspecified (3) Dementia, vascular, with depression (4) Dementia, vascular, with delusions (5) Dementia in Alzheimer's disease with depression (6) Dementia in Alzheimer's disease with delusions (7) Major neurocognitive disorder (8) Lewy body dementia with behavioral disturbance JORGE COLLAZO MD Nov 01, 2020 20:57
--- NOTE | 2020-11-01 22:55 | PN ---
DATE: 11/01/2020 PSYCHIATRIC PROGRESS NOTE This note covers elements not covered in my initial note of 11/01/2020. SUBJECTIVE: I met with the patient in evening of 11/01/2020 individually, discussed with JORDAN Goldman. The patient slept 7-3/4 hours previous night. He has had a difficult day today. Previous night, he threw his walker in agitation. He has been more confused today and having a conversation with his when no one is there, believes he is getting more forgetful. He does have a room for himself now and seems to be doing a little better with this. REVIEW OF SYSTEMS: Ambulation impaired with walker. No CV, , pulmonary, eye system symptoms on review. Reliability poor. MENTAL STATUS EXAM: Oriented to himself. Insight, judgment, recent and remote memory, attention, concentration, fund of knowledge poor, consistent with his diagnosis mentioned in my initial note. PLAN: No change from initial note. MAN Mamadou COLLAZO MD DR: ALVARADO/alessia JOB#: [id number] / [id number]
--- NOTE | 2020-11-02 00:03 | NUR ---
Nursing Note: Pt up, standing in his doorway at shift change. Pt anxious at times, over stimulated due other pt behaviors. Pt interactive and pleasant with me during our interaction. Pt cooperative with assessment and compliant with medications administered whole. PRN Trazodone administered with HS medications and repeat Trazodone administered @ 2228 as pt remained restless and unable to sleep.
[2020-11-02] MEDS: LEVOTHYROXINE 100 MCG TABLET PO SCH (05:24)
[2020-11-02 05:57] VITALS: BP 152/85
[2020-11-02] MEDS: POTASSIUM CHLORIDE 10 MEQ TABLET.ER. PO SCH (07:53)
[2020-11-02] MEDS: SERTRALINE 25 MG TABLET. PO SCH (07:53)
[2020-11-02] MEDS: CHOLECALCIFEROL (VITAMIN D3) 1,000 UNIT TABLET PO SCH (07:54)
[2020-11-02] MEDS: DIVALPROEX ER 250 MG TAB.ER.24H. PO SCH ×2 (07:54→20:00)
[2020-11-02] MEDS: CARBIDOPA/LEVODOPA 10/100MG TABLET PO SCH ×4 (07:54→20:00)
[2020-11-02] MEDS: MEMANTINE 10 MG TABLET. PO SCH ×2 (07:54→20:00)
[2020-11-02] MEDS: QUEtiapine 25 MG TABLET. PO SCH ×3 (07:54→20:00)
[2020-11-02] MEDS: CYANOCOBALAMIN (VITAMIN B-12) 1,000 MCG TABLET. PO SCH (07:54)
[2020-11-02] MEDS: RIVASTIGMINE 13.3MG PATCH. TD SCH (07:55)
[2020-11-02] MEDS: FLUTICASONE 50MCG/NASAL SPRAY 16GM BOTTLE. NS SCH (07:55)
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
--- NOTE | 2020-11-02 10:49 | NUR ---
WEEKLY ACTIVITY THERAPY NOTE Date of Admission: 10/10, DC on 10/12 and readmitted 10/14 Date of AT Assessment: 10/12 remains valid Precipitating behaviors that initiated intake and admission: Restless, impulsive, agitated, delusional, hallucinations,violent outbursts Goal aimed:increase stress management and socialization skills Initial Goal: Pt will participate in at least one individual or group Activity Therapy session per week. Weekly progress towards goal: exceeded 12/28 Group participation level: 2 min, 2 mod Weekly highlights: enjoyed special treats this week: cake/ punch on Friday and hot cocoa on Friday Behaviors observed: increased alertness and engagement as the week has progressed, pleasantly confused, wanders, redirects well Plan: no change pending discharge 11/06, otherwise change goal to: Pt. will participate in at least five Activity Therapy group sessions per week Beneficial adaptations:
--- NOTE | 2020-11-02 14:10 | NUR ---
SONIA received call from Batsheva to follow up from treatment team and making arrangements for discharge on Friday. Batsheva questioned getting medical records sent to her. Batsheva felt that she needed to be further prepared in the event that pt continued to decline; therefore, she has reached out to a placement agency and asked for Belia Hummel to assess him for potential placement; as well as [facility]. SONIA and pt dtr also discussed her concerns on his return as she does not want to have him constantly sent out due to behaviors. Pt dtr is very thankful for the time the team has given her and answering her questions. SONIA will plan to update Keely at [facility] and send those referrals as requested.
[2020-11-02 15:58] VITALS: BP 122/75
--- NOTE | 2020-11-02 18:30 | NUR ---
Patient has been calm, compliant, and pleasantly confused throughout this shift. He has been social with peers and interactive with staff. He is delusional, stating that his is a special education secretary upstairs. Will continue to monitor and report to oncoming shift.
[2020-11-02] MEDS: traZODone 50 MG TABLET. PO PRN ×2 (20:00→21:43)
[2020-11-02] MEDS: FINASTERIDE 5 MG TABLET. PO SCH (20:00)
[2020-11-02] MEDS: MIRTAZAPINE ODT 15 MG TAB.RAPDIS. PO SCH (20:00)
--- NOTE | 2020-11-02 21:05 | PDOC ---
Exam Note: Tommy Note: Please also refer to the separate dictated note~for this date of service dictated separately.~Patient seen individually. Discussed the patient with Nursing staff reviewed the chart.~Reviewed interim history and current functioning. Reviewed vital signs,~Labs/ Radiology~and current medications noted below. Continue current treatment with the changes noted in the dictated addendum note Assessment: Vital Signs/I&O: Vital Signs Date Time Temp Pulse Resp B/P (MAP) Pulse Ox O2 Delivery O2 Flow Rate FiO2 11/02/20 15:58 97.6 66 18 122/75 (91) 99 11/01/20 06:21 Room Air I & O 11/01/20 11/01/20 11/02/20 14:59 22:59 06:59 Intake Total 440 ml 360 ml Balance 440 ml 360 ml Current Medications: Meds: Current Medications Medications (Trade) Dose Ordered Sig/Matilde Route PRN Reason Start Time Stop Time Status Last Admin Dose Admin Acetaminophen (Tylenol) 650 mg PRN Q6HRS PRN PO MILD PAIN / TEMP > 100.3'F 10/13/20 21:45 UNV Multi-Ingredient Ointment (Analgesic [place]) 1 ike PRN QID PRN TP MUSCLE PAIN 10/13/20 21:45 UNV Al Hydroxide/Mg Hydroxide (Mylanta Plus Xs) 15 ml PRN AFTMEALHC PRN PO DYSPEPSIA 10/13/20 21:45 UNV Magnesium Hydroxide (Milk Of Magnesia) 2,400 mg PRN QHS PRN PO 3rd CHOICE CONSTIPATION 10/13/20 21:45 Acetaminophen (Tylenol) 650 mg PRN Q6HRS PRN PO MILD PAIN / TEMP > 100.3'F 10/13/20 21:45 10/14/20 16:44 Carbidopa/Levodopa (Sinemet 10/100) 1 tab QID PO 10/14/20 09:00 10/13/20 22:20 DC Divalproex Sodium (Depakote Er) 250 mg BID PO 10/14/20 09:00 10/13/20 22:20 DC Docusate Sodium (Colace) 100 mg PRN BID PRN PO 1ST CHOICE CONSTIPATION 10/13/20 21:45 Finasteride (Proscar) 5 mg QHS PO 10/14/20 21:00 10/13/20 22:20 DC Levothyroxine Sodium (Synthroid) 100 mcg DAILY06 PO 10/14/20 06:00 11/02/20 05:24 Al Hydroxide/Mg Hydroxide (Mylanta Plus Xs) 15 ml PRN AFTMEALHC PRN PO DYSPEPSIA 10/13/20 21:45 Multi-Ingredient Ointment (Analgesic [place]) 1 ike QID PRN TP MUSCLE PAIN 10/13/20 21:45 Mirtazapine (Remeron Tiki-Tab) 15 mg QHS PO 10/14/20 21:00 10/13/20 22:20 DC Olanzapine (ZyPREXA ZYDIS) 5 mg PRN Q2HRS PRN PO ANXIETY / AGITATION 10/13/20 21:45 10/26/20 13:38 DC 10/26/20 03:49 Polyethylene Glycol (miraLAX) 17 gm PRN BID PRN PO 2nd choice constipation 10/13/20 21:45 Potassium Chloride (Klor-Con) 10 meq DAILY PO 10/14/20 09:00 11/02/20 07:53 Quetiapine Fumarate (SEROquel) 25 mg BID PO 10/14/20 09:00 10/13/20 22:20 DC Sertraline HCl (Zoloft) 25 mg DAILY PO 10/14/20 09:00 11/02/20 07:53 Trazodone HCl (Desyrel) 50 mg PRN QHS PRN PO Insomnia May repeat x2 10/13/20 21:45 11/02/20 20:00 Vitamin D (Vitamin D3) 2,000 unit DAILY PO 10/14/20 09:00 11/02/20 07:54 Cyanocobalamin (Vitamin B-12) 1,000 mcg DAILY PO 10/14/20 09:00 11/02/20 07:54 Fluticasone Propionate (Flonase) 1 spray DAILY NS 10/14/20 09:00 11/02/20 07:55 Non-Formulary Medication (Magnesium Hydroxide (Milk Of Magnesia)) 2,400 mg PRN DAILY PRN PO CONSTIPATION 10/13/20 21:45 UNV Carbidopa/Levodopa (Sinemet 10/100) 1 tab QID PO 10/13/20 22:45 11/02/20 20:00 Divalproex Sodium (Depakote Er) 250 mg BID PO 10/13/20 22:45 11/02/20 20:00 Finasteride (Proscar) 5 mg QHS PO 10/13/20 22:45 11/02/20 20:00 Mirtazapine (Remeron Tiki-Tab) 15 mg QHS PO 10/13/20 22:45 11/02/20 20:00 Quetiapine Fumarate (SEROquel) 25 mg BID PO 10/13/20 22:45 11/02/20 20:00 Rivastigmine (Exelon) 1 patch DAILY TD 10/18/20 09:00 10/22/20 23:51 DC 10/22/20 08:48 Rivastigmine (Exelon) 1 patch DAILY TD 10/23/20 09:00 10/27/20 23:59 DC 10/27/20 09:17 Memantine (Namenda) 5 mg BID PO 10/19/20 21:00 10/29/20 20:59 DC 10/29/20 07:42 Rivastigmine (Exelon 13.3mg) 1 patch DAILY TD 10/28/20 07:00 11/02/20 07:55 Furosemide (Lasix) 80 mg 1X ONCE PO 10/22/20 10:15 10/22/20 10:16 DC 10/22/20 11:36 Quetiapine Fumarate (SEROquel) 12.5 mg 1700 PO 10/25/20 17:00 11/02/20 16:46 Olanzapine (ZyPREXA ZYDIS) 2.5 mg 0900,1700 PO 10/26/20 17:00 11/02/20 16:49 Nystatin (Nystop) 15 ike STK-MED ONCE TP 10/28/20 00:36 10/28/20 00:36 DC Nystatin (Nystop) 1 ike PRN BID PRN TP RASH 10/28/20 00:45 Olanzapine (ZyPREXA ZYDIS) 2.5 mg PRN Q2HR PRN PO PSYCHOSIS 10/28/20 14:30 11/01/20 05:13 Memantine (Namenda) 10 mg BID PO 10/30/20 09:00 10/29/20 20:06 DC Memantine (Namenda) 10 mg BID PO 10/29/20 21:00 11/02/20 20:00 I have reviewed the current psychotropics carefully including drug interactions. Risk benefit ratio favors no change other than as noted in my dictated progress note. Diagnosis: Problems: (1) Impulse control disorder, unspecified (2) Anxiety disorder, unspecified (3) Dementia, vascular, with depression (4) Dementia, vascular, with delusions (5) Dementia in Alzheimer's disease with depression (6) Dementia in Alzheimer's disease with delusions (7) Major neurocognitive disorder (8) Lewy body dementia with behavioral disturbance JORGE COLLAZO MD Nov 02, 2020 21:05
--- NOTE | 2020-11-03 00:13 | NUR ---
Nurses Note: Pt sitting in chair in his room during med pass and assessment. Pt compliant with taking medications. Pt is having delusions of women, children, and cats in his room stating "it isn't right that they are in a tana room", assured pt he has his own room and will be alone in his room for tonight, pt states "thank you". Pt ambulating in halls when arrived on unit tonight, obsessed with needing to know where his is at this time, pt easily reassured his is safe at home. Pt calls out for nurse occasionally for assistance getting up to bathroom.
[2020-11-03 06:17] VITALS: BP 165/89
[2020-11-03] MEDS: MEMANTINE 10 MG TABLET. PO SCH ×2 (06:26→19:36)
[2020-11-03] MEDS: CHOLECALCIFEROL (VITAMIN D3) 1,000 UNIT TABLET PO SCH (06:26)
[2020-11-03] MEDS: CARBIDOPA/LEVODOPA 10/100MG TABLET PO SCH ×4 (06:26→19:37)
[2020-11-03] MEDS: QUEtiapine 25 MG TABLET. PO SCH ×3 (06:26→19:37)
[2020-11-03] MEDS: SERTRALINE 25 MG TABLET. PO SCH (06:27)
[2020-11-03] MEDS: POTASSIUM CHLORIDE 10 MEQ TABLET.ER. PO SCH (06:27)
[2020-11-03] MEDS: CYANOCOBALAMIN (VITAMIN B-12) 1,000 MCG TABLET. PO SCH (06:27)
[2020-11-03] MEDS: DIVALPROEX ER 250 MG TAB.ER.24H. PO SCH ×2 (06:27→19:37)
[2020-11-03] MEDS: RIVASTIGMINE 13.3MG PATCH. TD SCH (06:28)
[2020-11-03] MEDS: LEVOTHYROXINE 100 MCG TABLET PO SCH (06:28)
[2020-11-03] MEDS: FLUTICASONE 50MCG/NASAL SPRAY 16GM BOTTLE. NS SCH (06:29)
--- NOTE | 2020-11-03 12:47 | NUR ---
Pt has been cooperative with cares and medications so far this shift. He spent the morning yelling "Nurse!" and whistling very loudly from his bed. 1 on 1 interaction with nursing staff helped to reduce this particular set of behaviors. Appetite is appropriate and he is drinking adequate fluids. He requested a "bloody melvi" (V8 juice) for the day. He is pleasantly confused and hallucinating, at times delusional. Affect remains cordial with staff. Pt has also been amb through the unit with his 4 point walker without difficulty. Will pass on to the next shift.
--- NOTE | 2020-11-03 15:05 | NUR ---
[facility] Social Work Discharge Planning Form Patient Name AYUSH TAYLOR Admit Date: 10 October 2020 DISCHARGE PLAN Discharge Destination: Pt to return to [facility] Assessment: N/A Level II Assessment: N/A Transportation: [employer] [facility] to pick pt up; plan to call on Friday to schedule tile picker time. SW requested tile picker AFTER 10:00 Special Instructions/Notes: Please fax discharge summary, discharge medication list and discharge orders to the fax number (s) below. DISCHARGE TO FACILITY Facility: [facility] Address: [address] [place] [address] [place] [address] Contact Name: Keely Sloan, Business Editor: Contact Name: Ask for nurse caring for pt upon arrival. PCP: Morris De Santiago provider Pharmacy: [facility] Contact Information: [facility] [address] [facility] [place] [address]
--- NOTE | 2020-11-03 15:05 | NUR ---
SONIA returned call to Keely re: and update on pt and her conversation with pt dtr who is concerned that over time they will not be able to handle her father. SONIA went over behaviors and also discussed medications. SONIA did tell Keely that pt does have most of his behaviors at night, in which he appears to be more delusional and at times agitated. Keely requested updated notes from the time SONIA sent them, which was on Friday. Keely to set up [employer] [facility] and wanted to make sure pt medications were cared for MCKENZIE so that pt would be able to get all of his medications. Nursing can fax them directly to the facility OR fax them over to [facility]. Keely will call SONIA with a transport time first thing Friday.
[2020-11-03 15:54] VITALS: BP 138/73
[2020-11-03] MEDS: FINASTERIDE 5 MG TABLET. PO SCH (19:37)
[2020-11-03] MEDS: MIRTAZAPINE ODT 15 MG TAB.RAPDIS. PO SCH (19:37)
--- NOTE | 2020-11-03 19:40 | NUR ---
Pt calm and interactive with staff. Pt is orient to self and he is in a hospital to help his memory. Pt compliant with assessment and medications floated in yogurt. Pt denies other complaints and is happily sitting on the bedside eating a yogurt and drinking his "mimosa (orange juice and sprite)".
--- NOTE | 2020-11-03 20:52 | PDOC ---
Exam Note: Tommy Note: Please also refer to the separate dictated note~for this date of service dictated separately.~Patient seen individually. Discussed the patient with Nursing staff reviewed the chart.~Reviewed interim history and current functioning. Reviewed vital signs,~Labs/ Radiology~and current medications noted below. Continue current treatment with the changes noted in the dictated addendum note Assessment: Vital Signs/I&O: Vital Signs Date Time Temp Pulse Resp B/P (MAP) Pulse Ox O2 Delivery O2 Flow Rate FiO2 11/03/20 15:54 97.2 76 20 138/73 (94) 97 11/01/20 06:21 Room Air I & O 11/02/20 11/02/20 11/03/20 15:00 23:00 07:00 Intake Total 840 ml 480 ml Balance 840 ml 480 ml Current Medications: Meds: Current Medications Medications (Trade) Dose Ordered Sig/Matilde Route PRN Reason Start Time Stop Time Status Last Admin Dose Admin Acetaminophen (Tylenol) 650 mg PRN Q6HRS PRN PO MILD PAIN / TEMP > 100.3'F 10/13/20 21:45 UNV Multi-Ingredient Ointment (Analgesic [place]) 1 ike PRN QID PRN TP MUSCLE PAIN 10/13/20 21:45 UNV Al Hydroxide/Mg Hydroxide (Mylanta Plus Xs) 15 ml PRN AFTMEALHC PRN PO DYSPEPSIA 10/13/20 21:45 UNV Magnesium Hydroxide (Milk Of Magnesia) 2,400 mg PRN QHS PRN PO 3rd CHOICE CONSTIPATION 10/13/20 21:45 Acetaminophen (Tylenol) 650 mg PRN Q6HRS PRN PO MILD PAIN / TEMP > 100.3'F 10/13/20 21:45 10/14/20 16:44 Carbidopa/Levodopa (Sinemet 10/100) 1 tab QID PO 10/14/20 09:00 10/13/20 22:20 DC Divalproex Sodium (Depakote Er) 250 mg BID PO 10/14/20 09:00 10/13/20 22:20 DC Docusate Sodium (Colace) 100 mg PRN BID PRN PO 1ST CHOICE CONSTIPATION 10/13/20 21:45 Finasteride (Proscar) 5 mg QHS PO 10/14/20 21:00 10/13/20 22:20 DC Levothyroxine Sodium (Synthroid) 100 mcg DAILY06 PO 10/14/20 06:00 11/03/20 06:28 Al Hydroxide/Mg Hydroxide (Mylanta Plus Xs) 15 ml PRN AFTMEALHC PRN PO DYSPEPSIA 10/13/20 21:45 Multi-Ingredient Ointment (Analgesic [place]) 1 ike QID PRN TP MUSCLE PAIN 10/13/20 21:45 Mirtazapine (Remeron Tiki-Tab) 15 mg QHS PO 10/14/20 21:00 10/13/20 22:20 DC Olanzapine (ZyPREXA ZYDIS) 5 mg PRN Q2HRS PRN PO ANXIETY / AGITATION 10/13/20 21:45 10/26/20 13:38 DC 10/26/20 03:49 Polyethylene Glycol (miraLAX) 17 gm PRN BID PRN PO 2nd choice constipation 10/13/20 21:45 Potassium Chloride (Klor-Con) 10 meq DAILY PO 10/14/20 09:00 11/03/20 06:27 Quetiapine Fumarate (SEROquel) 25 mg BID PO 10/14/20 09:00 10/13/20 22:20 DC Sertraline HCl (Zoloft) 25 mg DAILY PO 10/14/20 09:00 11/03/20 06:27 Trazodone HCl (Desyrel) 50 mg PRN QHS PRN PO Insomnia May repeat x2 10/13/20 21:45 11/02/20 21:43 Vitamin D (Vitamin D3) 2,000 unit DAILY PO 10/14/20 09:00 11/03/20 06:26 Cyanocobalamin (Vitamin B-12) 1,000 mcg DAILY PO 10/14/20 09:00 11/03/20 06:27 Fluticasone Propionate (Flonase) 1 spray DAILY NS 10/14/20 09:00 11/03/20 06:29 Non-Formulary Medication (Magnesium Hydroxide (Milk Of Magnesia)) 2,400 mg PRN DAILY PRN PO CONSTIPATION 10/13/20 21:45 UNV Carbidopa/Levodopa (Sinemet 10/100) 1 tab QID PO 10/13/20 22:45 11/03/20 19:37 Divalproex Sodium (Depakote Er) 250 mg BID PO 10/13/20 22:45 11/03/20 19:37 Finasteride (Proscar) 5 mg QHS PO 10/13/20 22:45 11/03/20 19:37 Mirtazapine (Remeron Tiki-Tab) 15 mg QHS PO 10/13/20 22:45 11/03/20 19:37 Quetiapine Fumarate (SEROquel) 25 mg BID PO 10/13/20 22:45 11/03/20 19:37 Rivastigmine (Exelon) 1 patch DAILY TD 10/18/20 09:00 10/22/20 23:51 DC 10/22/20 08:48 Rivastigmine (Exelon) 1 patch DAILY TD 10/23/20 09:00 10/27/20 23:59 DC 10/27/20 09:17 Memantine (Namenda) 5 mg BID PO 10/19/20 21:00 10/29/20 20:59 DC 10/29/20 07:42 Rivastigmine (Exelon 13.3mg) 1 patch DAILY TD 10/28/20 07:00 11/03/20 06:28 Furosemide (Lasix) 80 mg 1X ONCE PO 10/22/20 10:15 10/22/20 10:16 DC 10/22/20 11:36 Quetiapine Fumarate (SEROquel) 12.5 mg 1700 PO 10/25/20 17:00 11/03/20 16:06 Olanzapine (ZyPREXA ZYDIS) 2.5 mg 0900,1700 PO 10/26/20 17:00 11/03/20 16:06 Nystatin (Nystop) 15 ike STK-MED ONCE TP 10/28/20 00:36 10/28/20 00:36 DC Nystatin (Nystop) 1 ike PRN BID PRN TP RASH 10/28/20 00:45 Olanzapine (ZyPREXA ZYDIS) 2.5 mg PRN Q2HR PRN PO PSYCHOSIS 10/28/20 14:30 11/01/20 05:13 Memantine (Namenda) 10 mg BID PO 10/30/20 09:00 10/29/20 20:06 DC Memantine (Namenda) 10 mg BID PO 10/29/20 21:00 11/03/20 19:36 I have reviewed the current psychotropics carefully including drug interactions. Risk benefit ratio favors no change other than as noted in my dictated progress note. Diagnosis: Problems: (1) Impulse control disorder, unspecified (2) Anxiety disorder, unspecified (3) Dementia, vascular, with depression (4) Dementia, vascular, with delusions (5) Dementia in Alzheimer's disease with depression (6) Dementia in Alzheimer's disease with delusions (7) Major neurocognitive disorder (8) Lewy body dementia with behavioral disturbance JORGE COLLAZO MD Nov 03, 2020 20:51
[2020-11-04 03:23] VITALS: BP 163/78
[2020-11-04] MEDS: CYANOCOBALAMIN (VITAMIN B-12) 1,000 MCG TABLET. PO SCH (04:54)
[2020-11-04] MEDS: CARBIDOPA/LEVODOPA 10/100MG TABLET PO SCH ×4 (04:54→20:10)
[2020-11-04] MEDS: LEVOTHYROXINE 100 MCG TABLET PO SCH (04:54)
[2020-11-04] MEDS: QUEtiapine 25 MG TABLET. PO SCH ×3 (04:54→20:10)
[2020-11-04] MEDS: SERTRALINE 25 MG TABLET. PO SCH (04:54)
[2020-11-04] MEDS: POTASSIUM CHLORIDE 10 MEQ TABLET.ER. PO SCH (04:55)
[2020-11-04] MEDS: DIVALPROEX ER 250 MG TAB.ER.24H. PO SCH ×2 (04:55→20:10)
[2020-11-04] MEDS: CHOLECALCIFEROL (VITAMIN D3) 1,000 UNIT TABLET PO SCH (04:55)
[2020-11-04] MEDS: RIVASTIGMINE 13.3MG PATCH. TD SCH (04:56)
[2020-11-04] MEDS: MEMANTINE 10 MG TABLET. PO SCH ×2 (04:56→20:09)
[2020-11-04] MEDS: FLUTICASONE 50MCG/NASAL SPRAY 16GM BOTTLE. NS SCH (04:56)
--- NOTE | 2020-11-04 07:13 | PDOC ---
Exam Note: Tommy Note: This note is a late entry for 11/02/2020 covers elements not covered in my initial note. Subjective: The patient was seen face to face in the morning of 11/02/2020 for a treatment team meeting with Alesha Cuellar, Nery Duron and Keke (psychiatric social worker), Anastasiia Whaley, activity therapy and Rusty ORTEGA, reviewed the chart. The patients daughter Aranza also attended the treatment team meeting. The patient just slept 8-1/4 hours previous night. Overall he remains confused, but has done better without a roommate. Appetite is 50%. He had a repeat COVID-19 screen today. During the treatment team meeting, we had a lengthy discussion about the patients history, diagnoses, and daughter had many questions which we addressed. Review of Systems: No CV, , pulmonary, eye, ENT system symptoms on review. Ambulation impaired with walker. Reliability poor. Mental Status Exam: The patient is oriented to himself. Insight and judgment, recent and remote memory, attention and concentration, fund of knowledge is poor consistent with his diagnosis. Laboratory Data: Reviewed. Impression: Major neurocognitive disorder Alzheimer vascular with delusion, depression. Anxiety disorder unspecified. Impulse control disorder unspecified. 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 Plan: Continue rest of the psychotropics from initial note. Assessment: Vital Signs/I&O: Vital Signs Date Time Temp Pulse Resp B/P (MAP) Pulse Ox O2 Delivery O2 Flow Rate FiO2 11/04/20 03:23 98.0 64 18 163/78 (106) 97 11/01/20 06:21 Room Air I & O 11/03/20 11/03/20 11/04/20 15:00 23:00 07:00 Intake Total 480 ml 600 ml Balance 480 ml 600 ml Current Medications: Meds: Current Medications Medications (Trade) Dose Ordered Sig/Matilde Route PRN Reason Start Time Stop Time Status Last Admin Dose Admin Acetaminophen (Tylenol) 650 mg PRN Q6HRS PRN PO MILD PAIN / TEMP > 100.3'F 10/13/20 21:45 UNV Multi-Ingredient Ointment (Analgesic [place]) 1 ike PRN QID PRN TP MUSCLE PAIN 10/13/20 21:45 UNV Al Hydroxide/Mg Hydroxide (Mylanta Plus Xs) 15 ml PRN AFTMEALHC PRN PO DYSPEPSIA 10/13/20 21:45 UNV Magnesium Hydroxide (Milk Of Magnesia) 2,400 mg PRN QHS PRN PO 3rd CHOICE CONSTIPATION 10/13/20 21:45 Acetaminophen (Tylenol) 650 mg PRN Q6HRS PRN PO MILD PAIN / TEMP > 100.3'F 10/13/20 21:45 10/14/20 16:44 Carbidopa/Levodopa (Sinemet 10/100) 1 tab QID PO 10/14/20 09:00 10/13/20 22:20 DC Divalproex Sodium (Depakote Er) 250 mg BID PO 10/14/20 09:00 10/13/20 22:20 DC Docusate Sodium (Colace) 100 mg PRN BID PRN PO 1ST CHOICE CONSTIPATION 10/13/20 21:45 Finasteride (Proscar) 5 mg QHS PO 10/14/20 21:00 10/13/20 22:20 DC Levothyroxine Sodium (Synthroid) 100 mcg DAILY06 PO 10/14/20 06:00 11/04/20 04:54 Al Hydroxide/Mg Hydroxide (Mylanta Plus Xs) 15 ml PRN AFTMEALHC PRN PO DYSPEPSIA 10/13/20 21:45 Multi-Ingredient Ointment (Analgesic [place]) 1 ike QID PRN TP MUSCLE PAIN 10/13/20 21:45 Mirtazapine (Remeron Tiki-Tab) 15 mg QHS PO 10/14/20 21:00 10/13/20 22:20 DC Olanzapine (ZyPREXA ZYDIS) 5 mg PRN Q2HRS PRN PO ANXIETY / AGITATION 10/13/20 21:45 10/26/20 13:38 DC 10/26/20 03:49 Polyethylene Glycol (miraLAX) 17 gm PRN BID PRN PO 2nd choice constipation 10/13/20 21:45 Potassium Chloride (Klor-Con) 10 meq DAILY PO 10/14/20 09:00 11/04/20 04:55 Quetiapine Fumarate (SEROquel) 25 mg BID PO 10/14/20 09:00 10/13/20 22:20 DC Sertraline HCl (Zoloft) 25 mg DAILY PO 10/14/20 09:00 11/04/20 04:54 Trazodone HCl (Desyrel) 50 mg PRN QHS PRN PO Insomnia May repeat x2 10/13/20 21:45 11/02/20 21:43 Vitamin D (Vitamin D3) 2,000 unit DAILY PO 10/14/20 09:00 11/04/20 04:55 Cyanocobalamin (Vitamin B-12) 1,000 mcg DAILY PO 10/14/20 09:00 11/04/20 04:54 Fluticasone Propionate (Flonase) 1 spray DAILY NS 10/14/20 09:00 11/04/20 04:56 Non-Formulary Medication (Magnesium Hydroxide (Milk Of Magnesia)) 2,400 mg PRN DAILY PRN PO CONSTIPATION 10/13/20 21:45 UNV Carbidopa/Levodopa (Sinemet 10/100) 1 tab QID PO 10/13/20 22:45 11/04/20 04:54 Divalproex Sodium (Depakote Er) 250 mg BID PO 10/13/20 22:45 11/04/20 04:55 Finasteride (Proscar) 5 mg QHS PO 10/13/20 22:45 11/03/20 19:37 Mirtazapine (Remeron Tiki-Tab) 15 mg QHS PO 10/13/20 22:45 11/03/20 19:37 Quetiapine Fumarate (SEROquel) 25 mg BID PO 10/13/20 22:45 11/04/20 04:54 Rivastigmine (Exelon) 1 patch DAILY TD 10/18/20 09:00 10/22/20 23:51 DC 10/22/20 08:48 Rivastigmine (Exelon) 1 patch DAILY TD 10/23/20 09:00 10/27/20 23:59 DC 10/27/20 09:17 Memantine (Namenda) 5 mg BID PO 10/19/20 21:00 10/29/20 20:59 DC 10/29/20 07:42 Rivastigmine (Exelon 13.3mg) 1 patch DAILY TD 10/28/20 07:00 11/04/20 04:56 Furosemide (Lasix) 80 mg 1X ONCE PO 10/22/20 10:15 10/22/20 10:16 DC 10/22/20 11:36 Quetiapine Fumarate (SEROquel) 12.5 mg 1700 PO 10/25/20 17:00 11/03/20 16:06 Olanzapine (ZyPREXA ZYDIS) 2.5 mg 0900,1700 PO 10/26/20 17:00 11/04/20 04:54 Nystatin (Nystop) 15 ike STK-MED ONCE TP 10/28/20 00:36 10/28/20 00:36 DC Nystatin (Nystop) 1 ike PRN BID PRN TP RASH 10/28/20 00:45 Olanzapine (ZyPREXA ZYDIS) 2.5 mg PRN Q2HR PRN PO PSYCHOSIS 10/28/20 14:30 11/01/20 05:13 Memantine (Namenda) 10 mg BID PO 10/30/20 09:00 10/29/20 20:06 DC Memantine (Namenda) 10 mg BID PO 10/29/20 21:00 11/04/20 04:56 I have reviewed the current psychotropics carefully including drug interactions. Risk benefit ratio favors no change other than as noted in my dictated progress note. Diagnosis: Problems: (1) Impulse control disorder, unspecified (2) Anxiety disorder, unspecified (3) Dementia, vascular, with depression (4) Dementia, vascular, with delusions (5) Dementia in Alzheimer's disease with depression (6) Dementia in Alzheimer's disease with delusions (7) Major neurocognitive disorder (8) Lewy body dementia with behavioral disturbance JORGE COLLAZO MD Nov 04, 2020 07:13
--- NOTE | 2020-11-04 07:37 | PDOC ---
Exam Note: Tommy Note: This note is a late entry for 11/03/2020 covers elements not covered in my initial note. Subjective: The patient was seen face to face in the evening of 11/03/2020 with Susi ORTEGA. Discussed with nursing staff, reviewed the chart. The patient just slept 7-3/4 hours previous night. He has been cooperative, confused, but believed his was sitting in the chair next to him. He was whistling loudly at times but no p.r.n.s were needed. Review of Systems: No CV, , pulmonary, eye, ENT system symptoms on review. Ambulation impaired with walker. Reliability poor. Mental Status Exam: The patient is oriented to himself. Insight and judgment, recent and remote memory, attention and concentration, fund of knowledge is poor consistent with his diagnosis. Laboratory Data: Reviewed. Impression: Major neurocognitive disorder Alzheimer vascular with delusion, depression. Anxiety disorder unspecified. Impulse control disorder unspecified. 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 Plan: Continue rest of the psychotropics from initial note. Assessment: Vital Signs/I&O: Vital Signs Date Time Temp Pulse Resp B/P (MAP) Pulse Ox O2 Delivery O2 Flow Rate FiO2 11/04/20 03:23 98.0 64 18 163/78 (106) 97 11/01/20 06:21 Room Air I & O 11/03/20 11/03/20 11/04/20 15:00 23:00 07:00 Intake Total 480 ml 600 ml Balance 480 ml 600 ml Current Medications: Meds: Current Medications Medications (Trade) Dose Ordered Sig/Matilde Route PRN Reason Start Time Stop Time Status Last Admin Dose Admin Acetaminophen (Tylenol) 650 mg PRN Q6HRS PRN PO MILD PAIN / TEMP > 100.3'F 10/13/20 21:45 UNV Multi-Ingredient Ointment (Analgesic [place]) 1 ike PRN QID PRN TP MUSCLE PAIN 10/13/20 21:45 UNV Al Hydroxide/Mg Hydroxide (Mylanta Plus Xs) 15 ml PRN AFTMEALHC PRN PO DYSPEPSIA 10/13/20 21:45 UNV Magnesium Hydroxide (Milk Of Magnesia) 2,400 mg PRN QHS PRN PO 3rd CHOICE CONSTIPATION 10/13/20 21:45 Acetaminophen (Tylenol) 650 mg PRN Q6HRS PRN PO MILD PAIN / TEMP > 100.3'F 10/13/20 21:45 10/14/20 16:44 Carbidopa/Levodopa (Sinemet 10/100) 1 tab QID PO 10/14/20 09:00 10/13/20 22:20 DC Divalproex Sodium (Depakote Er) 250 mg BID PO 10/14/20 09:00 10/13/20 22:20 DC Docusate Sodium (Colace) 100 mg PRN BID PRN PO 1ST CHOICE CONSTIPATION 10/13/20 21:45 Finasteride (Proscar) 5 mg QHS PO 10/14/20 21:00 10/13/20 22:20 DC Levothyroxine Sodium (Synthroid) 100 mcg DAILY06 PO 10/14/20 06:00 11/04/20 04:54 Al Hydroxide/Mg Hydroxide (Mylanta Plus Xs) 15 ml PRN AFTMEALHC PRN PO DYSPEPSIA 10/13/20 21:45 Multi-Ingredient Ointment (Analgesic [place]) 1 ike QID PRN TP MUSCLE PAIN 10/13/20 21:45 Mirtazapine (Remeron Tiki-Tab) 15 mg QHS PO 10/14/20 21:00 10/13/20 22:20 DC Olanzapine (ZyPREXA ZYDIS) 5 mg PRN Q2HRS PRN PO ANXIETY / AGITATION 10/13/20 21:45 10/26/20 13:38 DC 10/26/20 03:49 Polyethylene Glycol (miraLAX) 17 gm PRN BID PRN PO 2nd choice constipation 10/13/20 21:45 Potassium Chloride (Klor-Con) 10 meq DAILY PO 10/14/20 09:00 11/04/20 04:55 Quetiapine Fumarate (SEROquel) 25 mg BID PO 10/14/20 09:00 10/13/20 22:20 DC Sertraline HCl (Zoloft) 25 mg DAILY PO 10/14/20 09:00 11/04/20 04:54 Trazodone HCl (Desyrel) 50 mg PRN QHS PRN PO Insomnia May repeat x2 10/13/20 21:45 11/02/20 21:43 Vitamin D (Vitamin D3) 2,000 unit DAILY PO 10/14/20 09:00 11/04/20 04:55 Cyanocobalamin (Vitamin B-12) 1,000 mcg DAILY PO 10/14/20 09:00 11/04/20 04:54 Fluticasone Propionate (Flonase) 1 spray DAILY NS 10/14/20 09:00 11/04/20 04:56 Non-Formulary Medication (Magnesium Hydroxide (Milk Of Magnesia)) 2,400 mg PRN DAILY PRN PO CONSTIPATION 10/13/20 21:45 UNV Carbidopa/Levodopa (Sinemet 10/100) 1 tab QID PO 10/13/20 22:45 11/04/20 04:54 Divalproex Sodium (Depakote Er) 250 mg BID PO 10/13/20 22:45 11/04/20 04:55 Finasteride (Proscar) 5 mg QHS PO 10/13/20 22:45 11/03/20 19:37 Mirtazapine (Remeron Tiki-Tab) 15 mg QHS PO 10/13/20 22:45 11/03/20 19:37 Quetiapine Fumarate (SEROquel) 25 mg BID PO 10/13/20 22:45 11/04/20 04:54 Rivastigmine (Exelon) 1 patch DAILY TD 10/18/20 09:00 10/22/20 23:51 DC 10/22/20 08:48 Rivastigmine (Exelon) 1 patch DAILY TD 10/23/20 09:00 10/27/20 23:59 DC 10/27/20 09:17 Memantine (Namenda) 5 mg BID PO 10/19/20 21:00 10/29/20 20:59 DC 10/29/20 07:42 Rivastigmine (Exelon 13.3mg) 1 patch DAILY TD 10/28/20 07:00 11/04/20 04:56 Furosemide (Lasix) 80 mg 1X ONCE PO 10/22/20 10:15 10/22/20 10:16 DC 10/22/20 11:36 Quetiapine Fumarate (SEROquel) 12.5 mg 1700 PO 10/25/20 17:00 11/03/20 16:06 Olanzapine (ZyPREXA ZYDIS) 2.5 mg 0900,1700 PO 10/26/20 17:00 11/04/20 04:54 Nystatin (Nystop) 15 ike STK-MED ONCE TP 10/28/20 00:36 10/28/20 00:36 DC Nystatin (Nystop) 1 ike PRN BID PRN TP RASH 10/28/20 00:45 Olanzapine (ZyPREXA ZYDIS) 2.5 mg PRN Q2HR PRN PO PSYCHOSIS 10/28/20 14:30 11/01/20 05:13 Memantine (Namenda) 10 mg BID PO 10/30/20 09:00 10/29/20 20:06 DC Memantine (Namenda) 10 mg BID PO 10/29/20 21:00 11/04/20 04:56 I have reviewed the current psychotropics carefully including drug interactions. Risk benefit ratio favors no change other than as noted in my dictated progress note. Diagnosis: Problems: (1) Impulse control disorder, unspecified (2) Anxiety disorder, unspecified (3) Dementia, vascular, with depression (4) Dementia, vascular, with delusions (5) Dementia in Alzheimer's disease with depression (6) Dementia in Alzheimer's disease with delusions (7) Major neurocognitive disorder (8) Lewy body dementia with behavioral disturbance JORGE COLLAZO MD Nov 04, 2020 07:37
[2020-11-04 10:58] LABS: BASO % 0 % (0-3); EOS % 1 % (0-3); HEMATOCRIT 32.1 % (39.0-53.0); HEMOGLOBIN 9.9 g/dL (13.0-17.5); LYMPH # 1.5 x10^3/uL (1.0-4.8); LYMPH % 27 % (24-48); MEAN CORPUSCULAR HEMOGLOBIN 29 pg (25-35); MEAN CORPUSCULAR HGB CONC 31 g/dL (31-37); MEAN CORPUSCULAR VOLUME 93 fL (79-100); MONO # 0.7 x10^3/uL (0.0-1.1); MONO % 13 % (0-9); NEUT # 3.3 x10^3uL (1.8-7.7); NEUT % 60 % (31-73); PLATELET COUNT 156 x10^3/uL (140-400); RED BLOOD COUNT 3.45 x10^6/uL (4.30-5.70); RED CELL DISTRIBUTION WIDTH 17.7 % (11.5-14.5); WHITE BLOOD COUNT 5.6 x10^3/uL (4.0-11.0)
[2020-11-04 11:11] LABS: ALBUMIN 2.6 g/dL (3.4-5.0); ALBUMIN/GLOBULIN RATIO 0.8 (1.0-1.7); CREATININE 0.9 mg/dL (0.7-1.3); POTASSIUM 4.5 mmol/L (3.5-5.1); TOTAL BILIRUBIN 0.3 mg/dL (0.2-1.0); TOTAL PROTEIN 5.7 g/dL (6.4-8.2)
[2020-11-04 15:54] VITALS: BP 114/54
[2020-11-04] MEDS: traZODone 50 MG TABLET. PO PRN (20:09)
[2020-11-04] MEDS: MIRTAZAPINE ODT 15 MG TAB.RAPDIS. PO SCH (20:09)
[2020-11-04] MEDS: FINASTERIDE 5 MG TABLET. PO SCH (20:10)
--- NOTE | 2020-11-04 21:01 | PDOC ---
Exam Note: Tommy Note: Please also refer to the separate dictated note~for this date of service dictated separately.~Patient seen individually. Discussed the patient with Nursing staff reviewed the chart.~Reviewed interim history and current functioning. Reviewed vital signs,~Labs/ Radiology~and current medications noted below. Continue current treatment with the changes noted in the dictated addendum note Assessment: Vital Signs/I&O: Vital Signs Date Time Temp Pulse Resp B/P (MAP) Pulse Ox O2 Delivery O2 Flow Rate FiO2 11/04/20 15:54 97.3 77 18 114/54 (74) 95 11/01/20 06:21 Room Air I & O 11/03/20 11/03/20 11/04/20 15:00 23:00 07:00 Intake Total 480 ml 600 ml Balance 480 ml 600 ml Labs: Laboratory Tests Test 11/04/20 10:15 White Blood Count 5.6 x10^3/uL (4.0-11.0) Red Blood Count 3.45 x10^6/uL (4.30-5.70) L Hemoglobin 9.9 g/dL (13.0-17.5) L Hematocrit 32.1 % (39.0-53.0) L Mean Corpuscular Volume 93 fL (79-100) Mean Corpuscular Hemoglobin 29 pg (25-35) Mean Corpuscular Hemoglobin Concent 31 g/dL (31-37) Red Cell Distribution Width 17.7 % (11.5-14.5) H Platelet Count 156 x10^3/uL (140-400) Neutrophils (%) (Auto) 60 % (31-73) Lymphocytes (%) (Auto) 27 % (24-48) Monocytes (%) (Auto) 13 % (0-9) H Eosinophils (%) (Auto) 1 % (0-3) Basophils (%) (Auto) 0 % (0-3) Neutrophils # (Auto) 3.3 x10^3uL (1.8-7.7) Lymphocytes # (Auto) 1.5 x10^3/uL (1.0-4.8) Monocytes # (Auto) 0.7 x10^3/uL (0.0-1.1) Eosinophils # (Auto) 0.0 x10^3/uL (0.0-0.7) Basophils # (Auto) 0.0 x10^3/uL (0.0-0.2) Sodium Level 139 mmol/L (136-145) Potassium Level 4.5 mmol/L (3.5-5.1) Chloride Level 105 mmol/L (98-107) Carbon Dioxide Level 31 mmol/L (21-32) Anion Gap 3 (6-14) L Blood Urea Nitrogen 25 mg/dL (8-26) Creatinine 0.9 mg/dL (0.7-1.3) Estimated GFR (Cockcroft-Gault) 81.0 BUN/Creatinine Ratio 28 (6-20) H Glucose Level 93 mg/dL (70-99) Calcium Level 8.0 mg/dL (8.5-10.1) L Total Bilirubin 0.3 mg/dL (0.2-1.0) Aspartate Amino Transferase (AST) 15 U/L (15-37) Alanine Aminotransferase (ALT) 15 U/L (16-63) L Alkaline Phosphatase 61 U/L (46-116) Total Protein 5.7 g/dL (6.4-8.2) L Albumin 2.6 g/dL (3.4-5.0) L Albumin/Globulin Ratio 0.8 (1.0-1.7) L Current Medications: Meds: Laboratory Tests Test 11/04/20 10:15 White Blood Count 5.6 x10^3/uL Red Blood Count 3.45 x10^6/uL Hemoglobin 9.9 g/dL Hematocrit 32.1 % Mean Corpuscular Volume 93 fL Mean Corpuscular Hemoglobin 29 pg Mean Corpuscular Hemoglobin Concent 31 g/dL Red Cell Distribution Width 17.7 % Platelet Count 156 x10^3/uL Neutrophils (%) (Auto) 60 % Lymphocytes (%) (Auto) 27 % Monocytes (%) (Auto) 13 % Eosinophils (%) (Auto) 1 % Basophils (%) (Auto) 0 % Neutrophils # (Auto) 3.3 x10^3uL Lymphocytes # (Auto) 1.5 x10^3/uL Monocytes # (Auto) 0.7 x10^3/uL Eosinophils # (Auto) 0.0 x10^3/uL Basophils # (Auto) 0.0 x10^3/uL Sodium Level 139 mmol/L Potassium Level 4.5 mmol/L Chloride Level 105 mmol/L Carbon Dioxide Level 31 mmol/L Anion Gap 3 Blood Urea Nitrogen 25 mg/dL Creatinine 0.9 mg/dL Estimated GFR (Cockcroft-Gault) 81.0 BUN/Creatinine Ratio 28 Glucose Level 93 mg/dL Calcium Level 8.0 mg/dL Total Bilirubin 0.3 mg/dL Aspartate Amino Transf (AST/SGOT) 15 U/L Alanine Aminotransferase (ALT/SGPT) 15 U/L Alkaline Phosphatase 61 U/L Total Protein 5.7 g/dL Albumin 2.6 g/dL Albumin/Globulin Ratio 0.8 Current Medications Medications (Trade) Dose Ordered Sig/Matilde Route PRN Reason Start Time Stop Time Status Last Admin Dose Admin Acetaminophen (Tylenol) 650 mg PRN Q6HRS PRN PO MILD PAIN / TEMP > 100.3'F 10/13/20 21:45 UNV Multi-Ingredient Ointment (Analgesic [place]) 1 ike PRN QID PRN TP MUSCLE PAIN 10/13/20 21:45 UNV Al Hydroxide/Mg Hydroxide (Mylanta Plus Xs) 15 ml PRN AFTMEALHC PRN PO DYSPEPSIA 10/13/20 21:45 UNV Magnesium Hydroxide (Milk Of Magnesia) 2,400 mg PRN QHS PRN PO 3rd CHOICE CONSTIPATION 10/13/20 21:45 Acetaminophen (Tylenol) 650 mg PRN Q6HRS PRN PO MILD PAIN / TEMP > 100.3'F 10/13/20 21:45 10/14/20 16:44 Carbidopa/Levodopa (Sinemet 10/100) 1 tab QID PO 10/14/20 09:00 10/13/20 22:20 DC Divalproex Sodium (Depakote Er) 250 mg BID PO 10/14/20 09:00 10/13/20 22:20 DC Docusate Sodium (Colace) 100 mg PRN BID PRN PO 1ST CHOICE CONSTIPATION 10/13/20 21:45 Finasteride (Proscar) 5 mg QHS PO 10/14/20 21:00 10/13/20 22:20 DC Levothyroxine Sodium (Synthroid) 100 mcg DAILY06 PO 10/14/20 06:00 11/04/20 04:54 Al Hydroxide/Mg Hydroxide (Mylanta Plus Xs) 15 ml PRN AFTMEALHC PRN PO DYSPEPSIA 10/13/20 21:45 Multi-Ingredient Ointment (Analgesic [place]) 1 ike QID PRN TP MUSCLE PAIN 10/13/20 21:45 Mirtazapine (Remeron Tiki-Tab) 15 mg QHS PO 10/14/20 21:00 10/13/20 22:20 DC Olanzapine (ZyPREXA ZYDIS) 5 mg PRN Q2HRS PRN PO ANXIETY / AGITATION 10/13/20 21:45 10/26/20 13:38 DC 10/26/20 03:49 Polyethylene Glycol (miraLAX) 17 gm PRN BID PRN PO 2nd choice constipation 10/13/20 21:45 Potassium Chloride (Klor-Con) 10 meq DAILY PO 10/14/20 09:00 11/04/20 04:55 Quetiapine Fumarate (SEROquel) 25 mg BID PO 10/14/20 09:00 10/13/20 22:20 DC Sertraline HCl (Zoloft) 25 mg DAILY PO 10/14/20 09:00 11/04/20 04:54 Trazodone HCl (Desyrel) 50 mg PRN QHS PRN PO Insomnia May repeat x2 10/13/20 21:45 11/04/20 20:09 Vitamin D (Vitamin D3) 2,000 unit DAILY PO 10/14/20 09:00 11/04/20 04:55 Cyanocobalamin (Vitamin B-12) 1,000 mcg DAILY PO 10/14/20 09:00 11/04/20 04:54 Fluticasone Propionate (Flonase) 1 spray DAILY NS 10/14/20 09:00 11/04/20 04:56 Non-Formulary Medication (Magnesium Hydroxide (Milk Of Magnesia)) 2,400 mg PRN DAILY PRN PO CONSTIPATION 10/13/20 21:45 UNV Carbidopa/Levodopa (Sinemet 10/100) 1 tab QID PO 10/13/20 22:45 11/04/20 20:10 Divalproex Sodium (Depakote Er) 250 mg BID PO 10/13/20 22:45 11/04/20 20:10 Finasteride (Proscar) 5 mg QHS PO 10/13/20 22:45 11/04/20 20:10 Mirtazapine (Remeron Tiki-Tab) 15 mg QHS PO 10/13/20 22:45 11/04/20 20:09 Quetiapine Fumarate (SEROquel) 25 mg BID PO 10/13/20 22:45 11/04/20 20:10 Rivastigmine (Exelon) 1 patch DAILY TD 10/18/20 09:00 10/22/20 23:51 DC 10/22/20 08:48 Rivastigmine (Exelon) 1 patch DAILY TD 10/23/20 09:00 10/27/20 23:59 DC 10/27/20 09:17 Memantine (Namenda) 5 mg BID PO 10/19/20 21:00 10/29/20 20:59 DC 10/29/20 07:42 Rivastigmine (Exelon 13.3mg) 1 patch DAILY TD 10/28/20 07:00 11/04/20 04:56 Furosemide (Lasix) 80 mg 1X ONCE PO 10/22/20 10:15 10/22/20 10:16 DC 10/22/20 11:36 Quetiapine Fumarate (SEROquel) 12.5 mg 1700 PO 10/25/20 17:00 11/04/20 16:52 Olanzapine (ZyPREXA ZYDIS) 2.5 mg 0900,1700 PO 10/26/20 17:00 11/04/20 16:53 Nystatin (Nystop) 15 ike STK-MED ONCE TP 10/28/20 00:36 10/28/20 00:36 DC Nystatin (Nystop) 1 ike PRN BID PRN TP RASH 10/28/20 00:45 Olanzapine (ZyPREXA ZYDIS) 2.5 mg PRN Q2HR PRN PO PSYCHOSIS 10/28/20 14:30 11/01/20 05:13 Memantine (Namenda) 10 mg BID PO 10/30/20 09:00 10/29/20 20:06 DC Memantine (Namenda) 10 mg BID PO 10/29/20 21:00 11/04/20 20:09 I have reviewed the current psychotropics carefully including drug interactions. Risk benefit ratio favors no change other than as noted in my dictated progress note. Diagnosis: Problems: (1) Impulse control disorder, unspecified (2) Anxiety disorder, unspecified (3) Dementia, vascular, with depression (4) Dementia, vascular, with delusions (5) Dementia in Alzheimer's disease with depression (6) Dementia in Alzheimer's disease with delusions (7) Major neurocognitive disorder (8) Lewy body dementia with behavioral disturbance JORGE COLLAZO MD Nov 04, 2020 21:01
--- NOTE | 2020-11-04 23:00 | NUR ---
Pt located in his room tonight. Pt pleasantly confused, calm and cooperative. Compliant with whole medications floated in yogurt. Pt yelling out intermittently throughout the night.
[2020-11-05] MEDS: LEVOTHYROXINE 100 MCG TABLET PO SCH (05:39)
[2020-11-05 06:00] VITALS: BP 165/83
--- NOTE | 2020-11-05 08:05 | PDOC ---
Exam Note: Tommy Note: This note is a late entry for 11/04/2020 covers elements not covered in my initial note. Subjective: The patient was seen on telehealth rounds in the evening of 11/04/2020 with Chris ORTEGA. Discussed with nursing staff, reviewed the chart. The patient just slept 5-1/2 hours previous night. Overall the patient has done well. He has been walking with the walker, pleasant, cooperative, somewhat confused, asking for Bloody [place] drinks and zest. Review of Systems: No CV, , pulmonary, eye, ENT system symptoms on review. Ambulation impaired with walker. Mental Status Exam: The patient is oriented to himself. Insight and judgment, recent and remote memory, attention and concentration, fund of knowledge is poor consistent with his diagnosis. Laboratory Data: Reviewed. Impression: Major neurocognitive disorder Alzheimer vascular with delusion, depression. Anxiety disorder unspecified. Impulse control disorder unspecified. 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 Plan: No change from initial note. Assessment: Vital Signs/I&O: Vital Signs Date Time Temp Pulse Resp B/P (MAP) Pulse Ox O2 Delivery O2 Flow Rate FiO2 11/05/20 06:00 98.1 76 20 165/83 (110) 97 11/01/20 06:21 Room Air I & O 11/04/20 11/04/20 11/05/20 15:00 23:00 07:00 Intake Total 840 ml 1080 ml Balance 840 ml 1080 ml Labs: Laboratory Tests Test 11/04/20 10:15 White Blood Count 5.6 x10^3/uL (4.0-11.0) Red Blood Count 3.45 x10^6/uL (4.30-5.70) L Hemoglobin 9.9 g/dL (13.0-17.5) L Hematocrit 32.1 % (39.0-53.0) L Mean Corpuscular Volume 93 fL (79-100) Mean Corpuscular Hemoglobin 29 pg (25-35) Mean Corpuscular Hemoglobin Concent 31 g/dL (31-37) Red Cell Distribution Width 17.7 % (11.5-14.5) H Platelet Count 156 x10^3/uL (140-400) Neutrophils (%) (Auto) 60 % (31-73) Lymphocytes (%) (Auto) 27 % (24-48) Monocytes (%) (Auto) 13 % (0-9) H Eosinophils (%) (Auto) 1 % (0-3) Basophils (%) (Auto) 0 % (0-3) Neutrophils # (Auto) 3.3 x10^3uL (1.8-7.7) Lymphocytes # (Auto) 1.5 x10^3/uL (1.0-4.8) Monocytes # (Auto) 0.7 x10^3/uL (0.0-1.1) Eosinophils # (Auto) 0.0 x10^3/uL (0.0-0.7) Basophils # (Auto) 0.0 x10^3/uL (0.0-0.2) Sodium Level 139 mmol/L (136-145) Potassium Level 4.5 mmol/L (3.5-5.1) Chloride Level 105 mmol/L (98-107) Carbon Dioxide Level 31 mmol/L (21-32) Anion Gap 3 (6-14) L Blood Urea Nitrogen 25 mg/dL (8-26) Creatinine 0.9 mg/dL (0.7-1.3) Estimated GFR (Cockcroft-Gault) 81.0 BUN/Creatinine Ratio 28 (6-20) H Glucose Level 93 mg/dL (70-99) Calcium Level 8.0 mg/dL (8.5-10.1) L Total Bilirubin 0.3 mg/dL (0.2-1.0) Aspartate Amino Transferase (AST) 15 U/L (15-37) Alanine Aminotransferase (ALT) 15 U/L (16-63) L Alkaline Phosphatase 61 U/L (46-116) Total Protein 5.7 g/dL (6.4-8.2) L Albumin 2.6 g/dL (3.4-5.0) L Albumin/Globulin Ratio 0.8 (1.0-1.7) L Current Medications: Meds: Laboratory Tests Test 11/04/20 10:15 White Blood Count 5.6 x10^3/uL Red Blood Count 3.45 x10^6/uL Hemoglobin 9.9 g/dL Hematocrit 32.1 % Mean Corpuscular Volume 93 fL Mean Corpuscular Hemoglobin 29 pg Mean Corpuscular Hemoglobin Concent 31 g/dL Red Cell Distribution Width 17.7 % Platelet Count 156 x10^3/uL Neutrophils (%) (Auto) 60 % Lymphocytes (%) (Auto) 27 % Monocytes (%) (Auto) 13 % Eosinophils (%) (Auto) 1 % Basophils (%) (Auto) 0 % Neutrophils # (Auto) 3.3 x10^3uL Lymphocytes # (Auto) 1.5 x10^3/uL Monocytes # (Auto) 0.7 x10^3/uL Eosinophils # (Auto) 0.0 x10^3/uL Basophils # (Auto) 0.0 x10^3/uL Sodium Level 139 mmol/L Potassium Level 4.5 mmol/L Chloride Level 105 mmol/L Carbon Dioxide Level 31 mmol/L Anion Gap 3 Blood Urea Nitrogen 25 mg/dL Creatinine 0.9 mg/dL Estimated GFR (Cockcroft-Gault) 81.0 BUN/Creatinine Ratio 28 Glucose Level 93 mg/dL Calcium Level 8.0 mg/dL Total Bilirubin 0.3 mg/dL Aspartate Amino Transf (AST/SGOT) 15 U/L Alanine Aminotransferase (ALT/SGPT) 15 U/L Alkaline Phosphatase 61 U/L Total Protein 5.7 g/dL Albumin 2.6 g/dL Albumin/Globulin Ratio 0.8 Current Medications Medications (Trade) Dose Ordered Sig/Matilde Route PRN Reason Start Time Stop Time Status Last Admin Dose Admin Acetaminophen (Tylenol) 650 mg PRN Q6HRS PRN PO MILD PAIN / TEMP > 100.3'F 10/13/20 21:45 UNV Multi-Ingredient Ointment (Analgesic [place]) 1 ike PRN QID PRN TP MUSCLE PAIN 10/13/20 21:45 UNV Al Hydroxide/Mg Hydroxide (Mylanta Plus Xs) 15 ml PRN AFTMEALHC PRN PO DYSPEPSIA 10/13/20 21:45 UNV Magnesium Hydroxide (Milk Of Magnesia) 2,400 mg PRN QHS PRN PO 3rd CHOICE CONSTIPATION 10/13/20 21:45 Acetaminophen (Tylenol) 650 mg PRN Q6HRS PRN PO MILD PAIN / TEMP > 100.3'F 10/13/20 21:45 10/14/20 16:44 Carbidopa/Levodopa (Sinemet 10/100) 1 tab QID PO 10/14/20 09:00 10/13/20 22:20 DC Divalproex Sodium (Depakote Er) 250 mg BID PO 10/14/20 09:00 10/13/20 22:20 DC Docusate Sodium (Colace) 100 mg PRN BID PRN PO 1ST CHOICE CONSTIPATION 10/13/20 21:45 Finasteride (Proscar) 5 mg QHS PO 10/14/20 21:00 10/13/20 22:20 DC Levothyroxine Sodium (Synthroid) 100 mcg DAILY06 PO 10/14/20 06:00 11/05/20 05:39 Al Hydroxide/Mg Hydroxide (Mylanta Plus Xs) 15 ml PRN AFTMEALHC PRN PO DYSPEPSIA 10/13/20 21:45 Multi-Ingredient Ointment (Analgesic [place]) 1 ike QID PRN TP MUSCLE PAIN 10/13/20 21:45 Mirtazapine (Remeron Tiki-Tab) 15 mg QHS PO 10/14/20 21:00 10/13/20 22:20 DC Olanzapine (ZyPREXA ZYDIS) 5 mg PRN Q2HRS PRN PO ANXIETY / AGITATION 10/13/20 21:45 10/26/20 13:38 DC 10/26/20 03:49 Polyethylene Glycol (miraLAX) 17 gm PRN BID PRN PO 2nd choice constipation 10/13/20 21:45 Potassium Chloride (Klor-Con) 10 meq DAILY PO 10/14/20 09:00 11/04/20 04:55 Quetiapine Fumarate (SEROquel) 25 mg BID PO 10/14/20 09:00 10/13/20 22:20 DC Sertraline HCl (Zoloft) 25 mg DAILY PO 10/14/20 09:00 11/04/20 04:54 Trazodone HCl (Desyrel) 50 mg PRN QHS PRN PO Insomnia May repeat x2 10/13/20 21:45 11/04/20 20:09 Vitamin D (Vitamin D3) 2,000 unit DAILY PO 10/14/20 09:00 11/04/20 04:55 Cyanocobalamin (Vitamin B-12) 1,000 mcg DAILY PO 10/14/20 09:00 11/04/20 04:54 Fluticasone Propionate (Flonase) 1 spray DAILY NS 10/14/20 09:00 11/04/20 04:56 Non-Formulary Medication (Magnesium Hydroxide (Milk Of Magnesia)) 2,400 mg PRN DAILY PRN PO CONSTIPATION 10/13/20 21:45 UNV Carbidopa/Levodopa (Sinemet 10/100) 1 tab QID PO 10/13/20 22:45 11/04/20 20:10 Divalproex Sodium (Depakote Er) 250 mg BID PO 10/13/20 22:45 11/04/20 20:10 Finasteride (Proscar) 5 mg QHS PO 10/13/20 22:45 11/04/20 20:10 Mirtazapine (Remeron Tiki-Tab) 15 mg QHS PO 10/13/20 22:45 11/04/20 20:09 Quetiapine Fumarate (SEROquel) 25 mg BID PO 10/13/20 22:45 11/04/20 20:10 Rivastigmine (Exelon) 1 patch DAILY TD 10/18/20 09:00 10/22/20 23:51 DC 10/22/20 08:48 Rivastigmine (Exelon) 1 patch DAILY TD 10/23/20 09:00 10/27/20 23:59 DC 10/27/20 09:17 Memantine (Namenda) 5 mg BID PO 10/19/20 21:00 10/29/20 20:59 DC 10/29/20 07:42 Rivastigmine (Exelon 13.3mg) 1 patch DAILY TD 10/28/20 07:00 11/04/20 04:56 Furosemide (Lasix) 80 mg 1X ONCE PO 10/22/20 10:15 10/22/20 10:16 DC 10/22/20 11:36 Quetiapine Fumarate (SEROquel) 12.5 mg 1700 PO 10/25/20 17:00 11/04/20 16:52 Olanzapine (ZyPREXA ZYDIS) 2.5 mg 0900,1700 PO 10/26/20 17:00 11/04/20 16:53 Nystatin (Nystop) 15 ike STK-MED ONCE TP 10/28/20 00:36 10/28/20 00:36 DC Nystatin (Nystop) 1 ike PRN BID PRN TP RASH 10/28/20 00:45 Olanzapine (ZyPREXA ZYDIS) 2.5 mg PRN Q2HR PRN PO PSYCHOSIS 10/28/20 14:30 11/01/20 05:13 Memantine (Namenda) 10 mg BID PO 10/30/20 09:00 10/29/20 20:06 DC Memantine (Namenda) 10 mg BID PO 10/29/20 21:00 11/04/20 20:09 I have reviewed the current psychotropics carefully including drug interactions. Risk benefit ratio favors no change other than as noted in my dictated progress note. Diagnosis: Problems: (1) Impulse control disorder, unspecified (2) Anxiety disorder, unspecified (3) Dementia, vascular, with depression (4) Dementia, vascular, with delusions (5) Dementia in Alzheimer's disease with depression (6) Dementia in Alzheimer's disease with delusions (7) Major neurocognitive disorder (8) Lewy body dementia with behavioral disturbance JORGE COLLAZO MD Nov 05, 2020 08:05
[2020-11-05] MEDS: RIVASTIGMINE 13.3MG PATCH. TD SCH (08:25)
[2020-11-05] MEDS: CARBIDOPA/LEVODOPA 10/100MG TABLET PO SCH ×4 (08:26→20:05)
[2020-11-05] MEDS: MEMANTINE 10 MG TABLET. PO SCH ×2 (08:26→20:05)
[2020-11-05] MEDS: QUEtiapine 25 MG TABLET. PO SCH ×3 (08:26→20:05)
[2020-11-05] MEDS: CYANOCOBALAMIN (VITAMIN B-12) 1,000 MCG TABLET. PO SCH (08:26)
[2020-11-05] MEDS: CHOLECALCIFEROL (VITAMIN D3) 1,000 UNIT TABLET PO SCH (08:26)
[2020-11-05] MEDS: POTASSIUM CHLORIDE 10 MEQ TABLET.ER. PO SCH (08:26)
[2020-11-05] MEDS: DIVALPROEX ER 250 MG TAB.ER.24H. PO SCH ×2 (08:26→20:05)
[2020-11-05] MEDS: SERTRALINE 25 MG TABLET. PO SCH (08:27)
[2020-11-05] MEDS: FLUTICASONE 50MCG/NASAL SPRAY 16GM BOTTLE. NS SCH (08:28)
--- NOTE | 2020-11-05 13:14 | NUR ---
Nursing Note Pt in room pleasant and cooperative, takes po meds with yogurt, asks for bloody [place], at times. Smiles on approach in good spirits.
[2020-11-05 15:59] VITALS: BP 114/78
[2020-11-05] MEDS: MIRTAZAPINE ODT 15 MG TAB.RAPDIS. PO SCH (20:05)
[2020-11-05] MEDS: FINASTERIDE 5 MG TABLET. PO SCH (20:05)
--- NOTE | 2020-11-05 20:57 | PDOC ---
Exam Note: Tommy Note: Please also refer to the separate dictated note~for this date of service dictated separately.~Patient seen individually. Discussed the patient with Nursing staff reviewed the chart.~Reviewed interim history and current functioning. Reviewed vital signs,~Labs/ Radiology~and current medications noted below. Continue current treatment with the changes noted in the dictated addendum note Assessment: Vital Signs/I&O: Vital Signs Date Time Temp Pulse Resp B/P (MAP) Pulse Ox O2 Delivery O2 Flow Rate FiO2 11/05/20 15:59 97.4 78 20 114/78 (90) 97 Room Air I & O 11/04/20 11/04/20 11/05/20 15:00 23:00 07:00 Intake Total 840 ml 1080 ml Balance 840 ml 1080 ml Current Medications: Meds: Current Medications Medications (Trade) Dose Ordered Sig/Matilde Route PRN Reason Start Time Stop Time Status Last Admin Dose Admin Acetaminophen (Tylenol) 650 mg PRN Q6HRS PRN PO MILD PAIN / TEMP > 100.3'F 10/13/20 21:45 UNV Multi-Ingredient Ointment (Analgesic [place]) 1 ike PRN QID PRN TP MUSCLE PAIN 10/13/20 21:45 UNV Al Hydroxide/Mg Hydroxide (Mylanta Plus Xs) 15 ml PRN AFTMEALHC PRN PO DYSPEPSIA 10/13/20 21:45 UNV Magnesium Hydroxide (Milk Of Magnesia) 2,400 mg PRN QHS PRN PO 3rd CHOICE CONSTIPATION 10/13/20 21:45 Acetaminophen (Tylenol) 650 mg PRN Q6HRS PRN PO MILD PAIN / TEMP > 100.3'F 10/13/20 21:45 10/14/20 16:44 Carbidopa/Levodopa (Sinemet 10/100) 1 tab QID PO 10/14/20 09:00 10/13/20 22:20 DC Divalproex Sodium (Depakote Er) 250 mg BID PO 10/14/20 09:00 10/13/20 22:20 DC Docusate Sodium (Colace) 100 mg PRN BID PRN PO 1ST CHOICE CONSTIPATION 10/13/20 21:45 Finasteride (Proscar) 5 mg QHS PO 10/14/20 21:00 10/13/20 22:20 DC Levothyroxine Sodium (Synthroid) 100 mcg DAILY06 PO 10/14/20 06:00 11/05/20 05:39 Al Hydroxide/Mg Hydroxide (Mylanta Plus Xs) 15 ml PRN AFTMEALHC PRN PO DYSPEPSIA 10/13/20 21:45 Multi-Ingredient Ointment (Analgesic [place]) 1 ike QID PRN TP MUSCLE PAIN 10/13/20 21:45 Mirtazapine (Remeron Tiki-Tab) 15 mg QHS PO 10/14/20 21:00 10/13/20 22:20 DC Olanzapine (ZyPREXA ZYDIS) 5 mg PRN Q2HRS PRN PO ANXIETY / AGITATION 10/13/20 21:45 10/26/20 13:38 DC 10/26/20 03:49 Polyethylene Glycol (miraLAX) 17 gm PRN BID PRN PO 2nd choice constipation 10/13/20 21:45 Potassium Chloride (Klor-Con) 10 meq DAILY PO 10/14/20 09:00 11/05/20 08:26 Quetiapine Fumarate (SEROquel) 25 mg BID PO 10/14/20 09:00 10/13/20 22:20 DC Sertraline HCl (Zoloft) 25 mg DAILY PO 10/14/20 09:00 11/05/20 08:27 Trazodone HCl (Desyrel) 50 mg PRN QHS PRN PO Insomnia May repeat x2 10/13/20 21:45 11/04/20 20:09 Vitamin D (Vitamin D3) 2,000 unit DAILY PO 10/14/20 09:00 11/05/20 08:26 Cyanocobalamin (Vitamin B-12) 1,000 mcg DAILY PO 10/14/20 09:00 11/05/20 08:26 Fluticasone Propionate (Flonase) 1 spray DAILY NS 10/14/20 09:00 11/04/20 04:56 Non-Formulary Medication (Magnesium Hydroxide (Milk Of Magnesia)) 2,400 mg PRN DAILY PRN PO CONSTIPATION 10/13/20 21:45 UNV Carbidopa/Levodopa (Sinemet 10/100) 1 tab QID PO 10/13/20 22:45 11/05/20 20:05 Divalproex Sodium (Depakote Er) 250 mg BID PO 10/13/20 22:45 11/05/20 20:05 Finasteride (Proscar) 5 mg QHS PO 10/13/20 22:45 11/05/20 20:05 Mirtazapine (Remeron Tiki-Tab) 15 mg QHS PO 10/13/20 22:45 11/05/20 20:05 Quetiapine Fumarate (SEROquel) 25 mg BID PO 10/13/20 22:45 11/05/20 20:05 Rivastigmine (Exelon) 1 patch DAILY TD 10/18/20 09:00 10/22/20 23:51 DC 10/22/20 08:48 Rivastigmine (Exelon) 1 patch DAILY TD 10/23/20 09:00 10/27/20 23:59 DC 10/27/20 09:17 Memantine (Namenda) 5 mg BID PO 10/19/20 21:00 10/29/20 20:59 DC 10/29/20 07:42 Rivastigmine (Exelon 13.3mg) 1 patch DAILY TD 10/28/20 07:00 11/05/20 08:25 Furosemide (Lasix) 80 mg 1X ONCE PO 10/22/20 10:15 10/22/20 10:16 DC 10/22/20 11:36 Quetiapine Fumarate (SEROquel) 12.5 mg 1700 PO 10/25/20 17:00 11/05/20 16:47 Olanzapine (ZyPREXA ZYDIS) 2.5 mg 0900,1700 PO 10/26/20 17:00 11/05/20 16:47 Nystatin (Nystop) 15 ike STK-MED ONCE TP 10/28/20 00:36 10/28/20 00:36 DC Nystatin (Nystop) 1 ike PRN BID PRN TP RASH 10/28/20 00:45 Olanzapine (ZyPREXA ZYDIS) 2.5 mg PRN Q2HR PRN PO PSYCHOSIS 10/28/20 14:30 11/01/20 05:13 Memantine (Namenda) 10 mg BID PO 10/30/20 09:00 10/29/20 20:06 DC Memantine (Namenda) 10 mg BID PO 10/29/20 21:00 11/05/20 20:05 I have reviewed the current psychotropics carefully including drug interactions. Risk benefit ratio favors no change other than as noted in my dictated progress note. 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
--- NOTE | 2020-11-05 23:16 | NUR ---
Pt located in the dayroom this evening watching the [employer] game. Compliant with whole medications floated in yogurt. Pleasant and cooperative.
[2020-11-06] MEDS ORDERED: MEMA10TA PO (02:34)
[2020-11-06] MEDS ORDERED: NYST15PO9 TP (02:35)
[2020-11-06] MEDS ORDERED: QUET25TA5 PO (02:36)
[2020-11-06] MEDS ORDERED: OLAN5TAB9 PO (02:36)
[2020-11-06] MEDS ORDERED: RIVA1PAT5 TD (02:38)
[2020-11-06] MEDS: LEVOTHYROXINE 100 MCG TABLET PO SCH (05:01)
[2020-11-06 06:28] VITALS: BP 114/68
[2020-11-06] MEDS: DIVALPROEX ER 250 MG TAB.ER.24H. PO SCH (08:56)
[2020-11-06] MEDS: POTASSIUM CHLORIDE 10 MEQ TABLET.ER. PO SCH (08:56)
[2020-11-06] MEDS: FLUTICASONE 50MCG/NASAL SPRAY 16GM BOTTLE. NS SCH (08:56)
[2020-11-06] MEDS: SERTRALINE 25 MG TABLET. PO SCH (08:57)
[2020-11-06] MEDS: QUEtiapine 25 MG TABLET. PO SCH (08:57)
[2020-11-06] MEDS: CYANOCOBALAMIN (VITAMIN B-12) 1,000 MCG TABLET. PO SCH (08:57)
[2020-11-06] MEDS: CHOLECALCIFEROL (VITAMIN D3) 1,000 UNIT TABLET PO SCH (08:57)
[2020-11-06] MEDS: RIVASTIGMINE 13.3MG PATCH. TD SCH (08:57)
[2020-11-06] MEDS: CARBIDOPA/LEVODOPA 10/100MG TABLET PO SCH ×2 (08:57→12:59)
[2020-11-06] MEDS: MEMANTINE 10 MG TABLET. PO SCH (08:57)
--- NOTE | 2020-11-06 09:59 | NUR ---
Pt is calm, cooperative, and compliant. No agitation, no aggression, no hallucinations, no delusions. He is compliant with his medication and assessment.
[2020-11-06] MEDS ORDERED: OLAN5TAB99 PO (10:20)
--- NOTE | 2020-11-06 13:43 | NUR ---
Transition Record was faxed to follow-up provider with the following elements: Reason for admission, procedures, tests, principal diagnosis, pending studies, patient instructions, 21/04 contact information for unit, phone number to obtain pending test results, plan for follow-up care, physician follow-up, advanced directive information, and medication list with dose, duration and instructions. This information was included in the following documents: History and physical, lab results, study results, progress notes, social work planning form, DC instruction form, patient visit summary, and medication reconciliation form. Date & time record faxed:11/06/20 1037 Record faxed to: Morris De Santiago Record discussed with/ report given to: Keely
--- NOTE | 2020-11-06 21:06 | PDOC ---
Exam Note: Tommy Note: Please also refer to the separate dictated note~for this date of service dictated separately.~Patient seen individually. Discussed the patient with Nursing staff reviewed the chart.~Reviewed interim history and current functioning. Reviewed vital signs,~Labs/ Radiology~and current medications noted below. Continue current treatment with the changes noted in the dictated addendum note Assessment: Vital Signs/I&O: Vital Signs Date Time Temp Pulse Resp B/P (MAP) Pulse Ox O2 Delivery O2 Flow Rate FiO2 11/06/20 06:28 97.1 69 18 114/68 (83) 96 11/05/20 15:59 Room Air I & O 11/05/20 11/05/20 11/06/20 15:00 23:00 07:00 Intake Total 480 ml 440 ml Balance 480 ml 440 ml Current Medications: Meds: Current Medications Medications (Trade) Dose Ordered Sig/Matilde Route PRN Reason Start Time Stop Time Status Last Admin Dose Admin Acetaminophen (Tylenol) 650 mg PRN Q6HRS PRN PO MILD PAIN / TEMP > 100.3'F 10/13/20 21:45 UNV Multi-Ingredient Ointment (Analgesic [place]) 1 ike PRN QID PRN TP MUSCLE PAIN 10/13/20 21:45 UNV Al Hydroxide/Mg Hydroxide (Mylanta Plus Xs) 15 ml PRN AFTMEALHC PRN PO DYSPEPSIA 10/13/20 21:45 UNV Magnesium Hydroxide (Milk Of Magnesia) 2,400 mg PRN QHS PRN PO 3rd CHOICE CONSTIPATION 10/13/20 21:45 11/06/20 13:45 DC Acetaminophen (Tylenol) 650 mg PRN Q6HRS PRN PO MILD PAIN / TEMP > 100.3'F 10/13/20 21:45 11/06/20 13:45 DC 10/14/20 16:44 Carbidopa/Levodopa (Sinemet 10/100) 1 tab QID PO 10/14/20 09:00 10/13/20 22:20 DC Divalproex Sodium (Depakote Er) 250 mg BID PO 10/14/20 09:00 10/13/20 22:20 DC Docusate Sodium (Colace) 100 mg PRN BID PRN PO 1ST CHOICE CONSTIPATION 10/13/20 21:45 11/06/20 13:45 DC Finasteride (Proscar) 5 mg QHS PO 10/14/20 21:00 10/13/20 22:20 DC Levothyroxine Sodium (Synthroid) 100 mcg DAILY06 PO 10/14/20 06:00 11/06/20 13:45 DC 11/06/20 05:01 Al Hydroxide/Mg Hydroxide (Mylanta Plus Xs) 15 ml PRN AFTMEALHC PRN PO DYSPEPSIA 10/13/20 21:45 11/06/20 13:45 DC Multi-Ingredient Ointment (Analgesic [place]) 1 ike QID PRN TP MUSCLE PAIN 10/13/20 21:45 11/06/20 13:45 DC Mirtazapine (Remeron Tiki-Tab) 15 mg QHS PO 10/14/20 21:00 10/13/20 22:20 DC Olanzapine (ZyPREXA ZYDIS) 5 mg PRN Q2HRS PRN PO ANXIETY / AGITATION 10/13/20 21:45 10/26/20 13:38 DC 10/26/20 03:49 Polyethylene Glycol (miraLAX) 17 gm PRN BID PRN PO 2nd choice constipation 10/13/20 21:45 11/06/20 13:45 DC Potassium Chloride (Klor-Con) 10 meq DAILY PO 10/14/20 09:00 11/06/20 13:45 DC 11/06/20 08:56 Quetiapine Fumarate (SEROquel) 25 mg BID PO 10/14/20 09:00 10/13/20 22:20 DC Sertraline HCl (Zoloft) 25 mg DAILY PO 10/14/20 09:00 11/06/20 13:45 DC 11/06/20 08:57 Trazodone HCl (Desyrel) 50 mg PRN QHS PRN PO Insomnia May repeat x2 10/13/20 21:45 11/06/20 13:45 DC 11/04/20 20:09 Vitamin D (Vitamin D3) 2,000 unit DAILY PO 10/14/20 09:00 11/06/20 13:45 DC 11/06/20 08:57 Cyanocobalamin (Vitamin B-12) 1,000 mcg DAILY PO 10/14/20 09:00 11/06/20 13:45 DC 11/06/20 08:57 Fluticasone Propionate (Flonase) 1 spray DAILY NS 10/14/20 09:00 11/06/20 13:45 DC 11/04/20 04:56 Non-Formulary Medication (Magnesium Hydroxide (Milk Of Magnesia)) 2,400 mg PRN DAILY PRN PO CONSTIPATION 10/13/20 21:45 UNV Carbidopa/Levodopa (Sinemet 10/100) 1 tab QID PO 10/13/20 22:45 11/06/20 13:45 DC 11/06/20 12:59 Divalproex Sodium (Depakote Er) 250 mg BID PO 10/13/20 22:45 11/06/20 13:45 DC 11/06/20 08:56 Finasteride (Proscar) 5 mg QHS PO 10/13/20 22:45 11/06/20 13:45 DC 11/05/20 20:05 Mirtazapine (Remeron Tiki-Tab) 15 mg QHS PO 10/13/20 22:45 11/06/20 13:45 DC 11/05/20 20:05 Quetiapine Fumarate (SEROquel) 25 mg BID PO 10/13/20 22:45 11/06/20 13:45 DC 11/06/20 08:57 Rivastigmine (Exelon) 1 patch DAILY TD 10/18/20 09:00 10/22/20 23:51 DC 10/22/20 08:48 Rivastigmine (Exelon) 1 patch DAILY TD 10/23/20 09:00 10/27/20 23:59 DC 10/27/20 09:17 Memantine (Namenda) 5 mg BID PO 10/19/20 21:00 10/29/20 20:59 DC 10/29/20 07:42 Rivastigmine (Exelon 13.3mg) 1 patch DAILY TD 10/28/20 07:00 11/06/20 13:45 DC 11/06/20 08:57 Furosemide (Lasix) 80 mg 1X ONCE PO 10/22/20 10:15 10/22/20 10:16 DC 10/22/20 11:36 Quetiapine Fumarate (SEROquel) 12.5 mg 1700 PO 10/25/20 17:00 11/06/20 13:45 DC 11/05/20 16:47 Olanzapine (ZyPREXA ZYDIS) 2.5 mg 0900,1700 PO 10/26/20 17:00 11/06/20 13:45 DC 11/06/20 08:57 Nystatin (Nystop) 15 ike STK-MED ONCE TP 10/28/20 00:36 10/28/20 00:36 DC Nystatin (Nystop) 1 iek PRN BID PRN TP RASH 10/28/20 00:45 11/06/20 13:45 DC Olanzapine (ZyPREXA ZYDIS) 2.5 mg PRN Q2HR PRN PO PSYCHOSIS 10/28/20 14:30 11/06/20 13:45 DC 11/01/20 05:13 Memantine (Namenda) 10 mg BID PO 10/30/20 09:00 10/29/20 20:06 DC Memantine (Namenda) 10 mg BID PO 10/29/20 21:00 11/06/20 13:45 DC 11/06/20 08:57 I have reviewed the current psychotropics carefully including drug interactions. Risk benefit ratio favors no change other than as noted in my dictated progress note. Diagnosis: Problems: (1) Impulse control disorder, unspecified (2) Anxiety disorder, unspecified (3) Dementia, vascular, with depression (4) Dementia, vascular, with delusions (5) Dementia in Alzheimer's disease with depression (6) Dementia in Alzheimer's disease with delusions (7) Major neurocognitive disorder (8) Lewy body dementia with behavioral disturbance JORGE COLLAZO MD Nov 06, 2020 21:06
--- NOTE | 2020-11-06 21:06 | PDOC ---
Exam Note: Tommy Note: This note is a late entry for 11/05/2020 covers elements not covered in my initial note. Subjective: The patient was seen on telehealth rounds in the evening of 11/05/2020 with Susi RN. Discussed with nursing staff, reviewed the chart. The patient just slept 6 hours previous night. The patient has been pleasant, compliant with his medications. He has been drinking excessive amounts of vegetable juice and this is being restricted. He has some pedal edema. We will defer to Dr. Ferrer for medical management. Appetite is better. He became somewhat anxious in the morning 8.30 and last night he was agitated, anxious, restless. Received Zyprexa p.r.n. at 8.30 a.m. Review of Systems: No CV, , pulmonary, eye, ENT system symptoms on review. Ambulation impaired with walker. Mental Status Exam: The patient is oriented to himself. He is verbal, interactive and as I questioned him he said he was going to watch the [employer] game and seemed to be aware of this. Insight and judgment, recent and remote memory, attention and concentration, fund of knowledge is poor consistent with his diagnosis. Laboratory Data: Reviewed. Impression: Major neurocognitive disorder Alzheimer vascular with delusion, depression. Anxiety disorder unspecified. Impulse control disorder unspecified. 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 Plan: No change from initial note. Assessment: Vital Signs/I&O: Vital Signs Date Time Temp Pulse Resp B/P (MAP) Pulse Ox O2 Delivery O2 Flow Rate FiO2 11/06/20 06:28 97.1 69 18 114/68 (83) 96 11/05/20 15:59 Room Air I & O 11/05/20 11/05/20 11/06/20 15:00 23:00 07:00 Intake Total 480 ml 440 ml Balance 480 ml 440 ml Current Medications: Meds: Current Medications Medications (Trade) Dose Ordered Sig/Matilde Route PRN Reason Start Time Stop Time Status Last Admin Dose Admin Acetaminophen (Tylenol) 650 mg PRN Q6HRS PRN PO MILD PAIN / TEMP > 100.3'F 10/13/20 21:45 UNV Multi-Ingredient Ointment (Analgesic [place]) 1 ike PRN QID PRN TP MUSCLE PAIN 10/13/20 21:45 UNV Al Hydroxide/Mg Hydroxide (Mylanta Plus Xs) 15 ml PRN AFTMEALHC PRN PO DYSPEPSIA 10/13/20 21:45 UNV Magnesium Hydroxide (Milk Of Magnesia) 2,400 mg PRN QHS PRN PO 3rd CHOICE CONSTIPATION 10/13/20 21:45 11/06/20 13:45 DC Acetaminophen (Tylenol) 650 mg PRN Q6HRS PRN PO MILD PAIN / TEMP > 100.3'F 10/13/20 21:45 11/06/20 13:45 DC 10/14/20 16:44 Carbidopa/Levodopa (Sinemet 10/100) 1 tab QID PO 10/14/20 09:00 10/13/20 22:20 DC Divalproex Sodium (Depakote Er) 250 mg BID PO 10/14/20 09:00 10/13/20 22:20 DC Docusate Sodium (Colace) 100 mg PRN BID PRN PO 1ST CHOICE CONSTIPATION 10/13/20 21:45 11/06/20 13:45 DC Finasteride (Proscar) 5 mg QHS PO 10/14/20 21:00 10/13/20 22:20 DC Levothyroxine Sodium (Synthroid) 100 mcg DAILY06 PO 10/14/20 06:00 11/06/20 13:45 DC 11/06/20 05:01 Al Hydroxide/Mg Hydroxide (Mylanta Plus Xs) 15 ml PRN AFTMEALHC PRN PO DYSPEPSIA 10/13/20 21:45 11/06/20 13:45 DC Multi-Ingredient Ointment (Analgesic [place]) 1 ike QID PRN TP MUSCLE PAIN 10/13/20 21:45 11/06/20 13:45 DC Mirtazapine (Remeron Tiki-Tab) 15 mg QHS PO 10/14/20 21:00 10/13/20 22:20 DC Olanzapine (ZyPREXA ZYDIS) 5 mg PRN Q2HRS PRN PO ANXIETY / AGITATION 10/13/20 21:45 10/26/20 13:38 DC 10/26/20 03:49 Polyethylene Glycol (miraLAX) 17 gm PRN BID PRN PO 2nd choice constipation 10/13/20 21:45 11/06/20 13:45 DC Potassium Chloride (Klor-Con) 10 meq DAILY PO 10/14/20 09:00 11/06/20 13:45 DC 11/06/20 08:56 Quetiapine Fumarate (SEROquel) 25 mg BID PO 10/14/20 09:00 10/13/20 22:20 DC Sertraline HCl (Zoloft) 25 mg DAILY PO 10/14/20 09:00 11/06/20 13:45 DC 11/06/20 08:57 Trazodone HCl (Desyrel) 50 mg PRN QHS PRN PO Insomnia May repeat x2 10/13/20 21:45 11/06/20 13:45 DC 11/04/20 20:09 Vitamin D (Vitamin D3) 2,000 unit DAILY PO 10/14/20 09:00 11/06/20 13:45 DC 11/06/20 08:57 Cyanocobalamin (Vitamin B-12) 1,000 mcg DAILY PO 10/14/20 09:00 11/06/20 13:45 DC 11/06/20 08:57 Fluticasone Propionate (Flonase) 1 spray DAILY NS 10/14/20 09:00 11/06/20 13:45 DC 11/04/20 04:56 Non-Formulary Medication (Magnesium Hydroxide (Milk Of Magnesia)) 2,400 mg PRN DAILY PRN PO CONSTIPATION 10/13/20 21:45 UNV Carbidopa/Levodopa (Sinemet 10/100) 1 tab QID PO 10/13/20 22:45 11/06/20 13:45 DC 11/06/20 12:59 Divalproex Sodium (Depakote Er) 250 mg BID PO 10/13/20 22:45 11/06/20 13:45 DC 11/06/20 08:56 Finasteride (Proscar) 5 mg QHS PO 10/13/20 22:45 11/06/20 13:45 DC 11/05/20 20:05 Mirtazapine (Remeron Tiki-Tab) 15 mg QHS PO 10/13/20 22:45 11/06/20 13:45 DC 11/05/20 20:05 Quetiapine Fumarate (SEROquel) 25 mg BID PO 10/13/20 22:45 11/06/20 13:45 DC 11/06/20 08:57 Rivastigmine (Exelon) 1 patch DAILY TD 10/18/20 09:00 10/22/20 23:51 DC 10/22/20 08:48 Rivastigmine (Exelon) 1 patch DAILY TD 10/23/20 09:00 10/27/20 23:59 DC 10/27/20 09:17 Memantine (Namenda) 5 mg BID PO 10/19/20 21:00 10/29/20 20:59 DC 10/29/20 07:42 Rivastigmine (Exelon 13.3mg) 1 patch DAILY TD 10/28/20 07:00 11/06/20 13:45 DC 11/06/20 08:57 Furosemide (Lasix) 80 mg 1X ONCE PO 10/22/20 10:15 10/22/20 10:16 DC 10/22/20 11:36 Quetiapine Fumarate (SEROquel) 12.5 mg 1700 PO 10/25/20 17:00 11/06/20 13:45 DC 11/05/20 16:47 Olanzapine (ZyPREXA ZYDIS) 2.5 mg 0900,1700 PO 10/26/20 17:00 11/06/20 13:45 DC 11/06/20 08:57 Nystatin (Nystop) 15 ike STK-MED ONCE TP 10/28/20 00:36 10/28/20 00:36 DC Nystatin (Nystop) 1 ike PRN BID PRN TP RASH 10/28/20 00:45 11/06/20 13:45 DC Olanzapine (ZyPREXA ZYDIS) 2.5 mg PRN Q2HR PRN PO PSYCHOSIS 10/28/20 14:30 11/06/20 13:45 DC 11/01/20 05:13 Memantine (Namenda) 10 mg BID PO 10/30/20 09:00 10/29/20 20:06 DC Memantine (Namenda) 10 mg BID PO 10/29/20 21:00 11/06/20 13:45 DC 11/06/20 08:57 I have reviewed the current psychotropics carefully including drug interactions. Risk benefit ratio favors no change other than as noted in my dictated progress note. Diagnosis: Problems: (1) Impulse control disorder, unspecified (2) Anxiety disorder, unspecified (3) Dementia, vascular, with depression (4) Dementia, vascular, with delusions (5) Dementia in Alzheimer's disease with depression (6) Dementia in Alzheimer's disease with delusions (7) Major neurocognitive disorder (8) Lewy body dementia with behavioral disturbance JORGE COLLAZO MD Nov 06, 2020 21:06
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
== END 2020-11-06 13:45 | DRG 56 ==
LOC: GEROPSY 19:19
PROVIDERS: ADMIT Psychiatry & Neurology Psychiatry; ATTEND Psychiatry & Neurology Psychiatry
DX: G20 Parkinson's disease (principal); F02.81 Dementia in other diseases classified elsewhere, unspecified severity, with behavioral disturbance; E43 Unspecified severe protein-calorie malnutrition; F01.51 Vascular dementia, unspecified severity, with behavioral disturbance; G30.9 Alzheimer's disease, unspecified; E03.9 Hypothyroidism, unspecified; F32.9 Major depressive disorder, single episode, unspecified; F41.9 Anxiety disorder, unspecified; F63.9 Impulse disorder, unspecified; G40.909 Epilepsy, unspecified, not intractable, without status epilepticus; I10 Essential (primary) hypertension; I25.10 Atherosclerotic heart disease of native coronary artery without angina pectoris; N40.0 Benign prostatic hyperplasia without lower urinary tract symptoms; Z20.822 Contact with and (suspected) exposure to COVID-19; Z66 Do not resuscitate; Z68.26 Body mass index [BMI] 26.0-26.9, adult
CPT/HCPCS: 36415; 80053; 85025; U0003; 97535